=== PATIENT | female | born 1935 | race African-American/Black ===

== ENCOUNTER 2017-04-28 15:46 | Inpatient (IN) | payer OTHER ==
[2017-04-28] MEDS ORDERED: morphine CARPU-JECT 2 MG/1 ML DISP.SYRIN IVPUSH ONE (16:04)
--- NOTE | 2017-04-28 16:48 | PDOC ---
History of Present Illness - General Chief Complaint: Injury Stated Complaint: FALL Time Seen by Provider: 04/28/17 15:55 History Source: Patient - History of Present Illness Initial Comments: 04/28/17 18:32 82F with pmh of anemia, HTN, DM2 uncompliant on meds([facility]), major depression schizophrenia, sent from long-term for AMS and 2 unwitnessed falls on walker and general lethargy for the past 2 days. Left leg seemed shorter than the right to EMS. Patient is unable to communicate. 04/28/17 18:47 04/28/17 18:52 04/28/17 19:42 Past History - Past Medical History Allergies/Adverse Reactions: Allergies Allergy/AdvReac Type Severity Reaction Status Date / Time No Known Allergies Allergy Verified 05/02/14 22:50 Home Medications: Ambulatory Orders Acetaminophen [Acetaminophen 8 Hour] 650 mg PO Q6H PRN 04/28/17 Ammonium Lactate Lotion [Lac-Hydrin 12% Lotion -] 1 applic TP ASDIR 04/28/17 Insulin Glargine,Hum.rec.anlog [Lantus Solostar PEN (NF)] 25 units SQ DAILY Insulin Regular [NOVOLIN R VIAL *IVPUSH / ER / ICU Only*] 0 unit SQ BID Losartan Potassium 100 mg PO DAILY 04/28/17 Olanzapine 15 mg PO DAILY 04/28/17 Ranitidine [Zantac -] 150 mg PO DAILY 04/28/17 Timolol 0.5% [Timoptic 0.5%] 1 drop OD BID 04/28/17 Anemia: Yes Cancer: Yes (colon) Dementia: Yes Diabetes: Yes HTN: Yes Hypercholesterolemia: Yes - Surgical History Cholecystectomy: Yes - Immunization History Td Vaccination: Yes Immunization Up to Date: Yes - Psycho/Social/Smoking Cessation Hx Anxiety: No Suicidal Ideation: No Smoking Status: No Smoking History: Unknown if ever smoked Years of Tobacco Use: 0 Have you smoked in the past 12 months: No Number of Cigarettes Smoked Daily: 0 Cigars Per Day: 0 Information on smoking cessation initiated: No Hx Alcohol Use: No Drug/Substance Use Hx: No Substance Use Type: None Hx Substance Use Treatment: No Review of Systems - Review of Systems Able to Perform ROS?: No (AMS) *Physical Exam - Vital Signs Last Vital Signs Temp Pulse Resp BP Pulse Ox 98.3 F 96 H 20 148/89 100 04/28/17 16:22 04/28/17 16:22 04/28/17 16:22 04/28/17 16:22 04/28/17 16:22 - Physical Exam General Appearance: Yes: Nourished, Disheveled Respiratory/Chest: positive: Lungs Clear, Normal Breath Sounds. negative: Chest Tender, Respiratory Distress Cardiovascular: positive: Regular Rhythm, Regular Rate, S1, S2 Vascular Pulses: Dorsalis-Pedis (R): 1+, Doralis-Pedis (L): 1+ Gastrointestinal/Abdominal: positive: Normal Bowel Sounds, Soft, Protuberent. negative: Tenderness Musculoskeletal: positive: Other (patient tender upon any pelvic movement) Integumentary: negative: Cyanotic, Pale, Cold, Diaphoresis Neurologic: positive: Respond to painful stimul, Confused, Disoriented. negative: Fully Oriented, Alert, Normal Mood/Affect ED Treatment Course - LABORATORY CBC & Chemistry Diagram: 04/28/17 16:02 04/28/17 16:02 - RADIOLOGY Radiology Studies Ordered: Category Date Time Status CHEST X-RAY PORTABLE* [RAD] Stat Radiology 04/28/17 16:08 Ordered Medical Decision Making - Medical Decision Making 04/28/17 18:52 82F with pmh of anemia, HTN, DM2 uncompliant on meds(fs 374), major depression schizophrenia, sent from long-term for AMS and 2 unwitnessed falls on walker. Patient is unable to communicate. tachy at 96 cxr: neg xray Left pelvis/hip/knee: negative for fractures. labs: 320 glucose, urine + for UTI. PAtient to be admitted to med/surg for UTI by dr. Cortez. 04/28/17 19:35 04/28/17 19:45
[2017-04-28] MEDS ORDERED: morphine CARPU-JECT 4 MG/1 ML DISP.SYRIN ONE (17:03)
--- NOTE | 2017-04-28 17:25 | PDOC ---
Attending Attestation - HPI HPI: The patient is an 82 yo F with a PMHx of schizophrenia, major depression, dementia, IDDM, HLD, HTN, anemia who presents s/p fall unwitnessed fall at [facility] with AMS. As per senior care records, patient has been sleeping all day and has bilateral LE edema. Patient is a poor historian secondary to clinical condition. Patient is Full Code. Allergies: NKDA - Physicial Exam PE: GENERAL: Well developed, well nourished. Awake and alert. No acute distress. HEENT: Normocephalic, atraumatic. PERRLA, EOMI. No conjunctival pallor. Sclera are non- icteric. Dry mucous membranes. Oropharynx is clear. NECK: Supple. Full ROM. No JVD. Carotid pulses 2+ and symmetric, without bruits. No thyromegaly. No lymphadenopathy. CARDIOVASCULAR: Tachycardic. Regular rhythm. Systolic murmur, rubs, or gallops. Distal pulses are 2+ and symmetric. PULMONARY: No evidence of respiratory distress. Lungs clear to auscultation bilaterally. No wheezing, rales or rhonchi. ABDOMINAL: Soft. Non-tender. Non-distended. No rebound or guarding. No organomegaly. Normoactive bowel sounds. MUSCULOSKELETAL Normal range of motion at all joints. No bony deformities or tenderness. No CVA tenderness. EXTREMITIES: No cyanosis. No clubbing. Trace pitting edema in bilateral LE. No calf tenderness. SKIN: Warm and dry. Normal capillary refill. No rashes. No jaundice. No decubitus ulcers. NEUROLOGICAL: No gross focal neurological deficits. PSYCHIATRIC: Cooperative. Good eye contact. Appropriate mood and affect. - Medical Decision Making Paged Dr. Cortez @ 19:15. Awaiting call back. Documentation prepared by Tarsha Sherman, acting as medical device sales consultant for Viviane Boogie MD/DO. <Tarsha Sherman - Last Filed: 04/28/17 19:14> - Resident Resident Name: Pranav Nuñez - HPI HPI: 04/28/17 19:54 82 yo from senior care after report of a fall -pmh diabetes,dementia,schizophrenia <Viviane Boogie - Last Filed: 04/28/17 19:55>
[2017-04-28 17:29] LABS: MCH 29.5 pg (25.7-33.7); MCHC 33.8 g/dl (32.0-36.0); MEAN CELL VOLUME 87.3 fl (80-96); MEAN PLT VOLUME 8.8 fl (7.5-11.1); PLATELET COUNT 361 K/MM3 (134-434); RDW 15.1 % (11.6-15.6); WHITE BLOOD COUNT 8.6 K/mm3 (4.0-10.0)
[2017-04-28 17:32] LABS: URINE APPEARANCE TURBID; URINE BILIRUBIN NEGATIVE (NEGATIVE); URINE BLOOD 2+ (NEGATIVE); URINE COLOR YELLOW; URINE GLUCOSE (UA) 3+ (NEGATIVE); URINE KETONE NEGATIVE (NEGATIVE); URINE NITRITE NEGATIVE (NEGATIVE); URINE UROBILINOGEN NEGATIVE mg/dL (0.2-1.0)
[2017-04-28 17:35] LABS: URINE LEUK ESTERASE 2+ (NEGATIVE); URINE PROTEIN 2+ (NEGATIVE)
[2017-04-28 17:41] LABS: URINE BACTERIA MANY /hpf (NONE SEEN); URINE HYALINE CAST 197 /lpf; URINE MUCUS MANY; URINE RBC 94 /hpf (0-3); URINE WBC 1695 /hpf (3-5); YEAST MANY
[2017-04-28 17:57] LABS: ALBUMIN 3.1 g/dl (3.4-5.0); ANION GAP 10 (8-16); BILIRUBIN,TOTAL 0.4 mg/dL (0.2-1.0); CALCIUM 9.3 mg/dL (8.5-10.1); CO2 24 mmol/L (21-32); CREATININE 2.4 mg/dL (0.55-1.02); SGOT/AST 28 U/L (15-37); SGPT/ALT 22 U/L (12-78)
[2017-04-28 18:05] LABS: ALK PHOS 135 U/L (45-117); THYROID STIMULATING HORMONE 0.83 uIU/ml (0.358-3.74)
[2017-04-28 18:08] LABS: GLUCOSE,RANDOM 320 mg/dL (74-106)
[2017-04-28 18:47] LABS: PLATELET ESTIMATE ADEQUATE (NORMAL)
[2017-04-28] MEDS ORDERED: LEVOFLOXACIN 500 MG IVPB 100 ML IVPB ONE ×2 (19:12→20:48)
--- NOTE | 2017-04-28 19:47 | PDOC ---
*Physical Exam - Vital Signs Last Vital Signs Temp Pulse Resp BP Pulse Ox 98.3 F 96 H 20 148/89 100 04/28/17 16:22 04/28/17 16:22 04/28/17 16:22 04/28/17 16:22 04/28/17 16:22 <Zeinab Hawk - Last Filed: 04/28/17 19:43> - Vital Signs Last Vital Signs Temp Pulse Resp BP Pulse Ox 98.3 F 96 H 20 148/89 100 04/28/17 16:22 04/28/17 16:22 04/28/17 16:22 04/28/17 16:22 04/28/17 16:22 <KeaganViviane Katie - Last Filed: 04/28/17 19:57> ED Treatment Course - LABORATORY CBC & Chemistry Diagram: 04/28/17 16:02 04/28/17 16:02 - ADDITIONAL ORDERS Additional order review: Laboratory Results 04/28/17 04/28/17 04/28/17 17:47 16:02 16:02 Sodium 136 Potassium 4.5 Chloride 102 Carbon Dioxide 24 Anion Gap 10 BUN 59 H D Creatinine 2.4 H D Creat Clearance w eGFR 19.23 Random Glucose 320 H* D Calcium 9.3 Total Bilirubin 0.4 AST 28 D ALT 22 D Alkaline Phosphatase 135 H Total Protein 7.0 Albumin 3.1 L TSH 0.83 Urine Color Yellow Urine Appearance Turbid Urine pH 5.0 Urine Protein 2+ H Urine Glucose (UA) 3+ H Urine Ketones Negative Urine Blood 2+ H Urine Nitrite Negative Urine Bilirubin Negative Urine Urobilinogen Negative Ur Leukocyte Esterase 2+ H Urine RBC 94 Urine WBC 1695 Urine Bacteria Many Hyaline Casts 197 Urine Mucus Many Urine Yeast Many Acetone, Qual Positive, trace 04/28/17 16:02 RBC 3.43 L MCV 87.3 MCHC 33.8 RDW 15.1 D MPV 8.8 D Neutrophils % 78.0 Lymphocytes % 11.0 D Monocytes % 9.0 Eosinophils % 1.0 - Medications Given in the ED: ED Medications Discontinued Medications Generic Name Dose Route Start Last Admin Trade Name Freq PRN Reason Stop Dose Admin Morphine Sulfate 2 mg 04/28/17 16:04 04/28/17 17:16 Morphine Injection - IVPUSH 04/28/17 16:05 2 mg ONCE ONE Administration <Zeinab Hawk - Last Filed: 04/28/17 19:43> - LABORATORY CBC & Chemistry Diagram: 04/28/17 16:02 04/28/17 16:02 - ADDITIONAL ORDERS Additional order review: Laboratory Results 04/28/17 04/28/17 04/28/17 17:47 16:02 16:02 Sodium 136 Potassium 4.5 Chloride 102 Carbon Dioxide 24 Anion Gap 10 BUN 59 H D Creatinine 2.4 H D Creat Clearance w eGFR 19.23 Random Glucose 320 H* D Calcium 9.3 Total Bilirubin 0.4 AST 28 D ALT 22 D Alkaline Phosphatase 135 H Total Protein 7.0 Albumin 3.1 L TSH 0.83 Urine Color Yellow Urine Appearance Turbid Urine pH 5.0 Urine Protein 2+ H Urine Glucose (UA) 3+ H Urine Ketones Negative Urine Blood 2+ H Urine Nitrite Negative Urine Bilirubin Negative Urine Urobilinogen Negative Ur Leukocyte Esterase 2+ H Urine RBC 94 Urine WBC 1695 Urine Bacteria Many Hyaline Casts 197 Urine Mucus Many Urine Yeast Many Acetone, Qual Positive, trace 04/28/17 16:02 RBC 3.43 L MCV 87.3 MCHC 33.8 RDW 15.1 D MPV 8.8 D Neutrophils % 78.0 Lymphocytes % 11.0 D Monocytes % 9.0 Eosinophils % 1.0 - RADIOLOGY Radiology Studies Ordered: Category Date Time Status KNEE 2 POS-LEFT [RAD] Stat Radiology 04/28/17 17:43 Completed - Medications Given in the ED: ED Medications Discontinued Medications Generic Name Dose Route Start Last Admin Trade Name Brentonq PRN Reason Stop Dose Admin Morphine Sulfate 2 mg 04/28/17 16:04 04/28/17 17:16 Morphine Injection - IVPUSH 04/28/17 16:05 2 mg ONCE ONE Administration <Viviane Boogie - Last Filed: 04/28/17 19:57> Medical Decision Making - Medical Decision Making 04/28/17 19:43 Took signout from excellent Dr. Pranav Nuñez. 82 yo female with h/o DM, HTN, anemia, schizophrenia, depression, and non-adherence to medication regimen ( refuses them at her SNF) who presented s/p unwitnessed falls x2 at her care facility, [facility] as well. Pt herself is non-communicative here in the ED. Possibly shortened and rotated lower extremity prompted LE/pelvis x-rays which were negative. Head CT without acute changes. Dr. Cortez graciously admits to Med/Surg. <Zeinab Hawk - Last Filed: 04/28/17 19:43> *DC/Admit/Observation/Transfer <Zeinab Hawk - Last Filed: 04/28/17 19:43> - Discharge Dispostion Admit: Yes <Viviane Boogie - Last Filed: 04/28/17 19:57> Diagnosis at time of Disposition: Poorly controlled diabetes mellitus Urinary tract infection Qualifiers: Urinary tract infection type: site unspecified Hematuria presence: without hematuria Qualified Code(s): N39.0 - Urinary tract infection, site not specified Acute renal failure Qualifiers: Acute renal failure type: unspecified Qualified Code(s): N17.9 - Acute kidney failure, unspecified Dementia Qualifiers: Dementia type: unspecified type Dementia behavioral disturbance: with behavioral disturbance Qualified Code(s): F03.91 - Unspecified dementia with behavioral disturbance Schizophrenia Qualifiers: Schizophrenia type: unspecified Qualified Code(s): F20.9 - Schizophrenia, unspecified
[2017-04-28] MEDS ORDERED: INSULIN (NOVOLOG) ASPART 100 UNITS/ML 10ML VIAL SQ STA (19:52)
[2017-04-28] MEDS ORDERED: SODIUM CHLORIDE 250 ML IV STA (19:54)
[2017-04-28] MEDS ORDERED: INSULIN (NOVOLOG) ASPART 100 UNITS/ML 10ML VIAL ONE (20:50)
[2017-04-29] MEDS: INSULIN SLIDING SCALE (NOVOLOG) 1 VIAL SQ SCH ×4 (06:33→22:35)
[2017-04-29 07:34] LABS: MCH 29.9 pg (25.7-33.7); MCHC 34.3 g/dl (32.0-36.0); MEAN PLT VOLUME 8.5 fl (7.5-11.1); PLATELET COUNT 338 K/MM3 (134-434); RDW 15.1 % (11.6-15.6); WHITE BLOOD COUNT 8.3 K/mm3 (4.0-10.0)
[2017-04-29 08:16] LABS: ALBUMIN 2.8 g/dl (3.4-5.0); ANION GAP 12 (8-16); CALCIUM 9.1 mg/dL (8.5-10.1); CO2 23 mmol/L (21-32); GLUCOSE,RANDOM 186 mg/dL (74-106)
[2017-04-29 08:21] LABS: ALK PHOS 122 U/L (45-117); BILIRUBIN,TOTAL 0.5 mg/dL (0.2-1.0); CREATININE 2.1 mg/dL (0.55-1.02); SGOT/AST 26 U/L (15-37); SGPT/ALT 21 U/L (12-78); TOT PROT 6.5 g/dl (6.4-8.2)
[2017-04-29] MEDS ORDERED: ACETAMINOPHEN 650 MG PO PRN (08:34)
--- NOTE | 2017-04-29 08:43 | HP ---
Admitting History and Physical - Admission History of Present Illness: 82 yo female with h/o DM, HTN, anemia, schizophrenia, depression, and non- adherence to medication regimen (refuses them at her SNF) who presented s/p unwitnessed falls x2 at her care facility, [facility] as well. Pt herself is non- communicative here in the ED. Possibly shortened and rotated lower extremity prompted LE/pelvis x-rays which were negative. Head CT without acute changes. 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: Dementia (very slight, had preop psych consult and deemed competant.) Cardiovascular: Yes: HTN, Hyperlipdemia Pulmonary: Yes: Other (preop left effusion on cxr) Gastrointestinal: Yes: Cancer, Other (liver lesion on preop ct) Hepatobiliary: Yes: Other (liver lesion on preop ct and h.o elevated LFT 2010) Renal/: Yes: UTI (last urine cs sterile), Other (failed post op trial of void) Heme/Onc: Yes: Anemia (repleted 3 uprbc) Musculoskeletal: Yes: Osteoarthritis (on ct and shonda fusion L5S1) Endocrine: Yes: Diabetes Mellitus - Past Surgical History Past Surgical History: Yes: Cholecystectomy - Smoking History Smoking history: Unknown if ever smoked Have you smoked in the past 12 months: No Aproximately how many cigarettes per day: 0 - Alcohol/Substance Use Hx Alcohol Use: No History of Substance Use: reports: None - Social History ADL: Independent History of Recent Travel: No Home Medications - Allergies Allergies/Adverse Reactions: Allergies Allergy/AdvReac Type Severity Reaction Status Date / Time No Known Allergies Allergy Verified 05/02/14 22:50 - Home Medications Home Medications: Ambulatory Orders Acetaminophen [Acetaminophen 8 Hour] 650 mg PO Q6H PRN 04/28/17 Ammonium Lactate Lotion [Lac-Hydrin 12% Lotion -] 1 applic TP ASDIR 04/28/17 Insulin Glargine,Hum.rec.anlog [Lantus Solostar PEN (NF)] 25 units SQ DAILY Insulin Regular [NOVOLIN R VIAL *IVPUSH / ER / ICU Only*] 0 unit SQ BID Losartan Potassium 100 mg PO DAILY 04/28/17 Olanzapine 15 mg PO DAILY 04/28/17 Ranitidine [Zantac -] 150 mg PO DAILY 07/24/17 Timolol 0.5% [Timoptic 0.5%] 1 drop OD BID 04/28/17 Family Disease History - Family Disease History Family Disease History: Other: Father (longevity ) Physical Examination Vital Signs: Vital Signs Temperature 99.4 F 04/29/17 06:41 Pulse Rate 97 H 04/29/17 06:41 Respiratory Rate 18 04/29/17 06:41 Blood Pressure 109/67 04/29/17 06:41 O2 Sat by Pulse Oximetry (%) 98 04/28/17 23:05 Cardiovascular: Yes: S1, S2 Respiratory: Yes: Regular, CTA Bilaterally Gastrointestinal: Yes: Normal Bowel Sounds, Soft. No: Tenderness Edema: No Neurological: Yes: Alert, Other (uncooperative--agitation) Labs: CBC, BMP 04/29/17 05:35 04/29/17 05:35 Problem List - Problems (1) UTI (urinary tract infection) Assessment/Plan: iv abx cultures id consult Code(s): N39.0 - URINARY TRACT INFECTION, SITE NOT SPECIFIED Qualifiers: Urinary tract infection type: site unspecified Hematuria presence: without hematuria Qualified Code(s): N39.0 - Urinary tract infection, site not specified (2) Acute renal failure (ARF) Assessment/Plan: ivf monitor Code(s): N17.9 - ACUTE KIDNEY FAILURE, UNSPECIFIED Qualifiers: Acute renal failure type: unspecified Qualified Code(s): N17.9 - Acute kidney failure, unspecified (3) Dementia Code(s): F03.90 - UNSPECIFIED DEMENTIA WITHOUT BEHAVIORAL DISTURBANCE Qualifiers: Dementia type: unspecified type Dementia behavioral disturbance: with behavioral disturbance Qualified Code(s): F03.91 - Unspecified dementia with behavioral disturbance; F10.97 - Alcohol use, unspecified with alcohol- induced persisting dementia (4) Poorly controlled diabetes mellitus Assessment/Plan: insulin bgm endo Code(s): E11.65 - TYPE 2 DIABETES MELLITUS WITH HYPERGLYCEMIA (5) Schizophrenia Assessment/Plan: zyprexa psych Code(s): F20.9 - SCHIZOPHRENIA, UNSPECIFIED Qualifiers: Schizophrenia type: unspecified Qualified Code(s): F20.9 - Schizophrenia, unspecified
[2017-04-29] MEDS ORDERED: PATIENT'S OWN MEDICATION (NON-FORMULARY) (Insulin Glargine,Hum.Rec.Anlog 25 UNITS) SQ SCH (10:00)
[2017-04-29] MEDS ORDERED: PATIENT'S OWN MEDICATION (NON-FORMULARY) (Olanzapine [Olanzapine] 15 MG) PO SCH (10:00)
--- NOTE | 2017-04-29 10:23 | CONSULT ---
Admitting History and Physical - Primary Care Physician PCP: Lorraine Cortez - Admission History of Present Illness: HPI: Per EMR: "The patient is an 82 yo F with a PMHx of schizophrenia, major depression, dementia, IDDM, HLD, HTN, anemia who presents s/p fall unwitnessed fall at the [facility] with AMS. As per snf records, patient has been sleeping all day and has bilateral LE edema. Patient is a poor historian secondary to clinical condition. 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: Dementia (very slight, had preop psych consult and deemed competant.) Cardiovascular: Yes: HTN, Hyperlipdemia Pulmonary: Yes: Other (preop left effusion on cxr) Gastrointestinal: Yes: Cancer, Other (liver lesion on preop ct) Hepatobiliary: Yes: Other (liver lesion on preop ct and h.o elevated LFT 2010) Renal/: Yes: UTI (last urine cs sterile), Other (failed post op trial of void) Heme/Onc: Yes: Anemia (repleted 3 uprbc) Musculoskeletal: Yes: Osteoarthritis (on ct and shonda fusion L5S1) Endocrine: Yes: Diabetes Mellitus - Past Surgical History Past Surgical History: Yes: Cholecystectomy - Smoking History Smoking history: Unknown if ever smoked Have you smoked in the past 12 months: No Aproximately how many cigarettes per day: 0 - Alcohol/Substance Use Hx Alcohol Use: No History of Substance Use: reports: None - Social History ADL: Independent History of Recent Travel: No History - Admission Reason For Visit: FALL - Diagnostics X-ray: Report Reviewed - General Mental Status: Awake and Alert, Flat Affect Attention: Distractible Head/Neck Control: Good - Hearing Hearing: Functional Speech Evaluation - Communication Primary Language: GRENADIAN Communication: Yes: Simple Responses (Mostly "I dont know', "Tiffany","Leave me alone" but no other verbal responses to questions. Impaired speech iniyiation. Screams at times with frustration. Y/N headshake mostly. Impaired orientation, insight.) - Speech Production Intelligibility: Yes: WNL (Speech precise) - Speech Characteristics Voice Loudness: Normal Voice Pitch: Yes: Normal Voice Phonatory-based Quality: Yes: Normal Speech Clarity: < 100% Nasal Resonance: Normal Articulation: Yes: Precise - Language/Auditory Comprehension Follows: Yes: 1 Stage Simple Commands Observation: Able to respond to yes/no queries: Yes (seems fairly accurate), Comprehends Conversational Speech: Yes (simple), Benefits from Slow Speech: Yes , Benefits from Repetiton: Yes - Swallow Evaluation/Bedside Assessment Current Nutritional Intake: Regular, Thin Liquids Oral Secretions: Yes: WFL Dentition: Yes: Missing Teeth Facial Symmetry at Rest: Symmetrical Facial Symmetry on Retraction: Symmetrical Facial Movement: Controlled Jaw Position: Open at Rest Lingual Movement: Symmetric Lingual Speed of Movement: Normal Velopharyngeal Movement: Normal Laryngeal Movement: Able to Palpate Rate of Intake: Impulsive (self feeding impulsive, loads mouth. Improved clearance with cues to swallow first,before taking more.) Labial Seal: WFL Chewing: Impaired (fairly good. Missing dentition. Impulsive) Oral Prep Time: Increased A-P Transit: WFL Pocketing: Present Bilaterally Timing of Swallow: Delayed Coughing/Throat Clear: No Change in Voice: No Recommendations - Speech Evaluation, Impression/Plan Impression: Impaired speech initiation with limited verbalizations.Y/N headshake. No dysarthria.self feeding impulsive, loads mouth. Improved clearance with cues to swallow first,before taking more.No overt signs of aspiration on thin liquid. - Dysphagia Impressions/Plan Dysphagia Impressions: Mild Impairment *Silent aspiration: cannot be R/O at bedside Dysphagia Treatment Plan: Small Bites, Chin Tuck/Down, Clear Pocket Food, Safe Rate, 1/2 tsp. at a time, Elevate HOB during feed, Other (supervision with meals to reduce impulsive intake which can lead to choking event.) - Recommendations Diet Consistency: Dysphagia Whole (soft, easy to chew.) Medication Administration: Whole with water Liquids: Thin Liquids
--- NOTE | 2017-04-29 10:37 | PN ---
Progress Note (short form) - Note Progress Note: ID Consult dictated UTI/ Possible sepsis secondary to UTI Toxic-metabolic encephalopathy Uncontrolled diabetes mellitus Azotemia Pending sepsis work up, empiric ceftriaxone
[2017-04-29] MEDS: RANITIDINE HCL 150 MG TABLET (FP) PO SCH (10:45)
[2017-04-29] MEDS: LOSARTAN POTASSIUM 50 MG TABLET (FP) PO SCH (10:45)
[2017-04-29] MEDS: cefTRIAXone 1 GM/50 ML BAG (PRE-DOCKED) IVPB SCH (10:46)
[2017-04-29] MEDS: AMMONIUM LACTATE 12% LOTION 225 GM BOTTLE TP SCH (10:52)
[2017-04-29] MEDS: INSULIN DETEMIR 100 UNITS/ML MDV SQ SCH ×2 (10:52→17:13)
[2017-04-29] MEDS: TIMOLOL 0.5% OPHTHALMIC SOL 5 ML BOTTLE OD SCH ×2 (10:53→22:34)
[2017-04-29] MEDS: ACETAMINOPHEN 325 MG TABLET (FP) PO PRN (11:59)
--- NOTE | 2017-04-29 12:25 | EKG ---
Test Reason : Blood Pressure : / mmHG Vent. Rate : 089 BPM Atrial Rate : 089 BPM P-R Int : 198 ms QRS Dur : 092 ms QT Int : 364 ms P-R-T Axes : 043 003 010 degrees QTc Int : 442 ms SINUS RHYTHM, IACD MODERATE VOLTAGE CRITERIA FOR LVH, MAY BE NORMAL VARIANT PEAKED T WAVES IN THE RIGHT PRECORDIAL LEADS WHEN COMPARED WITH ECG OF 28-APR-2017 16:40, NO SIGNIFICANT CHANGE WAS FOUND Confirmed by SHANTELL IZAGUIRRE MD ([id number]) on 04/29/2017 12:25:33 PM Referred By: BOB ACEVEDO Confirmed By:SHANTELL IZAGUIRRE MD
[2017-04-29] MEDS: oxyCODONE HCL 5 MG TABLET PO PRN (13:30)
[2017-04-29] MEDS: POTASSIUM CHLORIDE 10 MEQ in SODIUM CHLORIDE 0.45% 1,000 ML IVPB SCH ×2 (13:48→22:34)
--- NOTE | 2017-04-29 15:34 | CONS ---
DATE OF CONSULTATION: HISTORY: The patient is an 82-year-old female who was evaluated for urinary tract infection/sepsis. The patient is unable to give a reliable history. She is a retirement resident. She was admitted to the hospital on April 28, 2017 after altered mental status and falls. She had apparently had increasing lethargy for the past 2 days and has had 2 falls at the retirement. She was evaluated in the emergency room where she was noted to be hyperglycemic. In addition, urinalysis showed many white cells. She was empirically treated with ceftriaxone. X-rays of the right hip were negative for acute fracture. She is awake. She is confused. She offers no focal complaint. No reports of high-grade fever, shaking chills, labored breathing, cough, sputum production, vomiting, diarrhea, or infected decubitus ulcers. PAST MEDICAL HISTORY: Positive for hypertension, diabetes, chronic anemia, schizophrenia, depression. ALLERGIES: No known allergies. MEDICATIONS: Lantus, losartan, Zantac. PAST SURGICAL HISTORY: Status post right hemicolectomy for colon cancer. SOCIAL HISTORY: care home resident. Suffers from dementia. Dependent in activities of daily living. No active tobacco or alcohol use. SYSTEMS REVIEW: Neurologic: As per HPI. Cardiac: Negative chest pain or palpitations. Respiratory: Negative cough or sputum production. Gastrointestinal: Negative vomiting or diarrhea. Genitourinary: As per HPI. LABORATORY DATA: White count 8.3, hematocrit 28.7, platelet count 338, BUN 57, creatinine 2.1, glucose 320. Urinalysis: 1695 white cells. Blood and urine cultures pending. Chest x-ray negative for acute infiltrate. PHYSICAL EXAMINATION: General: She is awake but confused. Vital Signs: Temperature 99.4, blood pressure 109/67, pulse 97 and regular, respirations 18 per minute. HEENT: Sclerae anicteric. Dry mucous membranes. Heart: Sounds S1, S2. A 2/6 pansystolic murmur. Lungs: Clear. Abdomen: Obese, soft, nontender. Extremities: Positive for edema. IMPRESSION: 1. Urinary tract infection/possible sepsis secondary to urinary tract infection. 2. Toxic metabolic encephalopathy. 3. Uncontrolled diabetes mellitus. 4. Azotemia. Pending sepsis workup, continue empiric coverage for urinary tract pathogens with ceftriaxone 1 g IV piggyback every 24 hours. Further recommendations pending cultures. We will follow. Thank you for the kind referral. KENDRA DURAN M.D. [id number]
--- NOTE | 2017-04-29 20:45 | EKG ---
Test Reason : Blood Pressure : / mmHG Vent. Rate : 099 BPM Atrial Rate : 099 BPM P-R Int : 182 ms QRS Dur : 074 ms QT Int : 344 ms P-R-T Axes : 000 014 -02 degrees QTc Int : 441 ms POOR DATA QUALITY, INTERPRETATION MAY BE ADVERSELY AFFECTED NORMAL SINUS RHYTHM MINIMAL VOLTAGE CRITERIA FOR LVH, MAY BE NORMAL VARIANT BORDERLINE ECG WHEN COMPARED WITH ECG OF 03-MAY-2014 01:11, NO MAJOR CHANGES SEEN REPEAT EKG IF CLINICALLY INDICATED Confirmed by SHANTELL IZAGUIRRE MD ([id number]) on 04/29/2017 8:45:00 PM Referred By: Confirmed By:SHANTELL IZAGUIRRE MD
[2017-04-29] MEDS ORDERED: PT OWN MED DRAWER 7, Y5N ONE (21:46)
[2017-04-29] MEDS ORDERED: OLANZapine 7.5 MG TABLET PO SCH (22:00)
[2017-04-29] MEDS: OLANZapine 5 MG TABLET PO SCH (22:34)
[2017-04-30] MEDS ORDERED: PT OWN MED DRAWER 7, Y5N ONE ×8 (06:38→23:00)
[2017-04-30] MEDS: INSULIN SLIDING SCALE (NOVOLOG) 1 VIAL SQ SCH ×4 (07:42→22:48)
[2017-04-30] MEDS: INSULIN DETEMIR 100 UNITS/ML MDV SQ SCH ×2 (07:42→18:05)
[2017-04-30 08:12] LABS: BASOPHIL 1.2 % (0-2.0); EOSINOPHIL 3.3 % (0-4.5); MCH 29.6 pg (25.7-33.7); MCHC 33.5 g/dl (32.0-36.0); MEAN CELL VOLUME 88.5 fl (80-96); MEAN PLT VOLUME 8.2 fl (7.5-11.1); NEUTROPHILS 59.4 % (42.8-82.8); PLATELET COUNT 340 K/MM3 (134-434); WHITE BLOOD COUNT 7.8 K/mm3 (4.0-10.0)
--- NOTE | 2017-04-30 08:26 | PN ---
Progress Note, Physician History of Present Illness: AGITATION - Current Medication List Current Medications: Active Medications Acetaminophen (Tylenol -) 650 mg PO Q6H PRN PRN Reason: FEVER OR PAIN Last Admin: 04/29/17 11:59 Dose: 650 mg Ceftriaxone Sodium (Rocephin 1gm Ivpb (Pre-Docked)) 1 gm IVPB DAILY [facility] PRN Reason: Protocol Last Admin: 04/29/17 10:46 Dose: 1 gm Potassium Chloride 10 meq/ (Sodium Chloride) 1,005 mls @ 83.75 mls/hr IVPB Q12H [facility] Last Admin: 04/29/17 22:34 Dose: 83.75 mls/hr Insulin Aspart (Novolog Vial Sliding Scale -) 1 vial SQ ACHS [facility] PRN Reason: Protocol Last Admin: 04/30/17 07:42 Dose: Not Given Insulin Detemir (Levemir Vial) 15 units SQ BIDAC [facility] Last Admin: 04/30/17 07:42 Dose: Not Given Lactic Acid (Lac-Hydrin 12) 1 applic TP ASDIR [facility] Last Admin: 04/29/17 10:52 Dose: 1 applic Losartan Potassium (Cozaar -) 100 mg PO DAILY [facility] Last Admin: 04/29/17 10:45 Dose: 100 mg Olanzapine (Zyprexa -) 15 mg PO HS [facility] Last Admin: 04/29/17 22:34 Dose: 15 mg Oxycodone HCl (Roxicodone -) 5 mg PO Q8H PRN PRN Reason: PAIN Last Admin: 04/29/17 13:30 Dose: 5 mg Ranitidine HCl (Zantac -) 150 mg PO DAILY [facility] Last Admin: 04/29/17 10:45 Dose: 150 mg Timolol Maleate (Timoptic 0.5%) 1 drop OD BID [facility] Last Admin: 04/29/17 22:34 Dose: 1 drop - Objective Vital Signs: Vital Signs Temperature 99 F 04/29/17 21:00 Pulse Rate 86 04/29/17 21:00 Respiratory Rate 18 04/29/17 21:00 Blood Pressure 119/59 04/29/17 21:00 O2 Sat by Pulse Oximetry (%) 100 04/29/17 21:00 Cardiovascular: Yes: S1, S2 Respiratory: Yes: Regular, CTA Bilaterally Gastrointestinal: Yes: Normal Bowel Sounds, Soft Edema: No Neurological: Yes: Alert, Confusion Labs: CBC, BMP 04/30/17 06:40 Problem List - Problems (1) UTI (urinary tract infection) Assessment/Plan: iv abx cultures id consult Code(s): N39.0 - URINARY TRACT INFECTION, SITE NOT SPECIFIED Qualifiers: Urinary tract infection type: site unspecified Hematuria presence: without hematuria Qualified Code(s): N39.0 - Urinary tract infection, site not specified (2) Acute renal failure (ARF) Assessment/Plan: ivf monitor Code(s): N17.9 - ACUTE KIDNEY FAILURE, UNSPECIFIED Qualifiers: Acute renal failure type: unspecified Qualified Code(s): N17.9 - Acute kidney failure, unspecified (3) Dementia Assessment/Plan: WITH AGITATION NEURO CT OF HEAD Code(s): F03.90 - UNSPECIFIED DEMENTIA WITHOUT BEHAVIORAL DISTURBANCE Qualifiers: Dementia type: unspecified type Dementia behavioral disturbance: with behavioral disturbance Qualified Code(s): F03.91 - Unspecified dementia with behavioral disturbance; F10.97 - Alcohol use, unspecified with alcohol- induced persisting dementia (4) Poorly controlled diabetes mellitus Assessment/Plan: insulin bgm endo Code(s): E11.65 - TYPE 2 DIABETES MELLITUS WITH HYPERGLYCEMIA (5) Schizophrenia Assessment/Plan: zyprexa psych Code(s): F20.9 - SCHIZOPHRENIA, UNSPECIFIED Qualifiers: Schizophrenia type: unspecified Qualified Code(s): F20.9 - Schizophrenia, unspecified
[2017-04-30 09:13] LABS: ALBUMIN 2.7 g/dl (3.4-5.0); CALCIUM 9.5 mg/dL (8.5-10.1); CO2 27 mmol/L (21-32); GLUCOSE,RANDOM 77 mg/dL (74-106)
[2017-04-30] MEDS: ACETAMINOPHEN 325 MG TABLET (FP) PO PRN (09:27)
[2017-04-30] MEDS: cefTRIAXone 1 GM/50 ML BAG (PRE-DOCKED) IVPB SCH (09:27)
[2017-04-30] MEDS: LOSARTAN POTASSIUM 50 MG TABLET (FP) PO SCH (09:27)
[2017-04-30] MEDS: RANITIDINE HCL 150 MG TABLET (FP) PO SCH (09:27)
[2017-04-30] MEDS: oxyCODONE HCL 5 MG TABLET PO PRN ×2 (09:28→22:52)
[2017-04-30] MEDS: TIMOLOL 0.5% OPHTHALMIC SOL 5 ML BOTTLE OD SCH ×2 (09:37→22:49)
[2017-04-30] MEDS: POTASSIUM CHLORIDE 10 MEQ in SODIUM CHLORIDE 0.45% 1,000 ML IVPB SCH ×3 (09:38→22:49)
[2017-04-30] MEDS: AMMONIUM LACTATE 12% LOTION 225 GM BOTTLE TP SCH (09:39)
[2017-04-30 09:47] LABS: ANION GAP 9 (8-16)
[2017-04-30 09:48] LABS: CREATININE 1.9 mg/dL (0.55-1.02)
[2017-04-30 09:49] LABS: BILIRUBIN,TOTAL 0.2 mg/dL (0.2-1.0); TOT PROT 6.3 g/dl (6.4-8.2)
[2017-04-30 09:50] LABS: ALK PHOS 121 U/L (45-117); SGOT/AST 21 U/L (15-37); SGPT/ALT 19 U/L (12-78)
--- NOTE | 2017-04-30 10:27 | PN ---
Progress Note, [employer] - Note Progress Note: Selected Entries 04/29/17 04/29/17 04/29/17 06:41 14:45 18:00 Breakfast 25% Lunch 25% Supper 50% Temperature 99.4 F 99.0 F 04/29/17 04/30/17 04/30/17 21:00 09:20 09:44 Breakfast 25% Lunch Supper Temperature 99 F 99.4 F Laboratory Tests 04/29/17 04/30/17 05:35 06:40 WBC 8.3 7.8 Pt reported to be combative, up all night. Now lethargic but briefly arousable. Speech unchanged when elicited.Reg diet ordered. Pt reported to be spitting out solids. REC: pureed diet/thin liquid/glucerna. Will reassess for dys whole again, once pt becomes more alert and cooperative.
--- NOTE | 2017-04-30 10:49 | PN ---
Progress Note, Physician History of Present Illness: Awake, confused No acute distress Resists exam. Cries out when LE manipulated Afebrile WBC WNL - Current Medication List Current Medications: Active Medications Acetaminophen (Tylenol -) 650 mg PO Q6H PRN PRN Reason: FEVER OR PAIN Last Admin: 04/30/17 09:27 Dose: 650 mg Ceftriaxone Sodium (Rocephin 1gm Ivpb (Pre-Docked)) 1 gm IVPB DAILY [facility] PRN Reason: Protocol Last Admin: 04/30/17 09:27 Dose: 1 gm Potassium Chloride 10 meq/ (Sodium Chloride) 1,005 mls @ 83.75 mls/hr IVPB Q12H [facility] Last Admin: 04/30/17 09:38 Dose: Not Given Insulin Aspart (Novolog Vial Sliding Scale -) 1 vial SQ ACHS [facility] PRN Reason: Protocol Last Admin: 04/30/17 07:42 Dose: Not Given Insulin Detemir (Levemir Vial) 15 units SQ BIDAC [facility] Last Admin: 04/30/17 07:42 Dose: Not Given Lactic Acid (Lac-Hydrin 12) 1 applic TP ASDIR [facility] Last Admin: 04/30/17 09:39 Dose: 1 applic Losartan Potassium (Cozaar -) 100 mg PO DAILY [facility] Last Admin: 04/30/17 09:27 Dose: 100 mg Olanzapine (Zyprexa -) 15 mg PO HS [facility] Last Admin: 04/29/17 22:34 Dose: 15 mg Oxycodone HCl (Roxicodone -) 5 mg PO Q8H PRN PRN Reason: PAIN Last Admin: 04/30/17 09:28 Dose: 5 mg Ranitidine HCl (Zantac -) 150 mg PO DAILY [facility] Last Admin: 04/30/17 09:27 Dose: 150 mg Timolol Maleate (Timoptic 0.5%) 1 drop OD BID [facility] Last Admin: 04/30/17 09:37 Dose: 1 drop - Objective Vital Signs: Vital Signs Temperature 99.4 F 04/30/17 09:20 Pulse Rate 85 04/30/17 09:20 Respiratory Rate 20 04/30/17 09:20 Blood Pressure 125/46 04/30/17 09:20 O2 Sat by Pulse Oximetry (%) 100 04/29/17 21:00 Constitutional: Yes: No Distress, Obese Eyes: Yes: Conjunctiva Clear Cardiovascular: Yes: Regular Rate and Rhythm, S1, S2 Respiratory: Yes: Diminished Gastrointestinal: Yes: Normal Bowel Sounds, Soft, Abdomen, Obese. No: Tenderness Edema: Yes Labs: CBC, BMP 04/30/17 06:40 04/30/17 06:40 Assessment/Plan UTI/ Sepsis secondary to UTI Toxic-metabolic encephalopathy/ OBS Azotemia- improved Diabetes mellitus Await c/s Continue ceftriaxone
--- NOTE | 2017-04-30 11:57 | PN ---
Progress Note (short form) - Note Progress Note: Pt seen and examined yesterday. I did type a consult however I don't see it saved in the computer. In summary the pt is an 82 year old female who c/o pain in the left knee, and less so in the left hip area. She has dementia, and is wheelchair dependent, not necessarily wheelchair bound. She cannot give me a history. PE Pt with dementia, not following commands. Left knee and Left hip no signs of acute trauma, no bruising Mild swelling left knee + tender to palpation over the L knee No instability L knee Decent ROM L knee and L hip, L hip seems pain free, + pain L knee with forced motion Xrays Show severe Grade IV OA of the left knee, and mild OA of the left hip, no acute pathology. Imp 82 yo F with dementia and limited ambulatory requirements, with severe Grade IV OA of the left knee, and mild OA of the Left Hip. Rec Not a surgical candidate for a TKR I rec P.T. but the pt may not participate very much. WBAT with assistance She could receive a cortisone injection into the left knee, but I don't think it will give her much relief, and she may not ambulate anyway.
--- NOTE | 2017-04-30 15:01 | CON.PSY ---
Psychiatry Consult Chief Complaint: agitation and cmbative behaviour Symptoms: reports: Memory Impairment, Inability to Control Temper - Previous Psychiatric Treatment Outpatient: None Inpatient: None - Previous Substance Abuse Treatment Outpatient: None Inpatient: None - Current Medications Current Medications: Active Medications Acetaminophen (Tylenol -) 650 mg PO Q6H PRN PRN Reason: FEVER OR PAIN Last Admin: 04/30/17 09:27 Dose: 650 mg Ceftriaxone Sodium (Rocephin 1gm Ivpb (Pre-Docked)) 1 gm IVPB DAILY [facility] PRN Reason: Protocol Last Admin: 04/30/17 09:27 Dose: 1 gm Divalproex Sodium (Depakote Sprinkle Caps -) 125 mg PO BID [facility] Potassium Chloride 10 meq/ (Sodium Chloride) 1,005 mls @ 83.75 mls/hr IVPB Q12H [facility] Last Admin: 04/30/17 09:38 Dose: Not Given Insulin Aspart (Novolog Vial Sliding Scale -) 1 vial SQ ACHS [facility] PRN Reason: Protocol Last Admin: 04/30/17 12:11 Dose: Not Given Insulin Detemir (Levemir Vial) 15 units SQ BIDAC [facility] Last Admin: 04/30/17 07:42 Dose: Not Given Lactic Acid (Lac-Hydrin 12) 1 applic TP ASDIR [facility] Last Admin: 04/30/17 09:39 Dose: 1 applic Losartan Potassium (Cozaar -) 100 mg PO DAILY [facility] Last Admin: 04/30/17 09:27 Dose: 100 mg Olanzapine (Zyprexa -) 15 mg PO HS [facility] Last Admin: 04/29/17 22:34 Dose: 15 mg Oxycodone HCl (Roxicodone -) 5 mg PO Q8H PRN PRN Reason: PAIN Last Admin: 04/30/17 09:28 Dose: 5 mg Ranitidine HCl (Zantac -) 150 mg PO DAILY [facility] Last Admin: 04/30/17 09:27 Dose: 150 mg Timolol Maleate (Timoptic 0.5%) 1 drop OD BID [facility] Last Admin: 04/30/17 09:37 Dose: 1 drop - Allergies Allergies: Allergies Allergy/AdvReac Type Severity Reaction Status Date / Time No Known Allergies Allergy Verified 05/02/14 22:50 - Current Living Status Usual Living Arrangement: Halfway - Current Mental Status Evaluation Appearance: Disheveled Attitude: Belligerent - Affect Affect: Constrictive Appropriateness: Not Appropriate - Mood Mood: Angry - Speech/Language Expressive: Delayed - Psychomotor Activity Psychomotor Activity: Agitated - Thought Process Thought Process: Circumstantial - Thought Content Hallucinations: Absent Delusions: Absent - Self Perception Self Perception: Depersonalization - Cognition Attention: Diminished Memory, Short Term: 1/3 Memory, Remote with Promptin/3 - Concentration Serial Sevens Intact: No Simple Calculations Intact: No - Abstraction Proverb Interpretation: Impaired Judgement: Moderately Impaired - Insight Insight: Impaired - Impulse Control Impulse Control: Severly Impaired - Suicidal Ideation Suicidal Ideation: No - Homicidal Ideation Homicidal Ideation: No Assessment/Plan 1) add Depakote 2125mg po BID and Ativan PRN>
--- NOTE | 2017-04-30 16:34 | CONSULT ---
Consultation: REQUESTING PROVIDER: Dr. Erazo CONSULT REQUEST: We have been asked to medically evaluate this patient for agitation. HISTORY OF PRESENT ILLNESS: 82 year old female from [place], with a past medical history of uncontrolled diabetes mellitus, hypertension, anemia, schizophrenia, depression, dementia, presented to the hospital s/p fall, upon presentation she had a blood glucose > 300. As per chart she is a poor historian and non compliant with medications. Unable to obtain history from patient due to confusion and cognitive impairment. ROS unattainable ; PHYSICAL EXAMINATION Vital Signs - 24 hr 04/29/17 04/29/17 04/30/17 18:00 21:00 09:20 Temperature 99.0 F 99 F 99.4 F Pulse Rate 85 86 85 Respiratory 18 18 20 Rate Blood Pressure 115/57 119/59 125/46 O2 Sat by Pulse 100 Oximetry (%) GENERAL: awake; oriented only to name;very confused; agitated, poor dentition LUNGS: Breath sounds equal, clear to auscultation bilaterally. No wheezes, and no crackles. No accessory muscle use. HEART: Regular rate and rhythm, normal S1 and S2 without murmur, rub or gallop. NEUROLOGICAL: patient not cooperative; agitated; aphasic . gait not observed, patient in restraints CBC, BMP 04/30/17 06:40 04/30/17 06:40 Active Medications Generic Name Dose Route Start Last Admin Trade Name Freq PRN Reason Stop Dose Admin Acetaminophen 650 mg 04/29/17 00:03 04/30/17 09:27 Tylenol - PO 650 mg Q6H PRN Administration FEVER OR PAIN Ceftriaxone Sodium 1 gm 04/29/17 10:00 04/30/17 09:27 Rocephin 1gm Ivpb (Pre-Docked) IVPB 1 gm DAILY [facility] Administration Protocol Divalproex Sodium 125 mg 04/30/17 22:00 Depakote Sprinkle Caps - PO BID [facility] Potassium Chloride 10 meq/ 1,005 mls @ 83.75 mls/hr 04/29/17 10:00 04/30/17 09: 38 Sodium Chloride IVPB Not Given Q12H [facility] Insulin Aspart 1 vial 04/29/17 07:00 04/30/17 12:11 Novolog Vial Sliding Scale - SQ Not Given ACHS [facility] Protocol Insulin Detemir 15 units 04/29/17 10:00 04/30/17 07:42 Levemir Vial SQ Not Given BIDAC [facility] Lactic Acid 1 applic 04/29/17 09:00 04/30/17 09:39 Lac-Hydrin 12 TP 1 applic ASDIR [facility] Administration Lorazepam 1 mg 04/30/17 14:57 Ativan Injection - IM Q12H PRN ANXIETY Losartan Potassium 100 mg 04/29/17 10:00 04/30/17 09:27 Cozaar - PO 100 mg DAILY [facility] Administration Olanzapine 15 mg 04/29/17 22:00 04/29/17 22:34 Zyprexa - PO 15 mg HS [facility] Administration Oxycodone HCl 5 mg 04/29/17 12:32 04/30/17 09:28 Roxicodone - PO 5 mg Q8H PRN Administration PAIN Ranitidine HCl 150 mg 04/29/17 10:00 04/30/17 09:27 Zantac - PO 150 mg DAILY [facility] Administration Timolol Maleate 1 drop 04/29/17 10:00 04/30/17 09:37 Timoptic 0.5% OD 1 drop BID [facility] Administration ASSESSMENT/PLAN: UTI/ Sepsis secondary to UTI Toxic-metabolic encephalopathy/ OBS Azotemia Diabetes mellitus Hx dementia Hx schizophrenia Impression: Confusion/agitation with multiple eitologies as listed above all contributing to certain degree. Re evaluate after resolution of UTI/azotemia, control of DM. Check B12, TSH, RPR Continue antibiotics, hydration, control of hyperglycemia. D/C hydrocodone and lorazepam Agitation should continue to improve with resolution of Toxic-metabolic factors. Try rivastigmine (Exelon) 1.5 mg PO with breakfast and dinner for 1 week then 3 mg PO BID with meals. Dispo: We will continue to follow the patient. Thank you for this consultative opportunity. Visit type - Emergency Visit Emergency Visit: No - New Patient This patient is new to me today: Yes Date on this admission: 05/01/17 - Critical Care Critical Care patient: No
[2017-04-30] MEDS ORDERED: INSULIN (NOVOLOG) ASPART 100 UNITS/ML 10ML VIAL ONE ×2 (19:44→22:36)
--- NOTE | 2017-04-30 19:59 | CONSULT ---
Consult - text type - Consultation Consultation Note: NEUROLOGY CONSULTATION is greatly appeciated: Chart reviewed, Pt. examined. Appreciate summary by Dr. Erwin, rotating through neurology. I agree with her findings. Please review her note at this time. This 82 yo RH woman with h/o HTN, DM, schizophrenia and dementia is maintained on Losartan, insulins, olanzapine (15 mg QHS) and depakote (125 mg q12). Admitted with increased confusion, agitation with hyperglycemia and UTI. Now of ceftriaxone. CT of head (reviewed): Moderately severe, diffuse atrophy, ex vacuo ventricular enlargement and scattered cortical and subcortical infarcts. ELEANOR: No bruits. No head trauma. NEURO: Awake, alert, cooperative, requesting release from wrist restraints. Confused. Ox Y, no month, no year, no president. Recall 10/08 @ 3. + Glabella, snout, grasps (symmetrical). Full mckeon and EOM's. No facial, Gag OK Intermittent tremor on Left. Min cogwheeling. Normal strength. Absent AJ's. Downgoing toes. Decreased vib in feet. IMP: Moderate, B/L cerebral dysfunction (OMS, Chronic) Mild extrapyramidal features. Agitation and increased confusion due to Toxic-metabolic encephalopathy. SUGGEST: Check B12, TSH, RPR Continue antibiotics, hydration, control of hyperglycemia. D/C hydrocodone and lorazepam Agitation should continue to improve with resolution of Toxic- metabolic factors. Try rivastigmine (Exelon) 1.5 mg PO with breakfast and dinner for 1 week then 3 mg PO BID with meals. Mobilize OOB to chair. [place] with TV/radio. Thank you very much, Per Minaya MD
[2017-04-30] MEDS: OLANZapine 5 MG TABLET PO SCH (22:49)
[2017-04-30] MEDS: DIVALPROEX SODIUM 125 MG SPRINKLE CAPS (FP) PO SCH (22:49)
--- NOTE | 2017-05-01 00:55 | CONSULT ---
Consult Consult Specialty:: endocrine Referred by:: dr.annabi rolon Reason for Consultation:: diabetes mellitus - History of Present Illness Chief Complaint: weak lethargic History of Present Illness: 82 yo female with h/o DM, HTN, anemia, schizophrenia, depression, and non- adherence to medication regimen (refuses them at her SNF) who presented s/p unwitnessed falls x2 at her care facility, [id number] .patient poor historian, uncooperative with questioning - Past Medical History SWAMPER: Yes: Dementia (very slight, had preop psych consult and deemed competant.) Cardio/Vascular: Yes: HTN, Hyperlipdemia Pulmonary: Yes: Other (preop left effusion on cxr) Gastrointestinal: Yes: Cancer, Other (liver lesion on preop ct) Hepatobiliary: Yes: Other (liver lesion on preop ct and h.o elevated LFT 2010) Renal/: Yes: UTI (last urine cs sterile), Other (failed post op trial of void) Musculoskeletal: Yes: Osteoarthritis (on ct and shonda fusion L5S1) Endocrine: Yes: Diabetes Mellitus - Past Surgical History Past Surgical History: Yes: Cholecystectomy - Alcohol/Substance Use Hx Alcohol Use: No History of Substance Use: reports: None - Smoking History Smoking history: Unknown if ever smoked Have you smoked in the past 12 months: No Aproximately how many cigarettes per day: 0 - Social History Usual Living Arrangement: Detention ADL: Independent History of Recent Travel: No Home Medications - Allergies Allergies/Adverse Reactions: Allergies Allergy/AdvReac Type Severity Reaction Status Date / Time No Known Allergies Allergy Verified 05/02/14 22:50 - Home Medications Home Medications: Ambulatory Orders Acetaminophen [Acetaminophen 8 Hour] 650 mg PO Q6H PRN 04/28/17 Ammonium Lactate Lotion [Lac-Hydrin 12% Lotion -] 1 applic TP ASDIR 04/28/17 Insulin Glargine,Hum.rec.anlog [Lantus Solostar PEN (NF)] 25 units SQ DAILY Insulin Regular [NOVOLIN R VIAL *IVPUSH / ER / ICU Only*] 0 unit SQ BID Losartan Potassium 100 mg PO DAILY 04/28/17 Olanzapine 15 mg PO DAILY 04/28/17 Ranitidine [Zantac -] 150 mg PO DAILY 04/28/17 Timolol 0.5% [Timoptic 0.5%] 1 drop OD BID 04/28/17 Family Disease History - Family Disease History Family Disease History: Other: Father (longevity ) Review of Systems Unable to obtain ROS, reason: poor historian Physical Exam Vital Signs: Vital Signs Temperature 98.7 F 04/30/17 18:38 Pulse Rate 82 04/30/17 18:38 Respiratory Rate 20 04/30/17 18:38 Blood Pressure 135/52 04/30/17 18:38 O2 Sat by Pulse Oximetry (%) 98 04/30/17 09:20 Constitutional: Yes: Anxious Eyes: Yes: EOM Intact HENT: Yes: Normocephalic Neck: Yes: Trachea Midline Cardiovascular: Yes: Regular Rate and Rhythm Respiratory: Yes: CTA Bilaterally Gastrointestinal: Yes: Normal Bowel Sounds ...Rectal Exam: Yes: Deferred Renal/: Yes: WNL Musculoskeletal: Yes: Muscle Pain, Muscle Weakness Extremities: Yes: WNL Edema: Yes Edema: LLE: Trace, RLE: Trace Neurological: Yes: Alert, Dysarthria Psychiatric: Yes: Alert Labs: CBC, BMP 04/30/17 06:40 04/30/17 06:40 Problem List - Problems (1) Poorly controlled diabetes mellitus Code(s): E11.65 - TYPE 2 DIABETES MELLITUS WITH HYPERGLYCEMIA (2) UTI (urinary tract infection) Code(s): N39.0 - URINARY TRACT INFECTION, SITE NOT SPECIFIED Qualifiers: Urinary tract infection type: site unspecified Hematuria presence: without hematuria Qualified Code(s): N39.0 - Urinary tract infection, site not specified (3) Abdominal pain Code(s): R10.9 - UNSPECIFIED ABDOMINAL PAIN (4) Psychiatric disturbance Code(s): F99 - MENTAL DISORDER, NOT OTHERWISE SPECIFIED Assessment/Plan Current Active Problems Acute renal failure (ARF) (Acute) Dementia (Acute) Poorly controlled diabetes mellitus (Acute) Schizophrenia (Acute) UTI (urinary tract infection) (Acute) diabetes mellitus uncontrolled hyperglycemia Abnormal Lab Results 04/30/17 04/30/17 06:40 06:40 RBC 3.35 L Hgb 9.9 L Hct 29.6 L Monocytes % 13.3 H Chloride 108 H BUN 48 H Creatinine 1.9 H Alkaline Phosphatase 121 H Total Protein 6.3 L Albumin 2.7 L Laboratory Results - last 24 hr 04/30/17 04/30/17 04/30/17 06:40 06:40 07:22 WBC 7.8 RBC 3.35 L Hgb 9.9 L Hct 29.6 L MCV 88.5 MCH 29.6 MCHC 33.5 RDW 15.0 Plt Count 340 MPV 8.2 Neutrophils % 59.4 D Lymphocytes % 22.8 D Monocytes % 13.3 H Eosinophils % 3.3 D Basophils % 1.2 Sodium 144 Potassium 4.5 Chloride 108 H Carbon Dioxide 27 Anion Gap 9 BUN 48 H Creatinine 1.9 H Creat Clearance w eGFR 25.18 POC Glucometer 97 Random Glucose 77 D Calcium 9.5 Total Bilirubin 0.2 D AST 21 ALT 19 Alkaline Phosphatase 121 H Total Protein 6.3 L Albumin 2.7 L 04/30/17 04/30/17 04/30/17 12:09 18:00 22:47 WBC RBC Hgb Hct MCV MCH MCHC RDW Plt Count MPV Neutrophils % Lymphocytes % Monocytes % Eosinophils % Basophils % Sodium Potassium Chloride Carbon Dioxide Anion Gap BUN Creatinine Creat Clearance w eGFR POC Glucometer 116 91 169 Random Glucose Calcium Total Bilirubin AST ALT Alkaline Phosphatase Total Protein Albumin Laboratory Tests 04/29/17 04/29/17 04/29/17 05:59 11:16 16:49 POC Glucometer 185 218 148 04/29/17 04/30/17 04/30/17 21:39 07:22 12:09 POC Glucometer 211 97 116 04/30/17 04/30/17 18:00 22:47 POC Glucometer 91 169 plan: bgm qid novolog insulin dose Current Medications Generic Name Dose Route Start Last Admin Trade Name Cinda PRN Reason Stop Dose Admin Acetaminophen 650 mg 04/29/17 00:03 04/30/17 09:27 Tylenol - PO 650 mg Q6H PRN Administration FEVER OR PAIN Ceftriaxone Sodium 1 gm 04/29/17 10:00 04/30/17 09:27 Rocephin 1gm Ivpb (Pre-Docked) IVPB 1 gm DAILY [facility] Administration Protocol Divalproex Sodium 125 mg 04/30/17 22:00 04/30/17 22:49 Depakote Sprinkle Caps - PO 125 mg BID [facility] Administration Potassium Chloride 10 meq/ 1,005 mls @ 83.75 mls/hr 04/29/17 10:00 04/30/17 22: 49 Sodium Chloride IVPB Not Given Q12H [facility] Insulin Aspart 1 vial 04/29/17 07:00 04/30/17 22:48 Novolog Vial Sliding Scale - SQ 2 units ACHS [facility] Administration Protocol Insulin Detemir 15 units 04/29/17 10:00 04/30/17 18:05 Levemir Vial SQ 15 units BIDAC [facility] Administration Lactic Acid 1 applic 04/29/17 09:00 04/30/17 09:39 Lac-Hydrin 12 TP 1 applic ASDIR [facility] Administration Lorazepam 1 mg 04/30/17 14:57 Ativan Injection - IM Q12H PRN ANXIETY Losartan Potassium 100 mg 04/29/17 10:00 04/30/17 09:27 Cozaar - PO 100 mg DAILY [facility] Administration Olanzapine 15 mg 04/29/17 22:00 04/30/17 22:49 Zyprexa - PO 15 mg HS [facility] Administration Oxycodone HCl 5 mg 04/29/17 12:32 04/30/17 22:52 Roxicodone - PO 5 mg Q8H PRN Administration PAIN Ranitidine HCl 150 mg 04/29/17 10:00 04/30/17 09:27 Zantac - PO 150 mg DAILY [facility] Administration Timolol Maleate 1 drop 04/29/17 10:00 04/30/17 22:49 Timoptic 0.5% OD 1 drop BID [facility] Administration
[2017-05-01] MEDS ORDERED: PT OWN MED DRAWER 7, Y5N ONE ×3 (06:12→21:02)
[2017-05-01] MEDS: INSULIN SLIDING SCALE (NOVOLOG) 1 VIAL SQ SCH ×4 (06:36→21:31)
[2017-05-01] MEDS: INSULIN DETEMIR 100 UNITS/ML MDV SQ SCH ×2 (06:36→17:07)
[2017-05-01] MEDS ORDERED: DEXTROSE 5%-WATER - 250 ML IVPB ONE (08:00)
--- NOTE | 2017-05-01 08:37 | PN ---
Progress Note, Physician History of Present Illness: AGITATION - Current Medication List Current Medications: Active Medications Acetaminophen (Tylenol -) 650 mg PO Q6H PRN PRN Reason: FEVER OR PAIN Last Admin: 04/30/17 09:27 Dose: 650 mg Ceftriaxone Sodium (Rocephin 1gm Ivpb (Pre-Docked)) 1 gm IVPB DAILY [facility] PRN Reason: Protocol Last Admin: 04/30/17 09:27 Dose: 1 gm Divalproex Sodium (Depakote Sprinkle Caps -) 125 mg PO BID [facility] Last Admin: 04/30/17 22:49 Dose: 125 mg Potassium Chloride 10 meq/ (Sodium Chloride) 1,005 mls @ 83.75 mls/hr IVPB Q12H [facility] Last Admin: 04/30/17 22:49 Dose: Not Given Insulin Aspart (Novolog Vial Sliding Scale -) 1 vial SQ ACHS [facility] PRN Reason: Protocol Last Admin: 05/01/17 06:36 Dose: Not Given Insulin Detemir (Levemir Vial) 15 units SQ BIDAC [facility] Last Admin: 05/01/17 06:36 Dose: Not Given Lactic Acid (Lac-Hydrin 12) 1 applic TP ASDIR [facility] Last Admin: 04/30/17 09:39 Dose: 1 applic Lorazepam (Ativan Injection -) 1 mg IM Q12H PRN PRN Reason: ANXIETY Losartan Potassium (Cozaar -) 100 mg PO DAILY [facility] Last Admin: 04/30/17 09:27 Dose: 100 mg Olanzapine (Zyprexa -) 15 mg PO HS [facility] Last Admin: 04/30/17 22:49 Dose: 15 mg Oxycodone HCl (Roxicodone -) 5 mg PO Q8H PRN PRN Reason: PAIN Last Admin: 04/30/17 22:52 Dose: 5 mg Ranitidine HCl (Zantac -) 150 mg PO DAILY [facility] Last Admin: 04/30/17 09:27 Dose: 150 mg Timolol Maleate (Timoptic 0.5%) 1 drop OD BID [facility] Last Admin: 04/30/17 22:49 Dose: 1 drop - Objective Vital Signs: Vital Signs Temperature 97.9 F 05/01/17 06:00 Pulse Rate 89 05/01/17 06:00 Respiratory Rate 20 05/01/17 06:00 Blood Pressure 146/52 05/01/17 06:00 O2 Sat by Pulse Oximetry (%) 99 04/30/17 22:00 Cardiovascular: Yes: Regular Rate and Rhythm Respiratory: Yes: Regular, CTA Bilaterally Gastrointestinal: Yes: Normal Bowel Sounds, Soft Neurological: Yes: Confusion Labs: CBC, BMP 04/30/17 06:40 04/30/17 06:40 Problem List - Problems (1) UTI (urinary tract infection) Assessment/Plan: iv abx per id cultures id consult Code(s): N39.0 - URINARY TRACT INFECTION, SITE NOT SPECIFIED Qualifiers: Urinary tract infection type: site unspecified Hematuria presence: without hematuria Qualified Code(s): N39.0 - Urinary tract infection, site not specified (2) Acute renal failure (ARF) Assessment/Plan: ivf monitor Code(s): N17.9 - ACUTE KIDNEY FAILURE, UNSPECIFIED Qualifiers: Acute renal failure type: unspecified Qualified Code(s): N17.9 - Acute kidney failure, unspecified (3) Dementia Assessment/Plan: WITH AGITATION NEURO NOTED PSYCH NOTED CT OF HEAD Code(s): F03.90 - UNSPECIFIED DEMENTIA WITHOUT BEHAVIORAL DISTURBANCE Qualifiers: Dementia type: unspecified type Dementia behavioral disturbance: with behavioral disturbance Qualified Code(s): F03.91 - Unspecified dementia with behavioral disturbance; F10.97 - Alcohol use, unspecified with alcohol- induced persisting dementia (4) Poorly controlled diabetes mellitus Assessment/Plan: insulin bgm endo Code(s): E11.65 - TYPE 2 DIABETES MELLITUS WITH HYPERGLYCEMIA (5) Schizophrenia Assessment/Plan: zyprexa psych noted Code(s): F20.9 - SCHIZOPHRENIA, UNSPECIFIED Qualifiers: Schizophrenia type: unspecified Qualified Code(s): F20.9 - Schizophrenia, unspecified
[2017-05-01] MEDS: TIMOLOL 0.5% OPHTHALMIC SOL 5 ML BOTTLE OD SCH ×2 (09:29→21:32)
[2017-05-01] MEDS: DIVALPROEX SODIUM 125 MG SPRINKLE CAPS (FP) PO SCH ×2 (09:29→22:07)
[2017-05-01] MEDS: RANITIDINE HCL 150 MG TABLET (FP) PO SCH (09:29)
[2017-05-01] MEDS: LOSARTAN POTASSIUM 50 MG TABLET (FP) PO SCH (09:29)
[2017-05-01] MEDS: cefTRIAXone 1 GM/50 ML BAG (PRE-DOCKED) IVPB SCH (09:29)
[2017-05-01] MEDS: POTASSIUM CHLORIDE 10 MEQ in SODIUM CHLORIDE 0.45% 1,000 ML IVPB SCH ×2 (09:29→21:10)
[2017-05-01] MEDS: AMMONIUM LACTATE 12% LOTION 225 GM BOTTLE TP SCH (09:30)
--- NOTE | 2017-05-01 10:01 | PN ---
Progress Note (short form) - Note Progress Note: Pt seen, no c/o pain, appears comfortable, not answering questions. No orthopedic recommendations except P.T. if tolerated
--- NOTE | 2017-05-01 10:43 | PN ---
Progress Note, Physician History of Present Illness: Confused Cries out and resists exam Afebrile WBN WNL BC (-) Urine c/s YLO - Current Medication List Current Medications: Active Medications Acetaminophen (Tylenol -) 650 mg PO Q6H PRN PRN Reason: FEVER OR PAIN Last Admin: 04/30/17 09:27 Dose: 650 mg Ceftriaxone Sodium (Rocephin 1gm Ivpb (Pre-Docked)) 1 gm IVPB DAILY [facility] PRN Reason: Protocol Last Admin: 05/01/17 09:29 Dose: 1 gm Divalproex Sodium (Depakote Sprinkle Caps -) 125 mg PO BID REPLACED BY [facility] Last Admin: 05/01/17 09:29 Dose: 125 mg Potassium Chloride 10 meq/ (Sodium Chloride) 1,005 mls @ 83.75 mls/hr IVPB Q12H REPLACED BY [facility] Last Admin: 05/01/17 09:29 Dose: 83.75 mls/hr Insulin Aspart (Novolog Vial Sliding Scale -) 1 vial SQ ACHS [facility]PLAC[facility] BY [facility] PRN Reason: Protocol Last Admin: 05/01/17 06:36 Dose: Not Given Insulin Detemir (Levemir Vial) 15 units SQ BIDAC REPLACED BY [facility] Last Admin: 05/01/17 06:36 Dose: Not Given Lactic Acid (Lac-Hydrin 12) 1 applic TP ASDIR REPLACED BY [facility] Last Admin: 05/01/17 09:30 Dose: 1 applic Lorazepam (Ativan Injection -) 1 mg IM Q12H PRN PRN Reason: ANXIETY Losartan Potassium (Cozaar -) 100 mg PO DAILY REPLACED BY [facility] Last Admin: 05/01/17 09:29 Dose: 100 mg Olanzapine (Zyprexa -) 15 mg PO HS REPLACED BY [facility] Last Admin: 04/30/17 22:49 Dose: 15 mg Oxycodone HCl (Roxicodone -) 5 mg PO Q8H PRN PRN Reason: PAIN Last Admin: 04/30/17 22:52 Dose: 5 mg Ranitidine HCl (Zantac -) 150 mg PO DAILY REPLACED BY [facility] Last Admin: 05/01/17 09:29 Dose: 150 mg Timolol Maleate (Timoptic 0.5%) 1 drop OD BID REPLACED BY [facility] Last Admin: 05/01/17 09:29 Dose: 1 drop - Objective Vital Signs: Vital Signs Temperature 97.9 F 05/01/17 06:00 Pulse Rate 89 05/01/17 06:00 Respiratory Rate 20 05/01/17 06:00 Blood Pressure 146/52 05/01/17 06:00 O2 Sat by Pulse Oximetry (%) 99 04/30/17 22:00 Constitutional: Yes: No Distress, Obese Cardiovascular: Yes: Regular Rate and Rhythm, S1, S2 Respiratory: Yes: CTA Bilaterally Gastrointestinal: Yes: Normal Bowel Sounds, Soft. No: Tenderness Edema: Yes Labs: CBC, BMP 04/30/17 06:40 04/30/17 06:40 Assessment/Plan UTI/ Sepsis secondary to UTI Toxic-metabolic encephalopathy/ OBS Azotemia- improved Diabetes mellitus Yeast in urine c/s = contaminant Substitute po ceftin 250mg bid x 3d
--- NOTE | 2017-05-01 11:57 | PN ---
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 Suggest downgrading diet to puree and thin liquid/ glucerna for now.
[2017-05-01] MEDS ORDERED: INSULIN (NOVOLOG) ASPART 100 UNITS/ML 10ML VIAL ONE (16:53)
[2017-05-01] MEDS: oxyCODONE HCL 5 MG TABLET PO PRN (21:07)
[2017-05-01] MEDS: OLANZapine 5 MG TABLET PO SCH (21:07)
[2017-05-01] MEDS: CEFUROXIME AXETIL 250 MG TABLET PO SCH (21:07)
[2017-05-01] MEDS: ACETAMINOPHEN 325 MG TABLET (FP) PO PRN (21:08)
[2017-05-02] MEDS: INSULIN DETEMIR 100 UNITS/ML MDV SQ SCH (06:57)
[2017-05-02] MEDS: INSULIN SLIDING SCALE (NOVOLOG) 1 VIAL SQ SCH (06:57)
[2017-05-02] MEDS ORDERED: INSULIN (NOVOLOG) ASPART 100 UNITS/ML 10ML VIAL ONE (06:59)
[2017-05-02] MEDS ORDERED: INSULIN DETEMIR 100 UNITS/ML MDV SQ ONE (07:00)
[2017-05-02 07:06] LABS: BASOPHIL 1.2 % (0-2.0); EOSINOPHIL 2.2 % (0-4.5); MCH 29.2 pg (25.7-33.7); MCHC 33.1 g/dl (32.0-36.0); MEAN CELL VOLUME 88.3 fl (80-96); MEAN PLT VOLUME 7.6 fl (7.5-11.1); NEUTROPHILS 70.8 % (42.8-82.8); PLATELET COUNT 317 K/MM3 (134-434); RDW 14.9 % (11.6-15.6); WHITE BLOOD COUNT 7.6 K/mm3 (4.0-10.0)
[2017-05-02 08:10] LABS: ALBUMIN 2.6 g/dl (3.4-5.0); ANION GAP 9 (8-16); BILIRUBIN,TOTAL 0.3 mg/dL (0.2-1.0); CALCIUM 8.5 mg/dL (8.5-10.1); CO2 26 mmol/L (21-32); CREATININE 1.4 mg/dL (0.55-1.02); GLUCOSE,RANDOM 234 mg/dL (74-106); SGOT/AST 23 U/L (15-37); SGPT/ALT 18 U/L (12-78)
[2017-05-02 08:11] LABS: ALK PHOS 126 U/L (45-117); TOT PROT 6.2 g/dl (6.4-8.2)
--- NOTE | 2017-05-02 08:27 | DS ---
Physical Examination Vital Signs: Vital Signs Temperature 97.4 F L 05/02/17 07:02 Pulse Rate 101 H 05/02/17 07:02 Respiratory Rate 20 05/02/17 07:02 Blood Pressure 148/64 05/02/17 07:02 O2 Sat by Pulse Oximetry (%) 99 05/01/17 21:36 Labs: CBC, BMP 05/02/17 06:00 Discharge Summary Reason For Visit: FALL Current Active Problems Acute renal failure (ARF) (Acute) Dementia (Acute) Poorly controlled diabetes mellitus (Acute) Schizophrenia (Acute) UTI (urinary tract infection) (Acute) Condition: Improved - Instructions Disposition: HOME - Home Medications Comprehensive Discharge Medication List: Ambulatory Orders Acetaminophen [Acetaminophen 8 Hour] 650 mg PO Q6H PRN 04/28/17 Ammonium Lactate Lotion [Lac-Hydrin 12] 1 applic TP ASDIR 04/28/17 Insulin Glargine,Hum.rec.anlog [Lantus Solostar PEN -] 25 units SQ DAILY Insulin Regular [Novolin R Vial -] 0 unit SQ BID 04/28/17 Losartan Potassium 100 mg PO DAILY 04/28/17 Olanzapine 15 mg PO DAILY 04/28/17 Ranitidine [Zantac -] 150 mg PO DAILY 04/28/17 Timolol 0.5% [Timoptic 0.5%] 1 drop OD BID 04/28/17 Acetaminophen [Tylenol .Regular Strength -] 650 mg PO Q6H PRN #0 tablet Cefuroxime Axetil [Ceftin -] 250 mg PO BID tablet 05/02/17 Divalproex Sprinkle [Depakote Sprinkle -] 125 mg PO BID cap.sprink 05/02/17 Insulin Sliding Scale [Novolog Vial Sliding Scale -] 1 vial SQ ACHS units 05/02
[2017-05-02] MEDS ORDERED: PT OWN MED DRAWER 7, Y5N ONE (09:00)
[2017-05-02] MEDS: DIVALPROEX SODIUM 125 MG SPRINKLE CAPS (FP) PO SCH (09:09)
[2017-05-02] MEDS: LOSARTAN POTASSIUM 50 MG TABLET (FP) PO SCH (09:10)
[2017-05-02] MEDS: RANITIDINE HCL 150 MG TABLET (FP) PO SCH (09:10)
[2017-05-02] MEDS: CEFUROXIME AXETIL 250 MG TABLET PO SCH (09:10)
[2017-05-02] MEDS: AMMONIUM LACTATE 12% LOTION 225 GM BOTTLE TP SCH (09:10)
[2017-05-02] MEDS: POTASSIUM CHLORIDE 10 MEQ in SODIUM CHLORIDE 0.45% 1,000 ML IVPB SCH (09:10)
[2017-05-02] MEDS: TIMOLOL 0.5% OPHTHALMIC SOL 5 ML BOTTLE OD SCH (09:10)
[2017-05-02 10:53] VITALS: BP 144/78; PULSE 98; TEMP 97.8
== END 2017-05-02 11:31 | DRG 682 ==
LOC: JER 15:46 → JERBED 20:16 → J4S 23:26
PROVIDERS: ADMIT Family Medicine; ATTEND Family Medicine
DX: N17.9 Acute kidney failure, unspecified (principal); G92 Toxic encephalopathy; N39.0 Urinary tract infection, site not specified; F03.90 Unspecified dementia, unspecified severity, without behavioral disturbance, psychotic disturbance, mood disturbance, and anxiety; F09 Unspecified mental disorder due to known physiological condition; E11.65 Type 2 diabetes mellitus with hyperglycemia; F20.9 Schizophrenia, unspecified; I10 Essential (primary) hypertension
CPT/HCPCS: 36415; 70450-TC; 71010-TC; 73523-TC; 73560-TC-LT; 80053; 81003; 81015; 82009; 83036; 84443; 85025; 85027; 87040; 87077; 87086; 93005; 93010; 93970-TC; 97161-GP; 99285-25

== ENCOUNTER 2017-05-23 02:26 | Inpatient (IN) | payer OTHER ==
[2017-05-23 03:25] LABS: WHITE BLOOD COUNT 7.4 K/mm3 (4.0-10.0)
[2017-05-23 03:28] LABS: MCH 29.2 pg (25.7-33.7); MCHC 32.9 g/dl (32.0-36.0); MEAN CELL VOLUME 88.7 fl (80-96); PLATELET COUNT 351 K/MM3 (134-434); RDW 16.1 % (11.6-15.6)
[2017-05-23 03:51] LABS: ANION GAP 9 (8-16); BILIRUBIN,TOTAL 0.3 mg/dL (0.2-1.0); CALCIUM 8.6 mg/dL (8.5-10.1); CO2 28 mmol/L (21-32); CREATININE 1.8 mg/dL (0.55-1.02); GLUCOSE,RANDOM 245 mg/dL (74-106); SGOT/AST 17 U/L (15-37); SGPT/ALT 16 U/L (12-78)
[2017-05-23 03:54] LABS: ALK PHOS 116 U/L (45-117); CPK 65 IU/L (26-192); TROPONIN I 0.29 ng/ml (0.00-0.05)
--- NOTE | 2017-05-23 04:41 | PDOC ---
Attending Attestation - Resident Resident Name: Eusebio Babcock - ED Attending Attestation I have performed the following: I have examined & evaluated the patient, The case was reviewed & discussed with the resident, I agree w/resident's findings & plan, Exceptions are as noted - HPI HPI: 05/26/17 19:49 Pt s/p fall from the NH. unknown LOC - Physicial Exam PE: 05/26/17 19:48 Physical Exam General Appearance: Yes: Appropriately Dressed. No: Apparent Distress, Intoxicated HEENT: positive: EOMI, JM, +hematoma to left frontal region. Normal Voice, TMs Normal, Pharynx Normal. negative: Pale Conjunctivae, Photophobia, Scleral Icterus (R), Scleral Icterus (L) Neck: positive: Trachea midline, Normal Thyroid, Supple. negative: Tender, Rigid, Carotid bruit, Stridor, Lymphadenopathy (R), Lymphadenopathy (L), Thyromegaly Respiratory/Chest: positive: Lungs Clear, Normal Breath Sounds. negative: Chest Tender, Respiratory Distress, Accessory Muscle Use, Labored Respiration, RES, Crackles, Rales, Rhonchi, Stridor, Wheezing, Dullness Cardiovascular: positive: Regular Rhythm, Regular Rate, S1, S2. negative: Edema , JVD, Murmur, Bradycardia, Tachycardia Vascular Pulses: Dorsalis-Pedis (R): 2+, Doralis-Pedis (L): 2+ Gastrointestinal/Abdominal: positive: Normal Bowel Sounds, Flat, Soft. negative : Tender, Organomegaly, Pulsatile Mass, Increased Bowel Sounds, Decreased BS, Distended, Guarding, Rebound, Hernia, Hepatomegaly, Spleenomegaly Lymphatic: negative: Adenopathy, Tenderness Musculoskeletal: positive: Normal Inspection. negative: CVA Tenderness, Decreased Range of Motion Extremity: positive: Normal Capillary Refill, Normal Inspection, Normal Range of Motion, Pelvis Stable. negative: Tender, Pedal Edema, Swelling, Erythema Integumentary: positive: Normal Color, Dry, Warm. negative: Cyanotic, Erythema , Jaundice, Rash Neurologic: positive: specification manager II-XII NML intact, Fully Oriented, Alert, Normal Mood/ Affect, Motor Strength 5/5. negative: EOM Palsy, Facial Droop, Sensory Deficit - Medical Decision Making 05/26/17 19:50 Pt admitted for elevated troponin. Pt denied any chest pain at the time.
--- NOTE | 2017-05-23 04:43 | PDOC ---
History of Present Illness - General Chief Complaint: Injury Stated Complaint: FALL Time Seen by Provider: 05/23/17 02:43 History Source: Patient, EMS Exam Limitations: Dementia - History of Present Illness Initial Comments: 05/23/17 04:38 The patient is an 82F with a hx of HTN, anemia, depression who presents to the ED from her alf via EMS. History could not be provided by the patient. EMS states that the patient had an unwitnessed fall on the floor and found approximately at 1:30am. Her vitals on their arrival were 149/50, P80, R18 with a L hematoma over her L eye. All: none Past History - Past Medical History Allergies/Adverse Reactions: Allergies Allergy/AdvReac Type Severity Reaction Status Date / Time No Known Allergies Allergy Verified 05/23/17 03:28 Home Medications: Ambulatory Orders Acetaminophen [Acetaminophen 8 Hour] 650 mg PO Q6H PRN 04/28/17 Ammonium Lactate Lotion [Lac-Hydrin 12] 1 applic TP ASDIR 04/28/17 Insulin Glargine,Hum.rec.anlog [Lantus Solostar PEN -] 25 units SQ DAILY Losartan Potassium 100 mg PO DAILY 04/28/17 Olanzapine 15 mg PO DAILY 04/28/17 Ranitidine [Zantac -] 150 mg PO DAILY 04/28/17 Timolol 0.5% [Timoptic 0.5%] 1 drop OD BID 04/28/17 Divalproex Sprinkle [Depakote Sprinkle -] 125 mg PO BID cap.sprink 05/02/17 Insulin Sliding Scale [Novolog Vial Sliding Scale -] 1 vial SQ ACHS units 05/02 Apixaban [Eliquis -] 5 mg PO BID 05/23/17 Divalproex Sodium [Depakote ER] 500 mg PO HS 05/23/17 Anemia: Yes Cancer: Yes (colon) DVT: Yes Dementia: Yes Diabetes: Yes HTN: Yes Hypercholesterolemia: Yes Psychiatric Problems: Yes (major depression, bipolar) - Surgical History Cholecystectomy: Yes - Immunization History Td Vaccination: Yes Immunization Up to Date: Yes - Psycho/Social/Smoking Cessation Hx Anxiety: No Suicidal Ideation: No Smoking Status: No Smoking History: Unknown if ever smoked Years of Tobacco Use: 0 Have you smoked in the past 12 months: No Number of Cigarettes Smoked Daily: 0 Cigars Per Day: 0 Information on smoking cessation initiated: No Hx Alcohol Use: No Drug/Substance Use Hx: No Substance Use Type: None Hx Substance Use Treatment: No Review of Systems - Review of Systems Able to Perform ROS?: No *Physical Exam - Vital Signs Last Vital Signs Temp Pulse Resp BP Pulse Ox 97.9 F 81 18 129/99 100 05/23/17 03:05 05/23/17 03:05 05/23/17 03:05 05/23/17 03:05 05/23/17 03:05 - Physical Exam General Appearance: Yes: Nourished, Appropriately Dressed HEENT: positive: Normal Voice, Hearing Grossly Normal Respiratory/Chest: positive: Lungs Clear, Normal Breath Sounds. negative: Chest Tender, Respiratory Distress, Accessory Muscle Use Cardiovascular: positive: Regular Rhythm, Regular Rate, S1, S2, Systolic Murmur Gastrointestinal/Abdominal: positive: Flat, Soft. negative: Tender, Protuberent , Distended, Guarding, Rebound, Tenderness Musculoskeletal: negative: CVA Tenderness (R), CVA Tenderness (L) Integumentary: positive: Dry, Warm. negative: Cold, Clammy, Swelling ED Treatment Course - LABORATORY CBC & Chemistry Diagram: 05/23/17 03:15 05/23/17 03:15 - ADDITIONAL ORDERS Additional order review: Laboratory Results 05/23/17 03:15 Sodium 142 Potassium 4.9 Chloride 105 Carbon Dioxide 28 Anion Gap 9 BUN 30 H Creatinine 1.8 H D Creat Clearance w eGFR 26.81 Random Glucose 245 H Calcium 8.6 Total Bilirubin 0.3 AST 17 D ALT 16 Alkaline Phosphatase 116 Creatine Kinase 65 Troponin I 0.29 H Total Protein 7.0 Albumin 3.0 L 05/23/17 03:15 RBC 3.37 L MCV 88.7 MCHC 32.9 RDW 16.1 H MPV 8.0 Neutrophils % Y Lymphocytes % Y - RADIOLOGY Radiology Studies Ordered: Category Date Time Status CERVICAL SPINE CT W/O CONTR [CT] Stat CT Scan 05/23/17 03:[address] W/O CONTRAST [CT] Stat CT Scan 05/23/17 03:[address] WITHOUT CONTRAST [CT] Stat CT Scan 05/23/17 02:48 Taken CHEST X-RAY PORTABLE* [RAD] Stat Radiology 05/23/17 02:44 Ordered KNEE 3 POS-LEFT [RAD] Stat Radiology 05/23/17 02:48 Ordered Medical Decision Making - Medical Decision Making 05/23/17 04:42 The patient is an 82F with a PMH of HTN, anemia, and depression who presents to the ED via EMS after sustaining a fall. Imaging is negative for an acute process. Trop 0.29. Will discuss results with Dr. Erazo. 05/23/17 06:48 I have spoken with Dr. Erazo and he accepts admission to [facility] with consult for Dr. Bower for cardiology. Orders have been placed. *DC/Admit/Observation/Transfer Diagnosis at time of Disposition: NSTEMI (non-ST elevated myocardial infarction) - Discharge Dispostion Condition at time of disposition: Stable Admit: Yes
[2017-05-23] MEDS ORDERED: ACETAMINOPHEN 325 MG TABLET (FP) PO PRN (08:52)
[2017-05-23] MEDS ORDERED: DIVALPROEX SODIUM 125 MG SPRINKLE CAPS (FP) PO SCH (10:00)
[2017-05-23] MEDS ORDERED: APIXABAN 5 MG TABLET PO SCH (10:00)
[2017-05-23] MEDS ORDERED: ASPIRIN COATED 81 MG TABLET.EC PO SCH (10:00)
[2017-05-23 10:12] LABS: MCH 28.8 pg (25.7-33.7); MCHC 32.3 g/dl (32.0-36.0); MEAN PLT VOLUME 8.2 fl (7.5-11.1); PLATELET COUNT 371 K/MM3 (134-434)
--- NOTE | 2017-05-23 10:19 | EKG ---
Test Reason : Blood Pressure : / mmHG Vent. Rate : 086 BPM Atrial Rate : 086 BPM P-R Int : 186 ms QRS Dur : 088 ms QT Int : 380 ms P-R-T Axes : 063 007 016 degrees QTc Int : 454 ms NORMAL SINUS RHYTHM POSSIBLE LEFT ATRIAL ENLARGEMENT LEFT VENTRICULAR HYPERTROPHY ABNORMAL ECG WHEN COMPARED WITH ECG OF 29-APR-2017 11:05, NO SIGNIFICANT CHANGE WAS FOUND Confirmed by KENDRA RIOS MD ([id number]) on 05/23/2017 10:19:17 AM Referred By: Confirmed By:KENDRA RIOS MD
[2017-05-23 10:43] LABS: TROPONIN I 0.25 ng/ml (0.00-0.05)
--- NOTE | 2017-05-23 10:49 | HP ---
Admitting History and Physical - Primary Care Physician PCP: Ponce Erazo - Admission Chief Complaint: s/p fall with left eye hematoma History of Present Illness: The patient is an 82F with a hx of HTN, anemia, depression old CVA who presents to the ED from her custodial via EMS. History could not be provided by the patient. EMS states that the patient had an unwitnessed fall on the floor and found approximately at 1:30am. Her vitals on their arrival were 149/50, P80, R18 with a L hematoma over her L eye. 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: Dementia (very slight, had preop psych consult and deemed competant.) Cardiovascular: Yes: HTN, Hyperlipdemia Pulmonary: Yes: Other (preop left effusion on cxr) Gastrointestinal: Yes: Cancer, Other (liver lesion on preop ct) Hepatobiliary: Yes: Other (liver lesion on preop ct and h.o elevated LFT 2010) Renal/: Yes: UTI (last urine cs sterile), Other (failed post op trial of void) Heme/Onc: Yes: Anemia (repleted 3 uprbc) Musculoskeletal: Yes: Osteoarthritis (on ct and shonda fusion L5S1) Endocrine: Yes: Diabetes Mellitus - Past Surgical History Past Surgical History: Yes: Cholecystectomy - Smoking History Smoking history: Unknown if ever smoked Have you smoked in the past 12 months: No Aproximately how many cigarettes per day: 0 - Alcohol/Substance Use Hx Alcohol Use: No History of Substance Use: reports: None - Social History ADL: Independent History of Recent Travel: No Home Medications - Allergies Allergies/Adverse Reactions: Allergies Allergy/AdvReac Type Severity Reaction Status Date / Time No Known Allergies Allergy Verified 05/23/17 03:28 - Home Medications Home Medications: Ambulatory Orders Acetaminophen [Acetaminophen 8 Hour] 650 mg PO Q6H PRN 04/28/17 Ammonium Lactate Lotion [Lac-Hydrin 12] 1 applic TP ASDIR 04/28/17 Insulin Glargine,Hum.rec.anlog [Lantus Solostar PEN -] 25 units SQ DAILY Losartan Potassium 100 mg PO DAILY 04/28/17 Olanzapine 15 mg PO DAILY 04/28/17 Ranitidine [Zantac -] 150 mg PO DAILY 04/28/17 Timolol 0.5% [Timoptic 0.5%] 1 drop OD BID 04/28/17 Divalproex Sprinkle [Depakote Sprinkle -] 125 mg PO BID cap.sprink 05/02/17 Insulin Sliding Scale [Novolog Vial Sliding Scale -] 1 vial SQ ACHS units 05/02 Apixaban [Eliquis -] 5 mg PO BID 05/23/17 Divalproex Sodium [Depakote ER] 500 mg PO HS 05/23/17 Family Disease History - Family Disease History Family Disease History: Other: Father (longevity ) Review of Systems - Review of Systems Constitutional: reports: Other (wants to eat) Eyes: reports: Other (left eye hematoma) Physical Examination Vital Signs: Vital Signs Temperature 97.9 F 05/23/17 03:05 Pulse Rate 81 05/23/17 03:05 Respiratory Rate 18 05/23/17 03:05 Blood Pressure 129/99 05/23/17 03:05 O2 Sat by Pulse Oximetry (%) 100 05/23/17 03:05 Constitutional: Yes: Calm Eyes: Yes: Other (left eye hematoma) Cardiovascular: Yes: Regular Rate and Rhythm, Murmur, S1, S2 Respiratory: Yes: CTA Bilaterally Gastrointestinal: Yes: Normal Bowel Sounds, Soft Edema: Yes (left leg) Neurological: Yes: Alert, Oriented Labs: CBC, BMP 05/23/17 09:49 Imaging - Results Cat Scan: Report Reviewed Problem List - Problems (1) Hematoma of eye associated with non-ophthalmic procedure Assessment/Plan: monitor for change in size optho evaluation repeat venous doppler of leg to see extent of dvt hold AC for now Code(s): [id number] - Qualifiers: Laterality: left (2) NSTEMI (non-ST elevated myocardial infarction) Assessment/Plan: noted to have postive troponins trend CE EKG tele echo cardio consult on aspirin and BB given lipid profile will start statin Code(s): I21.4 - NON-ST ELEVATION (NSTEMI) MYOCARDIAL INFARCTION (3) Poorly controlled diabetes mellitus Assessment/Plan: bgm sliding scale levemir check hga1c Code(s): E11.65 - TYPE 2 DIABETES MELLITUS WITH HYPERGLYCEMIA (4) Schizophrenia Assessment/Plan: olanzpine in the morning VPA 500mg at nite Code(s): F20.9 - SCHIZOPHRENIA, UNSPECIFIED (5) DVT (deep venous thrombosis) Assessment/Plan: will repeat venous doppler of the leg to see extent of dvt to assess the need ot AC given fall history given hematoma and s/p fall will hold eliquis CT head negative for ICH Code(s): I82.409 - ACUTE EMBOLISM AND THOMBOS UNSP DEEP VN UNSP LOWER EXTREMITY Qualifiers: Laterality: left (6) Glaucoma Assessment/Plan: eye drops Code(s): H40.9 - UNSPECIFIED GLAUCOMA
[2017-05-23] MEDS: LOSARTAN POTASSIUM 50 MG TABLET (FP) PO SCH (10:55)
[2017-05-23] MEDS: ASPIRIN COATED 81 MG TABLET.EC PO SCH (10:55)
[2017-05-23] MEDS: INSULIN DETEMIR 100 UNITS/ML MDV SQ SCH (10:55)
[2017-05-23] MEDS: METOPROLOL TARTRATE 25 MG TABLET (FP) PO SCH (10:56)
[2017-05-23] MEDS: OLANZapine 5 MG TABLET PO SCH (10:56)
[2017-05-23] MEDS: RANITIDINE HCL 150 MG TABLET (FP) PO SCH (10:56)
[2017-05-23] MEDS ORDERED: INSULIN (NOVOLOG) ASPART 100 UNITS/ML 10ML VIAL SQ SCH (11:00)
[2017-05-23] MEDS ORDERED: SODIUM CHLORIDE 1,000 ML IV SCH (11:15)
[2017-05-23 11:49] LABS: URINE APPEARANCE TURBID; URINE BILIRUBIN NEGATIVE (NEGATIVE); URINE BLOOD 1+ (NEGATIVE); URINE COLOR YELLOW; URINE GLUCOSE (UA) NEGATIVE (NEGATIVE); URINE KETONE NEGATIVE (NEGATIVE); URINE NITRITE POSITIVE (NEGATIVE); URINE UROBILINOGEN NEGATIVE mg/dL (0.2-1.0)
[2017-05-23] MEDS: INSULIN SLIDING SCALE (NOVOLOG) 1 VIAL SQ SCH ×3 (12:00→21:50)
[2017-05-23 12:05] LABS: URINE LEUK ESTERASE 2+ (NEGATIVE); URINE PROTEIN 2+ (NEGATIVE)
[2017-05-23 12:08] LABS: URINE BACTERIA MANY /hpf (NONE SEEN); URINE HYALINE CAST 19 /lpf; URINE RBC 46 /hpf (0-3); URINE WBC 2268 /hpf (3-5)
[2017-05-23 13:32] LABS: BASOPHIL (MANUAL) 1 % (0-2.0); PLATELET ESTIMATE ADEQUATE
--- NOTE | 2017-05-23 15:12 | CON.CARD ---
Consult Consult Specialty:: Cardiology Referred by:: Kacey Reason for Consultation:: +troponin. aortic stenosis - History of Present Illness Chief Complaint: Fall/syncope History of Present Illness: The patient is an 82F with a hx of HTN, anemia, depression old CVA who presents to the ED from her custodial via EMS. As per the chart, patient had an unwitnessed fall in the custodial and was found on the floor. L hematoma on her left eye. Patient cannot recall event or give details in regards to event. To note, patient was being treated for LE DVT with apixaban. Patient currently with no complaints of chest pain, dyspnea, or palpitations. 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: Yes: Dementia (very slight, had preop psych consult and deemed competant.) Cardio/Vascular: Yes: HTN, Hyperlipdemia Pulmonary: Yes: Other (preop left effusion on cxr) Gastrointestinal: Yes: Cancer, Other (liver lesion on preop ct) Hepatobiliary: Yes: Other (liver lesion on preop ct and h.o elevated LFT 2010) Renal/: Yes: UTI (last urine cs sterile), Other (failed post op trial of void) Musculoskeletal: Yes: Osteoarthritis (on ct and shonda fusion L5S1) Endocrine: Yes: Diabetes Mellitus - Past Surgical History Past Surgical History: Yes: Cholecystectomy - Alcohol/Substance Use Hx Alcohol Use: No History of Substance Use: reports: None - Smoking History Smoking history: Unknown if ever smoked Have you smoked in the past 12 months: No Aproximately how many cigarettes per day: 0 - Social History Usual Living Arrangement: [facility] ADL: Independent History of Recent Travel: No Home Medications - Allergies Allergies/Adverse Reactions: Allergies Allergy/AdvReac Type Severity Reaction Status Date / Time No Known Allergies Allergy Verified 05/23/17 03:28 - Home Medications Home Medications: Ambulatory Orders Acetaminophen [Acetaminophen 8 Hour] 650 mg PO Q6H PRN 04/28/17 Ammonium Lactate Lotion [Lac-Hydrin 12] 1 applic TP ASDIR 04/28/17 Insulin Glargine,Hum.rec.anlog [Lantus Solostar PEN -] 25 units SQ DAILY Losartan Potassium 100 mg PO DAILY 04/28/17 Olanzapine 15 mg PO DAILY 04/28/17 Ranitidine [Zantac -] 150 mg PO DAILY 04/28/17 Timolol 0.5% [Timoptic 0.5%] 1 drop OD BID 04/28/17 Divalproex Sprinkle [Depakote Sprinkle -] 125 mg PO BID cap.sprink 05/02/17 Insulin Sliding Scale [Novolog Vial Sliding Scale -] 1 vial SQ ACHS units 05/02 Apixaban [Eliquis -] 5 mg PO BID 05/23/17 Divalproex Sodium [Depakote ER] 500 mg PO HS 05/23/17 Family Disease History - Family Disease History Family Disease History: Other: Father (longevity ) Vital Signs: Vital Signs Temperature 98.2 F 05/23/17 11:27 Pulse Rate 88 05/23/17 11:27 Respiratory Rate 16 05/23/17 11:27 Blood Pressure 148/72 05/23/17 11:27 O2 Sat by Pulse Oximetry (%) 98 05/23/17 11:27 Constitutional: Yes: No Distress Respiratory: Yes: CTA Bilaterally Gastrointestinal: Yes: Soft Cardiovascular: Yes: Regular Rate and Rhythm Heart Sounds: Yes: S1, S2 Murmur: Yes: Systolic Murmur (4/6 RUSB) Edema: No - Other Data Labs, Other Data: CBC, BMP 05/23/17 09:49 Troponin, BNP 05/23/17 09:49 Troponin I 0.25 H Troponin, BNP 05/23/17 09:49 Troponin I 0.25 H Imaging - Results Chest X-ray: Report Reviewed EKG: Image Reviewed Assessment/Plan The patient is an 82F with a hx of HTN, anemia, depression old CVA who presents to the ED from her custodial via EMS. As per the chart, patient had an unwitnessed fall in the custodial and was found on the floor. L hematoma on her left eye. Patient cannot recall event or give details in regards to event. To note, patient was being treated for LE DVT with apixaban. Patient currently with no complaints of chest pain, dyspnea, or palpitations. 1) +troponins -Patient found to have mild elevation in troponins of 0.29 with normal CK x2. No chest pain or dyspnea. EKG: sinus rhythm at 86bpm, nl axis, lvh, poor r wave progression, no acute st changes Troponin is a nonischemic pattern and unlikely to be due to any acute [place] May be due to HOWIE as mild bump in Cr to 1.8 Could also be related to her severe aortic stenosis. Would hydrate Aspirin/statin if no contraindication 2) Aortic stenosis Found to have severe aortic stenosis on echocardiogram with normal LVEF. SOHAN .68 with peak AV grad 64 Unclear if her fall/possible syncope was due to HOWIE/mechanical or related to her given patients current status Would monitor on tele. Avoid dehydration in patient with severe aortic stenosis BP control with losartan
[2017-05-23] MEDS: AMMONIUM LACTATE 12% LOTION 225 GM BOTTLE TP SCH (16:20)
[2017-05-23] MEDS: TIMOLOL 0.5% OPHTHALMIC SOL 5 ML BOTTLE OD SCH ×2 (16:20→22:15)
[2017-05-23 20:17] VITALS: BMI 31.8
[2017-05-23] MEDS: DIVALPROEX SODIUM 125 MG SPRINKLE CAPS (FP) PO SCH (21:50)
[2017-05-23] MEDS: ROSUVASTATIN CA 10 MG TABLET (FP) PO SCH (21:50)
[2017-05-23] MEDS ORDERED: DIVALPROEX NA *ER* EXTEND REL 500 MG TABLET.SA (FP) PO SCH (22:00)
[2017-05-24] MEDS: INSULIN DETEMIR 100 UNITS/ML MDV SQ SCH (06:44)
[2017-05-24] MEDS: INSULIN SLIDING SCALE (NOVOLOG) 1 VIAL SQ SCH ×4 (06:44→21:31)
[2017-05-24 06:47] LABS: BASOPHIL 0.4 % (0-2.0); EOSINOPHIL 3.1 % (0-4.5); MCH 29.5 pg (25.7-33.7); MCHC 33.3 g/dl (32.0-36.0); MEAN CELL VOLUME 88.7 fl (80-96); MEAN PLT VOLUME 8.1 fl (7.5-11.1); NEUTROPHILS 54.3 % (42.8-82.8); PLATELET COUNT 356 K/MM3 (134-434); RDW 15.6 % (11.6-15.6); WHITE BLOOD COUNT 5.7 K/mm3 (4.0-10.0)
[2017-05-24 07:14] LABS: ALBUMIN 2.7 g/dl (3.4-5.0); ANION GAP 8 (8-16); CALCIUM 8.8 mg/dL (8.5-10.1); CO2 30 mmol/L (21-32); GLUCOSE,RANDOM 67 mg/dL (74-106)
[2017-05-24 07:21] LABS: ALK PHOS 113 U/L (45-117); BILIRUBIN,TOTAL 0.3 mg/dL (0.2-1.0); CPK 102 IU/L (26-192); CREATININE 1.4 mg/dL (0.55-1.02); SGOT/AST 18 U/L (15-37); SGPT/ALT 14 U/L (12-78); TOT PROT 6.2 g/dl (6.4-8.2); TROPONIN I 0.38 ng/ml (0.00-0.05)
[2017-05-24] MEDS ORDERED: PT OWN MED DRAWER 7, Y5N ONE ×2 (10:30→21:05)
[2017-05-24] MEDS: METOPROLOL TARTRATE 25 MG TABLET (FP) PO SCH (10:35)
[2017-05-24] MEDS: ASPIRIN COATED 81 MG TABLET.EC PO SCH (10:35)
[2017-05-24] MEDS: LOSARTAN POTASSIUM 50 MG TABLET (FP) PO SCH (10:35)
[2017-05-24] MEDS: OLANZapine 5 MG TABLET PO SCH (10:35)
[2017-05-24] MEDS: RANITIDINE HCL 150 MG TABLET (FP) PO SCH (10:35)
[2017-05-24] MEDS: DIVALPROEX SODIUM 125 MG SPRINKLE CAPS (FP) PO SCH ×2 (10:36→21:31)
[2017-05-24] MEDS: TIMOLOL 0.5% OPHTHALMIC SOL 5 ML BOTTLE OD SCH ×2 (10:36→21:32)
[2017-05-24] MEDS: AMMONIUM LACTATE 12% LOTION 225 GM BOTTLE TP SCH (13:46)
--- NOTE | 2017-05-24 13:56 | PN ---
Progress Note, Physician Chief Complaint: Patient sitting in chair without acute distress. She is confused and agitated. Tele shows sinus rhythm with occasional mild sinus tachycardia. History of Present Illness: 82 year-old woman with a PMHx of HTN, anemia, depression, old CVA and severe aortic stenosis who was admitted 05/23/2017 an unwitnessed fall in the half-way and was found on the floor. Hematoma on her left eye was noted. Patient cannot recall event or give details in regards to event. To note, patient was being treated for LE DVT with apixaban. Mildly elevated troponin noted. Patient has no acute distress, currently with no complaints of chest pain, dyspnea, or palpitations. Echocardiogram 05/23/2017 showed moderate concentric LVH with normal wall motion and systolic function. LVEF = 70%. Severe aortic stenosis with calculated SOHAN = 0.6 cm2. Peak gradient and mean gradient were 64 and 39 mmHg, respectively. - Current Medication List Current Medications: Active Medications Acetaminophen (Tylenol -) 650 mg PO Q6H PRN PRN Reason: PAIN Aspirin (Ecotrin -) 81 mg PO DAILY [facility] Last Admin: 05/24/17 10:35 Dose: 81 mg Divalproex Sodium (Depakote Sprinkle Caps -) 125 mg PO BID [facility] Last Admin: 05/24/17 10:36 Dose: 125 mg Insulin Aspart (Novolog Vial Sliding Scale -) 1 vial SQ ACHS [facility] PRN Reason: Protocol Last Admin: 05/24/17 12:40 Dose: Not Given Insulin Detemir (Levemir Vial) 25 units SQ DAILY@0700 [facility] Last Admin: 05/24/17 06:44 Dose: 25 units Lactic Acid (Lac-Hydrin 12) 1 applic TP ASDIR [facility] Last Admin: 05/24/17 13:46 Dose: 1 applic Losartan Potassium (Cozaar -) 100 mg PO DAILY [facility] Last Admin: 05/24/17 10:35 Dose: 100 mg Metoprolol Tartrate (Lopressor -) 25 mg PO DAILY [facility] Last Admin: 05/24/17 10:35 Dose: 25 mg Olanzapine (Zyprexa -) 15 mg PO DAILY [facility] Last Admin: 05/24/17 10:35 Dose: 15 mg Ranitidine HCl (Zantac -) 150 mg PO DAILY [facility] Last Admin: 05/24/17 10:35 Dose: 150 mg Rosuvastatin Calcium (Crestor -) 10 mg PO HS [facility] Last Admin: 05/23/17 21:50 Dose: Not Given Timolol Maleate (Timoptic 0.5%) 1 drop OD BID [facility] Last Admin: 05/24/17 10:36 Dose: 1 drop - Objective Vital Signs: Vital Signs Temperature 98.3 F 05/24/17 10:00 Pulse Rate 75 05/24/17 13:48 Respiratory Rate 16 05/24/17 13:48 Blood Pressure 131/61 05/24/17 13:48 O2 Sat by Pulse Oximetry (%) 95 05/23/17 19:49 Labs: CBC, BMP 05/24/17 05:15 05/24/17 05:15 Assessment/Plan 82 year-old woman with a PMHx of HTN, anemia, depression, old CVA and severe admitted 05/23/2017 with an unwitnessed fall in the half-way and was found on the floor. Hematoma on her left eye. Patient cannot recall event or give details in regards to event. To note, patient was being treated for LE DVT with apixaban. Patient currently with no complaints of chest pain, dyspnea, or palpitations. Echocardiogram 05/23/2017 showed moderate concentric LVH with normal wall motion and systolic function. LVEF = 70%. Severe aortic stenosis with calculated SOHAN = 0.6 cm2. Peak gradient and mean gradient were 64 and 39 mmHg, respectively. 1) Mildly elevated troponin: -Patient found to have mild elevation in troponins of 0.29->0.25->0.38 with normal CK. No chest pain or dyspnea. EKG: sinus rhythm at 86bpm, nl axis, lvh, poor r wave progression, no acute st changes. Echocardiogram 05/23/2017 showed moderate concentric LVH with normal wall motion and systolic function. LVEF = 70 %. Severe aortic stenosis with calculated SOHAN = 0.6 cm2. Peak gradient and mean gradient were 64 and 39 mmHg, respectively. Troponin is a nonischemic pattern and unlikely to be due to acute coronary syndrome. May be due to HOWIE as mild bump in Cr to 1.8 and severe aortic stenosis. Conservative cardiac care. May increase Metoprolol tartrate to 25 mg BID. Oral hydration. Continue Aspirin 81 mg daily and Crestor 10 mg daily. 2) Aortic stenosis. Found to have severe aortic stenosis on echocardiogram with moderate CLVH and normal LVEF. Unclear if her fall/possible syncope was due to HOWIE/mechanical or related to her given patients current status. She is not a candidate for further invasive aortic valve intervention, TAVR given her poor mental status at this time. Conservative cardiac care. Avoid dehydration in patient with severe aortic stenosis
[2017-05-24] MEDS ORDERED: LORazepam 2 MG/ML SDV VIAL ONE (17:22)
[2017-05-24] MEDS ORDERED: LORazepam 2 MG/ML SDV VIAL IM ONE (17:45)
--- NOTE | 2017-05-24 18:36 | EKG ---
Test Reason : Blood Pressure : / mmHG Vent. Rate : 082 BPM Atrial Rate : 082 BPM P-R Int : 188 ms QRS Dur : 092 ms QT Int : 378 ms P-R-T Axes : 062 005 046 degrees QTc Int : 441 ms NORMAL SINUS RHYTHM NORMAL ECG WHEN COMPARED WITH ECG OF 23-MAY-2017 11:44, T WAVE INVERSION NO LONGER EVIDENT IN INFERIOR LEADS Confirmed by KENDRA RIOS MD ([id number]) on 05/24/2017 6:36:35 PM Referred By: JOSE RAFAEL REYES Confirmed By:KENDRA RIOS MD
--- NOTE | 2017-05-24 18:41 | EKG ---
Test Reason : Blood Pressure : / mmHG Vent. Rate : 082 BPM Atrial Rate : 082 BPM P-R Int : 184 ms QRS Dur : 088 ms QT Int : 378 ms P-R-T Axes : 055 006 -11 degrees QTc Int : 441 ms NORMAL SINUS RHYTHM MINIMAL VOLTAGE CRITERIA FOR LVH, MAY BE NORMAL VARIANT T WAVE ABNORMALITY, CONSIDER INFERIOR ISCHEMIA ABNORMAL ECG WHEN COMPARED WITH ECG OF 23-MAY-2017 03:23, NO SIGNIFICANT CHANGE WAS FOUND Confirmed by KENDRA RIOS MD ([id number]) on 05/24/2017 6:41:40 PM Referred By: BOB ACEVEDO Confirmed By:KENDRA RIOS MD
--- NOTE | 2017-05-24 19:38 | PN ---
Progress Note, Physician Chief Complaint: S/P fall form the NH, had left eye hematoma History of Present Illness: The patient is an 82F with a hx of HTN, anemia, depression old CVA who presents to the ED from her residential via EMS. History could not be provided by the patient. EMS states that the patient had an unwitnessed fall on the floor and found approximately at 1:30am. Her vitals on their arrival were 149/50, P80, R18 with a L hematoma over her L eye. Patient recently noted about one week ago to have leg swellings and dvt in left leg and started on eliquis Patient lying comfortably in bed, noted to be sleepy, denies pain, NAD - Current Medication List Current Medications: Active Medications Acetaminophen (Tylenol -) 650 mg PO Q6H PRN PRN Reason: PAIN Aspirin (Ecotrin -) 81 mg PO DAILY [facility] Last Admin: 05/24/17 10:35 Dose: 81 mg Divalproex Sodium (Depakote Sprinkle Caps -) 125 mg PO BID [facility] Last Admin: 05/24/17 10:36 Dose: 125 mg Insulin Aspart (Novolog Vial Sliding Scale -) 1 vial SQ ACHS [facility] PRN Reason: Protocol Last Admin: 05/24/17 16:53 Dose: Not Given Insulin Detemir (Levemir Vial) 25 units SQ DAILY@0700 [facility] Last Admin: 05/24/17 06:44 Dose: 25 units Lactic Acid (Lac-Hydrin 12) 1 applic TP ASDIR [facility] Last Admin: 05/24/17 13:46 Dose: 1 applic Losartan Potassium (Cozaar -) 100 mg PO DAILY [facility] Last Admin: 05/24/17 10:35 Dose: 100 mg Metoprolol Tartrate (Lopressor -) 25 mg PO DAILY [facility] Last Admin: 05/24/17 10:35 Dose: 25 mg Olanzapine (Zyprexa -) 15 mg PO DAILY [facility] Last Admin: 05/24/17 10:35 Dose: 15 mg Ranitidine HCl (Zantac -) 150 mg PO DAILY [facility] Last Admin: 05/24/17 10:35 Dose: 150 mg Rosuvastatin Calcium (Crestor -) 10 mg PO HS [facility] Last Admin: 05/23/17 21:50 Dose: Not Given Timolol Maleate (Timoptic 0.5%) 1 drop OD BID [facility] Last Admin: 05/24/17 10:36 Dose: 1 drop - Objective Vital Signs: Vital Signs Temperature 98.0 F 05/24/17 18:00 Pulse Rate 70 05/24/17 18:00 Respiratory Rate 16 05/24/17 18:00 Blood Pressure 127/54 05/24/17 18:00 O2 Sat by Pulse Oximetry (%) 100 05/24/17 15:08 Constitutional: Yes: No Distress Eyes: Yes: Conjunctiva Clear HENT: Yes: Normocephalic Neck: Yes: Supple Cardiovascular: Yes: Regular Rate and Rhythm Respiratory: Yes: Regular, CTA Bilaterally, Diminished Gastrointestinal: Yes: Normal Bowel Sounds, Soft Edema: LLE: 1+, RLE: 1+ Labs: CBC, BMP 05/24/17 05:15 05/24/17 05:15 Assessment/Plan (1) Hematoma of eye associated with non-ophthalmic procedure Assessment/Plan: -monitor for change in size -ophthalmology eval Code(s): TAT8724 - Qualifiers: Laterality: left (2) NSTEMI (non-ST elevated myocardial infarction) Assessment/Plan: -noted to have postive troponins -trend CE -on aspirin, BB, and statin -encouraged fluid hydration Code(s): I21.4 - NON-ST ELEVATION (NSTEMI) MYOCARDIAL INFARCTION (3) Poorly controlled diabetes mellitus Assessment/Plan: -bgm -sliding scale -levemir Code(s): E11.65 - TYPE 2 DIABETES MELLITUS WITH HYPERGLYCEMIA (4) Schizophrenia Assessment/Plan: -olanzpine in the morning -VPA 500mg at nite Code(s): F20.9 - SCHIZOPHRENIA, UNSPECIFIED (5) DVT (deep venous thrombosis) Assessment/Plan: -repeat venous doppler of the leg 05/23 --> negative for DVT -CT head negative for ICH -will re-start Eliquis 5mg BID Code(s): I82.409 - ACUTE EMBOLISM AND THOMBOS UNSP DEEP VN UNSP LOWER EXTREMITY Qualifiers: Laterality: left (6) Hypertension Assessment/Plan: -continue losartan -continue metoprolol -monitor BP Monitor labs in AM Case discussed with Dr. Erazo
[2017-05-24] MEDS: APIXABAN 5 MG TABLET PO SCH (21:31)
[2017-05-24] MEDS: ROSUVASTATIN CA 10 MG TABLET (FP) PO SCH (21:31)
[2017-05-25 06:36] LABS: SERUM IRON 43 ug/dL (27-139); TOTAL IRON BINDING CAPACITY 219 ug/dL (250-450); UIBC 176 ug/dL (118-369)
[2017-05-25] MEDS: INSULIN SLIDING SCALE (NOVOLOG) 1 VIAL SQ SCH ×4 (06:46→22:28)
[2017-05-25] MEDS: INSULIN DETEMIR 100 UNITS/ML MDV SQ SCH (06:46)
[2017-05-25 10:24] LABS: ALBUMIN 2.6 g/dl (3.4-5.0); ALK PHOS 110 U/L (45-117); ANION GAP 8 (8-16); BILIRUBIN,TOTAL 0.3 mg/dL (0.2-1.0); CALCIUM 8.6 mg/dL (8.5-10.1); CO2 26 mmol/L (21-32); CREATININE 1.7 mg/dL (0.55-1.02); GLUCOSE,RANDOM 85 mg/dL (74-106); SGOT/AST 22 U/L (15-37); SGPT/ALT 15 U/L (12-78); TOT PROT 6.1 g/dl (6.4-8.2)
--- NOTE | 2017-05-25 10:38 | PN ---
Progress Note, Physician Chief Complaint: Patient appears comfortable without acute distress. She is still confused. Tele shows sinus rhythm without arrhythmia. History of Present Illness: 82 year-old woman with a PMHx of HTN, anemia, depression, old CVA and severe aortic stenosis who was admitted 05/23/2017 an unwitnessed fall in the shelter and was found on the floor. Hematoma on her left eye was noted. Patient cannot recall event or give details in regards to event. To note, patient was being treated for LE DVT with apixaban. Mildly elevated troponin noted. Patient has no acute distress, currently with no complaints of chest pain, dyspnea, or palpitations. Echocardiogram 05/23/2017 showed moderate concentric LVH with normal wall motion and systolic function. LVEF = 70%. Severe aortic stenosis with calculated SOHAN = 0.6 cm2. Peak gradient and mean gradient were 64 and 39 mmHg, respectively. - Current Medication List Current Medications: Active Medications Acetaminophen (Tylenol -) 650 mg PO Q6H PRN PRN Reason: PAIN Apixaban (Eliquis -) 5 mg PO BID [facility] Last Admin: 05/24/17 21:31 Dose: Not Given Aspirin (Ecotrin -) 81 mg PO DAILY [facility] Last Admin: 05/24/17 10:35 Dose: 81 mg Divalproex Sodium (Depakote Sprinkle Caps -) 125 mg PO BID [facility] Last Admin: 05/24/17 21:31 Dose: Not Given Insulin Aspart (Novolog Vial Sliding Scale -) 1 vial SQ ACHS [facility] PRN Reason: Protocol Last Admin: 05/25/17 06:46 Dose: Not Given Insulin Detemir (Levemir Vial) 25 units SQ DAILY@0700 [facility] Last Admin: 05/25/17 06:46 Dose: Not Given Lactic Acid (Lac-Hydrin 12) 1 applic TP ASDIR [facility] Last Admin: 05/24/17 13:46 Dose: 1 applic Losartan Potassium (Cozaar -) 100 mg PO DAILY [facility] Last Admin: 05/24/17 10:35 Dose: 100 mg Metoprolol Tartrate (Lopressor -) 25 mg PO DAILY [facility] Last Admin: 05/24/17 10:35 Dose: 25 mg Olanzapine (Zyprexa -) 15 mg PO DAILY [facility] Last Admin: 05/24/17 10:35 Dose: 15 mg Ranitidine HCl (Zantac -) 150 mg PO DAILY [facility] Last Admin: 05/24/17 10:35 Dose: 150 mg Rosuvastatin Calcium (Crestor -) 10 mg PO HS [facility] Last Admin: 05/24/17 21:31 Dose: Not Given Timolol Maleate (Timoptic 0.5%) 1 drop OD BID [facility] Last Admin: 05/24/17 21:32 Dose: 1 drop - Objective Vital Signs: Vital Signs Temperature 97.5 F L 05/25/17 02:00 Pulse Rate 75 05/25/17 06:00 Respiratory Rate 18 05/25/17 06:00 Blood Pressure 145/57 05/25/17 06:00 O2 Sat by Pulse Oximetry (%) 100 05/25/17 08:34 Constitutional: Yes: Well Nourished, No Distress, Other (Confused) Eyes: Yes: Conjunctiva Clear HENT: Yes: Other Neck: Yes: Supple, Trachea Midline Cardiovascular: Yes: Regular Rate and Rhythm, Murmur (III/ LUCILA 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 A2 deminished. Carotid upstroke delayed.) Respiratory: Yes: Regular, CTA Bilaterally Gastrointestinal: Yes: Normal Bowel Sounds, Soft ...Rectal Exam: Yes: Deferred Edema: No Peripheral Pulses WNL: Yes Labs: CBC, BMP 05/24/17 05:15 05/25/17 06:00 Assessment/Plan 82 year-old woman with a PMHx of HTN, anemia, depression, old CVA and severe admitted 05/23/2017 with an unwitnessed fall in the shelter and was found on the floor. Hematoma on her left eye. Patient cannot recall event or give details in regards to event. To note, patient was being treated for LE DVT with apixaban. Patient currently with no complaints of chest pain, dyspnea, or palpitations. Echocardiogram 05/23/2017 showed moderate concentric LVH with normal wall motion and systolic function. LVEF = 70%. Severe aortic stenosis with calculated SOHAN = 0.6 cm2. Peak gradient and mean gradient were 64 and 39 mmHg, respectively. 1) Mildly elevated troponin: -Patient found to have mild elevation in troponins of 0.29->0.25->0.38->0.17 with normal CK. No chest pain or dyspnea. EKG: sinus rhythm at 86bpm, nl axis, lvh, poor r wave progression, no acute st changes. Echocardiogram 05/23/2017 showed moderate concentric LVH with normal wall motion and systolic function. LVEF = 70%. Severe aortic stenosis with calculated SOHAN = 0.6 cm2. Peak gradient and mean gradient were 64 and 39 mmHg, respectively. Troponin elevated is a nonischemic pattern and unlikely to be due to acute coronary syndrome. May be due to HOWIE as mild bump in Cr to 1.8 and severe aortic stenosis. Conservative cardiac care. May increase Metoprolol tartrate to 25 mg BID. Oral hydration. Continue Aspirin 81 mg daily and Crestor 10 mg daily. 2) Aortic stenosis. Found to have severe aortic stenosis on echocardiogram with moderate CLVH and normal LVEF. Unclear if her fall/possible syncope was due to HOWIE/mechanical or related to her given patients current status. She is not a candidate for further invasive aortic valve intervention: TAVR, given her poor mental status at this time. Conservative cardiac care. Avoid dehydration in patient with severe aortic stenosis
[2017-05-25] MEDS ORDERED: PT OWN MED DRAWER 7, Y5N ONE ×3 (11:10→22:12)
[2017-05-25] MEDS: AMMONIUM LACTATE 12% LOTION 225 GM BOTTLE TP SCH (12:17)
[2017-05-25] MEDS: DIVALPROEX SODIUM 125 MG SPRINKLE CAPS (FP) PO SCH ×2 (12:18→22:18)
[2017-05-25] MEDS: APIXABAN 5 MG TABLET PO SCH ×2 (12:18→22:18)
[2017-05-25] MEDS: LOSARTAN POTASSIUM 50 MG TABLET (FP) PO SCH (12:18)
[2017-05-25] MEDS: ASPIRIN COATED 81 MG TABLET.EC PO SCH (12:18)
[2017-05-25] MEDS: OLANZapine 5 MG TABLET PO SCH (12:19)
[2017-05-25] MEDS: METOPROLOL TARTRATE 25 MG TABLET (FP) PO SCH (12:19)
[2017-05-25] MEDS: RANITIDINE HCL 150 MG TABLET (FP) PO SCH (12:19)
[2017-05-25] MEDS: TIMOLOL 0.5% OPHTHALMIC SOL 5 ML BOTTLE OD SCH ×2 (12:23→22:28)
--- NOTE | 2017-05-25 13:55 | PN ---
Progress Note, Physician Chief Complaint: S/P fall form the NH, had left eye hematoma History of Present Illness: The patient is an 82F with a hx of HTN, anemia, depression old CVA who presents to the ED from her [facility] via EMS. History could not be provided by the patient. EMS states that the patient had an unwitnessed fall on the floor and found approximately at 1:30am. Her vitals on their arrival were 149/50, P80, R18 with a L hematoma over her L eye. Patient recently noted about one week ago to have leg swellings and dvt in left leg and started on eliquis Patient lying comfortably in bed, mildly agitated, NAD. Patient refusing medication as per RN. - Current Medication List Current Medications: Active Medications Acetaminophen (Tylenol -) 650 mg PO Q6H PRN PRN Reason: PAIN Apixaban (Eliquis -) 5 mg PO BID [facility] Last Admin: 05/25/17 12:18 Dose: 5 mg Aspirin (Ecotrin -) 81 mg PO DAILY [facility] Last Admin: 05/25/17 12:18 Dose: 81 mg Divalproex Sodium (Depakote Sprinkle Caps -) 125 mg PO BID [facility] Last Admin: 05/25/17 12:18 Dose: 125 mg Insulin Aspart (Novolog Vial Sliding Scale -) 1 vial SQ ACHS [facility] PRN Reason: Protocol Last Admin: 05/25/17 12:36 Dose: Not Given Insulin Detemir (Levemir Vial) 25 units SQ DAILY@0700 [facility] Last Admin: 05/25/17 06:46 Dose: Not Given Lactic Acid (Lac-Hydrin 12) 1 applic TP ASDIR [facility] Last Admin: 05/25/17 12:17 Dose: 1 applic Losartan Potassium (Cozaar -) 100 mg PO DAILY [facility] Last Admin: 05/25/17 12:18 Dose: 100 mg Metoprolol Tartrate (Lopressor -) 25 mg PO DAILY [facility] Last Admin: 05/25/17 12:19 Dose: 25 mg Olanzapine (Zyprexa -) 15 mg PO DAILY [facility] Last Admin: 05/25/17 12:19 Dose: 15 mg Ranitidine HCl (Zantac -) 150 mg PO DAILY [facility] Last Admin: 05/25/17 12:19 Dose: 150 mg Rosuvastatin Calcium (Crestor -) 10 mg PO HS [facility] Last Admin: 05/24/17 21:31 Dose: Not Given Timolol Maleate (Timoptic 0.5%) 1 drop OD BID [facility] Last Admin: 05/25/17 12:23 Dose: 1 drop - Objective Vital Signs: Vital Signs Temperature 98.0 F 05/25/17 12:00 Pulse Rate 79 05/25/17 12:00 Respiratory Rate 18 05/25/17 12:00 Blood Pressure 155/69 05/25/17 12:00 O2 Sat by Pulse Oximetry (%) 100 05/25/17 08:34 Constitutional: Yes: No Distress, Other (mildly agitated) HENT: Yes: Atraumatic Neck: Yes: Supple Cardiovascular: Yes: Regular Rate and Rhythm Respiratory: Yes: Regular, CTA Bilaterally, Diminished Gastrointestinal: Yes: Normal Bowel Sounds, Soft Edema: No Peripheral Pulses WNL: Yes Labs: CBC, BMP 05/24/17 05:15 05/25/17 06:00 Assessment/Plan (1) Hematoma of eye associated with non-ophthalmic procedure Assessment/Plan: -monitor for change in size -ophthalmology eval Code(s): [id number] - Qualifiers: Laterality: left (2) NSTEMI (non-ST elevated myocardial infarction) Assessment/Plan: -noted to have postive troponins -> non-ischemic pattern (as per cardio) -cardiology on board -on aspirin, BB, and statin -encouraged fluid hydration Code(s): I21.4 - NON-ST ELEVATION (NSTEMI) MYOCARDIAL INFARCTION (3) Poorly controlled diabetes mellitus Assessment/Plan: -bgm -sliding scale -levemir Code(s): E11.65 - TYPE 2 DIABETES MELLITUS WITH HYPERGLYCEMIA (4) Schizophrenia Assessment/Plan: -olanzpine in the morning -VPA 500mg at nite Code(s): F20.9 - SCHIZOPHRENIA, UNSPECIFIED (5) DVT (deep venous thrombosis) Assessment/Plan: -repeat venous doppler of the leg 05/23 --> negative for DVT -CT head negative for ICH -will re-start Eliquis 5mg BID Code(s): I82.409 - ACUTE EMBOLISM AND THOMBOS UNSP DEEP VN UNSP LOWER EXTREMITY Qualifiers: Laterality: left (6) Hypertension Assessment/Plan: -continue losartan -continue metoprolol -monitor BP -Monitor labs in AM -ID consult, UC (+) E. coli
[2017-05-25] MEDS ORDERED: LORazepam 2 MG/ML SDV VIAL ONE (15:40)
[2017-05-25] MEDS ORDERED: LORazepam 2 MG/ML SDV VIAL IM ONE (16:00)
[2017-05-25] MEDS: ROSUVASTATIN CA 10 MG TABLET (FP) PO SCH (22:18)
[2017-05-26] MEDS: INSULIN SLIDING SCALE (NOVOLOG) 1 VIAL SQ SCH (06:03)
[2017-05-26] MEDS: INSULIN DETEMIR 100 UNITS/ML MDV SQ SCH (06:50)
--- NOTE | 2017-05-26 08:16 | DS ---
Physical Examination Vital Signs: Vital Signs Temperature 97.3 F L 05/26/17 05:20 Pulse Rate 78 05/26/17 05:20 Respiratory Rate 16 05/26/17 05:20 Blood Pressure 161/63 05/26/17 05:20 O2 Sat by Pulse Oximetry (%) 96 05/25/17 21:00 Labs: CBC, BMP 05/24/17 05:15 05/25/17 06:00 <Ponce Erazo - Last Filed: 05/26/17 08:16> Vital Signs: Vital Signs Temperature 97.1 F L 05/26/17 09:56 Pulse Rate 74 05/26/17 09:56 Respiratory Rate 18 05/26/17 09:56 Blood Pressure 141/77 05/26/17 09:56 O2 Sat by Pulse Oximetry (%) 98 05/26/17 09:56 Constitutional: Yes: Well Nourished, No Distress, Calm Cardiovascular: Yes: Pulse Irregular Respiratory: Yes: Regular Labs: CBC, BMP 05/26/17 08:40 05/26/17 08:40 <Petar Flores - Last Filed: 05/26/17 11:19> Discharge Summary Reason For Visit: NSTEMI Current Active Problems DVT (deep venous thrombosis) (Acute) Glaucoma (Acute) Hematoma of eye associated with non-ophthalmic procedure (Acute) NSTEMI (non-ST elevated myocardial infarction) (Acute) - Home Medications Comprehensive Discharge Medication List: Ambulatory Orders Acetaminophen [Acetaminophen 8 Hour] 650 mg PO Q6H PRN 04/28/17 Ammonium Lactate Lotion [Lac-Hydrin 12] 1 applic TP ASDIR 04/28/17 Insulin Glargine,Hum.rec.anlog [Lantus Solostar PEN -] 25 units SQ DAILY Losartan Potassium 100 mg PO DAILY 04/28/17 Olanzapine 15 mg PO DAILY 04/28/17 Ranitidine [Zantac -] 150 mg PO DAILY 04/28/17 Timolol 0.5% [Timoptic 0.5%] 1 drop OD BID 04/28/17 Divalproex Sprinkle [Depakote Sprinkle -] 125 mg PO BID cap.sprink 05/02/17 Insulin Sliding Scale [Novolog Vial Sliding Scale -] 1 vial SQ ACHS units 05/02 Apixaban [Eliquis -] 5 mg PO BID 05/23/17 Divalproex Sodium [Depakote ER] 500 mg PO HS 05/23/17 Amox-Tr/K Cl [Augmentin 500-125mg Tablet -] 1 tab PO BID@0800,1730 tablet 05/26 Aspirin Coated [Ecotrin -] 81 mg PO DAILY tab 05/26/17 Metoprolol Tartrate [Lopressor -] 25 mg PO BID tablet 05/26/17 Rosuvastatin [Crestor -] 10 mg PO HS tablet 05/26/17 <Ponce Erazo - Last Filed: 05/26/17 08:16> Current Active Problems DVT (deep venous thrombosis) (Acute) Glaucoma (Acute) Hematoma of eye associated with non-ophthalmic procedure (Acute) NSTEMI (non-ST elevated myocardial infarction) (Acute) Hospital Course: Ms. Ham, an 82 year old female, resident of [facility], came in to [facility] ER s/p unwitnessed fall and left eye hematoma. Patient has history of CVA, htn, anemia, depression, recurrent UTI's, urinary retention, Schizophrenia, uncontrolled diabetes mellitus type 2, renal insufficiency, open angle glaucoma and osteoarthritis. During her stay, she was evaluated by Cardiology for elevated troponins which was likely secondary to HOWIE. Her EKG showed NSR, her echocardiogram showed severe Aortic stenosis with EF of 70.2%. Her urine culture was positive for UTI with Ecoli. - Home Medications Comprehensive Discharge Medication List: Ambulatory Orders Acetaminophen [Acetaminophen 8 Hour] 650 mg PO Q6H PRN 04/28/17 Ammonium Lactate Lotion [Lac-Hydrin 12] 1 applic TP ASDIR 04/28/17 Insulin Glargine,Hum.rec.anlog [Lantus Solostar PEN -] 25 units SQ DAILY Losartan Potassium 100 mg PO DAILY 04/28/17 Olanzapine 15 mg PO DAILY 04/28/17 Ranitidine [Zantac -] 150 mg PO DAILY 04/28/17 Timolol 0.5% [Timoptic 0.5%] 1 drop OD BID 04/28/17 Divalproex Sprinkle [Depakote Sprinkle -] 125 mg PO BID cap.sprink 05/02/17 Insulin Sliding Scale [Novolog Vial Sliding Scale -] 1 vial SQ ACHS units 05/02 Apixaban [Eliquis -] 5 mg PO BID 05/23/17 Divalproex Sodium [Depakote ER] 500 mg PO HS 05/23/17 Amox-Tr/K Cl [Augmentin 500-125mg Tablet -] 1 tab PO BID@0800,1730 #14 tablet Aspirin Coated [Ecotrin -] 81 mg PO DAILY tab 05/26/17 Metoprolol Tartrate [Lopressor -] 25 mg PO BID tablet 05/26/17 Rosuvastatin [Crestor -] 10 mg PO HS tablet 05/26/17 <Petar Flores - Last Filed: 05/26/17 11:19> Condition: Stable - Instructions Diet, Activity, Other Instructions: -Diabetic Diet -Follow up labs with CBC/CMET/Iron profile in 1 week -Encourage oral hydration -Augmentin 500/125 mg po BID x 7 days -Avoid dehydration due to severe Aortic stenosis Disposition: [facility] F[facility]
[2017-05-26] MEDS ORDERED: PT OWN MED DRAWER 7, Y5N ONE ×3 (08:53→09:01)
[2017-05-26 08:54] LABS: BASOPHIL 1.3 % (0-2.0); EOSINOPHIL 2.5 % (0-4.5); MCH 29.4 pg (25.7-33.7); MCHC 33.6 g/dl (32.0-36.0); MEAN CELL VOLUME 87.3 fl (80-96); NEUTROPHILS 64.5 % (42.8-82.8); PLATELET COUNT 328 K/MM3 (134-434); RDW 15.9 % (11.6-15.6); WHITE BLOOD COUNT 7.1 K/mm3 (4.0-10.0)
[2017-05-26] MEDS ORDERED: METOPROLOL TARTRATE 25 MG TABLET (FP) ONE (08:58)
[2017-05-26] MEDS ORDERED: AMOX TR/POT CLAV 500MG/125MG TABLETS (FP) PO SCH (09:00)
[2017-05-26] MEDS: RANITIDINE HCL 150 MG TABLET (FP) PO SCH (09:12)
[2017-05-26] MEDS: LOSARTAN POTASSIUM 50 MG TABLET (FP) PO SCH (09:12)
[2017-05-26] MEDS: OLANZapine 5 MG TABLET PO SCH (09:12)
[2017-05-26] MEDS: TIMOLOL 0.5% OPHTHALMIC SOL 5 ML BOTTLE OD SCH (09:13)
[2017-05-26] MEDS: APIXABAN 5 MG TABLET PO SCH (09:13)
[2017-05-26] MEDS: DIVALPROEX SODIUM 125 MG SPRINKLE CAPS (FP) PO SCH (09:13)
[2017-05-26] MEDS: ASPIRIN COATED 81 MG TABLET.EC PO SCH (09:13)
[2017-05-26 09:24] LABS: ALBUMIN 2.5 g/dl (3.4-5.0); ANION GAP 7 (8-16); BILIRUBIN,TOTAL 0.3 mg/dL (0.2-1.0); CALCIUM 8.6 mg/dL (8.5-10.1); CO2 28 mmol/L (21-32); CREATININE 1.6 mg/dL (0.55-1.02); GLUCOSE,RANDOM 160 mg/dL (74-106); SGOT/AST 20 U/L (15-37); SGPT/ALT 15 U/L (12-78); TOT PROT 6.1 g/dl (6.4-8.2)
[2017-05-26 09:25] LABS: ALK PHOS 113 U/L (45-117)
[2017-05-26 10:00] VITALS: BP 141/77; PULSE 74; TEMP 97.1
[2017-05-26] MEDS ORDERED: METOPROLOL TARTRATE 25 MG TABLET (FP) PO SCH (10:00)
[2017-05-26 10:33] LABS: CPK 134 IU/L (26-192)
[2017-05-26] MEDS: AMMONIUM LACTATE 12% LOTION 225 GM BOTTLE TP SCH (11:52)
== END 2017-05-26 13:14 | DRG 281 ==
LOC: JER 02:26 → JERBED 06:43 → J2W 18:30
PROVIDERS: ADMIT Family Medicine; ATTEND Family Medicine
DX: I21.4 Non-ST elevation (NSTEMI) myocardial infarction (principal); N39.0 Urinary tract infection, site not specified; N17.9 Acute kidney failure, unspecified; F31.89 Other bipolar disorder; D64.9 Anemia, unspecified; H40.9 Unspecified glaucoma; B96.29 Other Escherichia coli [E. coli] as the cause of diseases classified elsewhere; I10 Essential (primary) hypertension; I35.0 Nonrheumatic aortic (valve) stenosis; S05.12XA Contusion of eyeball and orbital tissues, left eye, initial encounter; W18.39XA Other fall on same level, initial encounter; Y93.89 Activity, other specified; Y92.098 Other place in other non-institutional residence as the place of occurrence of the external cause; M19.90 Unspecified osteoarthritis, unspecified site; R33.8 Other retention of urine; F20.9 Schizophrenia, unspecified; E11.65 Type 2 diabetes mellitus with hyperglycemia; E78.00 Pure hypercholesterolemia, unspecified; F03.90 Unspecified dementia, unspecified severity, without behavioral disturbance, psychotic disturbance, mood disturbance, and anxiety; Z86.718 Personal history of other venous thrombosis and embolism; Z86.73 Personal history of transient ischemic attack (TIA), and cerebral infarction without residual deficits; Z85.038 Personal history of other malignant neoplasm of large intestine
CPT/HCPCS: 36415; 70450-TC; 70486-TC; 71010-TC; 72125-TC; 73562-TC-LT; 76775-TC; 76856-TC; 80053; 80061; 81003; 81015; 82728; 83036; 83540; 83550; 83721; 84484; 85025; 85027; 87086; 87186; 93005; 93010; 93306-TC; 93970-TC; 99285-25

== ENCOUNTER 2017-08-20 15:43 | Emergency (ER) | payer OTHER ==
[2017-08-20 16:48] VITALS: TEMP 97.6
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
[2017-08-20 20:48] VITALS: BP 138/86; PULSE 82
== END 2017-08-20 20:48 ==
LOC: JER 15:43
DX: F03.90 Unspecified dementia, unspecified severity, without behavioral disturbance, psychotic disturbance, mood disturbance, and anxiety (principal); F31.9 Bipolar disorder, unspecified; D64.9 Anemia, unspecified; F20.9 Schizophrenia, unspecified; E11.9 Type 2 diabetes mellitus without complications; I10 Essential (primary) hypertension; Z79.4 Long term (current) use of insulin
CPT/HCPCS: 36415; 80164; 99282-25

== ENCOUNTER 2017-11-16 15:58 | Inpatient (IN) | payer OTHER ==
[2017-11-16 16:28] VITALS: BMI 27.1
--- NOTE | 2017-11-16 16:35 | PDOC ---
History of Present Illness - General History Source: Patient Exam Limitations: No Limitations - History of Present Illness Initial Comments: 11/16/17 17:44 The patient is a 82-year-old female BIBA from [facility] with a significant past medical history of dementia, DM, HTN, HLD, and bipolar disorder , who was sent to the emergency department for malaise, abnormal labs, and AMS for approximately 1 week. Upon speaking to [facility], the patient was sent over for weakness and pocketing of food and medications. As per [facility], the patient is verbal and ambulatory at baseline. Upon interview, patient is mostly unresponsive and unable to answer questions. PCP: Dr. Erazo <Keturah Casey - Last Filed: 11/16/17 17:44> <Shellie Laguna - Last Filed: 11/16/17 19:22> - General Chief Complaint: Weakness Stated Complaint: LETHARGY Time Seen by Provider: 11/16/17 16:35 Past History <Keturah Casey - Last Filed: 11/16/17 17:44> - Past Medical History Anemia: Yes Asthma: No Cancer: Yes (colon, liver) Cardiac Disorders: No CVA: No COPD: Yes CHF: No DVT: Yes Dementia: Yes Diabetes: Yes GI Disorders: Yes (GERD.) Disorders: Yes (uti) HTN: Yes Hypercholesterolemia: Yes Liver Disease: Yes Psychiatric Problems: Yes (BIPOLAR. MAJOR DEPRESSIVE DISORDER. SCHIZOPHRENIA.) Seizures: No Thyroid Disease: No - Surgical History Abdominal Surgery: Yes Appendectomy: No Cardiac Surgery: No Cholecystectomy: Yes Lung Surgery: No Neurologic Surgery: No Orthopedic Surgery: No - Immunization History Td Vaccination: Yes Immunization Up to Date: Yes - Suicide/Smoking/Psychosocial Hx Smoking Status: No Smoking History: Unknown if ever smoked Years of Tobacco Use: 0 Have you smoked in the past 12 months: No Number of Cigarettes Smoked Daily: 0 Cigars Per Day: 0 Hx Alcohol Use: No Drug/Substance Use Hx: No Substance Use Type: None Hx Substance Use Treatment: No <Shellie Laguna - Last Filed: 11/16/17 19:22> - Past Medical History Allergies/Adverse Reactions: Allergies Allergy/AdvReac Type Severity Reaction Status Date / Time No Known Allergies Allergy Verified 11/16/17 16:17 Home Medications: Ambulatory Orders Acetaminophen 650 mg PO Q6H PRN 11/16/17 Ammonium Lactate Lotion [Lac-Hydrin 12% Lotion -] 1 applic TP BID 11/16/17 Apixaban [Eliquis] 5 mg PO BID 11/16/17 Aspirin 81 mg PO DAILY 11/16/17 Bacitracin - [Bacitracin Topical Ointment -] 1 applic TP DAILY 11/16/17 Divalproex *ER* [Depakote *ER* -] 500 mg PO HS 11/16/17 Haloperidol [Haldol -] 1 mg PO HS 11/16/17 Insulin Lispro [Humalog] 100 unit SQ BID 11/16/17 Metoprolol Tartrate 25 mg PO BID 11/16/17 Olanzapine [Olanzapine Odt] 15 mg PO HS 11/16/17 Ranitidine HCl [Zantac] 150 mg PO HS 11/16/17 Rosuvastatin Calcium [Crestor] 10 mg PO HS 11/16/17 Timolol 0.5% [Timoptic 0.5%] 1 drop OD DAILY 11/16/17 Review of Systems - Review of Systems Able to Perform ROS?: No (unresponsive) <Keturah Casey - Last Filed: 11/16/17 17:44> *Physical Exam - Vital Signs Last Vital Signs Temp Pulse Resp BP Pulse Ox 101.4 F H 93 H 18 129/58 98 11/16/17 16:45 11/16/17 16:16 11/16/17 16:16 11/16/17 16:16 11/16/17 16:45 - Physical Exam Comments: 11/16/17 17:45 GENERAL: Awake, alert, and fully oriented, in no acute distress. (+) Lethargic, withdrawals to sternal rub. HEAD: No signs of trauma EYES: PERRLA, sclera anicteric, conjunctiva clear ENT: Auricles normal inspection, hearing grossly normal, nares patent, oropharynx clear without exudates. Moist mucosa LUNGS: Breath sounds equal, clear to auscultation bilaterally. No wheezes, and no crackles HEART: Regular rate and rhythm, (+) 3/6 holosystolic murmur loudest over the aortic valves. No rubs or gallops ABDOMEN: Soft, nontender, non-distended, normoactive bowel sounds. No guarding , no rebound. No masses EXTREMITIES: No edema. No clubbing or cyanosis. No cords, erythema, or tenderness. (+) Right hip is flexed and internally rotated, (+) Patient resists hip extension. No deformities or ecchymosis. NEUROLOGICAL: (+) Lethargic, minimally responsive to sternal rub. (+) Withdrawals to pain. SKIN: Warm, Dry, normal turgor, no rashes or lesions noted. <Ritu Caseynda - Last Filed: 11/16/17 17:44> - Vital Signs Last Vital Signs Temp Pulse Resp BP Pulse Ox 99.5 F 93 H 18 129/58 100 11/16/17 16:16 11/16/17 16:16 11/16/17 16:16 11/16/17 16:16 11/16/17 16:16 <Shellie Laguna - Last Filed: 11/16/17 19:22> ED Treatment Course - LABORATORY CBC & Chemistry Diagram: 11/16/17 17:00 11/16/17 17:00 - ADDITIONAL ORDERS Additional order review: Laboratory Results 11/16/17 11/16/17 11/16/17 17:00 17:00 17:00 VBG pH 7.42 POC VBG pCO2 40.3 POC VBG pO2 44.7 Mixed VBG HCO3 26.2 H Urine Color Brown Urine Appearance Turbid Urine pH >= 9.0 H D Ur Specific [place] 1.010 Urine Protein 3+ H Urine Glucose (UA) Negative Urine Ketones 1+ H Urine Blood 3+ H Urine Nitrite Positive Urine Bilirubin 1+ H Urine Urobilinogen 1.0 Ur Leukocyte Esterase 3+ H Anti-A Titer Cancelled Blood Type Cancelled Antibody Screen Cancelled 11/16/17 17:00 RBC 3.50 L MCV 91.9 MCHC 31.9 L RDW 17.8 H D MPV 8.9 Neutrophils % 68.4 D Lymphocytes % 17.8 D Monocytes % 12.8 H Eosinophils % 0.1 D Basophils % 0.9 - Medications Given in the ED: ED Medications Discontinued Medications Generic Name Dose Route Start Last Admin Trade Name Freq PRN Reason Stop Dose Admin Acetaminophen 1,000 mg 11/16/17 17:16 11/16/17 17:32 Ofirmev Injection - IVPB 11/16/17 17:17 1,000 mg ONCE ONE Administration Sodium Chloride 2,286 ml 11/16/17 16:44 11/16/17 17:20 Normal Saline - 30 ml/kg (2286 ml) 11/16/17 16:45 2,286 ml IV Administration ONCE STA <Keturah Casey - Last Filed: 11/16/17 17:44> - LABORATORY CBC & Chemistry Diagram: 11/16/17 17:00 11/16/17 17:00 <Shellie Laguna - Last Filed: 11/16/17 19:22> Medical Decision Making - Medical Decision Making 11/16/17 18:22 Pt presents to the ED after sent in from assisted for a one week history of decreased responsiveness. As per assisted, her baseline is to be demented but verbal and ambulatory. Patient has been increasingly lethargic and today would not eat at all, so the patient was transferred to the ED. Patient is responsive to painful stimuli in the ED. Differential included sepsis, metabolic derrangement, intracranial bleed or infection. Patient is febrile to 101 rectally--broad spectrum antibioitics started. UA shows evidence of infection. Will admit to medicine for management of her sepsis. <Shellie Laguna - Last Filed: 11/16/17 19:22> *DC/Admit/Observation/Transfer - Attestations Scribe Attestion: 11/16/17 17:46 Documentation prepared by Keturah Casey, acting as certified ophthalmic medical technician for Shellie Laguna MD, /DO. <Keturah Casey - Last Filed: 11/16/17 17:44> - Discharge Dispostion Admit: Yes <Shellie Laguna - Last Filed: 11/16/17 19:22> Diagnosis at time of Disposition: Sepsis Qualifiers: Sepsis type: sepsis due to unspecified organism Qualified Code(s): A41.9 - Sepsis, unspecified organism - Discharge Dispostion Condition at time of disposition: Fair - Referrals Referrals: Ponce Erazo MD [Primary Care Provider] - - Patient Instructions - Post Discharge Activity
[2017-11-16] MEDS ORDERED: SODIUM CHLORIDE 0.9% 1000 ML INFUS.BAG IV STA (16:44)
[2017-11-16] MEDS ORDERED: ACETAMINOPHEN 1000 MG/100 ML VIAL (NON FORMULARY) IVPB ONE (17:16)
[2017-11-16] MEDS ORDERED: ACETAMINOPHEN INJECTION 100 ML IVPB ONE (17:24)
[2017-11-16 17:29] LABS: BASO % 0.9 % (0-2.0); EOS % 0.1 % (0-4.5); HEMATOCRIT 32.2 % (32.4-45.2); HEMOGLOBIN 10.3 GM/dL (10.7-15.3); LYMPH % 17.8 % (8-40); MCH 29.4 pg (25.7-33.7); MCHC 31.9 g/dl (32.0-36.0); MEAN CELL VOLUME 91.9 fl (80-96); MEAN PLT VOLUME 8.9 fl (7.5-11.1); MONO % 12.8 % (3.8-10.2); NEUT % 68.4 % (42.8-82.8); PLATELET COUNT 340 K/MM3 (134-434); RDW 17.8 % (11.6-15.6); WHITE BLOOD COUNT 10.4 K/mm3 (4.0-10.0)
[2017-11-16 17:36] LABS: VENOUS PC02 40.3 mmHg (38-52); VENOUS PH 7.42 (7.32-7.42); VENOUS PO2 44.7 mmHg (28-48)
[2017-11-16 17:39] LABS: PH,URINE >= 9.0 (5.0-8.0); URINE BILIRUBIN 1+ (NEGATIVE); URINE BLOOD 3+ (NEGATIVE); URINE GLUCOSE (UA) NEGATIVE (NEGATIVE); URINE KETONE 1+ (NEGATIVE)
[2017-11-16 17:40] LABS: URINE APPEARANCE TURBID; URINE COLOR BROWN; URINE LEUK ESTERASE 3+ (NEGATIVE); URINE NITRITE POSITIVE (NEGATIVE); URINE PROTEIN 3+ (NEGATIVE)
[2017-11-16 17:42] LABS: INR 1.48 (0.82-1.09); PROTHROMBIN TIME (PATIENT) 16.7 SEC (9.98-11.88)
[2017-11-16 17:44] LABS: ACTIVATED PTT 30.3 SECONDS (26.9-34.4); URINE BACTERIA MANY /hpf (NONE SEEN)
[2017-11-16 17:56] LABS: ALBUMIN 2.4 g/dl (3.4-5.0); ANION GAP 8 (8-16); BILIRUBIN,TOTAL 0.3 mg/dL (0.2-1.0); BLOOD UREA NITROGEN 67 mg/dL (7-18); CALCIUM 8.6 mg/dL (8.5-10.1); CHLORIDE 120 mmol/L (98-107); CO2 27 mmol/L (21-32); CREATININE 2.3 mg/dL (0.55-1.02); GLUCOSE,RANDOM 182 mg/dL (74-106); POTASSIUM 4.9 mmol/L (3.5-5.1); SGOT/AST 19 U/L (15-37); SGPT/ALT 12 U/L (12-78); SODIUM 155 mmol/L (136-145); TOT PROT 6.8 g/dl (6.4-8.2)
[2017-11-16] MEDS ORDERED: PIPERACILLIN/TAZOB 3.375 GM 3.375 GM/50 ML BAG IVPB ONE (17:57)
[2017-11-16] MEDS ORDERED: VANCOMYCIN 1 GRAM (PRE-DOCKED) 1,000 MG/250 ML BAG IVPB ONE ×2 (17:57→23:30)
[2017-11-16 17:58] LABS: ALK PHOS 107 U/L (45-117)
[2017-11-16] MEDS: PIPERACILLIN/TAZOB 3.375 GM 3.375 GM in DEXTROSE 5%-WATER - 50 ML IVPB ONE ×2 (18:00→22:24)
[2017-11-16] MEDS: VANCOMYCIN 1,000 MG in DEXTROSE 5%-WATER - 250 ML IVPB ONE ×2 (18:41→23:19)
--- NOTE | 2017-11-16 19:23 | PN ---
Teaching Attending Note Name of Resident: Augusta Zarate ATTENDING PHYSICIAN STATEMENT I saw and evaluated the patient. I reviewed the resident's note and discussed the case with the resident. I agree with the resident's findings and plan as documented. SUBJECTIVE: 82 F with pmhx. of dementia, Dm, HTN, CVA, DVT. Dementia, Depression bipolar do who presents from [facility] with AMS and Lethargy. Pt. Non-verbal at bedside. Awake and making eye contact, but moaning. OBJECTIVE: Physical: VS: Vital Signs Period Temp Pulse Resp BP Sys/Rudd Pulse Ox Last 24 Hr 99.5 F-101.4 F 93-101 18-20 126-129/58-78 98-100 GEN: NAD, Resting in bed, AAOX0 HEENT: NCAT, R. eye reactive, refusing to open L. eye, Mouth appears dry with dry mucosa, throat withour erythema or exudate CARD: RRR S1, S2 RESP: CTAB ABD: BSx4, NTD to palpation EXT: R. leg - C/C/E. L Leg contracted, No Edema CBCD WBC 10.4 K/mm3 (4.0-10.0) H D 11/16/17 17:00 RBC 3.50 M/mm3 (3.60-5.2) L 11/16/17 17:00 Hgb 10.3 GM/dL (10.7-15.3) L 11/16/17 17:00 Hct 32.2 % (32.4-45.2) L 11/16/17 17:00 MCV 91.9 fl (80-96) 11/16/17 17:00 MCHC 31.9 g/dl (32.0-36.0) L 11/16/17 17:00 RDW 17.8 % (11.6-15.6) H D 11/16/17 17:00 Plt Count 340 K/MM3 (134-434) D 11/16/17 17:00 MPV 8.9 fl (7.5-11.1) 11/16/17 17:00 CMP Sodium 155 mmol/L (136-145) H 11/16/17 17:00 Potassium 4.9 mmol/L (3.5-5.1) 11/16/17 17:00 Chloride 120 mmol/L (98-107) H 11/16/17 17:00 Carbon Dioxide 27 mmol/L (21-32) 11/16/17 17:00 Anion Gap 8 (8-16) 11/16/17 17:00 BUN 67 mg/dL (7-18) H 11/16/17 17:00 Creatinine 2.3 mg/dL (0.55-1.02) H 11/16/17 17:00 Creat Clearance w eGFR 20.20 (>60) 11/16/17 17:00 Random Glucose 182 mg/dL (74-106) H 11/16/17 17:00 Calcium 8.6 mg/dL (8.5-10.1) 11/16/17 17:00 Total Bilirubin 0.3 mg/dL (0.2-1.0) D 11/16/17 17:00 AST 19 U/L (15-37) 11/16/17 17:00 ALT 12 U/L (12-78) 11/16/17 17:00 Alkaline Phosphatase 107 U/L (45-117) 11/16/17 17:00 Total Protein 6.8 g/dl (6.4-8.2) 11/16/17 17:00 Albumin 2.4 g/dl (3.4-5.0) L 11/16/17 17:00 CARDIAC ENZYMES Creatine Kinase 247 IU/L (26-192) H 11/16/17 17:00 Troponin I 0.09 ng/ml (0.00-0.05) H 11/16/17 17:00 CT HEAD- PENDING Hip/Pelvis Xray- Negative Ambulatory Orders Acetaminophen 650 mg PO Q6H PRN 11/16/17 Ammonium Lactate Lotion [Lac-Hydrin 12% Lotion -] 1 applic TP BID 11/16/17 Apixaban [Eliquis] 5 mg PO BID 11/16/17 Aspirin 81 mg PO DAILY 11/16/17 Bacitracin - [Bacitracin Topical Ointment -] 1 applic TP DAILY 11/16/17 Divalproex *ER* [Depakote *ER* -] 500 mg PO HS 11/16/17 Haloperidol [Haldol -] 1 mg PO HS 11/16/17 Insulin Lispro [Humalog] 100 unit SQ BID 11/16/17 Metoprolol Tartrate 25 mg PO BID 11/16/17 Olanzapine [Olanzapine Odt] 15 mg PO HS 11/16/17 Ranitidine HCl [Zantac] 150 mg PO HS 11/16/17 Rosuvastatin Calcium [Crestor] 10 mg PO HS 11/16/17 Timolol 0.5% [Timoptic 0.5%] 1 drop OD DAILY 11/16/17 CT HEAD- PENDING READ PER CT SCAN was Sent to [facility] shampoo assistant, awaiting report ASSESSMENT AND PLAN: 82 F with pmhx. of dementia, Dm, HTN, bipolar do. DVT who presents from [facility] with AMS and Lethargy, being admitted for Sepsis and Hypernatremia 1.) Sepsis - Most likely from UTI - Patel cx - IVF Gentle - S/P Vanco/Zosyn in ED - Switch to Ceftriaxone tomorrow - Repeat LA 2.) Hypernatremia - Free Water Defecit 3.4 L - D5W at 50/hr increase gently - Monitor NA- Do not decrease 0.5 MeQ/hr 3.) DM - FS - RAISS - NPO due to AMS 4.) HTN - Hold Po Meds 5.)ARF - Most likely poor Po intake - IVF - U lytes - Avoid Nephrotoxins 6.) Troponin Elevation - Most likley due to deman - Trend Trop/EKG 7.) L. Hip Contracted - Fu Xray 8.) Severe - Monitor - As per last Cardio consult, not a candidate for TAVR 9.) DVT Hx - On Eliquis Place in Med- Sx
--- NOTE | 2017-11-16 19:27 | HP ---
CHIEF COMPLAINT: FTT x 1 wk PCP: Dr. Erazo HISTORY OF PRESENT ILLNESS: 82 y/o F with PMH dementia, IDDM, HTN, HLD, schizophrenia, bipolar, GERD, who presents to the ED from [facility] with AMS over the past week. As per [facility], over the past week, pt had decreased PO intake and stopped ambulating. At baseline, pt ambulates with a rolling walker. Further, today, pt refused her medications and became increasingly combatative. During this time, pt has also had urinary and fecal incontinence, as well as drastic increase in BUN/Cr and unspecified changes in her CBC. AR denies pt had MCCAULEY, fever, chills, chest pain, or any other physical complaints. ER course was notable for: (1) Vanc 1g IVPB, Zosyn 3.375x1 (2) NS bolus (3) Febrile 101.4F, tachy 101HR Recent Travel: none PAST MEDICAL HISTORY: dementia, IDDM, HTN, HLD, schizophrenia, bipolar, GERD PAST SURGICAL HISTORY: unable to obtain d/t pt's dementia Social History: Smoking: unobtainable Alcohol: unobtainable Drugs: unobtainable Family History: unobtainable Allergies No Known Allergies Allergy (Verified 11/16/17 16:17) HOME MEDICATIONS: Home Medications Medication Instructions Recorded Acetaminophen 650 mg PO Q6H PRN 11/16/17 Ammonium Lactate Lotion 1 applic TP BID 11/16/17 [Lac-Hydrin 12% Lotion -] Apixaban [Eliquis] 5 mg PO BID 11/16/17 Aspirin 81 mg PO DAILY 11/16/17 Bacitracin - [Bacitracin Topical 1 applic TP DAILY 11/16/17 Ointment -] Divalproex *ER* [Depakote *ER* -] 500 mg PO HS 11/16/17 Haloperidol [Haldol -] 1 mg PO HS 11/16/17 Insulin Lispro [Humalog] 100 unit SQ BID 11/16/17 Metoprolol Tartrate 25 mg PO BID 11/16/17 Olanzapine [Olanzapine Odt] 15 mg PO HS 11/16/17 Ranitidine HCl [Zantac] 150 mg PO HS 11/16/17 Rosuvastatin Calcium [Crestor] 10 mg PO HS 11/16/17 Timolol 0.5% [Timoptic 0.5%] 1 drop OD DAILY 11/16/17 REVIEW OF SYSTEMS CONSTITUTIONAL: +fever Absent: chills, diaphoresis, generalized weakness, malaise, loss of appetite, weight change HEENT: Absent: rhinorrhea, nasal congestion, throat pain, throat swelling, difficulty swallowing, mouth swelling, ear pain, eye pain, visual changes CARDIOVASCULAR: Absent: chest pain, syncope, palpitations, irregular heart rate, lightheadedness , peripheral edema RESPIRATORY: Absent: cough, shortness of breath, dyspnea with exertion, orthopnea, wheezing, stridor, hemoptysis GASTROINTESTINAL: Absent: abdominal pain, abdominal distension, nausea, vomiting, diarrhea, constipation, melena, hematochezia GENITOURINARY: +urinary incontinence Absent: dysuria, frequency, urgency, hesitancy, hematuria, flank pain, genital pain MUSCULOSKELETAL: Absent: myalgia, arthralgia, joint swelling, back pain, neck pain SKIN: Absent: rash, itching, pallor HEMATOLOGIC/IMMUNOLOGIC: Absent: easy bleeding, easy bruising, lymphadenopathy, frequent infections ENDOCRINE: Absent: unexplained weight gain, unexplained weight loss, heat intolerance, cold intolerance NEUROLOGIC: Absent: headache, focal weakness or paresthesias, dizziness, unsteady gait, seizure, mental status changes, bladder or bowel incontinence PSYCHIATRIC: Absent: anxiety, depression, suicidal or homicidal ideation, hallucinations. PHYSICAL EXAMINATION Vital Signs 11/16/17 11/16/17 11/16/17 16:16 16:45 18:49 Temperature 99.5 F 101.4 F H Pulse Rate 93 H Pulse Rate [ 101 H Apical] Respiratory 18 20 Rate Blood Pressure 129/58 Blood Pressure 126/78 [Right Arm] O2 Sat by Pulse 100 98 98 Oximetry (%) GENERAL: Contracted female. Pleasantly AAOx0, in no acute distress. Incoherent sounds to verbal stimuli HEAD: Normal with no signs of trauma. EYES: L eyelid - yellow discharge, pupils equal, round and reactive to light, extraocular movements intact, sclera anicteric, conjunctiva clear. EARS, NOSE, THROAT: Ears normal, nares patent, oropharynx clear without exudates. Poor dentition. Dry mucous membranes. NECK: Normal range of motion, supple LUNGS: Breath sounds equal, clear to auscultation bilaterally. No wheezes, and no crackles. No accessory muscle use. HEART: Tachycardic rate and rhythm, normal S1 and S2. Systolic murmur appreciated R 2nd IS, without rub or gallop. ABDOMEN: Soft, nontender, not distended, normoactive bowel sounds, no guarding, no rebound, no masses. MUSCULOSKELETAL: Normal range of motion at all joints. No bony deformities or tenderness. No CVA tenderness. LOWER EXTREMITIES: 2+ posterior tibial pulses, warm, well-perfused. No calf tenderness. No peripheral edema. NEUROLOGICAL: Cranial nerves II-XII appear to be grossly intact. Incoherent sounds to verbal stimuli. Laboratory Results 11/16/17 11/16/17 11/16/17 17:00 17:00 17:00 WBC 10.4 H D Hgb 10.3 L Hct 32.2 L Plt Count 340 D Monocytes % 12.8 H INR 1.48 H D VBG pH Urine Color Brown Urine Appearance Turbid Urine pH >= 9.0 H D Ur Specific [place] 1.010 Urine Protein 3+ H Urine Ketones 1+ H Urine Blood 3+ H Urine Nitrite Positive Urine Bilirubin 1+ H Urine Urobilinogen 1.0 Ur Leukocyte Esterase 3+ H Urine WBC (Auto) >100 11/16/17 11/16/17 11/16/17 17:00 17:00 17:00 INR VBG pH 7.42 POC VBG pCO2 40.3 POC VBG pO2 44.7 Mixed VBG HCO3 26.2 H Sodium 155 H Potassium 4.9 Chloride 120 H Carbon Dioxide 27 BUN 67 H Creatinine 2.3 H Lactic Acid 1.9 Alkaline Phosphatase 107 Creatine Kinase 247 H Troponin I 0.09 H Urine Color Ur Leukocyte Esterase Microbiology -Blood cx: pending -Urine cx: pending Radiology -CXR: cardiomegaly, without infiltrates. Official report pending -Head CT non-con: official report pending -Hip/pelvis XR: no fx evident, however official report pending ASSESSMENT/PLAN: 82 y/o F with PMH dementia, IDDM, HTN, HLD, schizophrenia, bipolar, GERD, who presents to the ED from [facility] with AMS over the past week. Pt admitted to med- surg for sepsis possibly 2/2 UTI. #Sepsis possibly 2/2 UTI -Febrile 101.4F, tachy 101 HR, UA: dark urine, 9+pH, 3+ protein, 3+blood, 3+ leuk esterase, WBC>100 -hx recent urinary incontinence -Received vanc 1g IVPB, zosyn 3.375 x 1 in ED -Continue with rocephin 1g IVPB starting tomorrow, qd -F/u urine cx, blood cx -F/u lactic acid tomorrow. Currently WNL -IVF #Hypernatremia most likely 2/2 decreased PO intake -Current Na 155 -Free water deficit 3.7 L -Correct with D5w - gentle hydration 50 mls/hr, titrate up as needed -F/u daily BMP #HOWIE superimposed on ?CKD 2/2 decreased PO intake -Currently 67/2.3 -gentle hydration -Continue to follow BMP -F/u urine electrolytes #Elevated troponins most likely 2/2 demand ischemia -F/u troponins -Continue to monitor #IDDM -BGM -ISS ACHS -holding home humalog #HTN- currently controlled -Hold home meds metoprolol tartate 25mg PO qd #HLD -Continue crestor 10mg PO qHS, when pt able to tolerate PO #Hx DVT -Continue eliquis 5mg PO BID #Hx schizophrenia, bipolar disorder -Continue olanzapine 15mg PO qd, divalproex ER 500mg qd, haloperidol 1mg qd when tolerate PO #GERD -Continue zantac 150mg PO qd #Glaucoma -Continue timolol 0.5% eye drops #PPX DVT: on eliquis #F/E/N D5w 50 cc/hr Monitor electrolytes, especially Na NPO, as aspiration risk #Dispo continued monitoring on med-surg Visit type - Emergency Visit Emergency Visit: Yes ED Registration Date: 11/16/17 Care time: The patient presented to the Emergency Department on the above date and was hospitalized for further evaluation of their emergent condition. - New Patient This patient is new to me today: Yes Date on this admission: 11/17/17 - Critical Care Critical Care patient: No
[2017-11-16] MEDS ORDERED: ACETAMINOPHEN 325 MG TABLET (FP) PO PRN (20:22)
[2017-11-16] MEDS ORDERED: DEXTROSE 5%-WATER - 1,000 ML IV SCH (20:30)
[2017-11-16] MEDS ORDERED: PIPERACIL/TAZOB 3.375 GM 3.375 GM/50 ML PREMIX IVPB SCH (22:00)
[2017-11-16] MEDS ORDERED: VANCOMYCIN 1,000 MG in DEXTROSE 5%-WATER - 250 ML IVPB SCH (22:00)
[2017-11-16] MEDS: ROSUVASTATIN CA 10 MG TABLET (FP) PO SCH (22:19)
[2017-11-16] MEDS: ASPIRIN 81 MG CHEWABLE TABLETS PO SCH (22:20)
[2017-11-16] MEDS: DIVALPROEX NA *ER* EXTEND REL 500 MG TABLET.SA (FP) PO SCH (22:22)
[2017-11-16] MEDS: HALOPERIDOL 1 MG TABLET (FP) PO SCH (22:22)
[2017-11-16] MEDS: APIXABAN 5 MG TABLET PO SCH (22:22)
[2017-11-16] MEDS: RANITIDINE HCL 150 MG TABLET (FP) PO SCH (22:23)
[2017-11-16] MEDS: OLANZapine 5 MG TABLET PO SCH (22:24)
[2017-11-16] MEDS: BACITRACIN 15 GM TUBE TOPICAL OINTMENT TP SCH (23:12)
[2017-11-16] MEDS: TIMOLOL 0.5% OPHTHALMIC SOL 5 ML BOTTLE OD SCH (23:13)
[2017-11-16] MEDS: AMMONIUM LACTATE 12% LOTION 225 GM BOTTLE TP SCH (23:29)
[2017-11-17] MEDS: INSULIN SLIDING SCALE (NOVOLOG) 1 VIAL SQ SCH ×5 (00:09→22:05)
[2017-11-17] MEDS ORDERED: INSULIN (NOVOLOG) ASPART 100 UNITS/ML 10ML VIAL ONE ×2 (00:56→17:08)
[2017-11-17 07:19] LABS: BASO % 1.1 % (0-2.0); EOS % 0.4 % (0-4.5); HEMATOCRIT 30.4 % (32.4-45.2); HEMOGLOBIN 9.7 GM/dL (10.7-15.3); LYMPH % 13.9 % (8-40); MCH 29.6 pg (25.7-33.7); MCHC 31.9 g/dl (32.0-36.0); MEAN CELL VOLUME 92.9 fl (80-96); MEAN PLT VOLUME 8.6 fl (7.5-11.1); NEUT % 69.6 % (42.8-82.8); PLATELET COUNT 327 K/MM3 (134-434); RBC 3.27 M/mm3 (3.60-5.2); RDW 18.2 % (11.6-15.6); WHITE BLOOD COUNT 10.9 K/mm3 (4.0-10.0)
[2017-11-17 07:37] LABS: ANION GAP 10 (8-16); BLOOD UREA NITROGEN 71 mg/dL (7-18); CALCIUM 8.5 mg/dL (8.5-10.1); CHLORIDE 120 mmol/L (98-107); CO2 24 mmol/L (21-32); GLUCOSE,RANDOM 146 mg/dL (74-106); POTASSIUM 4.4 mmol/L (3.5-5.1); SODIUM 154 mmol/L (136-145)
[2017-11-17 07:38] LABS: CREATININE 2.4 mg/dL (0.55-1.02)
[2017-11-17] MEDS ORDERED: SODIUM CHLORIDE 1,000 ML IV ONE (09:00)
[2017-11-17] MEDS ORDERED: cefTRIAXone 1 GM/50 ML BAG (PRE-DOCKED) IVPB SCH (10:00)
[2017-11-17] MEDS: BACITRACIN 15 GM TUBE TOPICAL OINTMENT TP SCH (10:41)
[2017-11-17] MEDS: ASPIRIN 81 MG CHEWABLE TABLETS PO SCH (10:41)
[2017-11-17] MEDS ORDERED: CEFTRIAXONE 1 GM/50 ML BAG ONE (10:44)
[2017-11-17] MEDS ORDERED: DEXTROSE 50%-WATER - 25 GM/50 ML VIAL IVPUSH ONE (10:56)
[2017-11-17] MEDS ORDERED: D5-NS + 20 MEQ KCL - 20 MEQ/1,000 ML INFUS.BAG IV SCH (11:00)
[2017-11-17] MEDS ORDERED: D5-1/2NS+20 MEQ KCL - 20 MEQ/1,000 ML INFUS.BAG IV SCH (11:00)
[2017-11-17] MEDS: CEFTRIAXONE 1 G/50 ML PREMIX 50 ML IVPB SCH (11:11)
--- NOTE | 2017-11-17 12:35 | PN ---
Progress Note, Physician Chief Complaint: patient came in for altered mental status and fever found to have temp and positive blood culture elevated bun /cr at SD ivf was unsucessful and patient not able to take oral intake bc of mental status change - Current Medication List Current Medications: Active Medications Acetaminophen (Tylenol -) 650 mg PO Q6H PRN PRN Reason: PAIN LEVEL 1 - 3 Apixaban (Eliquis -) 5 mg PO BID [facility] Last Admin: 11/16/17 22:22 Dose: 5 mg Aspirin (Asa -) 81 mg PO DAILY [facility] Last Admin: 11/17/17 10:41 Dose: Not Given Bacitracin (Bacitracin -) 1 applic TP DAILY [facility] Last Admin: 11/17/17 10:41 Dose: 1 applic Divalproex Sodium (Depakote *Er* -) 500 mg PO HS [facility] Last Admin: 11/16/17 22:22 Dose: 500 mg Haloperidol (Haldol -) 1 mg PO HS [facility] Last Admin: 11/16/17 22:22 Dose: 1 mg Vancomycin HCl 1,000 mg/ (Dextrose) 250 mls @ 250 mls/hr IVPB BID LONNIE PRN Reason: Protocol Dextrose (D5w -) 1,000 mls @ 50 mls/hr IV ASDIR [facility] Last Admin: 11/16/17 23:15 Dose: 50 mls/hr CEFTRIAXONE 1 G/50 ML PREMIX (Ceftriaxone 1 Gm-D5w Bag) 50 mls @ 100 mls/hr IVPB DAILY [facility] Last Admin: 11/17/17 11:11 Dose: 100 mls/hr Sodium Chloride (Normal Saline -) 1,000 mls @ 100 mls/hr IV ASDIR ONE Stop: 11/17/17 18:59 Last Admin: 11/17/17 09:01 Dose: 100 mls/hr Potassium Chloride/Dextrose/Sod Cl (D5-1/2ns+20 Meq Kcl -) 20 meq in 1,000 mls @ 100 mls/hr IV ASDIR [facility] Last Admin: 11/17/17 11:11 Dose: 100 mls/hr Insulin Aspart (Novolog Vial Sliding Scale -) 1 vial SQ ACHS LONNIE PRN Reason: Protocol Last Admin: 11/17/17 11:03 Dose: Not Given Lactic Acid (Lac-Hydrin 12) 1 applic TP BID [facility] Last Admin: 11/16/17 23:29 Dose: Not Given Olanzapine (Zyprexa -) 15 mg PO [facility] Last Admin: 11/16/17 22:24 Dose: 15 mg Piperacillin/Tazobactam/Dextrose (Zosyn 3.375gm Ivpb (Premix)) 3.375 gm IVPB BID [facility] Ranitidine HCl (Zantac -) 150 mg PO [facility] Last Admin: 11/16/17 22:23 Dose: 150 mg Rosuvastatin Calcium (Crestor -) 10 mg PO [facility] Last Admin: 11/16/17 22:19 Dose: 10 mg Timolol Maleate (Timoptic 0.5%) 1 drop OD DAILY [facility] Last Admin: 11/16/17 23:13 Dose: 1 drop - Objective Vital Signs: Vital Signs Temperature 98.5 F 11/16/17 20:06 Pulse Rate 96 H 11/17/17 09:19 Respiratory Rate 15 11/17/17 09:19 Blood Pressure 112/67 11/17/17 09:19 O2 Sat by Pulse Oximetry (%) 93 L 11/17/17 09:19 Constitutional: Yes: Other (does not allow to examine her) Cardiovascular: Yes: Murmur, S1, S2 Respiratory: Yes: CTA Bilaterally, Diminished (at bases) Gastrointestinal: Yes: Normal Bowel Sounds, Soft Edema: No Neurological: Yes: Other (combative) Labs: CBC, BMP 11/17/17 06:40 11/17/17 06:40 INR, PTT INR 1.48 (0.82-1.09) H D 11/16/17 17:00 Problem List - Problems (1) Sepsis Assessment/Plan: ID eval awaiting final culture got rocephin and zosyn in ER Microbiology 11/16/17 17:00 Blood - Peripheral Venous Blood Culture - Preliminary Pending Organism Code(s): A41.9 - SEPSIS, UNSPECIFIED ORGANISM Qualifiers: Sepsis type: sepsis due to unspecified organism Qualified Code(s): A41.9 - Sepsis, unspecified organism (2) Acute renal failure (ARF) Assessment/Plan: ivf- secondary to decrease oral intake renal sono renal consult Code(s): N17.9 - ACUTE KIDNEY FAILURE, UNSPECIFIED (3) DVT (deep venous thrombosis) Assessment/Plan: NPO cannot take eliquis has been on eliquis for > 6 months will change to heparin subq for dvt ppx Code(s): I82.409 - ACUTE EMBOLISM AND THOMBOS UNSP DEEP VN UNSP LOWER EXTREMITY Qualifiers: Laterality: left (4) Psychiatric disturbance Assessment/Plan: olazapine, psych eval Code(s): F99 - MENTAL DISORDER, NOT OTHERWISE SPECIFIED
[2017-11-17] MEDS: TIMOLOL 0.5% OPHTHALMIC SOL 5 ML BOTTLE OD SCH (14:32)
[2017-11-17] MEDS: AMMONIUM LACTATE 12% LOTION 225 GM BOTTLE TP SCH ×2 (14:32→23:02)
--- NOTE | 2017-11-17 14:53 | CONSULT ---
Consult Consult Specialty:: Nephrology Reason for Consultation:: HOWIE and hypernatremia - History of Present Illness Chief Complaint: sent in for abnormal labs History of Present Illness: Pt is an 82 year old female with pmhx of CKD, DM, HTN, chol and bipolar who was sent in from the [place] for abnormal labs. She was found to be in acute renal failure and I was called to evaluate her. She does have ckd based on older lab values. She has not been eating for drinking for about a week. She has been pocketing her food and meds and is not swallowing. She is normally verbal and ambulatory based as per the chart. Pt is unable to give history. 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, had preop psych consult and deemed competant.) Cardio/Vascular: Yes: HTN, Hyperlipdemia Pulmonary: Yes: Other (preop left effusion on cxr) Gastrointestinal: Yes: Cancer, Other (liver lesion on preop ct) Hepatobiliary: Yes: Other (liver lesion on preop ct and h.o elevated LFT 2010) Renal/: Yes: UTI (last urine cs sterile), Other Musculoskeletal: Yes: Osteoarthritis (on ct and shonda fusion L5S1) Endocrine: Yes: Diabetes Mellitus - Past Surgical History Past Surgical History: Yes: Cholecystectomy - Alcohol/Substance Use Hx Alcohol Use: No History of Substance Use: reports: None - Smoking History Smoking history: Unknown if ever smoked Have you smoked in the past 12 months: No Aproximately how many cigarettes per day: 0 - Social History Usual Living Arrangement: Custodial ADL: Independent History of Recent Travel: No Home Medications - Allergies Allergies/Adverse Reactions: Allergies Allergy/AdvReac Type Severity Reaction Status Date / Time No Known Allergies Allergy Verified 11/16/17 16:17 - Home Medications Home Medications: Ambulatory Orders Acetaminophen 650 mg PO Q6H PRN 11/16/17 Ammonium Lactate Lotion [Lac-Hydrin 12% Lotion -] 1 applic TP BID 11/16/17 Apixaban [Eliquis] 5 mg PO BID 11/16/17 Aspirin 81 mg PO DAILY 11/16/17 Bacitracin - [Bacitracin Topical Ointment -] 1 applic TP DAILY 11/16/17 Divalproex *ER* [Depakote *ER* -] 500 mg PO HS 11/16/17 Haloperidol [Haldol -] 1 mg PO HS 11/16/17 Insulin Lispro [Humalog] 100 unit SQ BID 11/16/17 Metoprolol Tartrate 25 mg PO BID 11/16/17 Olanzapine [Olanzapine Odt] 15 mg PO HS 11/16/17 Ranitidine HCl [Zantac] 150 mg PO HS 11/16/17 Rosuvastatin Calcium [Crestor] 10 mg PO HS 11/16/17 Timolol 0.5% [Timoptic 0.5%] 1 drop OD BID 11/16/17 Review of Systems Unable to obtain ROS, reason: pt is not responsive Physical Exam Vital Signs: Vital Signs Temperature 98.5 F 11/16/17 20:06 Pulse Rate 96 H 11/17/17 09:19 Respiratory Rate 15 11/17/17 09:19 Blood Pressure 112/67 11/17/17 09:19 O2 Sat by Pulse Oximetry (%) 93 L 11/17/17 09:19 Constitutional: Yes: Calm, Mild Distress Eyes: Yes: Conjunctiva Clear Neck: Yes: Supple Cardiovascular: Yes: S1, S2 Respiratory: Yes: On Venti-Mask Gastrointestinal: Yes: Soft Renal/: Yes: Incontinence Musculoskeletal: Yes: Muscle Weakness Edema: No Neurological: Yes: Lethargy Labs: CBC, BMP 11/17/17 06:40 11/17/17 06:40 Laboratory Tests 05/02/17 05/24/17 09/04/17 06:00 05:15 07:57 ABG pCO2 at Pt Temp ABG HCO3 ABG O2 Content Sodium Potassium Chloride Carbon Dioxide Anion Gap BUN Creatinine 1.4 H D 1.4 H D 1.6 H Random Glucose Lactic Acid Urine Protein Urine Blood Ur Leukocyte Esterase 09/06/17 09/09/17 11/16/17 06:00 09:15 17:00 ABG pCO2 at Pt Temp ABG HCO3 ABG O2 Content Sodium Potassium Chloride Carbon Dioxide Anion Gap BUN Creatinine 1.9 H 1.7 H Random Glucose Lactic Acid Urine Protein 3+ H Urine Blood 3+ H Ur Leukocyte Esterase 3+ H 11/16/17 11/17/17 11/17/17 17:00 06:40 06:40 ABG pCO2 at Pt Temp ABG HCO3 ABG O2 Content Sodium 155 H 154 H Potassium 4.9 4.4 Chloride 120 H Carbon Dioxide 24 Anion Gap 10 BUN 67 H 71 H Creatinine 2.3 H 2.4 H Random Glucose 146 H Lactic Acid 2.9 H* Urine Protein Urine Blood Ur Leukocyte Esterase 11/17/17 15:35 ABG pCO2 at Pt Temp 68.6 H* ABG HCO3 36.5 H ABG O2 Content 2.5 L* Sodium Potassium Chloride Carbon Dioxide Anion Gap BUN Creatinine Random Glucose Lactic Acid Urine Protein Urine Blood Ur Leukocyte Esterase Imaging - Results Chest X-ray: Report Reviewed Cat Scan: Report Reviewed Problem List - Problems (1) Hypernatremia Code(s): E87.0 - HYPEROSMOLALITY AND HYPERNATREMIA (2) Sepsis Code(s): A41.9 - SEPSIS, UNSPECIFIED ORGANISM Qualifiers: Sepsis type: sepsis due to unspecified organism Qualified Code(s): A41.9 - Sepsis, unspecified organism (3) Acute renal failure (ARF) Code(s): N17.9 - ACUTE KIDNEY FAILURE, UNSPECIFIED (4) Anemia Code(s): D64.9 - ANEMIA, UNSPECIFIED (5) Dementia Code(s): F03.90 - UNSPECIFIED DEMENTIA WITHOUT BEHAVIORAL DISTURBANCE Qualifiers: Dementia type: unspecified type Dementia behavioral disturbance: with behavioral disturbance Qualified Code(s): F03.91 - Unspecified dementia with behavioral disturbance (6) Schizophrenia Code(s): F20.9 - SCHIZOPHRENIA, UNSPECIFIED (7) UTI (urinary tract infection) Code(s): N39.0 - URINARY TRACT INFECTION, SITE NOT SPECIFIED Qualifiers: Urinary tract infection type: site unspecified Hematuria presence: without hematuria Qualified Code(s): N39.0 - Urinary tract infection, site not specified Assessment/Plan Current Medications Generic Name Dose Route Start Last Admin Trade Name Freq PRN Reason Stop Dose Admin Acetaminophen 650 mg 11/16/17 20:22 Tylenol - PO Q6H PRN PAIN LEVEL 1 - 3 Aspirin 81 mg 11/16/17 20:30 11/17/17 10:41 Asa - PO Not Given DAILY LONNIE Bacitracin 1 applic 11/16/17 20:30 11/17/17 10:41 Bacitracin - TP 1 applic DAILY LONNIE Administration Divalproex Sodium 500 mg 11/16/17 22:00 11/16/17 22:22 Depakote *Er* - PO 500 mg HS LONNIE Administration Haloperidol 1 mg 11/16/17 22:00 11/16/17 22:22 Haldol - PO 1 mg HS LONNIE Administration Heparin Sodium (Porcine) 5,000 unit 11/17/17 22:00 Heparin - SQ BID LONNIE Vancomycin HCl 1,000 mg/ 250 mls @ 250 mls/hr 11/16/17 22:00 Dextrose IVPB BID LONNIE Protocol Dextrose 1,000 mls @ 50 mls/hr 11/16/17 20:30 11/16/17 23:15 D5w - IV 50 mls/hr ASDIR LONNIE Administration CEFTRIAXONE 1 G/50 ML PREMIX 50 mls @ 100 mls/hr 11/17/17 10:00 11/17/17 11: 11 Ceftriaxone 1 Gm-D5w Bag IVPB 100 mls/hr DAILY LONNIE Administration Sodium Chloride 1,000 mls @ 100 mls/hr 11/17/17 09:00 11/17/17 09:01 Normal Saline - IV 11/17/17 18:59 100 mls/hr ASDIR ONE Administration Potassium Chloride/Dextrose/Sod Cl 20 meq in 1,000 mls @ 100 mls/hr 11/17/17 11:00 11/17/17 11:11 D5-1/2ns+20 Meq Kcl - IV 100 mls/hr ASDIR LONNIE Administration Insulin Aspart 1 vial 11/16/17 22:00 11/17/17 11:03 Novolog Vial Sliding Scale - SQ Not Given ACHS LONNIE Protocol Lactic Acid 1 applic 11/16/17 22:00 11/17/17 14:32 Lac-Hydrin 12 TP Not Given BID LONNIE Olanzapine 15 mg 11/16/17 22:00 11/16/17 22:24 Zyprexa - PO 15 mg HS LONNIE Administration Piperacillin/Tazobactam/Dextrose 3.375 gm 11/16/17 22:00 Zosyn 3.375gm Ivpb (Premix) IVPB BID LONNIE Ranitidine HCl 150 mg 11/16/17 22:00 11/16/17 22:23 Zantac - PO 150 mg HS LONNIE Administration Rosuvastatin Calcium 10 mg 11/16/17 22:00 11/16/17 22:19 Crestor - PO 10 mg HS LONNIE Administration Timolol Maleate 1 drop 11/16/17 20:30 02/12/18 14:32 Timoptic 0.5% OD Not Given DAILY LONNIE Impression 1. HOWIE 2. hx CKD 3. hypernatremia 4. anemia 5. bipolar 6. dementia 7. HTN 8. DM 9. sepsis 10. UTI Plan - stop current fluids and change to 1/2 ns - monitor serum sodium - cont abx - follow cultures - repeat labs in am - check urine biometrics experimentalist to calc fena - check renal ultrasound - will commend more on etiology of HOWIE after reviewing more data Dr Florentino
[2017-11-17] MEDS: APIXABAN 5 MG TABLET PO SCH (14:57)
[2017-11-17 15:49] LABS: ARTERIAL BLD GAS O2 SATURATION 14.8 % (90-98.9); ARTERIAL BLOOD GAS PCO2 68.6 mmHg (35-45); ARTERIAL BLOOD GAS PO2 15.1 mmHg (68-100); ARTERIAL BLOOD GAS pH 7.35 (7.35-7.45)
[2017-11-17 15:53] LABS: ALLENS TEST POSITIVE
[2017-11-17] MEDS ORDERED: SODIUM CHLORIDE 0.45% 1,000 ML IV SCH (17:15)
[2017-11-17] MEDS: DEXTROSE 5%-0.45% SALINE 1,000 ML IV SCH (18:26)
[2017-11-17] MEDS: DIVALPROEX NA *ER* EXTEND REL 500 MG TABLET.SA (FP) PO SCH (22:04)
[2017-11-17] MEDS: HALOPERIDOL 1 MG TABLET (FP) PO SCH (22:04)
[2017-11-17] MEDS: ROSUVASTATIN CA 10 MG TABLET (FP) PO SCH (22:04)
[2017-11-17] MEDS: HEPARIN NA (PORCINE) 5,000 UNITS/ML 1ML VIAL SQ SCH (22:10)
[2017-11-17] MEDS: RANITIDINE HCL 150 MG TABLET (FP) PO SCH (22:17)
[2017-11-17] MEDS: OLANZapine 5 MG TABLET PO SCH (22:17)
--- NOTE | 2017-11-17 23:26 | EKG ---
Test Reason : Blood Pressure : / mmHG Vent. Rate : 104 BPM Atrial Rate : 104 BPM P-R Int : 150 ms QRS Dur : 086 ms QT Int : 350 ms P-R-T Axes : 048 025 039 degrees QTc Int : 460 ms SINUS TACHYCARDIA MINIMAL VOLTAGE CRITERIA FOR LVH, MAY BE NORMAL VARIANT SEPTAL INFARCT , AGE UNDETERMINED NONSPECIFIC ST AND T WAVE ABNORMALITY ABNORMAL ECG WHEN COMPARED WITH ECG OF 04-SEP-2017 12:05, VENT. RATE HAS INCREASED BY 36 BPM Confirmed by GUCCI GOMEZ MD ([id number]) on 11/17/2017 11:25:54 PM Referred By: Confirmed By:GUCCI GOMEZ MD
[2017-11-18] MEDS: INSULIN SLIDING SCALE (NOVOLOG) 1 VIAL SQ SCH ×4 (06:31→21:53)
[2017-11-18] MEDS ORDERED: PT OWN MED DRAWER 7, Y5N ONE ×3 (06:44→21:28)
[2017-11-18 07:35] LABS: BASO % 0.5 % (0-2.0); EOS % 1.3 % (0-4.5); HEMATOCRIT 26.5 % (32.4-45.2); HEMOGLOBIN 8.7 GM/dL (10.7-15.3); LYMPH % 17.3 % (8-40); MCHC 32.7 g/dl (32.0-36.0); MEAN CELL VOLUME 91.5 fl (80-96); MEAN PLT VOLUME 8.1 fl (7.5-11.1); MONO % 10.6 % (3.8-10.2); NEUT % 70.3 % (42.8-82.8); PLATELET COUNT 296 K/MM3 (134-434); RDW 17.6 % (11.6-15.6); WHITE BLOOD COUNT 8.5 K/mm3 (4.0-10.0)
[2017-11-18 07:54] LABS: ALBUMIN 2.1 g/dl (3.4-5.0); ANION GAP 5 (8-16); BLOOD UREA NITROGEN 58 mg/dL (7-18); CALCIUM 8.5 mg/dL (8.5-10.1); CHLORIDE 123 mmol/L (98-107); CO2 26 mmol/L (21-32); GLUCOSE,RANDOM 207 mg/dL (74-106); SODIUM 154 mmol/L (136-145)
[2017-11-18 07:59] LABS: ALK PHOS 90 U/L (45-117); BILIRUBIN,TOTAL 0.8 mg/dL (0.2-1.0); CHOLESTEROL 146 mg/dL (50-200); CREATININE 2.1 mg/dL (0.55-1.02); HDL CHOLESTEROL 45 mg/dL (40-60); LDL CHOLESTEROL (ONLY SJRH) 88 mg/dL (5-100); SGOT/AST 22 U/L (15-37); SGPT/ALT 11 U/L (12-78); TRIGLYCERIDES 109 mg/dL (35-160)
--- NOTE | 2017-11-18 10:20 | CON.ID ---
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, had preop psych consult and deemed competant.) Cardio/Vascular: Yes: HTN, Hyperlipdemia Pulmonary: Yes: Other (preop left effusion on cxr) Gastrointestinal: Yes: Cancer, Other (liver lesion on preop ct) Hepatobiliary: Yes: Other (liver lesion on preop ct and h.o elevated LFT 2010) Renal/: Yes: UTI (last urine cs sterile), Other Heme/Onc: Yes: Anemia Musculoskeletal: Yes: Osteoarthritis (on ct and shonda fusion L5S1) Endocrine: Yes: Diabetes Mellitus - Past Surgical History Past Surgical History: Yes: Cholecystectomy - Alcohol/Substance Use Hx Alcohol Use: No History of Substance Use: reports: None - Smoking History Smoking history: Unknown if ever smoked Have you smoked in the past 12 months: No Aproximately how many cigarettes per day: 0 - Social History Usual Living Arrangement: Long Term ADL: Support Services History of Recent Travel: No Home Medications - Allergies Allergies/Adverse Reactions: Allergies Allergy/AdvReac Type Severity Reaction Status Date / Time No Known Allergies Allergy Verified 11/16/17 16:17 - Home Medications Home Medications: Ambulatory Orders Acetaminophen 650 mg PO Q6H PRN 11/16/17 Ammonium Lactate Lotion [Lac-Hydrin 12% Lotion -] 1 applic TP BID 11/16/17 Apixaban [Eliquis] 5 mg PO BID 11/16/17 Aspirin 81 mg PO DAILY 11/16/17 Bacitracin - [Bacitracin Topical Ointment -] 1 applic TP DAILY 11/16/17 Divalproex *ER* [Depakote *ER* -] 500 mg PO HS 11/16/17 Haloperidol [Haldol -] 1 mg PO HS 11/16/17 Insulin Lispro [Humalog] 100 unit SQ BID 11/16/17 Metoprolol Tartrate 25 mg PO BID 11/16/17 Olanzapine [Olanzapine Odt] 15 mg PO HS 11/16/17 Ranitidine HCl [Zantac] 150 mg PO HS 11/16/17 Rosuvastatin Calcium [Crestor] 10 mg PO HS 11/16/17 Timolol 0.5% [Timoptic 0.5%] 1 drop OD BID 11/16/17 Family Disease History - Family Disease History Family Disease History: Other: Father (longevity ) Review of Systems - Review of Systems Constitutional: reports: Fever, Lethargy Cardiovascular: denies: Chest Pain Respiratory: denies: Cough Gastrointestinal: denies: Abdominal Pain Physical Exam Vital Signs: Vital Signs Temperature 98.1 F 11/18/17 05:56 Pulse Rate 97 H 11/18/17 05:56 Respiratory Rate 20 11/18/17 05:56 Blood Pressure 127/55 11/18/17 05:56 O2 Sat by Pulse Oximetry (%) 98 11/17/17 21:00 Constitutional: Yes: No Distress, Calm Eyes: Yes: Conjunctiva Clear HENT: Yes: Atraumatic, Normocephalic Cardiovascular: Yes: Regular Rate and Rhythm, Murmur (harsh 3-4/6 mariola) Respiratory: Yes: Regular, CTA Bilaterally Gastrointestinal: Yes: Normal Bowel Sounds, Soft ...Rectal Exam: Yes: Deferred Extremities: Yes: WNL Edema: No Integumentary: Yes: Other (no slin breakdown) Neurological: Yes: Lethargy Labs: CBC, BMP 11/18/17 06:40 11/18/17 06:40 Microbiology 11/16/17 17:00 Blood - Peripheral Venous Blood Culture - Preliminary Staphylococcus Coagulase Neg 11/16/17 17:00 Blood - Peripheral Venous Blood Culture - Preliminary NO GROWTH OBTAINED AFTER 24 HOURS, INCUBATION TO CONTINUE FOR 4 DAYS. urine culture pending Imaging - Results Chest X-ray: Report Reviewed, Image Reviewed Cat Scan: Report Reviewed Problem List - Problems (1) Sepsis Code(s): A41.9 - SEPSIS, UNSPECIFIED ORGANISM Qualifiers: Sepsis type: sepsis due to unspecified organism Qualified Code(s): A41.9 - Sepsis, unspecified organism (2) UTI (urinary tract infection) Code(s): N39.0 - URINARY TRACT INFECTION, SITE NOT SPECIFIED Qualifiers: Urinary tract infection type: site unspecified Hematuria presence: without hematuria Qualified Code(s): N39.0 - Urinary tract infection, site not specified (3) Dehydration Code(s): E86.0 - DEHYDRATION (4) Dementia Code(s): F03.90 - UNSPECIFIED DEMENTIA WITHOUT BEHAVIORAL DISTURBANCE Qualifiers: Dementia type: unspecified type Dementia behavioral disturbance: with behavioral disturbance Qualified Code(s): F03.91 - Unspecified dementia with behavioral disturbance Assessment/Plan fevers resolved suspect UTI and dehydration continue ceftraixone and follow up blood cultures suspect blood culture isolate one bottle Coag neg staph of 4 is contaminant
[2017-11-18] MEDS: CEFTRIAXONE 1 G/50 ML PREMIX 50 ML IVPB SCH (10:56)
[2017-11-18] MEDS: HEPARIN NA (PORCINE) 5,000 UNITS/ML 1ML VIAL SQ SCH ×2 (10:56→21:35)
[2017-11-18] MEDS: BACITRACIN 15 GM TUBE TOPICAL OINTMENT TP SCH (10:56)
[2017-11-18] MEDS: ASPIRIN 81 MG CHEWABLE TABLETS PO SCH (10:56)
[2017-11-18] MEDS: AMMONIUM LACTATE 12% LOTION 225 GM BOTTLE TP SCH ×2 (10:56→22:38)
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
--- NOTE | 2017-11-18 11:47 | PN ---
Progress Note, Physician Chief Complaint: patient sleeping in bed no distress - Current Medication List Current Medications: Active Medications Acetaminophen (Tylenol -) 650 mg PO Q6H PRN PRN Reason: PAIN LEVEL 1 - 3 Aspirin (Asa -) 81 mg PO DAILY [facility] Last Admin: 11/18/17 10:56 Dose: 81 mg Bacitracin (Bacitracin -) 1 applic TP DAILY [facility] Last Admin: 11/18/17 10:56 Dose: 1 applic Divalproex Sodium (Depakote *Er* -) 500 mg PO HS [facility] Last Admin: 11/17/17 22:04 Dose: Not Given Haloperidol (Haldol -) 1 mg PO HS [facility] Last Admin: 11/17/17 22:04 Dose: Not Given Heparin Sodium (Porcine) (Heparin -) 5,000 unit SQ BID [facility] Last Admin: 11/18/17 10:56 Dose: 5,000 unit CEFTRIAXONE 1 G/50 ML PREMIX (Ceftriaxone 1 Gm-D5w Bag) 50 mls @ 100 mls/hr IVPB DAILY [facility] Last Admin: 11/18/17 10:56 Dose: 100 mls/hr Dextrose/Sodium Chloride (D5-1/2ns -) 1,000 mls @ 100 mls/hr IV ASDIR [facility] Last Admin: 11/17/17 18:26 Dose: 100 mls/hr Insulin Aspart (Novolog Vial Sliding Scale -) 1 vial SQ ACHS [facility] PRN Reason: Protocol Last Admin: 11/18/17 06:31 Dose: 4 units Lactic Acid (Lac-Hydrin 12) 1 applic TP BID [facility] Last Admin: 11/18/17 10:56 Dose: 1 applic Olanzapine (Zyprexa -) 15 mg PO HS [facility] Last Admin: 11/17/17 22:17 Dose: Not Given Ranitidine HCl (Zantac -) 150 mg PO HS [facility] Last Admin: 11/17/17 22:17 Dose: Not Given Rosuvastatin Calcium (Crestor -) 10 mg PO HS [facility] Last Admin: 11/17/17 22:04 Dose: Not Given Timolol Maleate (Timoptic 0.5%) 1 drop OD DAILY [facility] Last Admin: 11/17/17 14:32 Dose: Not Given - Objective Vital Signs: Vital Signs Temperature 98.1 F 11/18/17 05:56 Pulse Rate 97 H 11/18/17 05:56 Respiratory Rate 20 11/18/17 05:56 Blood Pressure 127/55 11/18/17 05:56 O2 Sat by Pulse Oximetry (%) 98 11/17/17 21:00 Constitutional: Yes: Calm Cardiovascular: Yes: Regular Rate and Rhythm, Murmur, S1, S2 Respiratory: Yes: CTA Bilaterally Gastrointestinal: Yes: Normal Bowel Sounds, Soft Edema: No Labs: CBC, BMP 11/18/17 06:40 11/18/17 06:40 INR, PTT INR 1.48 (0.82-1.09) H D 11/16/17 17:00 Problem List - Problems (1) Sepsis Assessment/Plan: leukocytosis and lactic acid now normal sepsis secondary to UTI ID on board awaiting final urine culture got rocephin and zosyn in ER- now on rocephin Microbiology 11/16/17 17:00 Blood - Peripheral Venous Blood Culture - Preliminary Pending Organism Code(s): A41.9 - SEPSIS, UNSPECIFIED ORGANISM Qualifiers: Sepsis type: sepsis due to unspecified organism Qualified Code(s): A41.9 - Sepsis, unspecified organism (2) Acute renal failure (ARF) Assessment/Plan: ivf- secondary to decrease oral intake renal sono noted renal on board bunc/cr now trending down Code(s): N17.9 - ACUTE KIDNEY FAILURE, UNSPECIFIED (3) DVT (deep venous thrombosis) Assessment/Plan: NPO cannot take eliquis has been on eliquis for > 6 months will change to heparin subq for dvt ppx Code(s): I82.409 - ACUTE EMBOLISM AND THOMBOS UNSP DEEP VN UNSP LOWER EXTREMITY Qualifiers: Laterality: left (4) Psychiatric disturbance Assessment/Plan: olazapine, psych eval noted Code(s): F99 - MENTAL DISORDER, NOT OTHERWISE SPECIFIED (5) Dehydration Assessment/Plan: ivf,- bun/cr trending down Code(s): E86.0 - DEHYDRATION (6) Hypernatremia Assessment/Plan: on D5%W renal on board trend sodium level Code(s): E87.0 - HYPEROSMOLALITY AND HYPERNATREMIA Assessment/Plan dietary and tsering deangelo to see patient
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
[2017-11-18] MEDS: TIMOLOL 0.5% OPHTHALMIC SOL 5 ML BOTTLE OD SCH (12:10)
[2017-11-18] MEDS: DEXTROSE 5%-0.45% SALINE 1,000 ML IV SCH (14:49)
--- NOTE | 2017-11-18 16:36 | PN ---
Progress Note, Physician History of Present Illness: Pt seen and examined at bedside. She is more awake than yesterday but still not speaking. - Current Medication List Current Medications: Active Medications Acetaminophen (Tylenol -) 650 mg PO Q6H PRN PRN Reason: PAIN LEVEL 1 - 3 Aspirin (Asa -) 81 mg PO DAILY [facility] Last Admin: 11/18/17 10:56 Dose: 81 mg Bacitracin (Bacitracin -) 1 applic TP DAILY [facility] Last Admin: 11/18/17 10:56 Dose: 1 applic Collagenase (Santyl -) 1 applic TP DAILY [facility] Divalproex Sodium (Depakote *Er* -) 500 mg PO HS [facility] Last Admin: 11/17/17 22:04 Dose: Not Given Haloperidol (Haldol -) 1 mg PO HS [facility] Last Admin: 11/17/17 22:04 Dose: Not Given Heparin Sodium (Porcine) (Heparin -) 5,000 unit SQ BID [facility] Last Admin: 11/18/17 10:56 Dose: 5,000 unit CEFTRIAXONE 1 G/50 ML PREMIX (Ceftriaxone 1 Gm-D5w Bag) 50 mls @ 100 mls/hr IVPB DAILY [facility] Last Admin: 11/18/17 10:56 Dose: 100 mls/hr Dextrose/Sodium Chloride (D5-1/2ns -) 1,000 mls @ 100 mls/hr IV ASDIR [facility] Last Admin: 11/18/17 14:49 Dose: 100 mls/hr Insulin Aspart (Novolog Vial Sliding Scale -) 1 vial SQ ACHS [facility] PRN Reason: Protocol Last Admin: 11/18/17 12:10 Dose: 6 units Lactic Acid (Lac-Hydrin 12) 1 applic TP BID [facility] Last Admin: 11/18/17 10:56 Dose: 1 applic Olanzapine (Zyprexa -) 15 mg PO HS [facility] Last Admin: 11/17/17 22:17 Dose: Not Given Ranitidine HCl (Zantac -) 150 mg PO HS [facility] Last Admin: 11/17/17 22:17 Dose: Not Given Rosuvastatin Calcium (Crestor -) 10 mg PO HS [facility] Last Admin: 11/17/17 22:04 Dose: Not Given Timolol Maleate (Timoptic 0.5%) 1 drop OD DAILY [facility] Last Admin: 11/18/17 12:10 Dose: 1 drop - Objective Vital Signs: Vital Signs Temperature 98.9 F 11/18/17 14:00 Pulse Rate 93 H 11/18/17 09:00 Respiratory Rate 20 11/18/17 09:00 Blood Pressure 110/50 11/18/17 09:00 O2 Sat by Pulse Oximetry (%) 100 11/18/17 09:00 Constitutional: Yes: Calm Eyes: Yes: Conjunctiva Clear HENT: Yes: Atraumatic Cardiovascular: Yes: S1, S2 Respiratory: Yes: On Venti-Mask Gastrointestinal: Yes: Soft Genitourinary: Yes: Incontinence Musculoskeletal: Yes: Muscle Weakness Edema: No Neurological: Yes: Confusion Labs: CBC, BMP 11/18/17 06:40 11/18/17 06:40 INR, PTT INR 1.48 (0.82-1.09) H D 11/16/17 17:00 - ....Imaging Ultrasound: Report Reviewed Problem List - Problems (1) Hypernatremia Code(s): E87.0 - HYPEROSMOLALITY AND HYPERNATREMIA (2) Sepsis Code(s): A41.9 - SEPSIS, UNSPECIFIED ORGANISM Qualifiers: Sepsis type: sepsis due to unspecified organism Qualified Code(s): A41.9 - Sepsis, unspecified organism (3) Acute renal failure (ARF) Code(s): N17.9 - ACUTE KIDNEY FAILURE, UNSPECIFIED (4) Anemia Code(s): D64.9 - ANEMIA, UNSPECIFIED (5) Dementia Code(s): F03.90 - UNSPECIFIED DEMENTIA WITHOUT BEHAVIORAL DISTURBANCE Qualifiers: Dementia type: unspecified type Dementia behavioral disturbance: with behavioral disturbance Qualified Code(s): F03.91 - Unspecified dementia with behavioral disturbance (6) Schizophrenia Code(s): F20.9 - SCHIZOPHRENIA, UNSPECIFIED (7) UTI (urinary tract infection) Code(s): N39.0 - URINARY TRACT INFECTION, SITE NOT SPECIFIED Qualifiers: Urinary tract infection type: site unspecified Hematuria presence: without hematuria Qualified Code(s): N39.0 - Urinary tract infection, site not specified Assessment/Plan Current Medications Generic Name Dose Route Start Last Admin Trade Name Freq PRN Reason Stop Dose Admin Acetaminophen 650 mg 11/16/17 20:22 Tylenol - PO Q6H PRN PAIN LEVEL 1 - 3 Aspirin 81 mg 11/16/17 20:30 11/18/17 10:56 Asa - PO 81 mg DAILY [facility] Administration Bacitracin 1 applic 11/16/17 20:30 11/18/17 10:56 Bacitracin - TP 1 applic DAILY [facility] Administration Collagenase 1 applic 11/19/17 10:00 Santyl - TP DAILY [facility] Divalproex Sodium 500 mg 11/16/17 22:00 11/17/17 22:04 Depakote *Er* - PO Not Given HS [facility] Haloperidol 1 mg 11/16/17 22:00 11/17/17 22:04 Haldol - PO Not Given HS [facility] Heparin Sodium (Porcine) 5,000 unit 11/17/17 22:00 11/18/17 10:56 Heparin - SQ 5,000 unit BID [facility] Administration CEFTRIAXONE 1 G/50 ML PREMIX 50 mls @ 100 mls/hr 11/17/17 10:00 11/18/17 10: 56 Ceftriaxone 1 Gm-D5w Bag IVPB 100 mls/hr DAILY [facility] Administration Dextrose/Sodium Chloride 1,000 mls @ 100 mls/hr 11/17/17 18:00 11/18/17 14:49 D5-1/2ns - IV 100 mls/hr ASDIR [facility] Administration Insulin Aspart 1 vial 11/16/17 22:00 11/18/17 12:10 Novolog Vial Sliding Scale - SQ 6 units ACHS [facility] Administration Protocol Lactic Acid 1 applic 11/16/17 22:00 11/18/17 10:56 Lac-Hydrin 12 TP 1 applic BID [facility] Administration Olanzapine 15 mg 11/16/17 22:00 11/17/17 22:17 Zyprexa - PO Not Given HS [facility] Ranitidine HCl 150 mg 11/16/17 22:00 11/17/17 22:17 Zantac - PO Not Given HS [facility] Rosuvastatin Calcium 10 mg 11/16/17 22:00 11/17/17 22:04 Crestor - PO Not Given HS [facility] Timolol Maleate 1 drop 11/16/17 20:30 11/18/17 12:10 Timoptic 0.5% OD 1 drop DAILY [facility] Administration Impression 1. HOWIE 2. hx CKD 3. hypernatremia 4. anemia 5. bipolar 6. dementia 7. HTN 8. DM 9. sepsis 10. UTI Plan - renal function is improving - cont hypotonic fluids, will change to 1/3rd saline - repeat labs in am - follow speech and swallow - renal ultrasound reviewed - follow urine gina Florentino
[2017-11-18] MEDS: DEXTROSE 5%-1/3 NS - 500 ML IV SCH (18:44)
[2017-11-18] MEDS: RANITIDINE HCL 150 MG TABLET (FP) PO SCH ×2 (21:35→22:20)
[2017-11-18] MEDS: HALOPERIDOL 1 MG TABLET (FP) PO SCH ×2 (21:35→22:20)
[2017-11-18] MEDS: DIVALPROEX NA *ER* EXTEND REL 500 MG TABLET.SA (FP) PO SCH ×2 (21:35→22:20)
[2017-11-18] MEDS: ROSUVASTATIN CA 10 MG TABLET (FP) PO SCH ×2 (21:36→22:20)
[2017-11-18] MEDS: OLANZapine 5 MG TABLET PO SCH ×2 (21:36→22:20)
[2017-11-19] MEDS: DEXTROSE 5%-1/3 NS - 500 ML IV SCH ×2 (01:48→09:04)
[2017-11-19] MEDS: INSULIN SLIDING SCALE (NOVOLOG) 1 VIAL SQ SCH ×4 (06:28→22:09)
[2017-11-19 08:51] LABS: ANION GAP 8 (8-16); BLOOD UREA NITROGEN 53 mg/dL (7-18); CALCIUM 8.4 mg/dL (8.5-10.1); CHLORIDE 123 mmol/L (98-107); CO2 26 mmol/L (21-32); GLUCOSE,RANDOM 259 mg/dL (74-106); POTASSIUM 4.3 mmol/L (3.5-5.1); SODIUM 157 mmol/L (136-145)
[2017-11-19] MEDS ORDERED: PT OWN MED DRAWER 7, Y5N ONE ×2 (11:24→12:28)
--- NOTE | 2017-11-19 11:27 | PN ---
Progress Note, Physician Chief Complaint: AMS, dehydration, UTI History of Present Illness: NAD in bed incontinent renal/bladder u/s noted unremarkable IVF IV abx seen by ID UC pending afebrile nephrology and speech eval appreciated NPO - Current Medication List Current Medications: Active Medications Acetaminophen (Tylenol -) 650 mg PO Q6H PRN PRN Reason: PAIN LEVEL 1 - 3 Aspirin (Asa -) 81 mg PO DAILY [facility] Last Admin: 11/18/17 10:56 Dose: 81 mg Bacitracin (Bacitracin -) 1 applic TP DAILY [facility] Last Admin: 11/18/17 10:56 Dose: 1 applic Collagenase (Santyl -) 1 applic TP DAILY [facility] Divalproex Sodium (Depakote *Er* -) 500 mg PO HS [facility] Last Admin: 11/18/17 22:20 Dose: Not Given Haloperidol (Haldol -) 1 mg PO HS [facility] Last Admin: 11/18/17 22:20 Dose: Not Given Heparin Sodium (Porcine) (Heparin -) 5,000 unit SQ BID [facility] Last Admin: 11/18/17 21:35 Dose: 5,000 unit CEFTRIAXONE 1 G/50 ML PREMIX (Ceftriaxone 1 Gm-D5w Bag) 50 mls @ 100 mls/hr IVPB DAILY [facility] Last Admin: 11/18/17 10:56 Dose: 100 mls/hr Dextrose/Sodium Chloride (D5-1/3ns -) 500 mls @ 100 mls/hr IV ASDIR [facility] Last Admin: 11/19/17 01:48 Dose: 100 mls/hr Insulin Aspart (Novolog Vial Sliding Scale -) 1 vial SQ ACHS [facility] PRN Reason: Protocol Last Admin: 11/19/17 06:28 Dose: Not Given Lactic Acid (Lac-Hydrin 12) 1 applic TP BID [facility] Last Admin: 11/18/17 22:38 Dose: 1 applic Olanzapine (Zyprexa -) 15 mg PO HS [facility] Last Admin: 11/18/17 22:20 Dose: Not Given Ranitidine HCl (Zantac -) 150 mg PO HS [facility] Last Admin: 11/18/17 22:20 Dose: Not Given Rosuvastatin Calcium (Crestor -) 10 mg PO HS [facility] Last Admin: 11/18/17 22:20 Dose: Not Given Timolol Maleate (Timoptic 0.5%) 1 drop OD DAILY [facility] Last Admin: 11/18/17 12:10 Dose: 1 drop - Objective Vital Signs: Vital Signs Temperature 99.2 F 11/19/17 09:41 Pulse Rate 93 H 11/19/17 09:41 Respiratory Rate 20 11/19/17 09:41 Blood Pressure 136/66 11/19/17 09:41 O2 Sat by Pulse Oximetry (%) 98 11/18/17 22:00 Constitutional: Yes: Well Nourished, No Distress, Calm Cardiovascular: Yes: Regular Rate and Rhythm Respiratory: Yes: Regular Gastrointestinal: Yes: Normal Bowel Sounds, Soft Musculoskeletal: Yes: WNL Extremities: Yes: WNL Edema: No Peripheral Pulses WNL: Yes Labs: CBC, BMP 11/18/17 06:40 11/19/17 06:40 INR, PTT INR 1.48 (0.82-1.09) H D 11/16/17 17:00 Problem List - Problems (1) Acute renal failure (ARF) Assessment/Plan: -IVF -Bladder/renal sono noted -Nephrology on board -bunc/cr now trending down -IVF Code(s): N17.9 - ACUTE KIDNEY FAILURE, UNSPECIFIED (2) Anemia Assessment/Plan: -dilutional? -Stool OB -Check Iron, TSH,FT4, B12, Folate -monitor trend Code(s): D64.9 - ANEMIA, UNSPECIFIED (3) UTI (urinary tract infection) Assessment/Plan: -seen by ID -IV abx -UC pending -renal/bladder U/S noted Code(s): N39.0 - URINARY TRACT INFECTION, SITE NOT SPECIFIED Qualifiers: Urinary tract infection type: site unspecified Hematuria presence: without hematuria Qualified Code(s): N39.0 - Urinary tract infection, site not specified (4) Dehydration Assessment/Plan: -IVF -BUN/Cr trending down -more responsive today Code(s): E86.0 - DEHYDRATION (5) Sepsis Assessment/Plan: -LA normal -afebrile -UC pending -BC contaminated -IV abx -ID on board -IVF Code(s): A41.9 - SEPSIS, UNSPECIFIED ORGANISM Qualifiers: Sepsis type: sepsis due to unspecified organism Qualified Code(s): A41.9 - Sepsis, unspecified organism (6) Altered mental status Assessment/Plan: -2/2 metabolic encephalopathy -more responsive today -frequently orient patient -although on Zyprexa and Haldol but NPO at this time. Would hold off until she is at her baseline mental state Code(s): R41.82 - ALTERED MENTAL STATUS, UNSPECIFIED Assessment/Plan see problem list
[2017-11-19] MEDS: CEFTRIAXONE 1 G/50 ML PREMIX 50 ML IVPB SCH (11:29)
[2017-11-19] MEDS: HEPARIN NA (PORCINE) 5,000 UNITS/ML 1ML VIAL SQ SCH ×2 (11:30→22:09)
[2017-11-19] MEDS: BACITRACIN 15 GM TUBE TOPICAL OINTMENT TP SCH (11:31)
[2017-11-19] MEDS: ASPIRIN 81 MG CHEWABLE TABLETS PO SCH ×2 (11:32→11:57)
[2017-11-19] MEDS: COLLAGENASE CLOSTRIDIUM HIST. 30 GRAMS TUBE TP SCH (11:32)
[2017-11-19] MEDS: AMMONIUM LACTATE 12% LOTION 225 GM BOTTLE TP SCH ×2 (11:32→22:10)
--- NOTE | 2017-11-19 12:11 | PN ---
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 Accepted one tsp of applesauce, however , continued to vocalize with open mouth posture. No posterior transit or swallow reflex triggered. Applesauce was removed from oral cavity to reduce risk of aspiration. Pt is a ful code. Continue NPO. Consider TF. What are pt's end of life wishes?
[2017-11-19] MEDS ORDERED: INSULIN (NOVOLOG) ASPART 100 UNITS/ML 10ML VIAL ONE (12:29)
[2017-11-19] MEDS ORDERED: KETOROLAC TROMETHAMINE 15 MG/ML VIAL IVPUSH PRN (12:34)
[2017-11-19] MEDS: TIMOLOL 0.5% OPHTHALMIC SOL 5 ML BOTTLE OD SCH (12:44)
--- NOTE | 2017-11-19 13:51 | PN ---
Progress Note, Physician History of Present Illness: Pt seen and examined at bedside. She is more awake but is not answering questions. - Current Medication List Current Medications: Active Medications Acetaminophen (Tylenol Suppository -) 650 mg [place] Q6H PRN PRN Reason: FEVER Aspirin (Asa -) 81 mg PO DAILY [facility] Last Admin: 11/19/17 11:57 Dose: Not Given Bacitracin (Bacitracin -) 1 applic TP DAILY [facility] Last Admin: 11/19/17 11:31 Dose: 1 applic Collagenase (Santyl -) 1 applic TP DAILY [facility] Last Admin: 11/19/17 11:32 Dose: 1 applic Divalproex Sodium (Depakote *Er* -) 500 mg PO HS [facility] Last Admin: 11/18/17 22:20 Dose: Not Given Haloperidol (Haldol -) 1 mg PO HS [facility] Last Admin: 11/18/17 22:20 Dose: Not Given Heparin Sodium (Porcine) (Heparin -) 5,000 unit SQ BID [facility] Last Admin: 11/19/17 11:30 Dose: 5,000 unit CEFTRIAXONE 1 G/50 ML PREMIX (Ceftriaxone 1 Gm-D5w Bag) 50 mls @ 100 mls/hr IVPB DAILY [facility] Last Admin: 11/19/17 11:29 Dose: 100 mls/hr Dextrose/Sodium Chloride (D5-1/3ns -) 500 mls @ 100 mls/hr IV ASDIR [facility] Last Admin: 11/19/17 09:04 Dose: 100 mls/hr Insulin Aspart (Novolog Vial Sliding Scale -) 1 vial SQ ACHS [facility] PRN Reason: Protocol Last Admin: 11/19/17 12:50 Dose: 8 units Ketorolac Tromethamine (Toradol Injection -) 15 mg IVPUSH Q6H PRN PRN Reason: PAIN LEVEL 6-10 Stop: 11/24/17 12:33 Last Admin: 11/19/17 12:59 Dose: 15 mg Lactic Acid (Lac-Hydrin 12) 1 applic TP BID [facility] Last Admin: 11/19/17 11:32 Dose: 1 applic Olanzapine (Zyprexa -) 15 mg PO HS [facility] Last Admin: 11/18/17 22:20 Dose: Not Given Ranitidine HCl (Zantac -) 150 mg PO HS [facility] Last Admin: 11/18/17 22:20 Dose: Not Given Rosuvastatin Calcium (Crestor -) 10 mg PO HS [facility] Last Admin: 11/18/17 22:20 Dose: Not Given Timolol Maleate (Timoptic 0.5%) 1 drop OD DAILY [facility] Last Admin: 11/19/17 12:44 Dose: Not Given - Objective Vital Signs: Vital Signs Temperature 99.2 F 11/19/17 09:41 Pulse Rate 93 H 11/19/17 09:41 Respiratory Rate 20 11/19/17 09:41 Blood Pressure 136/66 11/19/17 09:41 O2 Sat by Pulse Oximetry (%) 98 11/18/17 22:00 Constitutional: Yes: Mild Distress Eyes: Yes: Conjunctiva Clear Cardiovascular: Yes: S1, S2 Respiratory: Yes: CTA Bilaterally Gastrointestinal: Yes: Soft Genitourinary: Yes: Incontinence Musculoskeletal: Yes: Muscle Weakness Edema: No Neurological: Yes: Confusion Labs: CBC, BMP 11/18/17 06:40 11/19/17 06:40 INR, PTT INR 1.48 (0.82-1.09) H D 11/16/17 17:00 Problem List - Problems (1) Hypernatremia Code(s): E87.0 - HYPEROSMOLALITY AND HYPERNATREMIA (2) Sepsis Code(s): A41.9 - SEPSIS, UNSPECIFIED ORGANISM Qualifiers: Sepsis type: sepsis due to unspecified organism Qualified Code(s): A41.9 - Sepsis, unspecified organism (3) Acute renal failure (ARF) Code(s): N17.9 - ACUTE KIDNEY FAILURE, UNSPECIFIED (4) Anemia Code(s): D64.9 - ANEMIA, UNSPECIFIED (5) Dementia Code(s): F03.90 - UNSPECIFIED DEMENTIA WITHOUT BEHAVIORAL DISTURBANCE Qualifiers: Dementia type: unspecified type Dementia behavioral disturbance: with behavioral disturbance Qualified Code(s): F03.91 - Unspecified dementia with behavioral disturbance (6) Schizophrenia Code(s): F20.9 - SCHIZOPHRENIA, UNSPECIFIED (7) UTI (urinary tract infection) Code(s): N39.0 - URINARY TRACT INFECTION, SITE NOT SPECIFIED Qualifiers: Urinary tract infection type: site unspecified Hematuria presence: without hematuria Qualified Code(s): N39.0 - Urinary tract infection, site not specified Assessment/Plan Current Medications Generic Name Dose Route Start Last Admin Trade Name Freq PRN Reason Stop Dose Admin Acetaminophen 650 mg 11/19/17 12:33 Tylenol Suppository - [place] Q6H PRN FEVER Aspirin 81 mg 11/16/17 20:30 11/19/17 11:57 Asa - PO Not Given DAILY [facility] Bacitracin 1 applic 11/16/17 20:30 11/19/17 11:31 Bacitracin - TP 1 applic DAILY [facility] Administration Collagenase 1 applic 11/19/17 10:00 11/19/17 11:32 Santyl - TP 1 applic DAILY [facility] Administration Divalproex Sodium 500 mg 11/16/17 22:00 11/18/17 22:20 Depakote *Er* - PO Not Given HS [facility] Haloperidol 1 mg 11/16/17 22:00 11/18/17 22:20 Haldol - PO Not Given HS [facility] Heparin Sodium (Porcine) 5,000 unit 11/17/17 22:00 11/19/17 11:30 Heparin - SQ 5,000 unit BID [facility] Administration CEFTRIAXONE 1 G/50 ML PREMIX 50 mls @ 100 mls/hr 11/17/17 10:00 11/19/17 11: 29 Ceftriaxone 1 Gm-D5w Bag IVPB 100 mls/hr DAILY [facility] Administration Dextrose/Sodium Chloride 500 mls @ 100 mls/hr 11/18/17 16:45 11/19/17 09:04 D5-1/3ns - IV 100 mls/hr ASDIR [facility] Administration Insulin Aspart 1 vial 11/16/17 22:00 11/19/17 12:50 Novolog Vial Sliding Scale - SQ 8 units ACHS [facility] Administration Protocol Ketorolac Tromethamine 15 mg 11/19/17 12:34 11/19/17 12:59 Toradol Injection - IVPUSH 11/24/17 12:33 15 mg Q6H PRN Administration PAIN LEVEL 6-10 Lactic Acid 1 applic 11/16/17 22:00 11/19/17 11:32 Lac-Hydrin 12 TP 1 applic BID [facility] Administration Olanzapine 15 mg 11/16/17 22:00 11/18/17 22:20 Zyprexa - PO Not Given HS [facility] Ranitidine HCl 150 mg 11/16/17 22:00 11/18/17 22:20 Zantac - PO Not Given HS [facility] Rosuvastatin Calcium 10 mg 11/16/17 22:00 11/18/17 22:20 Crestor - PO Not Given HS [facility] Timolol Maleate 1 drop 11/16/17 20:30 11/19/17 12:44 Timoptic 0.5% OD Not Given DAILY [facility] Impression 1. HOWIE 2. hx CKD 3. hypernatremia 4. anemia 5. bipolar 6. dementia 7. HTN 8. DM 9. sepsis 10. UTI Plan - change fluids to d5w - repeat labs in am - sodium is worsening - renal function improving - follow speech and swallow - follow urine lytes Dr Florentino
[2017-11-19] MEDS ORDERED: DEXTROSE 5%-WATER - 1,000 ML IV SCH (14:00)
--- NOTE | 2017-11-19 15:16 | PN ---
Progress Note (short form) - Note Progress Note: still lethargic but says "stop that", "leave me alone" Vital Signs Period Temp Pulse Resp BP Sys/Rudd Pulse Ox Last 24 Hr 97.4 F-99.4 F 84-93 18-20 112-136/50-80 98 cor-rrr lungs clear abd soft,nt ext no edema CBC, BMP 11/18/17 06:40 11/19/17 06:40 Microbiology 11/16/17 17:00 Urine - Urine - Catheterized Urine Culture - Preliminary Streptococcus Species Pending Organism#2 11/17/17 17:50 Urine - Urine - Catheterized Urine Culture - Preliminary 11/16/17 17:00 Blood - Peripheral Venous Blood Culture - Preliminary NO GROWTH OBTAINED AFTER 48 HOURS, INCUBATION TO CONTINUE FOR 3 DAYS. 11/16/17 17:00 Blood - Peripheral Venous Blood Culture - Preliminary Staphylococcus Coagulase Neg a/p UTI dehydration lethargy appears to be to be slowly improving continue ceftriaxone Problem List - Problems (1) Sepsis Code(s): A41.9 - SEPSIS, UNSPECIFIED ORGANISM Qualifiers: Sepsis type: sepsis due to unspecified organism Qualified Code(s): A41.9 - Sepsis, unspecified organism (2) UTI (urinary tract infection) Code(s): N39.0 - URINARY TRACT INFECTION, SITE NOT SPECIFIED Qualifiers: Urinary tract infection type: site unspecified Hematuria presence: without hematuria Qualified Code(s): N39.0 - Urinary tract infection, site not specified (3) Dehydration Code(s): E86.0 - DEHYDRATION (4) Dementia Code(s): F03.90 - UNSPECIFIED DEMENTIA WITHOUT BEHAVIORAL DISTURBANCE Qualifiers: Dementia type: unspecified type Dementia behavioral disturbance: with behavioral disturbance Qualified Code(s): F03.91 - Unspecified dementia with behavioral disturbance
[2017-11-19] MEDS: DEXTROSE 5%-WATER - 1,000 ML IV SCH (15:27)
[2017-11-19] MEDS: ROSUVASTATIN CA 10 MG TABLET (FP) PO SCH (22:06)
[2017-11-19] MEDS: DIVALPROEX NA *ER* EXTEND REL 500 MG TABLET.SA (FP) PO SCH (22:06)
[2017-11-19] MEDS: HALOPERIDOL 1 MG TABLET (FP) PO SCH (22:07)
[2017-11-19] MEDS: RANITIDINE HCL 150 MG TABLET (FP) PO SCH (22:10)
[2017-11-19] MEDS: OLANZapine 5 MG TABLET PO SCH (22:10)
[2017-11-20] MEDS: DEXTROSE 5%-WATER - 1,000 ML IV SCH ×2 (00:47→12:14)
[2017-11-20 06:06] LABS: SERUM IRON SATURATION 12 % (15-55); TOTAL IRON BINDING CAPACITY 129 ug/dL (250-450); UIBC 114 ug/dL (118-369)
[2017-11-20] MEDS: INSULIN SLIDING SCALE (NOVOLOG) 1 VIAL SQ SCH ×4 (06:41→21:57)
[2017-11-20] MEDS: VANCOMYCIN 1,000 MG in DEXTROSE 5%-WATER - 250 ML IVPB SCH ×2 (07:25→07:26)
[2017-11-20 08:55] LABS: BASO % 1.1 % (0-2.0); EOS % 3.8 % (0-4.5); HEMATOCRIT 27.4 % (32.4-45.2); HEMOGLOBIN 8.7 GM/dL (10.7-15.3); LYMPH % 28.7 % (8-40); MCH 29.5 pg (25.7-33.7); MCHC 31.8 g/dl (32.0-36.0); MEAN CELL VOLUME 92.8 fl (80-96); MEAN PLT VOLUME 8.2 fl (7.5-11.1); MONO % 11.5 % (3.8-10.2); NEUT % 54.9 % (42.8-82.8); PLATELET COUNT 329 K/MM3 (134-434); RBC 2.96 M/mm3 (3.60-5.2); RDW 17.2 % (11.6-15.6); WHITE BLOOD COUNT 7.9 K/mm3 (4.0-10.0)
[2017-11-20 09:19] LABS: CHLORIDE 116 mmol/L (98-107); SODIUM 147 mmol/L (136-145)
[2017-11-20 09:28] LABS: ALBUMIN 2.1 g/dl (3.4-5.0); ALK PHOS 93 U/L (45-117); ANION GAP 6 (8-16); BILIRUBIN,TOTAL 0.6 mg/dL (0.2-1.0); BLOOD UREA NITROGEN 43 mg/dL (7-18); CALCIUM 8.5 mg/dL (8.5-10.1); CO2 25 mmol/L (21-32); CREATININE 1.6 mg/dL (0.55-1.02); GLUCOSE,RANDOM 185 mg/dL (74-106); SGPT/ALT 16 U/L (12-78); TOT PROT 6.1 g/dl (6.4-8.2)
[2017-11-20 09:29] LABS: POTASSIUM 4.8 mmol/L (3.5-5.1); SGOT/AST 59 U/L (15-37)
[2017-11-20] MEDS: ASPIRIN 81 MG CHEWABLE TABLETS PO SCH (10:04)
[2017-11-20] MEDS ORDERED: PT OWN MED DRAWER 7, Y5N ONE (10:16)
[2017-11-20] MEDS: CEFTRIAXONE 1 G/50 ML PREMIX 50 ML IVPB SCH (10:25)
[2017-11-20] MEDS: HEPARIN NA (PORCINE) 5,000 UNITS/ML 1ML VIAL SQ SCH ×2 (10:26→21:53)
[2017-11-20] MEDS: AMMONIUM LACTATE 12% LOTION 225 GM BOTTLE TP SCH ×2 (10:26→21:54)
[2017-11-20] MEDS: COLLAGENASE CLOSTRIDIUM HIST. 30 GRAMS TUBE TP SCH (10:27)
--- NOTE | 2017-11-20 11:48 | PN ---
Progress Note, Physician Chief Complaint: AMS, dehydration, UTI History of Present Illness: NAD in bed incontinent renal/bladder u/s noted unremarkable IVF IV abx seen by ID UC pending afebrile nephrology and speech eval appreciated NPO responds to touch, pulls away - Current Medication List Current Medications: Active Medications Acetaminophen (Tylenol Suppository -) 650 mg [place] Q6H PRN PRN Reason: FEVER Aspirin (Asa -) 81 mg PO DAILY [facility] Last Admin: 11/20/17 10:04 Dose: Not Given Bacitracin (Bacitracin -) 1 applic TP DAILY [facility] Last Admin: 11/19/17 11:31 Dose: 1 applic Collagenase (Santyl -) 1 applic TP DAILY [facility] [place] Last Admin: 11/20/17 10:27 Dose: Not Given Divalproex Sodium (Depakote *Er* -) 500 mg PO HS [facility] [place] Last Admin: 11/19/17 22:06 Dose: Not Given Haloperidol (Haldol -) 1 mg PO HS [facility] [place] Last Admin: 11/19/17 22:07 Dose: Not Given Heparin Sodium (Porcine) (Heparin -) 5,000 unit SQ BID [facility] [place] Last Admin: 11/20/17 10:26 Dose: 5,000 unit CEFTRIAXONE 1 G/50 ML PREMIX (Ceftriaxone 1 Gm-D5w Bag) 50 mls @ 100 mls/hr IVPB DAILY [facility] [place] Last Admin: 11/20/17 10:25 Dose: 100 mls/hr Dextrose (D5w -) 1,000 mls @ 70 mls/hr IV ASDIR [facility] Iron Sucrose 300 mg/ Sodium (Chloride) 250 mls @ 250 mls/hr IVPB ONCE ONE Stop: 11/20/17 12:44 Insulin Aspart (Novolog Vial Sliding Scale -) 1 vial SQ ACHS [facility] PRN Reason: Protocol Last Admin: 11/20/17 06:41 Dose: 2 units Lactic Acid (Lac-Hydrin 12) 1 applic TP BID [facility] [place] Last Admin: 11/20/17 10:26 Dose: 1 applic Olanzapine (Zyprexa -) 15 mg PO HS [facility] [place] Last Admin: 11/19/17 22:10 Dose: Not Given Ranitidine HCl (Zantac -) 150 mg PO HS [facility] [place] Last Admin: 11/19/17 22:10 Dose: Not Given Rosuvastatin Calcium (Crestor -) 10 mg PO HS [facility] [place] Last Admin: 11/19/17 22:06 Dose: Not Given Timolol Maleate (Timoptic 0.5%) 1 drop OD DAILY [facility] [place] Last Admin: 11/19/17 12:44 Dose: Not Given - Objective Vital Signs: Vital Signs Temperature 98.4 F 11/20/17 11:04 Pulse Rate 77 11/20/17 11:04 Respiratory Rate 19 11/20/17 11:04 Blood Pressure 122/77 11/20/17 11:04 O2 Sat by Pulse Oximetry (%) 94 L 11/20/17 09:00 Constitutional: Yes: Well Nourished, No Distress, Calm Neurological: Yes: Alert, Pre-Existing Deficit Psychiatric: Yes: Alert Labs: CBC, BMP 11/20/17 08:00 11/20/17 08:00 INR, PTT INR 1.48 (0.82-1.09) H D 11/16/17 17:00 Problem List - Problems (1) Acute renal failure (ARF) Assessment/Plan: -IVF -Bladder/renal sono noted -Nephrology on board -bunc/cr now trending down -IVF Code(s): N17.9 - ACUTE KIDNEY FAILURE, UNSPECIFIED (2) Anemia Assessment/Plan: -Stool OB -Check Iron, TSH,FT4, B12, Folate -monitor trend Code(s): D64.9 - ANEMIA, UNSPECIFIED (3) UTI (urinary tract infection) Assessment/Plan: -seen by ID -IV abx -UC pending -renal/bladder U/S noted Code(s): N39.0 - URINARY TRACT INFECTION, SITE NOT SPECIFIED Qualifiers: Urinary tract infection type: site unspecified Hematuria presence: without hematuria Qualified Code(s): N39.0 - Urinary tract infection, site not specified (4) Dehydration Assessment/Plan: -IVF -BUN/Cr trending down -more responsive today Code(s): E86.0 - DEHYDRATION (5) Sepsis Code(s): A41.9 - SEPSIS, UNSPECIFIED ORGANISM Qualifiers: Sepsis type: sepsis due to unspecified organism Qualified Code(s): A41.9 - Sepsis, unspecified organism (6) Altered mental status Assessment/Plan: -2/2 metabolic encephalopathy -more responsive today -frequently orient patient -although on Zyprexa and Haldol but NPO at this time. Would hold off until she is at her baseline mental state Code(s): R41.82 - ALTERED MENTAL STATUS, UNSPECIFIED Assessment/Plan see problem list PEG discussion with nephew, who is next of Kin. Her sister years ago.
[2017-11-20] MEDS ORDERED: INSULIN (NOVOLOG) ASPART 100 UNITS/ML 10ML VIAL ONE ×3 (12:05→21:55)
[2017-11-20] MEDS: TIMOLOL 0.5% OPHTHALMIC SOL 5 ML BOTTLE OD SCH (12:13)
[2017-11-20] MEDS: BACITRACIN 15 GM TUBE TOPICAL OINTMENT TP SCH (12:13)
[2017-11-20] MEDS ORDERED: IRON SUCROSE INJECTION 300 MG in SODIUM CHLORIDE 235 ML IVPB ONE (12:15)
--- NOTE | 2017-11-20 12:46 | PN ---
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 Open mouth posture, with poor oropharyngeal coordination. Trial of nectar thick liquid with likely spillage over base of tongue. Rare weak swallow reflex noted. High risk of aspiration, dehydaration, malnutrition. NPO x day 4 due to impaired swallowing function. What are pt's end of life wishes? Palliative care. Pt is a full code. Suggest NGT, with consideration for PEG insertion.
--- NOTE | 2017-11-20 16:39 | PN ---
Progress Note, Physician History of Present Illness: Pt seen and examined at bedside. She appears more comfortable than yesterday. - Current Medication List Current Medications: Active Medications Acetaminophen (Tylenol Suppository -) 650 mg [place] Q6H PRN PRN Reason: FEVER Aspirin (Asa -) 81 mg PO DAILY [facility] Last Admin: 11/20/17 10:04 Dose: Not Given Bacitracin (Bacitracin -) 1 applic TP DAILY [facility] Last Admin: 11/20/17 12:13 Dose: 1 applic Collagenase (Santyl -) 1 applic TP DAILY [facility] Last Admin: 11/20/17 10:27 Dose: Not Given Divalproex Sodium (Depakote *Er* -) 500 mg PO HS [facility] Last Admin: 11/19/17 22:06 Dose: Not Given Haloperidol (Haldol -) 1 mg PO HS [facility] Last Admin: 11/19/17 22:07 Dose: Not Given Heparin Sodium (Porcine) (Heparin -) 5,000 unit SQ BID [facility] Last Admin: 11/20/17 10:26 Dose: 5,000 unit CEFTRIAXONE 1 G/50 ML PREMIX (Ceftriaxone 1 Gm-D5w Bag) 50 mls @ 100 mls/hr IVPB DAILY [facility] Last Admin: 11/20/17 10:25 Dose: 100 mls/hr Dextrose (D5w -) 1,000 mls @ 70 mls/hr IV ASDIR [facility] Last Admin: 11/20/17 12:14 Dose: 70 mls/hr Insulin Aspart (Novolog Vial Sliding Scale -) 1 vial SQ ACHS [facility] PRN Reason: Protocol Last Admin: 11/20/17 12:35 Dose: 4 units Lactic Acid (Lac-Hydrin 12) 1 applic TP BID [facility] Last Admin: 11/20/17 10:26 Dose: 1 applic Olanzapine (Zyprexa -) 15 mg PO HS [facility] Last Admin: 11/19/17 22:10 Dose: Not Given Ranitidine HCl (Zantac -) 150 mg PO HS [facility] Last Admin: 11/19/17 22:10 Dose: Not Given Rosuvastatin Calcium (Crestor -) 10 mg PO HS [facility] Last Admin: 11/19/17 22:06 Dose: Not Given Timolol Maleate (Timoptic 0.5%) 1 drop OD DAILY [facility] Last Admin: 11/20/17 12:13 Dose: 1 drop - Objective Vital Signs: Vital Signs Temperature 98.3 F 11/20/17 16:10 Pulse Rate 69 11/20/17 16:10 Respiratory Rate 20 11/20/17 16:10 Blood Pressure 116/62 11/20/17 16:10 O2 Sat by Pulse Oximetry (%) 94 L 11/20/17 09:00 Constitutional: Yes: Calm Eyes: Yes: Conjunctiva Clear HENT: Yes: Atraumatic Cardiovascular: Yes: S1, S2 Respiratory: Yes: CTA Bilaterally Gastrointestinal: Yes: Soft Genitourinary: Yes: Incontinence Musculoskeletal: Yes: Muscle Weakness Edema: No Neurological: Yes: Lethargy Labs: CBC, BMP 11/20/17 08:00 11/20/17 08:00 INR, PTT INR 1.48 (0.82-1.09) H D 11/16/17 17:00 Problem List - Problems (1) Hypernatremia Code(s): E87.0 - HYPEROSMOLALITY AND HYPERNATREMIA (2) Sepsis Code(s): A41.9 - SEPSIS, UNSPECIFIED ORGANISM Qualifiers: Sepsis type: sepsis due to unspecified organism Qualified Code(s): A41.9 - Sepsis, unspecified organism (3) Acute renal failure (ARF) Code(s): N17.9 - ACUTE KIDNEY FAILURE, UNSPECIFIED (4) Anemia Code(s): D64.9 - ANEMIA, UNSPECIFIED (5) Dementia Code(s): F03.90 - UNSPECIFIED DEMENTIA WITHOUT BEHAVIORAL DISTURBANCE Qualifiers: Dementia type: unspecified type Dementia behavioral disturbance: with behavioral disturbance Qualified Code(s): F03.91 - Unspecified dementia with behavioral disturbance (6) Schizophrenia Code(s): F20.9 - SCHIZOPHRENIA, UNSPECIFIED (7) UTI (urinary tract infection) Code(s): N39.0 - URINARY TRACT INFECTION, SITE NOT SPECIFIED Qualifiers: Urinary tract infection type: site unspecified Hematuria presence: without hematuria Qualified Code(s): N39.0 - Urinary tract infection, site not specified Assessment/Plan Current Medications Generic Name Dose Route Start Last Admin Trade Name Freq PRN Reason Stop Dose Admin Acetaminophen 650 mg 11/19/17 12:33 Tylenol Suppository - [place] Q6H PRN FEVER Aspirin 81 mg 11/16/17 20:30 11/20/17 10:04 Asa - PO Not Given DAILY [facility] Bacitracin 1 applic 11/16/17 20:30 11/20/17 12:13 Bacitracin - TP 1 applic DAILY [facility] Administration Collagenase 1 applic 11/19/17 10:00 11/20/17 10:27 Santyl - TP Not Given DAILY [facility] Divalproex Sodium 500 mg 11/16/17 22:00 11/19/17 22:06 Depakote *Er* - PO Not Given HS [facility] Haloperidol 1 mg 11/16/17 22:00 11/19/17 22:07 Haldol - PO Not Given HS [facility] Heparin Sodium (Porcine) 5,000 unit 11/17/17 22:00 11/20/17 10:26 Heparin - SQ 5,000 unit BID [facility] Administration CEFTRIAXONE 1 G/50 ML PREMIX 50 mls @ 100 mls/hr 11/17/17 10:00 11/20/17 10: 25 Ceftriaxone 1 Gm-D5w Bag IVPB 100 mls/hr DAILY [facility] Administration Dextrose 1,000 mls @ 70 mls/hr 11/20/17 11:31 11/20/17 12:14 D5w - IV 70 mls/hr ASDIR [facility] Administration Insulin Aspart 1 vial 11/16/17 22:00 11/20/17 12:35 Novolog Vial Sliding Scale - SQ 4 units ACHS [facility] Administration Protocol Lactic Acid 1 applic 11/16/17 22:00 11/20/17 10:26 Lac-Hydrin 12 TP 1 applic BID [facility] Administration Olanzapine 15 mg 11/16/17 22:00 11/19/17 22:10 Zyprexa - PO Not Given HS [facility] Ranitidine HCl 150 mg 11/16/17 22:00 11/19/17 22:10 Zantac - PO Not Given HS [facility] Rosuvastatin Calcium 10 mg 11/16/17 22:00 11/19/17 22:06 Crestor - PO Not Given HS [facility] Timolol Maleate 1 drop 11/16/17 20:30 11/20/17 12:13 Timoptic 0.5% OD 1 drop DAILY [facility] Administration Impression 1. HOWIE 2. hx CKD 3. hypernatremia 4. anemia 5. bipolar 6. dementia 7. HTN 8. DM 9. sepsis 10. UTI Plan - decreased rate of fluids earlier today - repeat labs in am - renal function is improving - sodium is improving - follow speech and swallow Dr Florentino
[2017-11-20] MEDS: DIVALPROEX NA *ER* EXTEND REL 500 MG TABLET.SA (FP) PO SCH (21:54)
[2017-11-20] MEDS: ROSUVASTATIN CA 10 MG TABLET (FP) PO SCH (21:54)
[2017-11-20] MEDS: OLANZapine 5 MG TABLET PO SCH (21:55)
[2017-11-20] MEDS: HALOPERIDOL 1 MG TABLET (FP) PO SCH (21:55)
[2017-11-20] MEDS: RANITIDINE HCL 150 MG TABLET (FP) PO SCH (21:55)
[2017-11-21] MEDS: DEXTROSE 5%-WATER - 1,000 ML IV SCH ×2 (02:20→18:08)
[2017-11-21] MEDS: INSULIN SLIDING SCALE (NOVOLOG) 1 VIAL SQ SCH ×4 (06:40→21:49)
[2017-11-21 07:47] LABS: BASO % 0.9 % (0-2.0); HEMATOCRIT 27.7 % (32.4-45.2); HEMOGLOBIN 8.7 GM/dL (10.7-15.3); LYMPH % 20.2 % (8-40); MCH 28.9 pg (25.7-33.7); MCHC 31.5 g/dl (32.0-36.0); MEAN CELL VOLUME 91.8 fl (80-96); MEAN PLT VOLUME 8.3 fl (7.5-11.1); MONO % 9.4 % (3.8-10.2); NEUT % 68.5 % (42.8-82.8); PLATELET COUNT 358 K/MM3 (134-434); RBC 3.02 M/mm3 (3.60-5.2); RDW 16.8 % (11.6-15.6); WHITE BLOOD COUNT 9.4 K/mm3 (4.0-10.0)
[2017-11-21 07:55] LABS: CHLORIDE 111 mmol/L (98-107); POTASSIUM 4.3 mmol/L (3.5-5.1); SODIUM 146 mmol/L (136-145)
[2017-11-21 08:04] LABS: ALBUMIN 2.1 g/dl (3.4-5.0); ALK PHOS 101 U/L (45-117); ANION GAP 11 (8-16); BILIRUBIN,TOTAL 0.4 mg/dL (0.2-1.0); BLOOD UREA NITROGEN 36 mg/dL (7-18); CO2 24 mmol/L (21-32); CREATININE 1.5 mg/dL (0.55-1.02); GLUCOSE,RANDOM 210 mg/dL (74-106); SGOT/AST 36 U/L (15-37); SGPT/ALT 13 U/L (12-78)
[2017-11-21] MEDS: ASPIRIN 81 MG CHEWABLE TABLETS PO SCH (10:03)
[2017-11-21] MEDS: TIMOLOL 0.5% OPHTHALMIC SOL 5 ML BOTTLE OD SCH (10:08)
[2017-11-21] MEDS: HEPARIN NA (PORCINE) 5,000 UNITS/ML 1ML VIAL SQ SCH ×2 (10:08→21:07)
[2017-11-21] MEDS: BACITRACIN 15 GM TUBE TOPICAL OINTMENT TP SCH (10:08)
[2017-11-21] MEDS: CEFTRIAXONE 1 G/50 ML PREMIX 50 ML IVPB SCH (10:08)
[2017-11-21] MEDS: COLLAGENASE CLOSTRIDIUM HIST. 30 GRAMS TUBE TP SCH (10:09)
[2017-11-21] MEDS: AMMONIUM LACTATE 12% LOTION 225 GM BOTTLE TP SCH ×2 (10:09→21:08)
--- NOTE | 2017-11-21 10:55 | PN ---
Progress Note, Physician Chief Complaint: AMS, dehydration, UTI History of Present Illness: NAD in bed incontinent renal/bladder u/s noted unremarkable IVF IV abx seen by ID UC pending afebrile nephrology and speech eval appreciated NPO - Current Medication List Current Medications: Active Medications Acetaminophen (Tylenol Suppository -) 650 mg NM Q6H PRN PRN Reason: FEVER Aspirin (Asa -) 81 mg PO DAILY LONNIE Last Admin: 11/21/17 10:03 Dose: Not Given Bacitracin (Bacitracin -) 1 applic TP DAILY LONNIE Last Admin: 11/21/17 10:08 Dose: 1 applic Collagenase (Santyl -) 1 applic TP DAILY LONNIE Last Admin: 11/21/17 10:09 Dose: Not Given Divalproex Sodium (Depakote *Er* -) 500 mg PO HS LONNIE Last Admin: 11/20/17 21:54 Dose: Not Given Haloperidol (Haldol -) 1 mg PO HS LONNIE Last Admin: 11/20/17 21:55 Dose: Not Given Heparin Sodium (Porcine) (Heparin -) 5,000 unit SQ BID LONNIE Last Admin: 11/21/17 10:08 Dose: 5,000 unit CEFTRIAXONE 1 G/50 ML PREMIX (Ceftriaxone 1 Gm-D5w Bag) 50 mls @ 100 mls/hr IVPB DAILY [facility] Last Admin: 11/21/17 10:08 Dose: 100 mls/hr Dextrose (D5w -) 1,000 mls @ 70 mls/hr IV ASDIR LONNIE Last Admin: 11/21/17 02:20 Dose: 70 mls/hr Insulin Aspart (Novolog Vial Sliding Scale -) 1 vial SQ ACHS LONNIE PRN Reason: Protocol Last Admin: 11/21/17 06:40 Dose: 4 units Lactic Acid (Lac-Hydrin 12) 1 applic TP BID LONNIE Last Admin: 11/21/17 10:09 Dose: 1 applic Olanzapine (Zyprexa -) 15 mg PO HS LONNIE Last Admin: 11/20/17 21:55 Dose: Not Given Ranitidine HCl (Zantac -) 150 mg PO HS LONNIE Last Admin: 11/20/17 21:55 Dose: Not Given Rosuvastatin Calcium (Crestor -) 10 mg PO HS [facility] Last Admin: 11/20/17 21:54 Dose: Not Given Timolol Maleate (Timoptic 0.5%) 1 drop OD DAILY LONNIE Last Admin: 11/21/17 10:08 Dose: 1 drop - Objective Vital Signs: Vital Signs Temperature 99.1 F 11/21/17 05:30 Pulse Rate 100 H 11/21/17 05:30 Respiratory Rate 20 11/21/17 05:30 Blood Pressure 123/59 11/21/17 05:30 O2 Sat by Pulse Oximetry (%) 95 11/20/17 22:00 Constitutional: Yes: Well Nourished, No Distress, Calm Neurological: Yes: Alert, Pre-Existing Deficit Psychiatric: Yes: Alert Labs: CBC, BMP 11/21/17 06:30 11/21/17 06:30 INR, PTT INR 1.48 (0.82-1.09) H D 11/16/17 17:00 Problem List - Problems (1) Acute renal failure (ARF) Assessment/Plan: -IVF -Bladder/renal sono noted -Nephrology on board -bunc/cr now trending down -IVF Code(s): N17.9 - ACUTE KIDNEY FAILURE, UNSPECIFIED (2) Anemia Assessment/Plan: -Stool OB pending -Iron sat low, TSH,FT4, B12, Folate normal -monitor trend Code(s): D64.9 - ANEMIA, UNSPECIFIED (3) UTI (urinary tract infection) Assessment/Plan: -seen by DARLING -ALEXUS russell -UC: Microbiology 11/16/17 17:00 Blood - Peripheral Venous Blood Culture - Final NO GROWTH AFTER 5 DAYS INCUBATION 11/17/17 17:50 Urine - Urine - Catheterized Urine Culture - Final Streptococcus Viridans Streptococcus Viridans#2 11/16/17 17:00 Urine - Urine - Catheterized Urine Culture - Final Gemella Morbillorum Streptococcus Viridans 11/16/17 17:00 Blood - Peripheral Venous Blood Culture - Final Staphylococcus Haemolyticus -renal/bladder U/S noted Code(s): N39.0 - URINARY TRACT INFECTION, SITE NOT SPECIFIED Qualifiers: Urinary tract infection type: site unspecified Hematuria presence: without hematuria Qualified Code(s): N39.0 - Urinary tract infection, site not specified (4) Dehydration Assessment/Plan: -IVF -BUN/Cr trending down Code(s): E86.0 - DEHYDRATION (5) Sepsis Assessment/Plan: -LA normal -afebrile -UC : Microbiology 11/16/17 17:00 Blood - Peripheral Venous Blood Culture - Final NO GROWTH AFTER 5 DAYS INCUBATION 11/17/17 17:50 Urine - Urine - Catheterized Urine Culture - Final Streptococcus Viridans Streptococcus Viridans#2 11/16/17 17:00 Urine - Urine - Catheterized Urine Culture - Final Gemella Morbillorum Streptococcus Viridans 11/16/17 17:00 Blood - Peripheral Venous Blood Culture - Final Staphylococcus Haemolyticus -BC contaminated -IV abx -ID on board -IVF Code(s): A41.9 - SEPSIS, UNSPECIFIED ORGANISM Qualifiers: Sepsis type: sepsis due to unspecified organism Qualified Code(s): A41.9 - Sepsis, unspecified organism (6) Altered mental status Assessment/Plan: -2/2 metabolic encephalopathy -frequently orient patient -although on Zyprexa and Haldol but NPO at this time. Would hold off until she is at her baseline mental state Code(s): R41.82 - ALTERED MENTAL STATUS, UNSPECIFIED Assessment/Plan see problem list PEG discussion with nephew, who is next of Kin. Her sister years ago. He agrees to proceed GI consult
[2017-11-21] MEDS ORDERED: INSULIN (NOVOLOG) ASPART 100 UNITS/ML 10ML VIAL ONE ×3 (12:13→21:12)
--- NOTE | 2017-11-21 12:25 | PN ---
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 Rare weak swallow reflex noted. High risk of aspiration, dehydaration, malnutrition. . Selected Entries 11/20/17 11/20/17 11/20/17 05:30 11:04 16:10 Temperature 98.2 F 98.4 F 98.3 F 11/20/17 11/20/17 11/21/17 18:00 22:00 03:00 Temperature 98.3 F 98.0 F 98.1 F 11/21/17 05:30 Temperature 99.1 F Laboratory Tests 11/21/17 06:30 WBC 9.4 What are pt's end of life wishes? Palliative care. Pt is a full code. Pending GI consult for consideration for PEG insertion.
--- NOTE | 2017-11-21 16:46 | CON.GI ---
Consult Consult Specialty:: Gastroenterology Referred by:: Petar Flores NP Reason for Consultation:: Failure to eat - History of Present Illness Chief Complaint: Patient offers no complaints History of Present Illness: 82F admitted for failure to thrive. Evaluated by Renetta Dey. Not compliant with MBS but deemed an aspiration risk and not capable of ingesting adequately enough calories to sustain herself. 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 She underwent a laparoscopic hand assisted right hemicolectomy with Dr Gill revealing high grade dysplasia but no overt malignant invasion. 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: Dementia (very slight, had preop psych consult and deemed competant.) Cardio/Vascular: Yes: HTN, Hyperlipdemia Pulmonary: Yes: Other (preop left effusion on cxr) Gastrointestinal: Yes: Diverticulosis, Gastritis, Other (liver lesion on preop ct, cecal tubular adenoma with high grade dysplasia resected 11/19 ) Hepatobiliary: Yes: Other (liver lesion on preop ct and h.o elevated LFT 2010) Renal/: Yes: UTI (last urine cs sterile), Other Musculoskeletal: Yes: Osteoarthritis (on ct and shonda fusion L5S1) Endocrine: Yes: Diabetes Mellitus - Past Surgical History Past Surgical History: Yes: Cholecystectomy Additional Surgical History: Right hemicolectomy for cecal adenoma with high grade dysplasia 11/19 - Alcohol/Substance Use Hx Alcohol Use: No History of Substance Use: reports: None - Smoking History Smoking history: Unknown if ever smoked Have you smoked in the past 12 months: No Aproximately how many cigarettes per day: 0 - Social History Usual Living Arrangement: [facility] (never , no children) ADL: Support Services Place of : [facility] History of Recent Travel: No Home Medications - Allergies Allergies/Adverse Reactions: Allergies Allergy/AdvReac Type Severity Reaction Status Date / Time No Known Allergies Allergy Verified 11/16/17 16:17 - Home Medications Home Medications: Ambulatory Orders Acetaminophen 650 mg PO Q6H PRN 11/16/17 Ammonium Lactate Lotion [Lac-Hydrin 12% Lotion -] 1 applic TP BID 11/16/17 Apixaban [Eliquis] 5 mg PO BID 11/16/17 Aspirin 81 mg PO DAILY 11/16/17 Bacitracin - [Bacitracin Topical Ointment -] 1 applic TP DAILY 11/16/17 Divalproex *ER* [Depakote *ER* -] 500 mg PO HS 11/16/17 Haloperidol [Haldol -] 1 mg PO HS 11/16/17 Insulin Lispro [Humalog] 100 unit SQ BID 11/16/17 Metoprolol Tartrate 25 mg PO BID 11/16/17 Olanzapine [Olanzapine Odt] 15 mg PO HS 11/16/17 Ranitidine HCl [Zantac] 150 mg PO HS 11/16/17 Rosuvastatin Calcium [Crestor] 10 mg PO HS 11/16/17 Timolol 0.5% [Timoptic 0.5%] 1 drop OD BID 11/16/17 Family Disease History - Family Disease History Family History: Unable to Obtain Family Disease History: Heart Disease: Mother ( 59 ? [place]), Other: Father ( lived to 90 ) Review of Systems Unable to obtain ROS, reason: unable all day Physical Exam-GI Vital Signs: Vital Signs Temperature 99.5 F 11/21/17 14:00 Pulse Rate 90 11/21/17 14:00 Respiratory Rate 18 11/21/17 14:00 Blood Pressure 135/66 11/21/17 14:00 O2 Sat by Pulse Oximetry (%) 94 L 11/21/17 09:00 CBC,CMP WBC 9.4 K/mm3 (4.0-10.0) 11/21/17 06:30 RBC 3.02 M/mm3 (3.60-5.2) L 11/21/17 06:30 Hgb 8.7 GM/dL (10.7-15.3) L 11/21/17 06:30 Hct 27.7 % (32.4-45.2) L 11/21/17 06:30 MCV 91.8 fl (80-96) 11/21/17 06:30 MCH 28.9 pg (25.7-33.7) 11/21/17 06:30 MCHC 31.5 g/dl (32.0-36.0) L 11/21/17 06:30 RDW 16.8 % (11.6-15.6) H 11/21/17 06:30 Plt Count 358 K/MM3 (134-434) 11/21/17 06:30 MPV 8.3 fl (7.5-11.1) 11/21/17 06:30 Neutrophils % 68.5 % (42.8-82.8) D 11/21/17 06:30 Lymphocytes % 20.2 % (8-40) D 11/21/17 06:30 Monocytes % 9.4 % (3.8-10.2) 11/21/17 06:30 Eosinophils % 1.0 % (0-4.5) 11/21/17 06:30 Basophils % 0.9 % (0-2.0) 11/21/17 06:30 Sodium 146 mmol/L (136-145) H 11/21/17 06:30 Potassium 4.3 mmol/L (3.5-5.1) 11/21/17 06:30 Chloride 111 mmol/L (98-107) H 11/21/17 06:30 Carbon Dioxide 24 mmol/L (21-32) 11/21/17 06:30 Anion Gap 11 (8-16) 11/21/17 06:30 BUN 36 mg/dL (7-18) H 11/21/17 06:30 Creatinine 1.5 mg/dL (0.55-1.02) H 11/21/17 06:30 Creat Clearance w eGFR 33.08 (>60) 11/21/17 06:30 POC Glucometer 224 UNITS (80-120) 11/21/17 12:11 Random Glucose 210 mg/dL (74-106) H 11/21/17 06:30 Hemoglobin A1c % 7.5 % (4.8-6.0) H 11/19/17 11:00 Lactic Acid 1.6 mmol/L (0.0-2.0) 11/18/17 06:40 Calcium 8.0 mg/dL (8.5-10.1) L 11/21/17 06:30 Iron 15 ug/dL (27-139) L 11/19/17 11:20 TIBC 129 ug/dL (250-450) L 11/19/17 11:20 Iron Saturation 12 % (15-55) L 11/19/17 11:20 Ferritin 408.059 ng/ml (6.9-282.5) H 11/19/17 11:20 Total Bilirubin 0.4 mg/dL (0.2-1.0) D 11/21/17 06:30 AST 36 U/L (15-37) 11/21/17 06:30 ALT 13 U/L (12-78) 11/21/17 06:30 Alkaline Phosphatase 101 U/L (45-117) 11/21/17 06:30 Creatine Kinase 246 IU/L (26-192) H 11/17/17 06:40 Creatine Kinase Index 0.9 % (0.0-5.0) 11/17/17 06:40 CK-MB (CK-2) 2.397 ng/mL (0.5-3.6) 11/17/17 06:40 Troponin I 0.06 ng/ml (0.00-0.05) H 11/17/17 10:20 Total Protein 6.0 g/dl (6.4-8.2) L 11/21/17 06:30 Albumin 2.1 g/dl (3.4-5.0) L 11/21/17 06:30 Triglycerides 109 mg/dL (35-160) 11/18/17 06:40 Cholesterol 146 mg/dL (50-200) 11/18/17 06:40 Total LDL Cholesterol 88 mg/dL (5-100) 11/18/17 06:40 HDL Cholesterol 45 mg/dL (40-60) 11/18/17 06:40 Vitamin B12 1164 pg/ml (180-914) H 11/19/17 11:20 Serum Folate 6 ng/ml (3.1-17.5) 11/19/17 11:20 TSH 1.41 uIU/ml (0.358-3.74) 11/19/17 11:20 Free T4 1.14 ng/dl (0.76-1.46) 11/19/17 11:20 Current Medications Generic Name Dose Route Start Last Admin Trade Name Freq PRN Reason Stop Dose Admin Acetaminophen 650 mg 11/19/17 12:33 Tylenol Suppository - [place] Q6H PRN FEVER Aspirin 81 mg 11/16/17 20:30 11/21/17 10:03 Asa - PO Not Given DAILY LONNIE Bacitracin 1 applic 11/16/17 20:30 11/21/17 10:08 Bacitracin - TP 1 applic DAILY LONNIE Administration Collagenase 1 applic 11/19/17 10:00 11/21/17 10:09 Santyl - TP Not Given DAILY LONNIE Divalproex Sodium 500 mg 11/16/17 22:00 11/20/17 21:54 Depakote *Er* - PO Not Given HS LONNIE Haloperidol 1 mg 11/16/17 22:00 11/20/17 21:55 Haldol - PO Not Given HS LONNIE Heparin Sodium (Porcine) 5,000 unit 11/17/17 22:00 11/21/17 10:08 Heparin - SQ 5,000 unit BID LONNIE Administration CEFTRIAXONE 1 G/50 ML PREMIX 50 mls @ 100 mls/hr 11/17/17 10:00 11/21/17 10: 08 Ceftriaxone 1 Gm-D5w Bag IVPB 100 mls/hr DAILY LONNIE Administration Dextrose 1,000 mls @ 70 mls/hr 11/20/17 11:31 11/21/17 02:20 D5w - IV 70 mls/hr ASDIR LONNIE Administration Insulin Aspart 1 vial 11/16/17 22:00 11/21/17 12:14 Novolog Vial Sliding Scale - SQ 4 units ACHS LONNIE Administration Protocol Lactic Acid 1 applic 11/16/17 22:00 11/21/17 10:09 Lac-Hydrin 12 TP 1 applic BID LONNIE Administration Olanzapine 15 mg 11/16/17 22:00 11/20/17 21:55 Zyprexa - PO Not Given HS LONNIE Ranitidine HCl 150 mg 11/16/17 22:00 11/20/17 21:55 Zantac - PO Not Given HS LONNIE Rosuvastatin Calcium 10 mg 11/16/17 22:00 11/20/17 21:54 Crestor - PO Not Given HS LONNIE Timolol Maleate 1 drop 11/16/17 20:30 11/21/17 10:08 Timoptic 0.5% OD 1 drop DAILY LONNIE Administration Constitutional: Yes: Other (not communicative) Eyes: Yes: Conjunctiva Clear HENT: Yes: Normocephalic Neck: Yes: Supple Cardiovascular: Yes: Regular Rate and Rhythm, Murmur (3/6 holosystolic murmur) Respiratory: Yes: CTA Bilaterally Gastrointestinal Inspection: Yes: Scars (healed laparoscopic with small incision ) ...Auscultate: Yes: Hypoactive Bowel Sounds ...Palpate: Yes: Soft, Other (nontender) ...Rectal Exam: Yes: Guaiac Negative (fecally impacted, partially disempacted and then 2 mineral oil enemas administered) Labs: CBC, BMP 11/21/17 06:30 11/21/17 06:30 INR, PTT INR 1.48 (0.82-1.09) H D 11/16/17 17:00 Problem List - Problems (1) Dementia Assessment/Plan: Inadequate caloric intake due to advanced dementia with aspiration risk fills criteria to merit PEG insertion. Will try to find family for consent. Code(s): F03.90 - UNSPECIFIED DEMENTIA WITHOUT BEHAVIORAL DISTURBANCE Qualifiers: Dementia type: unspecified type Dementia behavioral disturbance: with behavioral disturbance Qualified Code(s): F03.91 - Unspecified dementia with behavioral disturbance (2) High grade dysplasia in colonic adenoma Assessment/Plan: Not a candidate for surveillance given her advanced dementia Code(s): D12.6 - BENIGN NEOPLASM OF COLON, UNSPECIFIED (3) Fecal impaction in rectum Assessment/Plan: Partial manual disempaction performed and mineral oil enemas given. Will need Miralax when G tube is inserted. Code(s): K56.41 - FECAL IMPACTION
[2017-11-21] MEDS ORDERED: MINERAL OIL ENEMA 133 ML ENEMA PR ONE (17:00)
--- NOTE | 2017-11-21 17:41 | PN ---
Progress Note, Physician History of Present Illness: Pt seen and examined at bedside. She appears more comfortable. She is tolerating fluids. - Current Medication List Current Medications: Active Medications Acetaminophen (Tylenol Suppository -) 650 mg MD Q6H PRN PRN Reason: FEVER Aspirin (Asa -) 81 mg PO DAILY LONNIE Last Admin: 11/21/17 10:03 Dose: Not Given Bacitracin (Bacitracin -) 1 applic TP DAILY LONNIE Last Admin: 11/21/17 10:08 Dose: 1 applic Collagenase (Santyl -) 1 applic TP DAILY LONNIE Last Admin: 11/21/17 10:09 Dose: Not Given Divalproex Sodium (Depakote *Er* -) 500 mg PO HS LONNIE Last Admin: 11/20/17 21:54 Dose: Not Given Haloperidol (Haldol -) 1 mg PO HS LONNIE Last Admin: 11/20/17 21:55 Dose: Not Given Heparin Sodium (Porcine) (Heparin -) 5,000 unit SQ BID LONNIE Last Admin: 11/21/17 10:08 Dose: 5,000 unit CEFTRIAXONE 1 G/50 ML PREMIX (Ceftriaxone 1 Gm-D5w Bag) 50 mls @ 100 mls/hr IVPB DAILY LONNIE Last Admin: 11/21/17 10:08 Dose: 100 mls/hr Dextrose (D5w -) 1,000 mls @ 70 mls/hr IV ASDIR LONNIE Last Admin: 11/21/17 02:20 Dose: 70 mls/hr Insulin Aspart (Novolog Vial Sliding Scale -) 1 vial SQ ACHS LONNIE PRN Reason: Protocol Last Admin: 11/21/17 12:14 Dose: 4 units Lactic Acid (Lac-Hydrin 12) 1 applic TP BID LONNIE Last Admin: 11/21/17 10:09 Dose: 1 applic Olanzapine (Zyprexa -) 15 mg PO HS LONNIE Last Admin: 11/20/17 21:55 Dose: Not Given Ranitidine HCl (Zantac -) 150 mg PO HS LONNIE Last Admin: 11/20/17 21:55 Dose: Not Given Rosuvastatin Calcium (Crestor -) 10 mg PO HS LONNIE Last Admin: 11/20/17 21:54 Dose: Not Given Timolol Maleate (Timoptic 0.5%) 1 drop OD DAILY LONNIE Last Admin: 11/21/17 10:08 Dose: 1 drop - Objective Vital Signs: Vital Signs Temperature 99.5 F 11/21/17 14:00 Pulse Rate 90 11/21/17 14:00 Respiratory Rate 18 11/21/17 14:00 Blood Pressure 135/66 11/21/17 14:00 O2 Sat by Pulse Oximetry (%) 94 L 11/21/17 09:00 Constitutional: Yes: Calm Eyes: Yes: Conjunctiva Clear HENT: Yes: Atraumatic Neck: Yes: Supple Cardiovascular: Yes: S1, S2 Respiratory: Yes: On Nasal O2 Gastrointestinal: Yes: Soft Genitourinary: Yes: Incontinence Musculoskeletal: Yes: Muscle Weakness Edema: No Neurological: Yes: Confusion Labs: CBC, BMP 11/21/17 06:30 11/21/17 06:30 INR, PTT INR 1.48 (0.82-1.09) H D 11/16/17 17:00 Problem List - Problems (1) Hypernatremia Code(s): E87.0 - HYPEROSMOLALITY AND HYPERNATREMIA (2) Sepsis Code(s): A41.9 - SEPSIS, UNSPECIFIED ORGANISM Qualifiers: Sepsis type: sepsis due to unspecified organism Qualified Code(s): A41.9 - Sepsis, unspecified organism (3) Acute renal failure (ARF) Code(s): N17.9 - ACUTE KIDNEY FAILURE, UNSPECIFIED (4) Anemia Code(s): D64.9 - ANEMIA, UNSPECIFIED (5) Dementia Code(s): F03.90 - UNSPECIFIED DEMENTIA WITHOUT BEHAVIORAL DISTURBANCE Qualifiers: Dementia type: unspecified type Dementia behavioral disturbance: with behavioral disturbance Qualified Code(s): F03.91 - Unspecified dementia with behavioral disturbance (6) Schizophrenia Code(s): F20.9 - SCHIZOPHRENIA, UNSPECIFIED (7) UTI (urinary tract infection) Code(s): N39.0 - URINARY TRACT INFECTION, SITE NOT SPECIFIED Qualifiers: Urinary tract infection type: site unspecified Hematuria presence: without hematuria Qualified Code(s): N39.0 - Urinary tract infection, site not specified Assessment/Plan Current Medications Generic Name Dose Route Start Last Admin Trade Name Freq PRN Reason Stop Dose Admin Acetaminophen 650 mg 11/19/17 12:33 Tylenol Suppository - MD Q6H PRN FEVER Aspirin 81 mg 11/16/17 20:30 11/21/17 10:03 Asa - PO Not Given DAILY LONNIE Bacitracin 1 applic 11/16/17 20:30 11/21/17 10:08 Bacitracin - TP 1 applic DAILY LONNIE Administration Collagenase 1 applic 11/19/17 10:00 11/21/17 10:09 Santyl - TP Not Given DAILY LONNIE Divalproex Sodium 500 mg 11/16/17 22:00 11/20/17 21:54 Depakote *Er* - PO Not Given HS LONNIE Haloperidol 1 mg 11/16/17 22:00 11/20/17 21:55 Haldol - PO Not Given HS LONNIE Heparin Sodium (Porcine) 5,000 unit 11/17/17 22:00 11/21/17 10:08 Heparin - SQ 5,000 unit BID LONNIE Administration CEFTRIAXONE 1 G/50 ML PREMIX 50 mls @ 100 mls/hr 11/17/17 10:00 11/21/17 10: 08 Ceftriaxone 1 Gm-D5w Bag IVPB 100 mls/hr DAILY LONNIE Administration Dextrose 1,000 mls @ 70 mls/hr 11/20/17 11:31 11/21/17 02:20 D5w - IV 70 mls/hr ASDIR LONNIE Administration Insulin Aspart 1 vial 11/16/17 22:00 11/21/17 12:14 Novolog Vial Sliding Scale - SQ 4 units ACHS LONNIE Administration Protocol Lactic Acid 1 applic 11/16/17 22:00 11/21/17 10:09 Lac-Hydrin 12 TP 1 applic BID LONNIE Administration Olanzapine 15 mg 11/16/17 22:00 11/20/17 21:55 Zyprexa - PO Not Given HS LONNIE Ranitidine HCl 150 mg 11/16/17 22:00 11/20/17 21:55 Zantac - PO Not Given HS LONNIE Rosuvastatin Calcium 10 mg 11/16/17 22:00 11/20/17 21:54 Crestor - PO Not Given HS LONNIE Timolol Maleate 1 drop 11/16/17 20:30 11/21/17 10:08 Timoptic 0.5% OD 1 drop DAILY LONNIE Administration Impression 1. HOWIE 2. hx CKD 3. hypernatremia 4. anemia 5. bipolar 6. dementia 7. HTN 8. DM 9. sepsis 10. UTI Plan - cont fluids - repeat labs in am - sodium improving - GI input appreciated - follow speech and swallow Dr Florentino
[2017-11-21] MEDS ORDERED: PT OWN MED DRAWER 7, Y5N ONE (20:55)
[2017-11-21] MEDS: DIVALPROEX NA *ER* EXTEND REL 500 MG TABLET.SA (FP) PO SCH (21:05)
[2017-11-21] MEDS: ROSUVASTATIN CA 10 MG TABLET (FP) PO SCH (21:05)
[2017-11-21] MEDS: RANITIDINE HCL 150 MG TABLET (FP) PO SCH (21:06)
[2017-11-21] MEDS: OLANZapine 5 MG TABLET PO SCH (21:06)
[2017-11-21] MEDS: HALOPERIDOL 1 MG TABLET (FP) PO SCH (21:06)
[2017-11-22] MEDS: DEXTROSE 5%-WATER - 1,000 ML IV SCH ×2 (06:25→20:40)
[2017-11-22] MEDS: INSULIN SLIDING SCALE (NOVOLOG) 1 VIAL SQ SCH ×4 (06:26→21:52)
[2017-11-22 08:30] LABS: BASO % 0.7 % (0-2.0); EOS % 0.3 % (0-4.5); HEMATOCRIT 25.2 % (32.4-45.2); HEMOGLOBIN 8.3 GM/dL (10.7-15.3); LYMPH % 11.7 % (8-40); MCH 29.8 pg (25.7-33.7); MCHC 32.8 g/dl (32.0-36.0); MEAN CELL VOLUME 90.8 fl (80-96); MEAN PLT VOLUME 8.3 fl (7.5-11.1); MONO % 9.6 % (3.8-10.2); NEUT % 77.7 % (42.8-82.8); PLATELET COUNT 329 K/MM3 (134-434); RBC 2.78 M/mm3 (3.60-5.2); RDW 16.5 % (11.6-15.6); WHITE BLOOD COUNT 7.8 K/mm3 (4.0-10.0)
[2017-11-22 09:31] LABS: ALBUMIN 1.8 g/dl (3.4-5.0); ANION GAP 9 (8-16); BILIRUBIN,TOTAL 0.3 mg/dL (0.2-1.0); BLOOD UREA NITROGEN 26 mg/dL (7-18); CALCIUM 7.9 mg/dL (8.5-10.1); CHLORIDE 109 mmol/L (98-107); CO2 24 mmol/L (21-32); CREATININE 1.4 mg/dL (0.55-1.02); GLUCOSE,RANDOM 203 mg/dL (74-106); SGOT/AST 28 U/L (15-37); SGPT/ALT 10 U/L (12-78); SODIUM 142 mmol/L (136-145); TOT PROT 5.4 g/dl (6.4-8.2)
[2017-11-22 09:32] LABS: ALK PHOS 100 U/L (45-117)
[2017-11-22] MEDS: TIMOLOL 0.5% OPHTHALMIC SOL 5 ML BOTTLE OD SCH (10:38)
[2017-11-22] MEDS: CEFTRIAXONE 1 G/50 ML PREMIX 50 ML IVPB SCH (10:38)
[2017-11-22] MEDS: HEPARIN NA (PORCINE) 5,000 UNITS/ML 1ML VIAL SQ SCH ×2 (10:39→21:46)
[2017-11-22] MEDS: ASPIRIN 81 MG CHEWABLE TABLETS PO SCH (11:08)
[2017-11-22] MEDS: COLLAGENASE CLOSTRIDIUM HIST. 30 GRAMS TUBE TP SCH (11:09)
[2017-11-22] MEDS: AMMONIUM LACTATE 12% LOTION 225 GM BOTTLE TP SCH ×2 (11:14→21:47)
[2017-11-22] MEDS: BACITRACIN 15 GM TUBE TOPICAL OINTMENT TP SCH (11:14)
--- NOTE | 2017-11-22 12:01 | PN ---
Progress Note, Physician - Current Medication List Current Medications: Active Medications Acetaminophen (Tylenol Suppository -) 650 mg [place] Q6H PRN PRN Reason: FEVER Aspirin (Asa -) 81 mg PO DAILY [facility] Last Admin: 11/22/17 11:08 Dose: Not Given Bacitracin (Bacitracin -) 1 applic TP DAILY LONNIE Last Admin: 11/22/17 11:14 Dose: 1 applic Collagenase (Santyl -) 1 applic TP DAILY LONNIE Last Admin: 11/22/17 11:09 Dose: Not Given Divalproex Sodium (Depakote *Er* -) 500 mg PO HS LONNIE Last Admin: 11/21/17 21:05 Dose: Not Given Haloperidol (Haldol -) 1 mg PO HS LONNIE Last Admin: 11/21/17 21:06 Dose: Not Given Heparin Sodium (Porcine) (Heparin -) 5,000 unit SQ BID LONNIE Last Admin: 11/22/17 10:39 Dose: 5,000 unit CEFTRIAXONE 1 G/50 ML PREMIX (Ceftriaxone 1 Gm-D5w Bag) 50 mls @ 100 mls/hr IVPB DAILY [facility] Last Admin: 11/22/17 10:38 Dose: 100 mls/hr Dextrose (D5w -) 1,000 mls @ 70 mls/hr IV ASDIR [facility] Last Admin: 11/22/17 06:25 Dose: 70 mls/hr Insulin Aspart (Novolog Vial Sliding Scale -) 1 vial SQ ACHS LONNIE PRN Reason: Protocol Last Admin: 11/22/17 06:26 Dose: 4 units Lactic Acid (Lac-Hydrin 12) 1 applic TP BID [facility] Last Admin: 11/22/17 11:14 Dose: 1 applic Olanzapine (Zyprexa -) 15 mg PO HS LONNIE Last Admin: 11/21/17 21:06 Dose: Not Given Ranitidine HCl (Zantac -) 150 mg PO HS LONNIE Last Admin: 11/21/17 21:06 Dose: Not Given Rosuvastatin Calcium (Crestor -) 10 mg PO HS [facility] Last Admin: 11/21/17 21:05 Dose: Not Given Timolol Maleate (Timoptic 0.5%) 1 drop OD DAILY [facility] Last Admin: 11/22/17 10:38 Dose: 1 drop - Objective Vital Signs: Vital Signs Temperature 98.6 F 11/22/17 08:50 Pulse Rate 86 11/22/17 08:50 Respiratory Rate 26 H 11/22/17 08:50 Blood Pressure 122/62 11/22/17 08:50 O2 Sat by Pulse Oximetry (%) 95 11/21/17 20:44 Labs: CBC, BMP 11/22/17 07:00 11/22/17 07:00 INR, PTT INR 1.48 (0.82-1.09) H D 11/16/17 17:00 Assessment/Plan - Problems (1) Acute renal failure (ARF) Assessment/Plan: -IVF -Bladder/renal sono noted -Nephrology on board -bunc/cr now trending down -IVF Code(s): N17.9 - ACUTE KIDNEY FAILURE, UNSPECIFIED (2) Anemia Assessment/Plan: -dilutional? -Stool OB -Check Iron, TSH,FT4, B12, Folate -monitor trend Code(s): D64.9 - ANEMIA, UNSPECIFIED (3) UTI (urinary tract infection) Assessment/Plan: -seen by ID -IV abx -UC pending -renal/bladder U/S noted Code(s): N39.0 - URINARY TRACT INFECTION, SITE NOT SPECIFIED Qualifiers: Urinary tract infection type: site unspecified Hematuria presence: without hematuria Qualified Code(s): N39.0 - Urinary tract infection, site not specified (4) Dehydration Assessment/Plan: -IVF -BUN/Cr trending down -more responsive today --peg once concent obtained Code(s): E86.0 - DEHYDRATION (5) Sepsis Assessment/Plan: -LA normal -afebrile Microbiology 11/16/17 17:00 Blood Culture - Final Blood - Peripheral Venous NO GROWTH AFTER 5 DAYS INCUBATION 11/17/17 17:50 Urine Culture - Final Urine - Urine - Catheterized Streptococcus Viridans Streptococcus Viridans#2 -IV abx -ID on board -IVF Code(s): A41.9 - SEPSIS, UNSPECIFIED ORGANISM Qualifiers: Sepsis type: sepsis due to unspecified organism Qualified Code(s): A41.9 - Sepsis, unspecified organism (6) Altered mental status Assessment/Plan: -2/2 metabolic encephalopathy -although on Zyprexa and Haldol but NPO at this time. Would hold off until she is at her baseline mental state Code(s): R41.82 - ALTERED MENTAL STATUS, UNSPECIFIED
--- NOTE | 2017-11-22 16:51 | PN ---
Progress Note, Physician History of Present Illness: Pt seen and examined at bedside. She is tolerating fluids. She remains lethargic. - Current Medication List Current Medications: Active Medications Acetaminophen (Tylenol Suppository -) 650 mg [place] Q6H PRN PRN Reason: FEVER Aspirin (Asa -) 81 mg PO DAILY LONNIE Last Admin: 11/22/17 11:08 Dose: Not Given Bacitracin (Bacitracin -) 1 applic TP DAILY LONNIE Last Admin: 11/22/17 11:14 Dose: 1 applic Collagenase (Santyl -) 1 applic TP DAILY LONNIE Last Admin: 11/22/17 11:09 Dose: Not Given Divalproex Sodium (Depakote *Er* -) 500 mg PO HS LONNIE Last Admin: 11/21/17 21:05 Dose: Not Given Haloperidol (Haldol -) 1 mg PO HS LONNIE Last Admin: 11/21/17 21:06 Dose: Not Given Heparin Sodium (Porcine) (Heparin -) 5,000 unit SQ BID LONNIE Last Admin: 11/22/17 10:39 Dose: 5,000 unit CEFTRIAXONE 1 G/50 ML PREMIX (Ceftriaxone 1 Gm-D5w Bag) 50 mls @ 100 mls/hr IVPB DAILY LONNIE Last Admin: 11/22/17 10:38 Dose: 100 mls/hr Dextrose (D5w -) 1,000 mls @ 70 mls/hr IV ASDIR LONNIE Last Admin: 11/22/17 06:25 Dose: 70 mls/hr Insulin Aspart (Novolog Vial Sliding Scale -) 1 vial SQ ACHS LONNIE PRN Reason: Protocol Last Admin: 11/22/17 12:14 Dose: 4 units Lactic Acid (Lac-Hydrin 12) 1 applic TP BID LONNIE Last Admin: 11/22/17 11:14 Dose: 1 applic Olanzapine (Zyprexa -) 15 mg PO HS LONNIE Last Admin: 11/21/17 21:06 Dose: Not Given Ranitidine HCl (Zantac -) 150 mg PO HS LONNIE Last Admin: 11/21/17 21:06 Dose: Not Given Rosuvastatin Calcium (Crestor -) 10 mg PO HS LONNIE Last Admin: 11/21/17 21:05 Dose: Not Given Timolol Maleate (Timoptic 0.5%) 1 drop OD DAILY LONNIE Last Admin: 11/22/17 10:38 Dose: 1 drop - Objective Vital Signs: Vital Signs Temperature 101.4 F H 11/22/17 14:57 Pulse Rate 93 H 11/22/17 14:57 Respiratory Rate 20 11/22/17 14:57 Blood Pressure 128/54 11/22/17 14:57 O2 Sat by Pulse Oximetry (%) 95 11/22/17 09:00 Constitutional: Yes: Calm Eyes: Yes: Conjunctiva Clear HENT: Yes: Atraumatic Cardiovascular: Yes: S1, S2 Respiratory: Yes: CTA Bilaterally Gastrointestinal: Yes: Soft Genitourinary: Yes: Incontinence Musculoskeletal: Yes: Muscle Weakness Edema: No Neurological: Yes: Lethargy Labs: CBC, BMP 11/22/17 07:00 11/22/17 07:00 INR, PTT INR 1.48 (0.82-1.09) H D 11/16/17 17:00 Problem List - Problems (1) Hypernatremia Code(s): E87.0 - HYPEROSMOLALITY AND HYPERNATREMIA (2) Sepsis Code(s): A41.9 - SEPSIS, UNSPECIFIED ORGANISM Qualifiers: Sepsis type: sepsis due to unspecified organism Qualified Code(s): A41.9 - Sepsis, unspecified organism (3) Acute renal failure (ARF) Code(s): N17.9 - ACUTE KIDNEY FAILURE, UNSPECIFIED (4) Anemia Code(s): D64.9 - ANEMIA, UNSPECIFIED (5) Dementia Code(s): F03.90 - UNSPECIFIED DEMENTIA WITHOUT BEHAVIORAL DISTURBANCE Qualifiers: Dementia type: unspecified type Dementia behavioral disturbance: with behavioral disturbance Qualified Code(s): F03.91 - Unspecified dementia with behavioral disturbance (6) Schizophrenia Code(s): F20.9 - SCHIZOPHRENIA, UNSPECIFIED (7) UTI (urinary tract infection) Code(s): N39.0 - URINARY TRACT INFECTION, SITE NOT SPECIFIED Qualifiers: Urinary tract infection type: site unspecified Hematuria presence: without hematuria Qualified Code(s): N39.0 - Urinary tract infection, site not specified Assessment/Plan Current Medications Generic Name Dose Route Start Last Admin Trade Name Freq PRN Reason Stop Dose Admin Acetaminophen 650 mg 11/19/17 12:33 Tylenol Suppository - AK Q6H PRN FEVER Aspirin 81 mg 11/16/17 20:30 11/22/17 11:08 Asa - PO Not Given DAILY LONNIE Bacitracin 1 applic 11/16/17 20:30 11/22/17 11:14 Bacitracin - TP 1 applic DAILY LONNIE Administration Collagenase 1 applic 11/19/17 10:00 11/22/17 11:09 Santyl - TP Not Given DAILY LONNIE Divalproex Sodium 500 mg 11/16/17 22:00 11/21/17 21:05 Depakote *Er* - PO Not Given HS LONNIE Haloperidol 1 mg 11/16/17 22:00 11/21/17 21:06 Haldol - PO Not Given HS LONNIE Heparin Sodium (Porcine) 5,000 unit 11/17/17 22:00 11/22/17 10:39 Heparin - SQ 5,000 unit BID LONNIE Administration CEFTRIAXONE 1 G/50 ML PREMIX 50 mls @ 100 mls/hr 11/17/17 10:00 11/22/17 10: 38 Ceftriaxone 1 Gm-D5w Bag IVPB 100 mls/hr DAILY LONNIE Administration Dextrose 1,000 mls @ 70 mls/hr 11/20/17 11:31 11/22/17 06:25 D5w - IV 70 mls/hr ASDIR LONNIE Administration Insulin Aspart 1 vial 11/16/17 22:00 11/22/17 12:14 Novolog Vial Sliding Scale - SQ 4 units ACHS LONNIE Administration Protocol Lactic Acid 1 applic 11/16/17 22:00 11/22/17 11:14 Lac-Hydrin 12 TP 1 applic BID LONNIE Administration Olanzapine 15 mg 11/16/17 22:00 11/21/17 21:06 Zyprexa - PO Not Given HS LONNIE Ranitidine HCl 150 mg 11/16/17 22:00 11/21/17 21:06 Zantac - PO Not Given HS LONNIE Rosuvastatin Calcium 10 mg 11/16/17 22:00 11/21/17 21:05 Crestor - PO Not Given HS LONNIE Timolol Maleate 1 drop 11/16/17 20:30 11/22/17 10:38 Timoptic 0.5% OD 1 drop DAILY LONNIE Administration Impression 1. HOWIE 2. hx CKD 3. hypernatremia 4. anemia 5. bipolar 6. dementia 7. HTN 8. DM 9. sepsis 10. UTI Plan - renal function is improving - sodium is improving - will keep on fluids - follow speech and swallow - avoid sedatives - will follow Dr Florentino
[2017-11-22] MEDS ORDERED: INSULIN (NOVOLOG) ASPART 100 UNITS/ML 10ML VIAL ONE ×2 (18:16→21:50)
[2017-11-22] MEDS: HALOPERIDOL 1 MG TABLET (FP) PO SCH (21:45)
[2017-11-22] MEDS: OLANZapine 5 MG TABLET PO SCH (21:45)
[2017-11-22] MEDS: RANITIDINE HCL 150 MG TABLET (FP) PO SCH (21:45)
[2017-11-22] MEDS: DIVALPROEX NA *ER* EXTEND REL 500 MG TABLET.SA (FP) PO SCH (21:45)
[2017-11-22] MEDS: ROSUVASTATIN CA 10 MG TABLET (FP) PO SCH (21:45)
[2017-11-22] MEDS: ACETAMINOPHEN 650 MG SUPP.RECT PR PRN (22:35)
[2017-11-23] MEDS: INSULIN SLIDING SCALE (NOVOLOG) 1 VIAL SQ SCH ×4 (07:45→22:29)
[2017-11-23 08:37] LABS: ANION GAP 8 (8-16); BLOOD UREA NITROGEN 21 mg/dL (7-18); CHLORIDE 106 mmol/L (98-107); CO2 27 mmol/L (21-32); CREATININE 1.2 mg/dL (0.55-1.02); GLUCOSE,RANDOM 112 mg/dL (74-106); POTASSIUM 3.7 mmol/L (3.5-5.1); SODIUM 141 mmol/L (136-145)
[2017-11-23 11:01] LABS: BASO % 0.9 % (0-2.0); EOS % 1.9 % (0-4.5); HEMATOCRIT 23.8 % (32.4-45.2); HEMOGLOBIN 7.8 GM/dL (10.7-15.3); LYMPH % 24.6 % (8-40); MCH 29.5 pg (25.7-33.7); MCHC 32.9 g/dl (32.0-36.0); MEAN CELL VOLUME 89.7 fl (80-96); MEAN PLT VOLUME 7.8 fl (7.5-11.1); MONO % 14.6 % (3.8-10.2); PLATELET COUNT 324 K/MM3 (134-434); RBC 2.65 M/mm3 (3.60-5.2); RDW 16.6 % (11.6-15.6); WHITE BLOOD COUNT 8.2 K/mm3 (4.0-10.0)
[2017-11-23] MEDS: ASPIRIN 81 MG CHEWABLE TABLETS PO SCH (11:50)
[2017-11-23] MEDS: CEFTRIAXONE 1 G/50 ML PREMIX 50 ML IVPB SCH (11:59)
[2017-11-23] MEDS: BACITRACIN 15 GM TUBE TOPICAL OINTMENT TP SCH (12:01)
[2017-11-23] MEDS: AMMONIUM LACTATE 12% LOTION 225 GM BOTTLE TP SCH ×2 (12:01→21:05)
[2017-11-23] MEDS: HEPARIN NA (PORCINE) 5,000 UNITS/ML 1ML VIAL SQ SCH ×2 (12:02→21:00)
[2017-11-23] MEDS: TIMOLOL 0.5% OPHTHALMIC SOL 5 ML BOTTLE OD SCH (12:02)
[2017-11-23] MEDS: COLLAGENASE CLOSTRIDIUM HIST. 30 GRAMS TUBE TP SCH (12:02)
[2017-11-23] MEDS: DEXTROSE 5%-WATER - 1,000 ML IV SCH (12:03)
[2017-11-23] MEDS ORDERED: FUROSEMIDE 40 MG/4 ML INJECTABLE VIAL IVPUSH SCH (13:49)
--- NOTE | 2017-11-23 13:51 | PN ---
Progress Note, Physician - Current Medication List Current Medications: Active Medications Acetaminophen (Tylenol Suppository -) 650 mg [place] Q6H PRN PRN Reason: FEVER Last Admin: 11/22/17 22:35 Dose: 650 mg Aspirin (Asa -) 81 mg PO DAILY [facility] Last Admin: 11/23/17 11:50 Dose: Not Given Bacitracin (Bacitracin -) 1 applic TP DAILY LONNIE Last Admin: 11/23/17 12:01 Dose: 1 applic Collagenase (Santyl -) 1 applic TP DAILY [facility] Last Admin: 11/23/17 12:02 Dose: Not Given Divalproex Sodium (Depakote *Er* -) 500 mg PO HS LONNIE Last Admin: 11/22/17 21:45 Dose: Not Given Haloperidol (Haldol -) 1 mg PO HS LONNIE Last Admin: 11/22/17 21:45 Dose: Not Given Heparin Sodium (Porcine) (Heparin -) 5,000 unit SQ BID [facility] Last Admin: 11/23/17 12:02 Dose: 5,000 unit CEFTRIAXONE 1 G/50 ML PREMIX (Ceftriaxone 1 Gm-D5w Bag) 50 mls @ 100 mls/hr IVPB DAILY [facility] Last Admin: 11/23/17 11:59 Dose: 100 mls/hr Dextrose (D5w -) 1,000 mls @ 70 mls/hr IV ASDIR [facility] Last Admin: 11/23/17 12:03 Dose: 70 mls/hr Insulin Aspart (Novolog Vial Sliding Scale -) 1 vial SQ ACHS LONNIE PRN Reason: Protocol Last Admin: 11/23/17 12:47 Dose: 2 units Lactic Acid (Lac-Hydrin 12) 1 applic TP BID [facility] Last Admin: 11/23/17 12:01 Dose: 1 applic Olanzapine (Zyprexa -) 15 mg PO HS LONNIE Last Admin: 11/22/17 21:45 Dose: Not Given Ranitidine HCl (Zantac -) 150 mg PO HS LONNIE Last Admin: 11/22/17 21:45 Dose: Not Given Rosuvastatin Calcium (Crestor -) 10 mg PO HS LONNIE Last Admin: 11/22/17 21:45 Dose: Not Given Timolol Maleate (Timoptic 0.5%) 1 drop OD DAILY [facility] Last Admin: 11/23/17 12:02 Dose: 1 drop - Objective Vital Signs: Vital Signs Temperature 99.3 F 11/23/17 09:31 Pulse Rate 78 11/23/17 09:31 Respiratory Rate 20 11/23/17 09:31 Blood Pressure 136/67 11/23/17 09:31 O2 Sat by Pulse Oximetry (%) 96 11/22/17 20:11 Cardiovascular: Yes: S1, S2 Respiratory: Yes: Rhonchi Gastrointestinal: Yes: Normal Bowel Sounds, Soft Labs: CBC, BMP 11/23/17 10:41 11/23/17 07:30 INR, PTT INR 1.48 (0.82-1.09) H D 11/16/17 17:00 Assessment/Plan - Problems (1) Acute renal failure (ARF) Assessment/Plan: - IVF -Bladder/renal sono noted -Nephrology on board -bunc/cr now trending down Code(s): N17.9 - ACUTE KIDNEY FAILURE, UNSPECIFIED (2) Anemia Assessment/Plan: -prbc today -Stool OB -Iron, TSH,FT4, B12, Folate -monitor trend Code(s): D64.9 - ANEMIA, UNSPECIFIED (3) UTI (urinary tract infection) Assessment/Plan: -seen by ID -IV abx -[facility] Microbiology 11/21/17 01:50 Rectal Swab VRE Culture - Final 11/16/17 17:00 Blood - Peripheral Venous Blood Culture - Final NO GROWTH AFTER 5 DAYS INCUBATION 11/17/17 17:50 Urine - Urine - Catheterized Urine Culture - Final Streptococcus Viridans Streptococcus Viridans#2 11/16/17 17:00 Urine - Urine - Catheterized Urine Culture - Final Gemella Morbillorum Streptococcus Viridans 11/16/17 17:00 Blood - Peripheral Venous Blood Culture - Final Staphylococcus Haemolyticus -renal/bladder U/S noted Code(s): N39.0 - URINARY TRACT INFECTION, SITE NOT SPECIFIED Qualifiers: Urinary tract infection type: site unspecified Hematuria presence: without hematuria Qualified Code(s): N39.0 - Urinary tract infection, site not specified (4) Dehydration Assessment/Plan: -IVF -BUN/Cr trending down -more responsive today --peg once concent obtained Code(s): E86.0 - DEHYDRATION (5) Sepsis Assessment/Plan: -LA normal -afebrile Microbiology 11/16/17 17:00 Blood Culture - Final Blood - Peripheral Venous NO GROWTH AFTER 5 DAYS INCUBATION 11/17/17 17:50 Urine Culture - Final Urine - Urine - Catheterized Streptococcus Viridans Streptococcus Viridans#2 -IV abx -ID on board -IVF Code(s): A41.9 - SEPSIS, UNSPECIFIED ORGANISM Qualifiers: Sepsis type: sepsis due to unspecified organism Qualified Code(s): A41.9 - Sepsis, unspecified organism (6) Altered mental status Assessment/Plan: -2/2 metabolic encephalopathy -although on Zyprexa and Haldol but NPO at this time. Would hold off until she is at her baseline mental state Code(s): R41.82 - ALTERED MENTAL STATUS, UNSPECIFIED
--- NOTE | 2017-11-23 19:37 | PN ---
Progress Note, Physician History of Present Illness: Pt seen and examined at bedside. She remains lethargic. - Current Medication List Current Medications: Active Medications Acetaminophen (Tylenol Suppository -) 650 mg [place] Q6H PRN PRN Reason: FEVER Last Admin: 11/22/17 22:35 Dose: 650 mg Aspirin (Asa -) 81 mg PO DAILY LONNIE Last Admin: 11/23/17 11:50 Dose: Not Given Bacitracin (Bacitracin -) 1 applic TP DAILY LONNIE Last Admin: 11/23/17 12:01 Dose: 1 applic Collagenase (Santyl -) 1 applic TP DAILY LONNIE Last Admin: 11/23/17 12:02 Dose: Not Given Divalproex Sodium (Depakote *Er* -) 500 mg PO HS LONNIE Last Admin: 11/22/17 21:45 Dose: Not Given Haloperidol (Haldol -) 1 mg PO HS LONNIE Last Admin: 11/22/17 21:45 Dose: Not Given Heparin Sodium (Porcine) (Heparin -) 5,000 unit SQ BID LONNIE Last Admin: 11/23/17 12:02 Dose: 5,000 unit CEFTRIAXONE 1 G/50 ML PREMIX (Ceftriaxone 1 Gm-D5w Bag) 50 mls @ 100 mls/hr IVPB DAILY [facility] Last Admin: 11/23/17 11:59 Dose: 100 mls/hr Dextrose (D5w -) 1,000 mls @ 70 mls/hr IV ASDIR LONNIE Last Admin: 11/23/17 12:03 Dose: 70 mls/hr Insulin Aspart (Novolog Vial Sliding Scale -) 1 vial SQ ACHS LONNIE PRN Reason: Protocol Last Admin: 11/23/17 17:38 Dose: Not Given Lactic Acid (Lac-Hydrin 12) 1 applic TP BID [facility] Last Admin: 11/23/17 12:01 Dose: 1 applic Olanzapine (Zyprexa -) 15 mg PO HS LONNIE Last Admin: 11/22/17 21:45 Dose: Not Given Ranitidine HCl (Zantac -) 150 mg PO HS LONNIE Last Admin: 11/22/17 21:45 Dose: Not Given Rosuvastatin Calcium (Crestor -) 10 mg PO HS LONNIE Last Admin: 11/22/17 21:45 Dose: Not Given Timolol Maleate (Timoptic 0.5%) 1 drop OD DAILY [facility] Last Admin: 11/23/17 12:02 Dose: 1 drop - Objective Vital Signs: Vital Signs Temperature 98.9 F 11/23/17 18:00 Pulse Rate 73 11/23/17 18:00 Respiratory Rate 20 11/23/17 18:00 Blood Pressure 125/57 11/23/17 18:00 O2 Sat by Pulse Oximetry (%) 96 11/23/17 09:00 Constitutional: Yes: Calm Eyes: Yes: Conjunctiva Clear Cardiovascular: Yes: S1, S2 Respiratory: Yes: CTA Bilaterally Gastrointestinal: Yes: Soft Genitourinary: Yes: Incontinence Musculoskeletal: Yes: Muscle Weakness Edema: No Neurological: Yes: Lethargy Labs: CBC, BMP 11/23/17 10:41 11/23/17 07:30 INR, PTT INR 1.48 (0.82-1.09) H D 11/16/17 17:00 Problem List - Problems (1) Hypernatremia Code(s): E87.0 - HYPEROSMOLALITY AND HYPERNATREMIA (2) Sepsis Code(s): A41.9 - SEPSIS, UNSPECIFIED ORGANISM Qualifiers: Sepsis type: sepsis due to unspecified organism Qualified Code(s): A41.9 - Sepsis, unspecified organism (3) Acute renal failure (ARF) Code(s): N17.9 - ACUTE KIDNEY FAILURE, UNSPECIFIED (4) Anemia Code(s): D64.9 - ANEMIA, UNSPECIFIED (5) Dementia Code(s): F03.90 - UNSPECIFIED DEMENTIA WITHOUT BEHAVIORAL DISTURBANCE Qualifiers: Dementia type: unspecified type Dementia behavioral disturbance: with behavioral disturbance Qualified Code(s): F03.91 - Unspecified dementia with behavioral disturbance (6) Schizophrenia Code(s): F20.9 - SCHIZOPHRENIA, UNSPECIFIED (7) UTI (urinary tract infection) Code(s): N39.0 - URINARY TRACT INFECTION, SITE NOT SPECIFIED Qualifiers: Urinary tract infection type: site unspecified Hematuria presence: without hematuria Qualified Code(s): N39.0 - Urinary tract infection, site not specified Assessment/Plan Current Medications Generic Name Dose Route Start Last Admin Trade Name Freq PRN Reason Stop Dose Admin Acetaminophen 650 mg 11/19/17 12:33 11/22/17 22:35 Tylenol Suppository - WI 650 mg Q6H PRN Administration FEVER Aspirin 81 mg 11/16/17 20:30 11/23/17 11:50 Asa - PO Not Given DAILY LONNIE Bacitracin 1 applic 11/16/17 20:30 11/23/17 12:01 Bacitracin - TP 1 applic DAILY OLNNIE Administration Collagenase 1 applic 11/19/17 10:00 11/23/17 12:02 Santyl - TP Not Given DAILY LONNIE Divalproex Sodium 500 mg 11/16/17 22:00 11/22/17 21:45 Depakote *Er* - PO Not Given HS LONNIE Haloperidol 1 mg 11/16/17 22:00 11/22/17 21:45 Haldol - PO Not Given HS LONNIE Heparin Sodium (Porcine) 5,000 unit 11/17/17 22:00 11/23/17 12:02 Heparin - SQ 5,000 unit BID LONNIE Administration CEFTRIAXONE 1 G/50 ML PREMIX 50 mls @ 100 mls/hr 11/17/17 10:00 11/23/17 11: 59 Ceftriaxone 1 Gm-D5w Bag IVPB 100 mls/hr DAILY LONNIE Administration Dextrose 1,000 mls @ 70 mls/hr 11/20/17 11:31 11/23/17 12:03 D5w - IV 70 mls/hr ASDIR LONNIE Administration Insulin Aspart 1 vial 11/16/17 22:00 11/23/17 17:38 Novolog Vial Sliding Scale - SQ Not Given ACHS LONNIE Protocol Lactic Acid 1 applic 11/16/17 22:00 11/23/17 12:01 Lac-Hydrin 12 TP 1 applic BID LONNIE Administration Olanzapine 15 mg 11/16/17 22:00 11/22/17 21:45 Zyprexa - PO Not Given HS LONNIE Ranitidine HCl 150 mg 11/16/17 22:00 11/22/17 21:45 Zantac - PO Not Given HS LONNIE Rosuvastatin Calcium 10 mg 11/16/17 22:00 11/22/17 21:45 Crestor - PO Not Given HS LONNIE Timolol Maleate 1 drop 11/16/17 20:30 11/23/17 12:02 Timoptic 0.5% OD 1 drop DAILY LONNIE Administration Impression 1. HOWIE 2. hx CKD 3. hypernatremia 4. anemia 5. bipolar 6. dementia 7. HTN 8. DM 9. sepsis 10. UTI Plan - will switch fluids to clinimix - repeat labs in am - follow speech and swallow - monitor hg - will follow Dr Florentino
[2017-11-23] MEDS ORDERED: FUROSEMIDE 40 MG/4 ML INJECTABLE VIAL IVPUSH ONE (21:00)
[2017-11-23] MEDS: FUROSEMIDE 40 MG/4 ML INJECTABLE VIAL IVPUSH SCH (21:01)
[2017-11-23] MEDS: ROSUVASTATIN CA 10 MG TABLET (FP) PO SCH (21:06)
[2017-11-23] MEDS: HALOPERIDOL 1 MG TABLET (FP) PO SCH (21:06)
[2017-11-23] MEDS: DIVALPROEX NA *ER* EXTEND REL 500 MG TABLET.SA (FP) PO SCH (21:06)
[2017-11-23] MEDS: RANITIDINE HCL 150 MG TABLET (FP) PO SCH (21:06)
[2017-11-23] MEDS: OLANZapine 5 MG TABLET PO SCH (21:06)
[2017-11-23] MEDS ORDERED: DEXTROSE 5%-WATER - 1,000 ML IV SCH (22:00)
[2017-11-23] MEDS: AMINO ACIDS 4.25%/D5W 1,000 ML IV SCH (22:38)
[2017-11-24] MEDS: INSULIN SLIDING SCALE (NOVOLOG) 1 VIAL SQ SCH ×4 (06:34→22:00)
[2017-11-24] MEDS ORDERED: INSULIN (NOVOLOG) ASPART 100 UNITS/ML 10ML VIAL ONE ×2 (07:05→21:58)
[2017-11-24 08:29] LABS: BASO % 0.9 % (0-2.0); EOS % 2.1 % (0-4.5); HEMATOCRIT 30.9 % (32.4-45.2); HEMOGLOBIN 10.3 GM/dL (10.7-15.3); LYMPH % 16.3 % (8-40); MCH 29.6 pg (25.7-33.7); MCHC 33.4 g/dl (32.0-36.0); MEAN CELL VOLUME 88.7 fl (80-96); MEAN PLT VOLUME 8.5 fl (7.5-11.1); MONO % 10.7 % (3.8-10.2); PLATELET COUNT 350 K/MM3 (134-434); RBC 3.49 M/mm3 (3.60-5.2); RDW 16.9 % (11.6-15.6); WHITE BLOOD COUNT 7.9 K/mm3 (4.0-10.0)
[2017-11-24 08:55] LABS: CHLORIDE 101 mmol/L (98-107); SODIUM 136 mmol/L (136-145)
[2017-11-24 09:02] LABS: ALBUMIN 1.9 g/dl (3.4-5.0); ALK PHOS 107 U/L (45-117); ANION GAP 7 (8-16); BILIRUBIN,TOTAL 0.4 mg/dL (0.2-1.0); BLOOD UREA NITROGEN 22 mg/dL (7-18); CALCIUM 8.2 mg/dL (8.5-10.1); CO2 28 mmol/L (21-32); CREATININE 1.2 mg/dL (0.55-1.02); GLUCOSE,RANDOM 207 mg/dL (74-106); SGOT/AST 24 U/L (15-37); SGPT/ALT 10 U/L (12-78); TOT PROT 5.8 g/dl (6.4-8.2)
[2017-11-24] MEDS: ASPIRIN 81 MG CHEWABLE TABLETS PO SCH (09:31)
[2017-11-24] MEDS: TIMOLOL 0.5% OPHTHALMIC SOL 5 ML BOTTLE OD SCH (09:43)
[2017-11-24] MEDS: BACITRACIN 15 GM TUBE TOPICAL OINTMENT TP SCH (09:44)
[2017-11-24] MEDS: HEPARIN NA (PORCINE) 5,000 UNITS/ML 1ML VIAL SQ SCH ×2 (09:44→22:00)
[2017-11-24] MEDS: AMMONIUM LACTATE 12% LOTION 225 GM BOTTLE TP SCH ×2 (09:45→22:00)
[2017-11-24] MEDS: COLLAGENASE CLOSTRIDIUM HIST. 30 GRAMS TUBE TP SCH (09:46)
[2017-11-24] MEDS: AMINO ACIDS 4.25%/D5W 1,000 ML IV SCH (11:04)
--- NOTE | 2017-11-24 11:53 | PN ---
Progress Note, Physician Chief Complaint: AMS, dehydration, UTI History of Present Illness: NAD in bed incontinent renal/bladder u/s noted unremarkable IVF IV abx seen by ID UC pending afebrile nephrology and speech rafalal appreciated NPO on clinimix PEG to be done by GI or IR - Current Medication List Current Medications: Active Medications Acetaminophen (Tylenol Suppository -) 650 mg [place] Q6H PRN PRN Reason: FEVER Last Admin: 11/22/17 22:35 Dose: 650 mg Aspirin (Asa -) 81 mg PO DAILY [facility] Last Admin: 11/24/17 09:31 Dose: Not Given Bacitracin (Bacitracin -) 1 applic TP DAILY LONNIE Last Admin: 11/24/17 09:44 Dose: 1 applic Collagenase (Santyl -) 1 applic TP DAILY [facility] Last Admin: 11/24/17 09:46 Dose: Not Given Divalproex Sodium (Depakote *Er* -) 500 mg PO HS [facility] Last Admin: 11/23/17 21:06 Dose: Not Given Furosemide (Lasix Injection -) 40 mg [employer] [facility] Last Admin: 11/23/17 21:01 Dose: 40 mg Haloperidol (Haldol -) 1 mg PO HS LONNIE Last Admin: 11/23/17 21:06 Dose: Not Given Heparin Sodium (Porcine) (Heparin -) 5,000 unit SQ BID LONNIE Last Admin: 11/24/17 09:44 Dose: 5,000 unit Amino Acids (Clinimix -) 1,000 mls @ 75 mls/hr IV Q12H [facility] Last Admin: 11/24/17 11:04 Dose: 75 mls/hr Insulin Aspart (Novolog Vial Sliding Scale -) 1 vial SQ ACHS LONNIE PRN Reason: Protocol Last Admin: 11/24/17 11:17 Dose: 4 units Lactic Acid (Lac-Hydrin 12) 1 applic TP BID LONNIE Last Admin: 11/24/17 09:45 Dose: 1 applic Olanzapine (Zyprexa -) 15 mg PO HS LONNIE Last Admin: 11/23/17 21:06 Dose: Not Given Ranitidine HCl (Zantac -) 150 mg PO HS LONNIE Last Admin: 11/23/17 21:06 Dose: Not Given Rosuvastatin Calcium (Crestor -) 10 mg PO HS LONNIE Last Admin: 11/23/17 21:06 Dose: Not Given Timolol Maleate (Timoptic 0.5%) 1 drop OD DAILY LONNIE Last Admin: 11/24/17 09:43 Dose: 1 drop - Objective Vital Signs: Vital Signs Temperature 98.9 F 11/24/17 09:35 Pulse Rate 77 11/24/17 09:35 Respiratory Rate 20 11/24/17 09:35 Blood Pressure 145/70 11/24/17 09:35 O2 Sat by Pulse Oximetry (%) 97 11/23/17 22:00 Constitutional: Yes: Well Nourished, No Distress, Calm Cardiovascular: Yes: Regular Rate and Rhythm Respiratory: Yes: Regular Gastrointestinal: Yes: Normal Bowel Sounds, Soft Musculoskeletal: Yes: WNL Extremities: Yes: WNL Edema: No Peripheral Pulses WNL: Yes Neurological: Yes: Alert, Pre-Existing Deficit Labs: CBC, BMP 11/24/17 08:10 11/24/17 08:10 INR, PTT INR 1.48 (0.82-1.09) H D 11/16/17 17:00 Problem List - Problems (1) Acute renal failure (ARF) Assessment/Plan: -IVF -Bladder/renal sono noted -Nephrology on board -bunc/cr now trending down -IVF Code(s): N17.9 - ACUTE KIDNEY FAILURE, UNSPECIFIED (2) Anemia Assessment/Plan: -Stool OB pending -Iron sat low, TSH,FT4, B12, Folate normal -monitor trend Code(s): D64.9 - ANEMIA, UNSPECIFIED (3) UTI (urinary tract infection) Assessment/Plan: -seen by ID -finished IV abx -UC: Microbiology 11/16/17 17:00 Blood - Peripheral Venous Blood Culture - Final NO GROWTH AFTER 5 DAYS INCUBATION 11/17/17 17:50 Urine - Urine - Catheterized Urine Culture - Final Streptococcus Viridans Streptococcus Viridans#2 11/16/17 17:00 Urine - Urine - Catheterized Urine Culture - Final Gemella Morbillorum Streptococcus Viridans 11/16/17 17:00 Blood - Peripheral Venous Blood Culture - Final Staphylococcus Haemolyticus -renal/bladder U/S noted Code(s): N39.0 - URINARY TRACT INFECTION, SITE NOT SPECIFIED Qualifiers: Urinary tract infection type: site unspecified Hematuria presence: without hematuria Qualified Code(s): N39.0 - Urinary tract infection, site not specified (4) Dehydration Assessment/Plan: -IVF -BUN/Cr trending down Code(s): E86.0 - DEHYDRATION (5) Sepsis Assessment/Plan: -LA normal -afebrile -UC : Microbiology 11/16/17 17:00 Blood - Peripheral Venous Blood Culture - Final NO GROWTH AFTER 5 DAYS INCUBATION 11/17/17 17:50 Urine - Urine - Catheterized Urine Culture - Final Streptococcus Viridans Streptococcus Viridans#2 11/16/17 17:00 Urine - Urine - Catheterized Urine Culture - Final Gemella Morbillorum Streptococcus Viridans 11/16/17 17:00 Blood - Peripheral Venous Blood Culture - Final Staphylococcus Haemolyticus -BC contaminated -IV abx finished -ID on board -IVF Code(s): A41.9 - SEPSIS, UNSPECIFIED ORGANISM Qualifiers: Sepsis type: sepsis due to unspecified organism Qualified Code(s): A41.9 - Sepsis, unspecified organism (6) Altered mental status Assessment/Plan: -2/2 metabolic encephalopathy -frequently orient patient -although on Zyprexa and Haldol but NPO at this time. Would hold off until she is at her baseline mental state Code(s): R41.82 - ALTERED MENTAL STATUS, UNSPECIFIED (7) Failure to thrive Assessment/Plan: -on clinimix -GI consult for PEG Code(s): [id number] - Assessment/Plan see problem list
[2017-11-24] MEDS: ACETAMINOPHEN 650 MG SUPP.RECT PR PRN (17:45)
--- NOTE | 2017-11-24 17:49 | PN ---
GI Progress Note Subjective: GI NOte: Recent events noted. NO overt bleeding. Had BM today. I discussed the PEG procedure in detail with Tiffany's next of kin, Farooq Prather @ . I informed him of the potential for such complications as cardiopulmonary arrest, aspiration pneumonia, hemorrhage, infection, misplacement of tube into the colon and of avulsion of the PEG which could lead to peritonitis and mandate surgery. After I answered his questions he gave verbal consent for PEG under MAC anesthesia. He wants full resuscitative measures undertaken if cardiopulmanry arrest occur during the procedure. - Objective Vital Signs: Vital Signs Temperature 100.0 F H 11/24/17 15:08 Pulse Rate 83 11/24/17 15:08 Respiratory Rate 20 11/24/17 15:08 Blood Pressure 155/65 11/24/17 15:08 O2 Sat by Pulse Oximetry (%) 97 11/24/17 09:00 Laboratory Tests 11/16/17 11/20/17 11/23/17 17:00 08:00 10:41 Hgb 8.7 L 7.8 L Plt Count PT with INR 16.70 H INR 1.48 H D Potassium BUN Creatinine Albumin 11/24/17 11/24/17 08:10 08:10 Hgb 10.3 L D Plt Count 350 PT with INR INR Potassium 4.0 BUN 22 H Creatinine 1.2 H Albumin 1.9 L Constitutional: Other (not communicative) ...Auscultate: Yes: Normoactive Bowel Sounds ...Palpate: Yes: Soft, Other (nontender) Labs: CBC, BMP 11/24/17 08:10 11/24/17 08:10 INR, PTT INR 1.48 (0.82-1.09) H D 11/16/17 17:00 Problem List - Problems (1) Dementia Assessment/Plan: Inadequate caloric intake due to advanced dementia with aspiration risk fills criteria to merit PEG insertion. I have scheduled it for 11/26. Will correct coagulation abnormalities. 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
[2017-11-24] MEDS: PHYTONADIONE 10 MG/1 ML AMP IM SCH (18:31)
--- NOTE | 2017-11-24 19:26 | PN ---
Progress Note, Physician History of Present Illness: Pt seen and examined at bedside. No acute events. - Current Medication List Current Medications: Active Medications Acetaminophen (Tylenol Suppository -) 650 mg NV Q6H PRN PRN Reason: FEVER Last Admin: 11/24/17 17:45 Dose: 650 mg Bacitracin (Bacitracin -) 1 applic TP DAILY LONNIE Last Admin: 11/24/17 09:44 Dose: 1 applic Collagenase (Santyl -) 1 applic TP DAILY LONNIE Last Admin: 11/24/17 09:46 Dose: Not Given Divalproex Sodium (Depakote *Er* -) 500 mg PO HS LONNIE Last Admin: 11/23/17 21:06 Dose: Not Given Furosemide (Lasix Injection -) 40 mg IVPUSH [employer]PRESENT[employer]IVE [facility] Last Admin: 11/23/17 21:01 Dose: 40 mg Haloperidol (Haldol -) 1 mg PO HS LONNIE Last Admin: 11/23/17 21:06 Dose: Not Given Heparin Sodium (Porcine) (Heparin -) 5,000 unit SQ BID [facility] Stop: 11/25/17 15:00 Last Admin: 11/24/17 09:44 Dose: 5,000 unit Amino Acids (Clinimix -) 1,000 mls @ 75 mls/hr IV Q12H [facility] Last Admin: 11/24/17 11:04 Dose: 75 mls/hr Insulin Aspart (Novolog Vial Sliding Scale -) 1 vial SQ ACHS LONNIE PRN Reason: Protocol Last Admin: 11/24/17 17:11 Dose: 6 units Lactic Acid (Lac-Hydrin 12) 1 applic TP BID [facility] Last Admin: 11/24/17 09:45 Dose: 1 applic Olanzapine (Zyprexa -) 15 mg PO HS [facility] Last Admin: 11/23/17 21:06 Dose: Not Given Phytonadione (Aqua Mephyton Injection -) 10 mg IM DAILY LONNIE Stop: 11/26/17 10:01 Last Admin: 11/24/17 18:31 Dose: 10 mg Ranitidine HCl (Zantac -) 150 mg PO HS [facility] Last Admin: 11/23/17 21:06 Dose: Not Given Rosuvastatin Calcium (Crestor -) 10 mg PO HS [facility] Last Admin: 11/23/17 21:06 Dose: Not Given Timolol Maleate (Timoptic 0.5%) 1 drop OD DAILY [facility] Last Admin: 11/24/17 09:43 Dose: 1 drop - Objective Vital Signs: Vital Signs Temperature 100.0 F H 11/24/17 15:08 Pulse Rate 83 11/24/17 15:08 Respiratory Rate 20 11/24/17 15:08 Blood Pressure 155/65 11/24/17 15:08 O2 Sat by Pulse Oximetry (%) 97 11/24/17 09:00 Constitutional: Yes: Calm Eyes: Yes: Conjunctiva Clear HENT: Yes: Atraumatic Cardiovascular: Yes: S1, S2 Respiratory: Yes: CTA Bilaterally Gastrointestinal: Yes: Soft Genitourinary: Yes: Incontinence Musculoskeletal: Yes: Muscle Weakness Edema: No Neurological: Yes: Lethargy Psychiatric: Yes: Oriented Labs: CBC, BMP 11/24/17 08:10 11/24/17 08:10 INR, PTT INR 1.48 (0.82-1.09) H D 11/16/17 17:00 Problem List - Problems (1) Hypernatremia Code(s): E87.0 - HYPEROSMOLALITY AND HYPERNATREMIA (2) Sepsis Code(s): A41.9 - SEPSIS, UNSPECIFIED ORGANISM Qualifiers: Sepsis type: sepsis due to unspecified organism Qualified Code(s): A41.9 - Sepsis, unspecified organism (3) Acute renal failure (ARF) Code(s): N17.9 - ACUTE KIDNEY FAILURE, UNSPECIFIED (4) Anemia Code(s): D64.9 - ANEMIA, UNSPECIFIED (5) Dementia Code(s): F03.90 - UNSPECIFIED DEMENTIA WITHOUT BEHAVIORAL DISTURBANCE Qualifiers: Dementia type: unspecified type Dementia behavioral disturbance: with behavioral disturbance Qualified Code(s): F03.91 - Unspecified dementia with behavioral disturbance (6) Schizophrenia Code(s): F20.9 - SCHIZOPHRENIA, UNSPECIFIED (7) UTI (urinary tract infection) Code(s): N39.0 - URINARY TRACT INFECTION, SITE NOT SPECIFIED Qualifiers: Urinary tract infection type: site unspecified Hematuria presence: without hematuria Qualified Code(s): N39.0 - Urinary tract infection, site not specified Assessment/Plan Current Medications Generic Name Dose Route Start Last Admin Trade Name Freq PRN Reason Stop Dose Admin Acetaminophen 650 mg 11/19/17 12:33 11/24/17 17:45 Tylenol Suppository - NV 650 mg Q6H PRN Administration FEVER Bacitracin 1 applic 11/16/17 20:30 11/24/17 09:44 Bacitracin - TP 1 applic DAILY LONNIE Administration Collagenase 1 applic 11/19/17 10:00 11/24/17 09:46 Santyl - TP Not Given DAILY LONNIE Divalproex Sodium 500 mg 11/16/17 22:00 11/23/17 21:06 Depakote *Er* - PO Not Given HS LONNIE Furosemide 40 mg 11/23/17 21:00 11/23/17 21:01 Lasix Injection - IVPUSH 40 mg [employer]PRES[employer]IVE LONNIE Administration Haloperidol 1 mg 11/16/17 22:00 11/23/17 21:06 Haldol - PO Not Given HS LONNIE Heparin Sodium (Porcine) 5,000 unit 11/17/17 22:00 11/24/17 09:44 Heparin - SQ 11/25/17 15:00 5,000 unit BID LONNIE Administration Amino Acids 1,000 mls @ 75 mls/hr 11/23/17 22:15 11/24/17 11:04 Clinimix - IV 75 mls/hr Q12H LONNIE Administration Insulin Aspart 1 vial 11/16/17 22:00 11/24/17 17:11 Novolog Vial Sliding Scale - SQ 6 units ACHS LONNIE Administration Protocol Lactic Acid 1 applic 11/16/17 22:00 11/24/17 09:45 Lac-Hydrin 12 TP 1 applic BID LONNIE Administration Olanzapine 15 mg 11/16/17 22:00 11/23/17 21:06 Zyprexa - PO Not Given HS LONNIE Phytonadione 10 mg 11/24/17 18:00 11/24/17 18:31 Aqua Mephyton Injection - IM 11/26/17 10:01 10 mg DAILY LONNIE Administration Ranitidine HCl 150 mg 11/16/17 22:00 11/23/17 21:06 Zantac - PO Not Given HS LONNIE Rosuvastatin Calcium 10 mg 11/16/17 22:00 11/23/17 21:06 Crestor - PO Not Given HS LONNIE Timolol Maleate 1 drop 11/16/17 20:30 11/24/17 09:43 Timoptic 0.5% OD 1 drop DAILY LONNIE Administration Impression 1. HOWIE 2. hx CKD 3. hypernatremia 4. anemia 5. bipolar 6. dementia 7. HTN 8. DM 9. sepsis 10. UTI Plan - pt tolerating clinimix, started today - d5w stopped - pt for peg tube - stop clinimix once tube feeds start - will follow Dr Florentino
[2017-11-24 21:09] LABS: INR 1.36 (0.82-1.09); PROTHROMBIN TIME (PATIENT) 15.4 SEC (9.98-11.88)
[2017-11-24] MEDS: OLANZapine 5 MG TABLET PO SCH (21:31)
[2017-11-24] MEDS: DIVALPROEX NA *ER* EXTEND REL 500 MG TABLET.SA (FP) PO SCH (21:31)
[2017-11-24] MEDS: RANITIDINE HCL 150 MG TABLET (FP) PO SCH (21:31)
[2017-11-24] MEDS: HALOPERIDOL 1 MG TABLET (FP) PO SCH (21:31)
[2017-11-24] MEDS: ROSUVASTATIN CA 10 MG TABLET (FP) PO SCH (21:31)
[2017-11-25] MEDS: AMINO ACIDS 4.25%/D5W 1,000 ML IV SCH ×3 (00:10→23:14)
[2017-11-25] MEDS: INSULIN SLIDING SCALE (NOVOLOG) 1 VIAL SQ SCH ×4 (06:08→22:41)
[2017-11-25] MEDS: FUROSEMIDE 40 MG/4 ML INJECTABLE VIAL IVPUSH SCH (07:24)
[2017-11-25 08:41] LABS: BASO % 0.6 % (0-2.0); HEMATOCRIT 29.2 % (32.4-45.2); HEMOGLOBIN 9.9 GM/dL (10.7-15.3); LYMPH % 18.3 % (8-40); MCH 29.7 pg (25.7-33.7); MCHC 33.9 g/dl (32.0-36.0); MEAN CELL VOLUME 87.6 fl (80-96); MEAN PLT VOLUME 9.1 fl (7.5-11.1); NEUT % 67.1 % (42.8-82.8); PLATELET COUNT 251 K/MM3 (134-434); RBC 3.33 M/mm3 (3.60-5.2); RDW 16.1 % (11.6-15.6); WHITE BLOOD COUNT 12.1 K/mm3 (4.0-10.0)
[2017-11-25 08:51] LABS: ALBUMIN 1.8 g/dl (3.4-5.0); BLOOD UREA NITROGEN 31 mg/dL (7-18); CHLORIDE 100 mmol/L (98-107); SODIUM 134 mmol/L (136-145)
[2017-11-25 08:56] LABS: ALK PHOS 109 U/L (45-117); ANION GAP 7 (8-16); BILIRUBIN,TOTAL 0.5 mg/dL (0.2-1.0); CALCIUM 8.2 mg/dL (8.5-10.1); CO2 27 mmol/L (21-32); CREATININE 1.1 mg/dL (0.55-1.02); GLUCOSE,RANDOM 166 mg/dL (74-106); SGPT/ALT 9 U/L (12-78); TOT PROT 5.8 g/dl (6.4-8.2)
[2017-11-25 09:00] LABS: POTASSIUM 4.2 mmol/L (3.5-5.1); SGOT/AST 27 U/L (15-37)
[2017-11-25] MEDS: COLLAGENASE CLOSTRIDIUM HIST. 30 GRAMS TUBE TP SCH (10:16)
[2017-11-25] MEDS: HEPARIN NA (PORCINE) 5,000 UNITS/ML 1ML VIAL SQ SCH (10:20)
[2017-11-25] MEDS: AMMONIUM LACTATE 12% LOTION 225 GM BOTTLE TP SCH ×2 (10:21→22:37)
[2017-11-25] MEDS: PHYTONADIONE 10 MG/1 ML AMP IM SCH (10:21)
[2017-11-25] MEDS: TIMOLOL 0.5% OPHTHALMIC SOL 5 ML BOTTLE OD SCH (10:21)
[2017-11-25] MEDS: BACITRACIN 15 GM TUBE TOPICAL OINTMENT TP SCH (10:22)
--- NOTE | 2017-11-25 12:44 | PN ---
Progress Note, Physician Chief Complaint: AMS, dehydration, UTI History of Present Illness: NAD in bed incontinent renal/bladder u/s noted unremarkable IVF IV abx seen by ID afebrile nephrology and speech eval appreciated NPO on clinimix PEG to be done by GI in AM Febrile last evening repeat CXR, BC, UC ID to evaluate pt again repeat labs in AM - Current Medication List Current Medications: Active Medications Acetaminophen (Tylenol Suppository -) 650 mg [place] Q6H PRN PRN Reason: FEVER Last Admin: 11/24/17 17:45 Dose: 650 mg Bacitracin (Bacitracin -) 1 applic TP DAILY LONNIE Last Admin: 11/25/17 10:22 Dose: 1 applic Collagenase (Santyl -) 1 applic TP DAILY LONNIE Last Admin: 11/25/17 10:16 Dose: Not Given Divalproex Sodium (Depakote *Er* -) 500 mg PO HS LONNIE Last Admin: 11/24/17 21:31 Dose: Not Given Haloperidol (Haldol -) 1 mg PO HS LONNIE Last Admin: 11/24/17 21:31 Dose: Not Given Heparin Sodium (Porcine) (Heparin -) 5,000 unit SQ BID LONNIE Stop: 11/25/17 15:00 Last Admin: 11/25/17 10:20 Dose: 5,000 unit Amino Acids (Clinimix -) 1,000 mls @ 75 mls/hr IV Q12H [facility] Last Admin: 11/25/17 00:10 Dose: Not Given Insulin Aspart (Novolog Vial Sliding Scale -) 1 vial SQ ACHS LONNIE PRN Reason: Protocol Last Admin: 11/25/17 06:08 Dose: Not Given Lactic Acid (Lac-Hydrin 12) 1 applic TP BID LONNIE Last Admin: 11/25/17 10:21 Dose: 1 applic Olanzapine (Zyprexa -) 15 mg PO HS LONNIE Last Admin: 11/24/17 21:31 Dose: Not Given Phytonadione (Aqua Mephyton Injection -) 10 mg IM DAILY LONNIE Stop: 11/26/17 10:01 Last Admin: 11/25/17 10:21 Dose: 10 mg Ranitidine HCl (Zantac -) 150 mg PO HS LONNIE Last Admin: 11/24/17 21:31 Dose: Not Given Rosuvastatin Calcium (Crestor -) 10 mg PO HS LONNIE Last Admin: 11/24/17 21:31 Dose: Not Given Timolol Maleate (Timoptic 0.5%) 1 drop OD DAILY LONNIE Last Admin: 11/25/17 10:21 Dose: 1 drop - Objective Vital Signs: Vital Signs Temperature 98.6 F 11/25/17 06:15 Pulse Rate 80 11/25/17 06:15 Respiratory Rate 20 11/25/17 06:15 Blood Pressure 130/61 11/25/17 06:15 O2 Sat by Pulse Oximetry (%) 97 11/24/17 22:00 Constitutional: Yes: Well Nourished, No Distress, Calm Cardiovascular: Yes: Regular Rate and Rhythm Respiratory: Yes: Regular Gastrointestinal: Yes: Soft, Hypoactive Bowel Sounds Neurological: Yes: Alert, Pre-Existing Deficit Labs: CBC, BMP 11/25/17 07:45 11/25/17 07:45 INR, PTT INR 1.36 (0.82-1.09) H 11/24/17 19:40 Problem List - Problems (1) Acute renal failure (ARF) Assessment/Plan: -IVF -Bladder/renal sono noted -Nephrology on board -bunc/cr now trending down -IVF Code(s): N17.9 - ACUTE KIDNEY FAILURE, UNSPECIFIED (2) Anemia Assessment/Plan: -Stool OB pending -Iron sat low, TSH,FT4, B12, Folate normal -monitor trend Code(s): D64.9 - ANEMIA, UNSPECIFIED (3) UTI (urinary tract infection) Assessment/Plan: -seen by ID -finished IV abx -renal/bladder U/S noted Code(s): N39.0 - URINARY TRACT INFECTION, SITE NOT SPECIFIED Qualifiers: Urinary tract infection type: site unspecified Hematuria presence: without hematuria Qualified Code(s): N39.0 - Urinary tract infection, site not specified (4) Dehydration Assessment/Plan: -IVF -BUN/Cr trending down Code(s): E86.0 - DEHYDRATION (5) Sepsis Assessment/Plan: -febrile last evening -repeat CXR, BC, UC -ID on board -IVF Code(s): A41.9 - SEPSIS, UNSPECIFIED ORGANISM Qualifiers: Sepsis type: sepsis due to unspecified organism Qualified Code(s): A41.9 - Sepsis, unspecified organism (6) Altered mental status Assessment/Plan: -2/2 metabolic encephalopathy -frequently orient patient -although on Zyprexa and Haldol but NPO at this time. Would hold off until she is at her baseline mental state Code(s): R41.82 - ALTERED MENTAL STATUS, UNSPECIFIED (7) Failure to thrive Assessment/Plan: -on clinimix - PEG in AM Code(s): [id number] - Assessment/Plan see problem list
--- NOTE | 2017-11-25 15:57 | PN ---
Progress Note, Physician History of Present Illness: Pt seen and examined at bedside. She remains lethargic. - Current Medication List Current Medications: Active Medications Acetaminophen (Tylenol Suppository -) 650 mg [place] Q6H PRN PRN Reason: FEVER Last Admin: 11/24/17 17:45 Dose: 650 mg Bacitracin (Bacitracin -) 1 applic TP DAILY LONNIE Last Admin: 11/25/17 10:22 Dose: 1 applic Collagenase (Santyl -) 1 applic TP DAILY LONNIE Last Admin: 11/25/17 10:16 Dose: Not Given Divalproex Sodium (Depakote *Er* -) 500 mg PO HS LONNIE Last Admin: 11/24/17 21:31 Dose: Not Given Haloperidol (Haldol -) 1 mg PO HS [facility] Last Admin: 11/24/17 21:31 Dose: Not Given Amino Acids (Clinimix -) 1,000 mls @ 75 mls/hr IV Q12H [facility] Last Admin: 11/25/17 14:46 Dose: Not Given Insulin Aspart (Novolog Vial Sliding Scale -) 1 vial SQ ACHS LONNIE PRN Reason: Protocol Last Admin: 11/25/17 13:13 Dose: Not Given Lactic Acid (Lac-Hydrin 12) 1 applic TP BID LONNIE Last Admin: 11/25/17 10:21 Dose: 1 applic Olanzapine (Zyprexa -) 15 mg PO HS [facility] Last Admin: 11/24/17 21:31 Dose: Not Given Phytonadione (Aqua Mephyton Injection -) 10 mg IM DAILY [facility] Stop: 11/26/17 10:01 Last Admin: 11/25/17 10:21 Dose: 10 mg Ranitidine HCl (Zantac -) 150 mg PO HS [facility] Last Admin: 11/24/17 21:31 Dose: Not Given Rosuvastatin Calcium (Crestor -) 10 mg PO HS [facility] Last Admin: 11/24/17 21:31 Dose: Not Given Timolol Maleate (Timoptic 0.5%) 1 drop OD DAILY LONNIE Last Admin: 11/25/17 10:21 Dose: 1 drop - Objective Vital Signs: Vital Signs Temperature 98.8 F 11/25/17 14:55 Pulse Rate 79 11/25/17 14:55 Respiratory Rate 20 11/25/17 09:00 Blood Pressure 140/65 11/25/17 14:55 O2 Sat by Pulse Oximetry (%) 97 11/25/17 09:00 Constitutional: Yes: Calm Eyes: Yes: Conjunctiva Clear HENT: Yes: Atraumatic Cardiovascular: Yes: S1, S2 Respiratory: Yes: CTA Bilaterally Gastrointestinal: Yes: Normal Bowel Sounds, Soft Genitourinary: Yes: Incontinence Musculoskeletal: Yes: Muscle Weakness Edema: No Neurological: Yes: Lethargy Labs: CBC, BMP 11/25/17 07:45 11/25/17 07:45 INR, PTT INR 1.36 (0.82-1.09) H 11/24/17 19:40 - ....Imaging Chest X-ray: Report Reviewed Problem List - Problems (1) Hypernatremia Code(s): E87.0 - HYPEROSMOLALITY AND HYPERNATREMIA (2) Sepsis Code(s): A41.9 - SEPSIS, UNSPECIFIED ORGANISM Qualifiers: Sepsis type: sepsis due to unspecified organism Qualified Code(s): A41.9 - Sepsis, unspecified organism (3) Acute renal failure (ARF) Code(s): N17.9 - ACUTE KIDNEY FAILURE, UNSPECIFIED (4) Anemia Code(s): D64.9 - ANEMIA, UNSPECIFIED (5) Dementia Code(s): F03.90 - UNSPECIFIED DEMENTIA WITHOUT BEHAVIORAL DISTURBANCE Qualifiers: Dementia type: unspecified type Dementia behavioral disturbance: with behavioral disturbance Qualified Code(s): F03.91 - Unspecified dementia with behavioral disturbance (6) Schizophrenia Code(s): F20.9 - SCHIZOPHRENIA, UNSPECIFIED (7) UTI (urinary tract infection) Code(s): N39.0 - URINARY TRACT INFECTION, SITE NOT SPECIFIED Qualifiers: Urinary tract infection type: site unspecified Hematuria presence: without hematuria Qualified Code(s): N39.0 - Urinary tract infection, site not specified Assessment/Plan Current Medications Generic Name Dose Route Start Last Admin Trade Name Freq PRN Reason Stop Dose Admin Acetaminophen 650 mg 11/19/17 12:33 11/24/17 17:45 Tylenol Suppository - CO 650 mg Q6H PRN Administration FEVER Bacitracin 1 applic 11/16/17 20:30 11/25/17 10:22 Bacitracin - TP 1 applic DAILY LONNIE Administration Collagenase 1 applic 11/19/17 10:00 11/25/17 10:16 Santyl - TP Not Given DAILY LONNIE Divalproex Sodium 500 mg 11/16/17 22:00 11/24/17 21:31 Depakote *Er* - PO Not Given HS LONNIE Haloperidol 1 mg 11/16/17 22:00 11/24/17 21:31 Haldol - PO Not Given HS LONNIE Amino Acids 1,000 mls @ 75 mls/hr 11/23/17 22:15 11/25/17 14:46 Clinimix - IV Not Given Q12H [facility] Insulin Aspart 1 vial 11/16/17 22:00 11/25/17 13:13 Novolog Vial Sliding Scale - SQ Not Given ACHS [facility] Protocol Lactic Acid 1 applic 11/16/17 22:00 11/25/17 10:21 Lac-Hydrin 12 TP 1 applic BID LONNIE Administration Olanzapine 15 mg 11/16/17 22:00 11/24/17 21:31 Zyprexa - PO Not Given HS LONNIE Phytonadione 10 mg 11/24/17 18:00 11/25/17 10:21 Aqua Mephyton Injection - IM 11/26/17 10:01 10 mg DAILY LONNIE Administration Ranitidine HCl 150 mg 11/16/17 22:00 11/24/17 21:31 Zantac - PO Not Given HS LONNIE Rosuvastatin Calcium 10 mg 11/16/17 22:00 11/24/17 21:31 Crestor - PO Not Given HS LONNIE Timolol Maleate 1 drop 11/16/17 20:30 11/25/17 10:21 Timoptic 0.5% OD 1 drop DAILY LONNIE Administration Impression 1. HOWIE 2. hx CKD 3. hypernatremia 4. anemia 5. bipolar 6. dementia 7. HTN 8. DM 9. sepsis 10. UTI Plan - cont clinimix, will adjust dose - pt for peg tube - stop clinimix once tube feeds start - labs reviewed - will follow Dr Florentino
--- NOTE | 2017-11-25 18:38 | PN ---
GI Progress Note Subjective: GI NOte: INR not adequately corrected so will order IVPB dosage. Hb adequate as is potassium. - Objective Vital Signs: Vital Signs Temperature 98.8 F 11/25/17 14:55 Pulse Rate 79 11/25/17 14:55 Respiratory Rate 20 11/25/17 09:00 Blood Pressure 140/65 11/25/17 14:55 O2 Sat by Pulse Oximetry (%) 97 11/25/17 09:00 Constitutional: No Distress ...Auscultate: Yes: Normoactive Bowel Sounds ...Palpate: Yes: Soft, Other Labs: CBC, BMP 11/25/17 07:45 11/25/17 07:45 INR, PTT INR 1.36 (0.82-1.09) H 11/24/17 19:40 Problem List - Problems (1) Hypoalbuminemia due to protein-calorie malnutrition Assessment/Plan: For PEG insertion tomorrow Code(s): E46 - UNSPECIFIED PROTEIN-CALORIE MALNUTRITION (2) Dementia Code(s): F03.90 - UNSPECIFIED DEMENTIA WITHOUT BEHAVIORAL DISTURBANCE Qualifiers: Dementia type: unspecified type Dementia behavioral disturbance: with behavioral disturbance Qualified Code(s): F03.91 - Unspecified dementia with behavioral disturbance (3) High grade dysplasia in colonic adenoma Code(s): D12.6 - BENIGN NEOPLASM OF COLON, UNSPECIFIED (4) Fecal impaction in rectum Code(s): K56.41 - FECAL IMPACTION
[2017-11-25] MEDS ORDERED: PHYTONADIONE 10 MG/1 ML AMP IVPB ONE (18:45)
[2017-11-25 20:35] LABS: INR 1.19 (0.82-1.09); PROTHROMBIN TIME (PATIENT) 13.5 SEC (9.98-11.88)
[2017-11-25] MEDS: ROSUVASTATIN CA 10 MG TABLET (FP) PO SCH (22:38)
[2017-11-25] MEDS: HALOPERIDOL 1 MG TABLET (FP) PO SCH (22:38)
[2017-11-25] MEDS: RANITIDINE HCL 150 MG TABLET (FP) PO SCH (22:38)
[2017-11-25] MEDS: OLANZapine 5 MG TABLET PO SCH (22:38)
[2017-11-25] MEDS: DIVALPROEX NA *ER* EXTEND REL 500 MG TABLET.SA (FP) PO SCH (22:38)
[2017-11-26] MEDS ORDERED: INSULIN (NOVOLOG) ASPART 100 UNITS/ML 10ML VIAL ONE ×2 (01:58→17:27)
[2017-11-26] MEDS: INSULIN SLIDING SCALE (NOVOLOG) 1 VIAL SQ SCH ×4 (06:49→22:40)
[2017-11-26] MEDS: AMINO ACIDS 4.25%/D5W 1,000 ML IV SCH ×2 (11:10→22:20)
[2017-11-26] MEDS: COLLAGENASE CLOSTRIDIUM HIST. 30 GRAMS TUBE TP SCH (11:10)
[2017-11-26] MEDS: BACITRACIN 15 GM TUBE TOPICAL OINTMENT TP SCH (11:11)
[2017-11-26] MEDS: TIMOLOL 0.5% OPHTHALMIC SOL 5 ML BOTTLE OD SCH (11:11)
[2017-11-26] MEDS: AMMONIUM LACTATE 12% LOTION 225 GM BOTTLE TP SCH ×2 (11:11→22:28)
--- NOTE | 2017-11-26 11:39 | PN ---
Progress Note, Physician Chief Complaint: AMS, dehydration, UTI History of Present Illness: NAD in bed more awake going for PEG now NPO on clinimix repeat CXR negative, BC, UC pending ID to evaluate pt again repeat labs in AM - Current Medication List Current Medications: Active Medications Acetaminophen (Tylenol Suppository -) 650 mg [place] Q6H PRN PRN Reason: FEVER Last Admin: 11/24/17 17:45 Dose: 650 mg Bacitracin (Bacitracin -) 1 applic TP DAILY LONNIE Last Admin: 11/26/17 11:11 Dose: 1 applic Collagenase (Santyl -) 1 applic TP DAILY LONNIE Last Admin: 11/26/17 11:10 Dose: Not Given Divalproex Sodium (Depakote *Er* -) 500 mg PO HS LONNIE Last Admin: 11/25/17 22:38 Dose: Not Given Haloperidol (Haldol -) 1 mg PO HS LONNIE Last Admin: 11/25/17 22:38 Dose: Not Given Amino Acids (Clinimix -) 1,000 mls @ 63 mls/hr IV Q12H LONNIE Last Admin: 11/26/17 11:10 Dose: Not Given Insulin Aspart (Novolog Vial Sliding Scale -) 1 vial SQ ACHS LONNIE PRN Reason: Protocol Last Admin: 11/26/17 11:10 Dose: Not Given Lactic Acid (Lac-Hydrin 12) 1 applic TP BID LONNIE Last Admin: 11/26/17 11:11 Dose: 1 applic Olanzapine (Zyprexa -) 15 mg PO HS LONNIE Last Admin: 11/25/17 22:38 Dose: Not Given Ranitidine HCl (Zantac -) 150 mg PO HS LONNIE Last Admin: 11/25/17 22:38 Dose: Not Given Rosuvastatin Calcium (Crestor -) 10 mg PO HS LONNIE Last Admin: 11/25/17 22:38 Dose: Not Given Timolol Maleate (Timoptic 0.5%) 1 drop OD DAILY LONNIE Last Admin: 11/26/17 11:11 Dose: 1 drop - Objective Vital Signs: Vital Signs Temperature 98.7 F 11/26/17 07:05 Pulse Rate 100 H 11/26/17 07:05 Respiratory Rate 19 11/26/17 07:05 Blood Pressure 126/60 11/26/17 07:05 O2 Sat by Pulse Oximetry (%) 97 11/25/17 21:00 Constitutional: Yes: Well Nourished, No Distress, Calm Labs: CBC, BMP 11/25/17 07:45 11/25/17 07:45 INR, PTT INR 1.19 (0.82-1.09) H 11/25/17 19:15 Problem List - Problems (1) Acute renal failure (ARF) Code(s): N17.9 - ACUTE KIDNEY FAILURE, UNSPECIFIED (2) Anemia Code(s): D64.9 - ANEMIA, UNSPECIFIED (3) UTI (urinary tract infection) Code(s): N39.0 - URINARY TRACT INFECTION, SITE NOT SPECIFIED Qualifiers: Urinary tract infection type: site unspecified Hematuria presence: without hematuria Qualified Code(s): N39.0 - Urinary tract infection, site not specified (4) Dehydration Code(s): E86.0 - DEHYDRATION (5) Sepsis Code(s): A41.9 - SEPSIS, UNSPECIFIED ORGANISM Qualifiers: Sepsis type: sepsis due to unspecified organism Qualified Code(s): A41.9 - Sepsis, unspecified organism (6) Altered mental status Code(s): R41.82 - ALTERED MENTAL STATUS, UNSPECIFIED (7) Failure to thrive Code(s): [id number] -
[2017-11-26] MEDS ORDERED: ceFAZolin SODIUM 1 GM VIAL ONE (12:00)
--- NOTE | 2017-11-26 12:31 | PN ---
Progress Note (short form) - Note Progress Note: GI Procedure NOte: Please see scanned PEG report. 20FR PEG inserted. Bulb duodenitis found. Problem List - Problems (1) Hypoalbuminemia due to protein-calorie malnutrition Code(s): E46 - UNSPECIFIED PROTEIN-CALORIE MALNUTRITION (2) Dementia Code(s): F03.90 - UNSPECIFIED DEMENTIA WITHOUT BEHAVIORAL DISTURBANCE Qualifiers: Dementia type: unspecified type Dementia behavioral disturbance: with behavioral disturbance Qualified Code(s): F03.91 - Unspecified dementia with behavioral disturbance (3) High grade dysplasia in colonic adenoma Code(s): D12.6 - BENIGN NEOPLASM OF COLON, UNSPECIFIED (4) Fecal impaction in rectum Code(s): K56.41 - FECAL IMPACTION
[2017-11-26 15:38] LABS: BASO % 0.8 % (0-2.0); EOS % 0.4 % (0-4.5); HEMATOCRIT 28.9 % (32.4-45.2); HEMOGLOBIN 9.7 GM/dL (10.7-15.3); LYMPH % 10.7 % (8-40); MCH 29.9 pg (25.7-33.7); MCHC 33.7 g/dl (32.0-36.0); MEAN CELL VOLUME 88.9 fl (80-96); MEAN PLT VOLUME 8.5 fl (7.5-11.1); MONO % 11.1 % (3.8-10.2); PLATELET COUNT 404 K/MM3 (134-434); RBC 3.25 M/mm3 (3.60-5.2); RDW 16.2 % (11.6-15.6); WHITE BLOOD COUNT 9.1 K/mm3 (4.0-10.0)
[2017-11-26 16:11] LABS: ALBUMIN 1.9 g/dl (3.4-5.0); ANION GAP 11 (8-16); BLOOD UREA NITROGEN 35 mg/dL (7-18); CALCIUM 8.5 mg/dL (8.5-10.1); CHLORIDE 99 mmol/L (98-107); CO2 24 mmol/L (21-32); CREATININE 1.3 mg/dL (0.55-1.02); GLUCOSE,RANDOM 225 mg/dL (74-106); SGOT/AST 23 U/L (15-37); SGPT/ALT 8 U/L (12-78); SODIUM 134 mmol/L (136-145)
[2017-11-26 16:13] LABS: ALK PHOS 111 U/L (45-117); BILIRUBIN,TOTAL 0.4 mg/dL (0.2-1.0); TOT PROT 5.7 g/dl (6.4-8.2)
[2017-11-26] MEDS ORDERED: CEFAZOLIN 1 GM/D5W 1 GM/50 ML BAG IVPB SCH (18:00)
[2017-11-26] MEDS: CEFAZOLIN 1 GM PUSH 1 GM/10 ML DISP.SYRIN IVPUSH SCH (18:33)
[2017-11-26 19:07] LABS: INR 1.09 (0.82-1.09); PROTHROMBIN TIME (PATIENT) 12.3 SEC (9.98-11.88)
[2017-11-26] MEDS: DIVALPROEX NA *ER* EXTEND REL 500 MG TABLET.SA (FP) PO SCH (22:26)
[2017-11-26] MEDS: RANITIDINE HCL 150 MG TABLET (FP) PO SCH (22:27)
[2017-11-26] MEDS: OLANZapine 5 MG TABLET PO SCH (22:27)
[2017-11-26] MEDS: HALOPERIDOL 1 MG TABLET (FP) PO SCH (22:28)
[2017-11-26] MEDS: ROSUVASTATIN CA 10 MG TABLET (FP) PO SCH (22:48)
[2017-11-27] MEDS: CEFAZOLIN 1 GM PUSH 1 GM/10 ML DISP.SYRIN IVPUSH SCH ×2 (02:24→10:56)
[2017-11-27] MEDS: INSULIN SLIDING SCALE (NOVOLOG) 1 VIAL SQ SCH (06:24)
[2017-11-27] MEDS ORDERED: INSULIN (NOVOLOG) ASPART 100 UNITS/ML 10ML VIAL ONE (06:48)
[2017-11-27] MEDS ORDERED: PT OWN MED DRAWER 7, Y5N ONE (10:50)
[2017-11-27] MEDS: AMINO ACIDS 4.25%/D5W 1,000 ML IV SCH (11:37)
--- NOTE | 2017-11-27 12:25 | PN ---
Progress Note (short form) - Note Progress Note: Abdomen: Sft, +BS, grimacing upon palpation at the peripeg site, otherwise no grimacing. Measured at 3cm edison at the abdominal wall. G-tube rotating freely. dressing removed from under external bolster. Patient tolerating tube feeds. Abdominal binder closed after evaluation
--- NOTE | 2017-11-27 12:46 | DS ---
Physical Examination Vital Signs: Vital Signs Temperature 98.4 F 11/27/17 06:03 Pulse Rate 100 H 11/27/17 06:03 Respiratory Rate 18 11/27/17 06:03 Blood Pressure 108/58 11/27/17 06:03 O2 Sat by Pulse Oximetry (%) 99 11/26/17 21:00 sleeping in bed abdominal binder in place tube feeds running Constitutional: Yes: Calm Cardiovascular: Yes: Murmur, S1, S2 Respiratory: Yes: CTA Bilaterally Gastrointestinal: Yes: Normal Bowel Sounds, Soft, Other (peg abdominal binder) Edema: No Labs: CBC, BMP 11/26/17 14:50 11/26/17 14:50 Discharge Summary Reason For Visit: SEPSIS Current Active Problems Altered mental status (Acute) Dehydration (Acute) Failure to thrive (Acute) Fecal impaction in rectum (Acute) High grade dysplasia in colonic adenoma (Acute) Hypernatremia (Acute) Hypoalbuminemia due to protein-calorie malnutrition (Acute) Sepsis (Acute) Hospital Course: 82 y/o F with PMH dementia, IDDM, HTN, HLD, schizophrenia, bipolar, GERD, who presents to the ED from [facility] with AMS over the past week. As per [facility], over the past week, pt had decreased PO intake and stopped ambulating. At baseline, pt ambulates with a rolling walker. Further, today, pt refused her medications and became increasingly combatative. During this time, pt has also had urinary and fecal incontinence, as well as drastic increase in BUN/Cr and unspecified changes in her CBC. AL denies pt had MCCAULEY, fever, chills, chest pain, or any other physical complaints. ER course was notable for: (1) Vanc 1g IVPB, Zosyn 3.375x1 (2) NS bolus (3) Febrile 101.4F, tachy 101HR in hospital: uti iv abx course done poor appetite, dehydration- swallow evaluation noted for high risk of aspiration - peg placed by GI bun /cr improved with hydration and now peg placement Condition: Fair - Instructions Diet, Activity, Other Instructions: nepro 40ml/ hr for 24 hrs and 20ml per hour water flushes Referrals: Ponce Erazo MD [Primary Care Provider] - Disposition: [facility] - Home Medications Comprehensive Discharge Medication List: Ambulatory Orders Acetaminophen 650 mg PO Q6H PRN 11/16/17 Ammonium Lactate Lotion [Lac-Hydrin 12% Lotion -] 1 applic TP BID 11/16/17 Apixaban [Eliquis] 5 mg PO BID 11/16/17 Aspirin 81 mg PO DAILY 11/16/17 Bacitracin - [Bacitracin Topical Ointment -] 1 applic TP DAILY 11/16/17 Divalproex *ER* [Depakote *ER* -] 500 mg PO HS 11/16/17 Haloperidol [Haldol -] 1 mg PO HS 11/16/17 Insulin Lispro [Humalog] 100 unit SQ BID 11/16/17 Metoprolol Tartrate 25 mg PO BID 11/16/17 Olanzapine [Olanzapine Odt] 15 mg PO HS 11/16/17 Ranitidine HCl [Zantac] 150 mg PO HS 11/16/17 Rosuvastatin Calcium [Crestor] 10 mg PO HS 11/16/17 Timolol 0.5% [Timoptic 0.5%] 1 drop OD BID 11/16/17
[2017-11-27 15:19] VITALS: BP 104/53; PULSE 95; TEMP 98.6
--- NOTE | 2017-11-27 19:38 | PN ---
Progress Note, Physician History of Present Illness: Pt seen and examined at bedside. She had the peg placed and is tolerating feeds. - Objective Vital Signs: Vital Signs Temperature 98.6 F 11/27/17 15:18 Pulse Rate 95 H 11/27/17 15:18 Respiratory Rate 20 11/27/17 10:00 Blood Pressure 104/53 11/27/17 15:18 O2 Sat by Pulse Oximetry (%) 99 11/27/17 09:00 Constitutional: Yes: Calm Eyes: Yes: Conjunctiva Clear HENT: Yes: Atraumatic Cardiovascular: Yes: S1, S2 Respiratory: Yes: CTA Bilaterally Gastrointestinal: Yes: Soft, Other (peg) Genitourinary: Yes: Incontinence Musculoskeletal: Yes: Muscle Weakness Edema: No Neurological: Yes: Confusion Labs: CBC, BMP 11/26/17 14:50 11/26/17 14:50 INR, PTT INR 1.09 (0.82-1.09) 11/26/17 18:00 Problem List - Problems (1) Hypernatremia Code(s): E87.0 - HYPEROSMOLALITY AND HYPERNATREMIA (2) Sepsis Code(s): A41.9 - SEPSIS, UNSPECIFIED ORGANISM Qualifiers: Sepsis type: sepsis due to unspecified organism Qualified Code(s): A41.9 - Sepsis, unspecified organism (3) Acute renal failure (ARF) Code(s): N17.9 - ACUTE KIDNEY FAILURE, UNSPECIFIED (4) Anemia Code(s): D64.9 - ANEMIA, UNSPECIFIED (5) Dementia Code(s): F03.90 - UNSPECIFIED DEMENTIA WITHOUT BEHAVIORAL DISTURBANCE Qualifiers: Dementia type: unspecified type Dementia behavioral disturbance: with behavioral disturbance Qualified Code(s): F03.91 - Unspecified dementia with behavioral disturbance (6) Schizophrenia Code(s): F20.9 - SCHIZOPHRENIA, UNSPECIFIED (7) UTI (urinary tract infection) Code(s): N39.0 - URINARY TRACT INFECTION, SITE NOT SPECIFIED Qualifiers: Urinary tract infection type: site unspecified Hematuria presence: without hematuria Qualified Code(s): N39.0 - Urinary tract infection, site not specified Assessment/Plan Impression 1. HOWIE 2. hx CKD 3. hypernatremia 4. anemia 5. bipolar 6. dementia 7. HTN 8. DM 9. sepsis 10. UTI Plan - pt tolerated feeds - stop clinimix - will need to monitor bmp in NH - dietary eval in NH - renal function has been improving - will follow Dr Florentino
== END 2017-11-27 18:10 | DRG 871 ==
LOC: JER 15:58 → JERBED 19:22 → J6S 11-17 20:25
PROVIDERS: ADMIT Internal Medicine; ATTEND Family Medicine
PROC: 0DH63UZ Insertion of Feeding Device into Stomach, Percutaneous Approach (ICD-10-PCS; principal; 2017-11-26 10:45)
PROC: 3E0G76Z Introduction of Nutritional Substance into Upper GI, Via Natural or Artificial Opening (ICD-10-PCS; 2017-11-27)
DX: A41.9 Sepsis, unspecified organism (principal); G93.41 Metabolic encephalopathy; F31.89 Other bipolar disorder; F20.89 Other schizophrenia; E87.0 Hyperosmolality and hypernatremia; N17.9 Acute kidney failure, unspecified; N39.0 Urinary tract infection, site not specified; E46 Unspecified protein-calorie malnutrition; E78.5 Hyperlipidemia, unspecified; F03.90 Unspecified dementia, unspecified severity, without behavioral disturbance, psychotic disturbance, mood disturbance, and anxiety; K21.9 Gastro-esophageal reflux disease without esophagitis; F32.9 Major depressive disorder, single episode, unspecified; I35.0 Nonrheumatic aortic (valve) stenosis; D64.9 Anemia, unspecified; K57.90 Diverticulosis of intestine, part unspecified, without perforation or abscess without bleeding; E86.0 Dehydration; F99 Mental disorder, not otherwise specified; K29.80 Duodenitis without bleeding; K56.41 Fecal impaction; R62.7 Adult failure to thrive; L89.152 Pressure ulcer of sacral region, stage 2; D12.6 Benign neoplasm of colon, unspecified; M19.90 Unspecified osteoarthritis, unspecified site; I12.9 Hypertensive chronic kidney disease with stage 1 through stage 4 chronic kidney disease, or unspecified chronic kidney disease; E11.22 Type 2 diabetes mellitus with diabetic chronic kidney disease; N18.9 Chronic kidney disease, unspecified; Z85.05 Personal history of malignant neoplasm of liver; Z85.038 Personal history of other malignant neoplasm of large intestine; Z86.73 Personal history of transient ischemic attack (TIA), and cerebral infarction without residual deficits; Z86.718 Personal history of other venous thrombosis and embolism
CPT/HCPCS: 36415; 36430; 36600; 70450-TC; 71045-TC-FY; 73523-TC-FY; 76775-TC; 76856-TC; 80048; 80053; 80061; 81003; 81015; 82436; 82550; 82553; 82570; 82607; 82728; 82746; 82803; 82962; 83036; 83540; 83550; 83605; 83721; 84133; 84300; 84439; 84443; 84484; 85025; 85610; 85730; 86850; 86900; 86901; 86922; 87040; 87077; 87081; 87086; 87186; 87804; 93005; 93010; 99285-25; J1644; J1756; P9038; P9058

== ENCOUNTER 2017-12-09 21:10 | Inpatient (IN) | payer OTHER ==
[2017-12-09] MEDS: DOPAMINE 400 MG/D5W - 400,000 MCG/250 ML INFUS.BAG IVPB SCH (21:13)
[2017-12-09] MEDS ORDERED: SODIUM CHLORIDE 1,000 ML IV STA ×2 (21:29)
--- NOTE | 2017-12-09 21:34 | PDOC ---
History of Present Illness - General Chief Complaint: Cardiac Arrest Stated Complaint: CARDIAC ARREST Time Seen by Provider: 12/09/17 21:27 - History of Present Illness Initial Comments: 12/09/17 21:35 Ms. Ham is an 82 yo female w/ pmh of IDDM, HTN, HLD, dementia, schizophrenia , bipolar disorder, GERD, recently admitted 11/16-11/27 for sepsis who presents after witnessed cardiac arrest at [facility] living. Per EMS she was being changed earlier today by [facility] staff when she "looked at aid funny" and became unresponsive. Upon EMS arrival they found she had gone into cardiac arrest and compressions with JENNIE device were begun. Patient was intubated and 1 each of epinephrine, calcium gluconate, and sodium bicarbonate was given through left tibial IO. ROSC was obtained with sinus tachycardia. Patient systolic BP was in 120's with ROSC but had decreased to 60's by the time they reached ER. Patient noted to be warm to touch. Upon arrival lines were placed in right AC as well as Right tibia (IO) and pressors were started. Intubation was confirmed in trachea with direct visualization. Sepsis workup begun and fluids were delivered using pressure bags through existing lines. Patient placed on ventilator and pressure noted to increase to 80's systolic. 12/09/17 21:41 Past History - Past Medical History Allergies/Adverse Reactions: Allergies Allergy/AdvReac Type Severity Reaction Status Date / Time No Known Allergies Allergy Verified 12/09/17 21:28 Home Medications: Ambulatory Orders Acetaminophen 650 mg PO Q6H PRN 11/16/17 Ammonium Lactate Lotion [Lac-Hydrin 12] 1 applic TP BID 11/16/17 Aspirin 81 mg PO DAILY 11/16/17 Bacitracin - [Bacitracin Topical Ointment -] 1 applic TP DAILY 11/16/17 Divalproex *ER* [Depakote *ER* -] 500 mg PO HS 11/16/17 Haloperidol [Haldol -] 1 mg PO HS 11/16/17 Olanzapine [Olanzapine Odt] 15 mg PO HS 11/16/17 Ranitidine HCl [Zantac] 150 mg PO HS 11/16/17 Rosuvastatin Calcium [Crestor] 10 mg PO HS 11/16/17 Timolol 0.5% [Timoptic 0.5%] 1 drop OD BID 11/16/17 Collagenase Clostridium Hist. [Santyl -] 1 applic TP DAILY tube 11/27/17 Anemia: Yes Asthma: No Cancer: Yes (colon, liver) Cardiac Disorders: No CVA: No COPD: Yes CHF: No DVT: Yes Dementia: Yes Diabetes: Yes GI Disorders: Yes (GERD.) Disorders: Yes (uti) HTN: Yes Hypercholesterolemia: Yes Liver Disease: Yes Psychiatric Problems: Yes (BIPOLAR. MAJOR DEPRESSIVE DISORDER. SCHIZOPHRENIA.) Seizures: No Thyroid Disease: No - Surgical History Abdominal Surgery: Yes Appendectomy: No Cardiac Surgery: No Cholecystectomy: Yes Lung Surgery: No Neurologic Surgery: No Orthopedic Surgery: No - Immunization History Td Vaccination: Yes Immunization Up to Date: Yes - Suicide/Smoking/Psychosocial Hx Smoking Status: No Smoking History: Unknown if ever smoked Years of Tobacco Use: 0 Have you smoked in the past 12 months: No Number of Cigarettes Smoked Daily: 0 Cigars Per Day: 0 Information on smoking cessation initiated: No Hx Alcohol Use: No Drug/Substance Use Hx: No Substance Use Type: None Hx Substance Use Treatment: No Review of Systems - Review of Systems Comments:: 12/09/17 21:40 Unable to obtain. *Physical Exam - Vital Signs Last Vital Signs Temp Pulse Resp BP Pulse Ox 84 14 53/40 100 12/09/17 21:28 12/09/17 21:28 12/09/17 21:28 12/09/17 21:28 - Physical Exam Comments: 12/09/17 21:41 GENERAL: +Patient unresponsive and intubated. HEAD: No signs of trauma, normocephalic, atraumatic EYES: PERRLA, EOMI, sclera anicteric, conjunctiva clear ENT: Auricles normal inspection, hearing grossly normal, nares patent, oropharynx clear without exudates. Moist mucosa NECK: Normal ROM, supple, no lymphadenopathy, JVD, or masses LUNGS: Clear to auscultation bilaterally HEART: Regular rate and rhythm, normal S1 and S2, no murmurs, rubs or gallops, peripheral pulses normal and equal bilaterally. ABDOMEN: Soft, nontender, normoactive bowel sounds. No guarding, no rebound. No masses EXTREMITIES: Normal inspection, Normal range of motion, no edema. No clubbing or cyanosis. NEUROLOGICAL: Unable to assess. SKIN: Warm, Dry, normal turgor, no rashes or lesions noted. ED Treatment Course - LABORATORY CBC & Chemistry Diagram: 12/11/17 05:50 12/11/17 05:50 Medical Decision Making - Medical Decision Making 12/09/17 21:44 Vanc/Zosyn started empirically. Patient signed over to Dr. Martinez for further care. *DC/Admit/Observation/Transfer Diagnosis at time of Disposition: Cardiac arrest UTI (urinary tract infection) Qualifiers: Urinary tract infection type: site unspecified Hematuria presence: without hematuria Qualified Code(s): N39.0 - Urinary tract infection, site not specified Sepsis Qualifiers: Sepsis type: sepsis due to unspecified organism Qualified Code(s): A41.9 - Sepsis, unspecified organism - Discharge Dispostion Condition at time of disposition: Guarded - Referrals - Patient Instructions - Post Discharge Activity
[2017-12-09] MEDS ORDERED: PIPERACILLIN/TAZOB 3.375 GM/50 ML PRE-DOCKED IVPB ONE (21:45)
[2017-12-09] MEDS ORDERED: VANCOMYCIN 1 GRAM (PRE-DOCKED) 1,000 MG/250 ML BAG IVPB ONE ×2 (21:45→22:32)
[2017-12-09 21:56] LABS: HEMATOCRIT 25.8 % (32.4-45.2); HEMOGLOBIN 8.4 GM/dL (10.7-15.3); MCH 29.8 pg (25.7-33.7); MCHC 32.4 g/dl (32.0-36.0); MEAN CELL VOLUME 92.2 fl (80-96); MEAN PLT VOLUME 8.6 fl (7.5-11.1); PLATELET COUNT 461 K/MM3 (134-434); WHITE BLOOD COUNT 12.1 K/mm3 (4.0-10.0)
--- NOTE | 2017-12-09 22:04 | PDOC ---
Attending Attestation - Critical Care Time Total Critical Care Time: 35 Critical Care Statement: The care of this patient involved high complexity decision making to prevent further life threatening deterioration of the patient 's condition and/or to evaluate & treat vital organ system(s) failure or risk of failure. <Nicole Dominguez - Last Filed: 12/10/17 00:47> - Resident Resident Name: Tc Mcconnell - ED Attending Attestation I have performed the following: I have examined & evaluated the patient, The case was reviewed & discussed with the resident, I agree w/resident's findings & plan, Exceptions are as noted - HPI HPI: 12/09/17 22:01 witnessed cardiac arrest at [facility]. BIBEMS with thumper in place. Medications given by EMS. fluids running by IO access - Physicial Exam PE: 12/09/17 22:04 *Physical Exam General Appearance: pt bagged and being intubated HEENT: positive: EOMI, JM, Normal ENT Inspection, Normal Voice, TMs Normal, Pharynx Normal. negative: Pale Conjunctivae, Photophobia, Scleral Icterus (R), Scleral Icterus (L) Neck: positive: Trachea midline, Normal Thyroid, Supple. negative: Tender, Rigid, Carotid bruit, Stridor, Lymphadenopathy (R), Lymphadenopathy (L), Thyromegaly Respiratory/Chest: positive: clear bilateral BS being bagged Cardiovascular: positive: Regular Rhythm, Regular Rate, S1, S2. negative: Edema , JVD, Murmur, Bradycardia, Tachycardia Vascular Pulses: Dorsalis-Pedis (R): 2+, Doralis-Pedis (L): 2+ Gastrointestinal/Abdominal: positive: Normal Bowel Sounds, Flat, Soft. n Lymphatic: negative: Adenopathy, Tenderness Musculoskeletal: positive: Normal Inspection. negative: CVA Tenderness, Decreased Range of Motion Extremity: positive: Normal Capillary Refill, Normal Inspection, Normal Range of Motion, Pelvis Stable. negative: Tender, Pedal Edema, Swelling, Erythema Integumentary: positive: Normal Color, Dry, Warm. negative: Cyanotic, Erythema , Jaundice, Rash Neurologic: positive: unaccessed - Medical Decision Making 12/10/17 19:10 pt admitted to ICU <Adolfo Martinez - Last Filed: 12/10/17 19:10> Discharge Disposition <Nicole Dominguez - Last Filed: 12/10/17 00:47> - Discharge Dispostion Last Admission D/C Date: 11/27/17 <Adolfo Martinez - Last Filed: 12/10/17 19:10> - Diagnosis UTI (urinary tract infection), Sepsis, Cardiac arrest - Discharge Dispostion Condition at time of disposition: Guarded Heart Score/ECG Review - History History: Moderately suspicious - Electrocardiogram EKG: Non specific repolarization disturbance - Age Age: >/= 65 - Risk Factors Risk Factors Heart Score: Yes Hx Hypertension, Yes Hx Diabetes Based on the list above the patient has:: >/=3 risk factors or Hx atherosclerotic disease <Adolfo Martinez - Last Filed: 12/10/17 19:10>
[2017-12-09 22:10] LABS: URINE APPEARANCE TURBID; URINE BILIRUBIN NEGATIVE (NEGATIVE); URINE BLOOD NEGATIVE (NEGATIVE); URINE COLOR YELLOW; URINE GLUCOSE (UA) NEGATIVE (NEGATIVE); URINE KETONE NEGATIVE (NEGATIVE); URINE NITRITE NEGATIVE (NEGATIVE); URINE UROBILINOGEN NEGATIVE mg/dL (0.2-1.0)
[2017-12-09 22:12] LABS: URINE LEUK ESTERASE 2+ (NEGATIVE); URINE PROTEIN 3+ (NEGATIVE)
[2017-12-09 22:25] LABS: INR 1.08 (0.82-1.09); PROTHROMBIN TIME (PATIENT) 12.2 SEC (9.98-11.88)
[2017-12-09] MEDS ORDERED: PIPERACILLIN/TAZOB 3.375 GM 3.375 GM/50 ML BAG IVPB ONE (22:33)
[2017-12-09 22:37] LABS: ALBUMIN 1.7 g/dl (3.4-5.0); AMYLASE 73 U/L (25-115); ANION GAP 14 (8-16); BILIRUBIN,TOTAL 0.3 mg/dL (0.2-1.0); BLOOD UREA NITROGEN 65 mg/dL (7-18); CALCIUM 8.9 mg/dL (8.5-10.1); CHLORIDE 99 mmol/L (98-107); CO2 25 mmol/L (21-32); CREATININE 1.7 mg/dL (0.55-1.02); GLUCOSE,RANDOM 267 mg/dL (74-106); MAGNESIUM 2.3 mg/dL (1.8-2.4); POTASSIUM 5.2 mmol/L (3.5-5.1); SGOT/AST 51 U/L (15-37); SGPT/ALT 22 U/L (12-78); SODIUM 138 mmol/L (136-145); TOT PROT 5.8 g/dl (6.4-8.2)
[2017-12-09 22:40] LABS: ALK PHOS 150 U/L (45-117); ANISOCYTOSIS 2+
[2017-12-09 22:41] LABS: PLATELET ESTIMATE SLT INCREASE
--- NOTE | 2017-12-09 23:58 | PN ---
Teaching Attending Note Name of Resident: Ever Treadwell ATTENDING PHYSICIAN STATEMENT I saw and evaluated the patient. I reviewed the resident's note and discussed the case with the resident. I agree with the resident's findings and plan as documented. SUBJECTIVE: 82 F with Pmhx of dementia, DM, CVA, DVT, dementia, depression, biplolar do, who presents from [facility], who presents after out of hospital arrest. As per Ed notes when she was being changed they noted she 'looked funny" and was unresponsive. When EMS arrived, the found her to be pulseless. She was given compressions with JENNIE device. She recieved EPI, ca gluconate, and bicarb through L. Tibial I/O. ROSC was eventually obtained. Upon arrival in ED she ws found to be in septic shock, and started on Dopamine. She was intubated in field. Pt. Intubated at bedside. OBJECTIVE: Physical: VS: Vital Signs Period Temp Pulse Resp BP Sys/Rudd Pulse Ox Last 24 Hr 98.5 F 75-98 12-14 53-107/34-57 100-100 GEN: Intubated at bedside, not resposive to commands HEENT: Pupils Fixed and not reactive, ET tube in place CARD: RRR S1, S2, Systolic Ejection Murmer RESP: Decreased Breath sounds bases bilaterally ABD: BSx4, NTD to palpation, PEG site with mild erythema, dried drainage EXT: - C/C/E CBCD WBC 12.1 K/mm3 (4.0-10.0) H D 12/09/17 21:30 RBC 2.80 M/mm3 (3.60-5.2) L 12/09/17 21:30 Hgb 8.4 GM/dL (10.7-15.3) L D 12/09/17 21:30 Hct 25.8 % (32.4-45.2) L 12/09/17 21:30 MCV 92.2 fl (80-96) 12/09/17 21:30 MCHC 32.4 g/dl (32.0-36.0) 12/09/17 21:30 RDW 17.0 % (11.6-15.6) H 12/09/17 21:30 Plt Count 461 K/MM3 (134-434) H 12/09/17 21:30 MPV 8.6 fl (7.5-11.1) 12/09/17 21:30 CMP Sodium 138 mmol/L (136-145) 12/09/17 21:30 Potassium 5.2 mmol/L (3.5-5.1) H 12/09/17 21:30 Chloride 99 mmol/L (98-107) 12/09/17 21:30 Carbon Dioxide 25 mmol/L (21-32) 12/09/17 21:30 Anion Gap 14 (8-16) 12/09/17 21:30 BUN 65 mg/dL (7-18) H 12/09/17 21:30 Creatinine 1.7 mg/dL (0.55-1.02) H 12/09/17 21:30 Creat Clearance w eGFR 28.63 (>60) 12/09/17 21:30 Random Glucose 267 mg/dL (74-106) H 12/09/17 21:30 Calcium 8.9 mg/dL (8.5-10.1) 12/09/17 21:30 Total Bilirubin 0.3 mg/dL (0.2-1.0) D 12/09/17 21:30 AST 51 U/L (15-37) H 12/09/17 21:30 ALT 22 U/L (12-78) 12/09/17 21:30 Alkaline Phosphatase 150 U/L (45-117) H 12/09/17 21:30 Total Protein 5.8 g/dl (6.4-8.2) L 12/09/17 21:30 Albumin 1.7 g/dl (3.4-5.0) L 12/09/17 21:30 CARDIAC ENZYMES Creatine Kinase 111 IU/L (26-192) 12/09/17 21:30 Troponin I 0.05 ng/ml (0.00-0.05) 12/09/17 21:30 Urine Test Results Urine Color Yellow 12/09/17:57 Urine Appearance Turbid 12/09/17 21:57 Urine pH 7.0 (5.0-8.0) D 12/09/17 21:57 Ur Specific [place] 1.015 (1.001-1.035) 12/09/17 21:57 Urine Protein 3+ (NEGATIVE) H 12/09/17 21:57 Urine Glucose (UA) Negative (NEGATIVE) 12/09/17 21:57 Urine Ketones Negative (NEGATIVE) 12/09/17 21:57 Urine Blood Negative (NEGATIVE) 12/09/17 21:57 Urine Nitrite Negative (NEGATIVE) 12/09/17 21:57 Urine Bilirubin Negative (NEGATIVE) 12/09/17 21:57 Ur Leukocyte Esterase 2+ (NEGATIVE) H 12/09/17 21:57 EKG: NSR CXR- ET tube , No acute proces- Awaiting final read Home Medications Medication Instructions Recorded Acetaminophen 650 mg PO Q6H PRN 11/16/17 Ammonium Lactate Lotion 1 applic TP BID 11/16/17 [Lac-Hydrin 12] Aspirin 81 mg PO DAILY 11/16/17 Bacitracin - [Bacitracin Topical 1 applic TP DAILY 11/16/17 Ointment -] Divalproex *ER* [Depakote *ER* -] 500 mg PO HS 11/16/17 Haloperidol [Haldol -] 1 mg PO HS 11/16/17 Olanzapine [Olanzapine Odt] 15 mg PO HS 11/16/17 Ranitidine HCl [Zantac] 150 mg PO HS 11/16/17 Rosuvastatin Calcium [Crestor] 10 mg PO HS 11/16/17 Timolol 0.5% [Timoptic 0.5%] 1 drop OD BID 11/16/17 Collagenase Clostridium Hist. 1 applic TP DAILY tube 11/27/17 [Santyl -] ASSESSMENT AND PLAN: 82 F with Pmhx of dementia, DM, CVA, DVT, dementia, depression, biplolar do, who presents from [facility], in cardiac arrest 1.) Cardiac Arrest - ROSC - HYpothermia Protocol - ABG - Repeat ABG/CXR- Repeat CXR after ET (r. main)repositioned - Elevated head of bed - CT HEAD when possible - Trend Trop/Ekg - Echo 2.) Septic Shock/ MODS - Due to Urinary Tract Infection - Patel cx - S/P Zosyn, continue - S/P Vanco - ID consult - Wean Dopa, maint MAP >65 3.) DM - FS - RAISS 4.) DVT hx - On Eliquis - Would hold off A/C until CT HEAD done, bc pt. was found unresponsive 5.) GI Ppx - Protonix 6.) Bipolar DO - Hold PO meds 7.) Normocytic Anemia - FE Studies, B12, Folate 8.) HLD - Hold Statin 9.) HOWIE/CKD - Most likely due to shock - BAse CR - Gentle IVF Accepted to ICU CC Time: 60 Minutes
[2017-12-10] MEDS ORDERED: HEPARIN - 25,000 UNIT in SODIUM CHLORIDE 495 ML IV SCH
[2017-12-10] MEDS ORDERED: HEPARIN NA (PORCINE) 5,000 UNITS/ML 1ML VIAL IVPUSH PRN ×2
--- NOTE | 2017-12-10 00:07 | HP ---
CHIEF COMPLAINT: Cardiac arrest PCP: HISTORY OF PRESENT ILLNESS: The patient was seen intubated in the ER. The following history was taken from the medical record. The patient is an 82 yo female w/ pmh of IDDM, HTN, dementia, recently admitted 11/16-11/27 for sepsis who presents after witnessed cardiac arrest at [facility]. Per EMS, she was being changed earlier today by [facility] staff when she "looked at aid funny" and became unresponsive. Upon EMS arrival they found she had gone into cardiac arrest and compressions with JENNIE device were begun. ROSC was obtained in the field with sinus tachycardia. Patient systolic BP was in 120's initially but had decreased to 60's by the time they reached ER. Upon arrival lines were placed in right AC as well as Right tibia (IO) and pressors were started. Patient placed on ventilator and pressure noted to increase to 80' s systolic. ER course was notable for: (1) lactic acid 10.3, WBC 12.1 (2) (3) Recent Travel: PAST MEDICAL HISTORY: IDDM HTN HLD Dementia Schizophrenia Bipolar disorder GERD PAST SURGICAL HISTORY: unable to obtain Social History: unable to obtain Family History: unable to obtain Allergies No Known Allergies Allergy (Verified 12/09/17 21:28) HOME MEDICATIONS: Home Medications Medication Instructions Recorded Acetaminophen 650 mg PO Q6H PRN 11/16/17 Ammonium Lactate Lotion 1 applic TP BID 11/16/17 [Lac-Hydrin 12] Aspirin 81 mg PO DAILY 11/16/17 Bacitracin - [Bacitracin Topical 1 applic TP DAILY 11/16/17 Ointment -] Divalproex *ER* [Depakote *ER* -] 500 mg PO HS 11/16/17 Haloperidol [Haldol -] 1 mg PO HS 11/16/17 Olanzapine [Olanzapine Odt] 15 mg PO HS 11/16/17 Ranitidine HCl [Zantac] 150 mg PO HS 11/16/17 Rosuvastatin Calcium [Crestor] 10 mg PO HS 11/16/17 Timolol 0.5% [Timoptic 0.5%] 1 drop OD BID 11/16/17 Collagenase Clostridium Hist. 1 applic TP DAILY tube 11/27/17 [Santyl -] REVIEW OF SYSTEMS unable to obtain PHYSICAL EXAMINATION Vital Signs - 24 hr 12/09/17 12/09/17 12/09/17 21:13 21:17 21:25 Temperature Pulse Rate 98 H Pulse Rate [ 87 Apical] Respiratory 12 12 Rate Blood Pressure 53/40 Blood Pressure 53/40 [Left Arm] O2 Sat by Pulse 100 Oximetry (%) 12/09/17 12/09/17 12/09/17 21:28 21:30 21:40 Temperature 98.5 F Pulse Rate 84 Pulse Rate [ 96 H 95 H Apical] Respiratory 14 12 12 Rate Blood Pressure 53/40 Blood Pressure 83/55 72/34 [Left Arm] O2 Sat by Pulse 100 100 100 Oximetry (%) 12/09/17 12/09/17 12/09/17 21:50 22:00 22:05 Temperature Pulse Rate Pulse Rate [ 80 84 75 Apical] Respiratory 12 12 12 Rate Blood Pressure Blood Pressure 85/51 75/45 75/47 [Left Arm] O2 Sat by Pulse 100 100 100 Oximetry (%) 12/09/17 12/09/17 12/09/17 22:10 22:15 22:30 Temperature Pulse Rate Pulse Rate [ 82 85 Apical] Respiratory 12 12 12 Rate Blood Pressure Blood Pressure 81/46 82/46 90/51 [Left Arm] O2 Sat by Pulse 100 100 100 Oximetry (%) 12/09/17 12/09/17 22:40 23:39 Temperature Pulse Rate Pulse Rate [ 75 Apical] Respiratory 12 12 Rate Blood Pressure Blood Pressure 97/51 107/57 [Left Arm] O2 Sat by Pulse 100 100 Oximetry (%) GENERAL: Patient intubated and sedated. Patient's arellano seen draining cloudy urine. HEAD: Normal with no signs of trauma. EYES: Pupils equal, round and reactive to light, extraocular movements intact, sclera anicteric, conjunctiva clear. No lid lag. LUNGS: Breath sounds equal, clear to auscultation bilaterally. No wheezes, and no crackles. No accessory muscle use. HEART: Regular rate and rhythm, normal S1 and S2 without murmur, rub or gallop. ABDOMEN: Soft, nontender, not distended, normoactive bowel sounds, no guarding, no rebound, no masses. Dried material seen around PEG site which may indicate past purulent drainage LOWER EXTREMITIES: 2+ pulses, warm, well-perfused. No calf tenderness. 1+ peripheral edema. NEUROLOGICAL: unable to obtain neuro exam due to clinical status SKIN: Warm, dry, normal turgor, no rashes or lesions noted, normal capillary refill. Laboratory Results - last 24 hr 12/09/17 12/09/17 12/09/17 21:30 21:30 21:30 WBC 12.1 H D RBC 2.80 L Hgb 8.4 L D Hct 25.8 L MCV 92.2 MCH 29.8 MCHC 32.4 RDW 17.0 H Plt Count 461 H MPV 8.6 Neutrophils % No Result Required. Neutrophils % (Manual) 56.0 Band Neutrophils % 5.0 Lymphocytes % No Result Required. Lymphocytes % (Manual) 32.0 Monocytes % (Manual) 4 Eosinophils % (Manual) 1.0 Metamyelocytes 2 Hypochromia 2+ Platelet Estimate Slt increase Platelet Comment No clotting detected Anisocytosis 2+ PT with INR 12.20 H INR 1.08 Sodium 138 Potassium 5.2 H Chloride 99 Carbon Dioxide 25 Anion Gap 14 BUN 65 H Creatinine 1.7 H Creat Clearance w eGFR 28.63 Random Glucose 267 H Lactic Acid Calcium 8.9 Magnesium 2.3 Total Bilirubin 0.3 D AST 51 H ALT 22 Alkaline Phosphatase 150 H Creatine Kinase 111 Troponin I 0.05 Total Protein 5.8 L Albumin 1.7 L Total Amylase 73 Urine Color Urine Appearance Urine pH Ur Specific [place] Urine Protein Urine Glucose (UA) Urine Ketones Urine Blood Urine Nitrite Urine Bilirubin Urine Urobilinogen Ur Leukocyte Esterase Urine WBC (Auto) Urine RBC (Auto) Blood Type Antibody Screen 12/09/17 12/09/17 12/09/17 21:30 21:35 21:57 WBC RBC Hgb Hct MCV MCH MCHC RDW Plt Count MPV Neutrophils % Neutrophils % (Manual) Band Neutrophils % Lymphocytes % Lymphocytes % (Manual) Monocytes % (Manual) Eosinophils % (Manual) Metamyelocytes Hypochromia Platelet Estimate Platelet Comment Anisocytosis PT with INR INR Sodium Potassium Chloride Carbon Dioxide Anion Gap BUN Creatinine Creat Clearance w eGFR Random Glucose Lactic Acid 10.3 H* Calcium Magnesium Total Bilirubin AST ALT Alkaline Phosphatase Creatine Kinase Troponin I Total Protein Albumin Total Amylase Urine Color Yellow Urine Appearance Turbid Urine pH 7.0 D Ur Specific [place] 1.015 Urine Protein 3+ H Urine Glucose (UA) Negative Urine Ketones Negative Urine Blood Negative Urine Nitrite Negative Urine Bilirubin Negative Urine Urobilinogen Negative Ur Leukocyte Esterase 2+ H Urine WBC (Auto) 294 Urine RBC (Auto) 18 Blood Type O POSITIVE Antibody Screen Negative ASSESSMENT/PLAN: The patient is an 82 yo f w/ PMH IDDM, HTN and dementia who is being admitted to the ICU after a witnessed arrest in her [place] [facility]. #Cardiac arrest -Rpt ABG, CXR in AM -Trend lactic acid -CT head when stable -Trend troponins -hypothermia protocol #Septic shock likely 2/2 UTI -turbid urine -f/u cultures -ID consult -s/p vanc and zosyn in ED, will continue #Hx DVT -on eliquis -will hold all AC until CT head completed #DM -BGM Q6H -ISS Q6H #HTN -hold antihypertensives -on pressors; will attempt to wean #Chronic notmocytic anemia -Fe studies, b12, folate #Bipolar disorder -holding psych meds #FEN -no fluids indicated -monitor lytes -NPO #Prophylaxsis -SCDs until bleed ruled out -Protonix 40 IV daily #Dispo -admit to ICU Visit type - Emergency Visit Emergency Visit: Yes ED Registration Date: 12/09/17 Care time: The patient presented to the Emergency Department on the above date and was hospitalized for further evaluation of their emergent condition. - New Patient This patient is new to me today: Yes Date on this admission: 12/10/17 - Critical Care Critical Care patient: Yes Total Critical Care Time (in minutes): 40 Critical Care Statement: The care of this patient involved high complexity decision making to prevent further life threatening deterioration of the patient 's condition and/or to evaluate & treat vital organ system(s) failure or risk of failure. Hospitalist Screening - Colonoscopy Questionnaire Colonoscopy Questionnaire: Colonoscopy Questionnaire - Patient: 50 - 75 years old and never had a screening colonoscopy: Unknown History of colon or rectal polyps, or CA: Unknown History of IBD, Crohn's disease or UC: Unknown History of abdominal radiation therapy as a child: Unknown - Relative: 1 with colon or rectal CA, or polyps at age 60 or younger: Unknown Colon or rectal CA diagnosed at age 45 or younger: Unknown Multiple relatives with colon or rectal CA: Unknown - Outcome: Screening Result: Negative Screen
[2017-12-10 00:28] LABS: ACETONE SERUM NEGATIVE (NEGATIVE)
[2017-12-10] MEDS: INSULIN SLIDING SCALE (NOVOLOG) 1 VIAL SQ SCH ×5 (01:00→23:00)
[2017-12-10 01:39] LABS: ALBUMIN 1.6 g/dl (3.4-5.0); ANION GAP 14 (8-16); BLOOD UREA NITROGEN 52 mg/dL (7-18); CALCIUM 8.1 mg/dL (8.5-10.1); CHLORIDE 89 mmol/L (98-107); CO2 23 mmol/L (21-32); CREATININE 1.5 mg/dL (0.55-1.02); POTASSIUM 3.8 mmol/L (3.5-5.1); SGOT/AST 76 U/L (15-37); SGPT/ALT 59 U/L (12-78); SODIUM 126 mmol/L (136-145)
[2017-12-10 01:40] LABS: ALK PHOS 149 U/L (45-117); BILIRUBIN,TOTAL 0.5 mg/dL (0.2-1.0); TOT PROT 6.1 g/dl (6.4-8.2)
[2017-12-10 01:42] LABS: GLUCOSE,RANDOM 554 mg/dL (74-106)
[2017-12-10 01:54] VITALS: BMI 23.3
--- NOTE | 2017-12-10 02:04 | CONSULT ---
Consult Consult Specialty:: PULM/CCM Referred by:: Dr. Geetha Levi Reason for Consultation:: MSOF - History of Present Illness Chief Complaint: Cardiac Arrest History of Present Illness: Ms. Ham is an 82 y/o woman, SNF resident, IDDM, HTN, CHANDU, frequent hospital admits for sepsis, & FTT, BIBA reported witnessed cardiac arrest at [facility]. EMS report that they arrive to find pt in cardiac arrest. Pt intubated, compressions initiated w/ the JENNIE device, IO established, & ACLS initiated in the field. ROSC obtained in the field w/ S-Tach. IN the ED pt in resp fail & profound shock. Urine noted to be purulent. Pt arrives in the ICU from the ED being cooled in MSOF, moribund. 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 ) Hepatobiliary: Yes: Other (liver lesion on preop ct and h.o elevated LFT 2010) Renal/: Yes: UTI (last urine cs sterile), Other Musculoskeletal: Yes: Osteoarthritis (on ct and shonda fusion L5S1) Endocrine: Yes: Diabetes Mellitus - Past Surgical History Past Surgical History: Yes: Cholecystectomy - Alcohol/Substance Use Hx Alcohol Use: (unknown) History of Substance Use: reports: None - Smoking History Smoking history: Unknown if ever smoked Have you smoked in the past 12 months: No Aproximately how many cigarettes per day: 0 - Social History Usual Living Arrangement: Retirement (never , no children) ADL: Support Services History of Recent Travel: No Home Medications - Allergies Allergies/Adverse Reactions: Allergies Allergy/AdvReac Type Severity Reaction Status Date / Time No Known Allergies Allergy Verified 12/09/17 21:28 - Home Medications Home Medications: Ambulatory Orders Acetaminophen 650 mg PO Q6H PRN 11/16/17 Ammonium Lactate Lotion [Lac-Hydrin 12] 1 applic TP BID 11/16/17 Aspirin 81 mg PO DAILY 11/16/17 Bacitracin - [Bacitracin Topical Ointment -] 1 applic TP DAILY 11/16/17 Divalproex *ER* [Depakote *ER* -] 500 mg PO HS 11/16/17 Haloperidol [Haldol -] 1 mg PO HS 11/16/17 Olanzapine [Olanzapine Odt] 15 mg PO HS 11/16/17 Ranitidine HCl [Zantac] 150 mg PO HS 11/16/17 Rosuvastatin Calcium [Crestor] 10 mg PO HS 11/16/17 Timolol 0.5% [Timoptic 0.5%] 1 drop OD BID 11/16/17 Collagenase Clostridium Hist. [Santyl -] 1 applic TP DAILY tube 11/27/17 Family Disease History - Family Disease History Family History: Unable to Obtain (UNCON/UNRESP INTUBATED ON VENT) Family Disease History: Heart Disease: Mother ( 59 ? [place]), Other: Father ( lived to 90 ) Review of Systems Unable to obtain ROS, reason: UNCON/UNRESP INTUBATED ON Physical Exam Vital Signs: Vital Signs Temperature 98.4 F 12/10/17 01:18 Pulse Rate 70 12/10/17 01:18 Respiratory Rate 12 12/10/17 01:18 Blood Pressure 104/58 12/10/17 01:18 O2 Sat by Pulse Oximetry (%) 100 12/10/17 01:18 Constitutional: Yes: Ashen, Cachectic, Thin Eyes: Yes: Other (fixed pupils) HENT: Yes: Other (ETT) Neck: Yes: WNL Cardiovascular: Yes: WNL, Regular Rate and Rhythm Respiratory: Yes: Intubated, Mechanically Ventilated Gastrointestinal: Yes: Hypoactive Bowel Sounds ...Rectal Exam: Yes: Deferred Renal/: Yes: Anuria Breast(s): Yes: WNL Musculoskeletal: Yes: WNL Extremities: Yes: WNL Edema: Yes Peripheral Pulses WNL: No Neurological: Yes: Unresponsive Psychiatric: Yes: Other (Moribund) Labs: CBC, BMP 12/10/17 00:50 12/10/17 00:50 Laboratory Tests 12/09/17 12/09/17 12/09/17 21:30 21:30 21:30 WBC 12.1 H D Corrected WBC (auto) RBC 2.80 L Hgb 8.4 L D Hct 25.8 L MCV 92.2 MCH 29.8 MCHC 32.4 RDW 17.0 H Plt Count 461 H MPV 8.6 Absolute Neuts (auto) Absolute Lymphs (auto) Absolute Monos (auto) Absolute Eos (auto) Absolute Basos (auto) Add Manual Diff Neutrophils % No Result Required. Neutrophils % (Manual) 56.0 Band Neutrophils % 5.0 Lymphocytes % No Result Required. Lymphocytes % (Manual) 32.0 Monocytes % Monocytes % (Manual) 4 Eosinophils % Eosinophils % (Manual) 1.0 Basophils % Nucleated RBC % Metamyelocytes 2 Hypochromia 2+ Platelet Estimate Slt increase Platelet Comment No clotting detected Normal RBC Morphology Anisocytosis 2+ PT with INR 12.20 H INR 1.08 Sodium 138 Potassium 5.2 H Chloride 99 Carbon Dioxide 25 Anion Gap 14 BUN 65 H Creatinine 1.7 H Creat Clearance w eGFR 28.63 POC Glucometer Random Glucose 267 H Lactic Acid Calcium 8.9 Phosphorus Magnesium 2.3 Total Bilirubin 0.3 D AST 51 H ALT 22 Alkaline Phosphatase 150 H Creatine Kinase 111 Troponin I 0.05 Total Protein 5.8 L Albumin 1.7 L Total Amylase 73 Urine Color Urine Appearance Urine pH Ur Specific [place] Urine Protein Urine Glucose (UA) Urine Ketones Urine Blood Urine Nitrite Urine Bilirubin Urine Urobilinogen Ur Leukocyte Esterase Urine WBC (Auto) Urine RBC (Auto) Acetone, Qual Negative L Blood Type Antibody Screen 12/09/17 12/09/17 12/09/17 21:30 21:35 21:57 WBC Corrected WBC (auto) RBC Hgb Hct MCV MCH MCHC RDW Plt Count MPV Absolute Neuts (auto) Absolute Lymphs (auto) Absolute Monos (auto) Absolute Eos (auto) Absolute Basos (auto) Add Manual Diff Neutrophils % Neutrophils % (Manual) Band Neutrophils % Lymphocytes % Lymphocytes % (Manual) Monocytes % Monocytes % (Manual) Eosinophils % Eosinophils % (Manual) Basophils % Nucleated RBC % Metamyelocytes Hypochromia Platelet Estimate Platelet Comment Normal RBC Morphology Anisocytosis PT with INR INR Sodium Potassium Chloride Carbon Dioxide Anion Gap BUN Creatinine Creat Clearance w eGFR POC Glucometer Random Glucose Lactic Acid 10.3 H* Calcium Phosphorus Magnesium Total Bilirubin AST ALT Alkaline Phosphatase Creatine Kinase Troponin I Total Protein Albumin Total Amylase Urine Color Yellow Urine Appearance Turbid Urine pH 7.0 D Ur Specific [place] 1.015 Urine Protein 3+ H Urine Glucose (UA) Negative Urine Ketones Negative Urine Blood Negative Urine Nitrite Negative Urine Bilirubin Negative Urine Urobilinogen Negative Ur Leukocyte Esterase 2+ H Urine WBC (Auto) 294 Urine RBC (Auto) 18 Acetone, Qual Blood Type O POSITIVE Antibody Screen Negative 12/10/17 12/10/17 12/10/17 00:50 00:50 00:50 WBC Cancelled Corrected WBC (auto) Cancelled RBC Cancelled Hgb Cancelled Hct Cancelled MCV Cancelled MCH Cancelled MCHC Cancelled RDW Cancelled Plt Count Cancelled MPV Cancelled Absolute Neuts (auto) Cancelled Absolute Lymphs (auto) Cancelled Absolute Monos (auto) Cancelled Absolute Eos (auto) Cancelled Absolute Basos (auto) Cancelled Add Manual Diff Cancelled Neutrophils % Cancelled Neutrophils % (Manual) Band Neutrophils % Lymphocytes % Cancelled Lymphocytes % (Manual) Monocytes % Cancelled Monocytes % (Manual) Eosinophils % Cancelled Eosinophils % (Manual) Basophils % Cancelled Nucleated RBC % Cancelled Metamyelocytes Hypochromia Platelet Estimate Cancelled Platelet Comment Cancelled Normal RBC Morphology Cancelled Anisocytosis PT with INR INR Sodium 126 L Potassium 3.8 Chloride 89 L Carbon Dioxide 23 Anion Gap 14 BUN 52 H Creatinine 1.5 H Creat Clearance w eGFR 33.08 POC Glucometer Random Glucose 554 H* Lactic Acid 3.4 H* Calcium 8.1 L Phosphorus 4.0 Magnesium 2.0 Total Bilirubin 0.5 D AST 76 H ALT 59 Alkaline Phosphatase 149 H Creatine Kinase Troponin I Total Protein 6.1 L Albumin 1.6 L Total Amylase Urine Color Urine Appearance Urine pH Ur Specific [place] Urine Protein Urine Glucose (UA) Urine Ketones Urine Blood Urine Nitrite Urine Bilirubin Urine Urobilinogen Ur Leukocyte Esterase Urine WBC (Auto) Urine RBC (Auto) Acetone, Qual Blood Type Antibody Screen 12/10/17 12/10/17 01:01 02:21 WBC Corrected WBC (auto) RBC Hgb Hct MCV MCH MCHC RDW Plt Count MPV Absolute Neuts (auto) Absolute Lymphs (auto) Absolute Monos (auto) Absolute Eos (auto) Absolute Basos (auto) Add Manual Diff Neutrophils % Neutrophils % (Manual) Band Neutrophils % Lymphocytes % Lymphocytes % (Manual) Monocytes % Monocytes % (Manual) Eosinophils % Eosinophils % (Manual) Basophils % Nucleated RBC % Metamyelocytes Hypochromia Platelet Estimate Platelet Comment Normal RBC Morphology Anisocytosis PT with INR INR Sodium Potassium Chloride Carbon Dioxide Anion Gap BUN Creatinine Creat Clearance w eGFR POC Glucometer [phone] Random Glucose Lactic Acid Calcium Phosphorus Magnesium Total Bilirubin AST ALT Alkaline Phosphatase Creatine Kinase Troponin I 0.22 H Total Protein Albumin Total Amylase Urine Color Urine Appearance Urine pH Ur Specific [place] Urine Protein Urine Glucose (UA) Urine Ketones Urine Blood Urine Nitrite Urine Bilirubin Urine Urobilinogen Ur Leukocyte Esterase Urine WBC (Auto) Urine RBC (Auto) Acetone, Qual Blood Type Antibody Screen Imaging - Results Chest X-ray: Image Reviewed (CXR 12/09: There is an endotracheal tube with the tip positioned less than 1 cm above the jimy. Recommend 4 cm retraction. There is opacity in the left lung base. There is no definite pulmonary vascular congestion or pleural effusion. There is no definable pneumothorax. The cardiomediastinal silhouette is magnified, unchanged in size since immediate prior chest x-ray. Impression: 1. Endotracheal tube tip positioned less than 1 cm above the jimy. Recommend 4 cm retraction. 2. Opacity in the left lung base representing pneumonia and/or atelectasis. Please correlate clinically.) EKG: Image Reviewed (12-Lead 12/09: NSR in the 80's w/o ectopy, normal axis, L atrial enlargement, T-wave flattening in I, II, aVL, aVF, V5, & V6, qu'ed out in V1, V2, c/w elvi-septal wall IA & global ischemia, QTc = 481ms (My Read)) Problem List - Problems (1) MSOF (multiple systems organ failure) Code(s): VFK9864 - (2) Cardiac arrest Code(s): I46.9 - CARDIAC ARREST, CAUSE UNSPECIFIED (3) Sepsis Code(s): A41.9 - SEPSIS, UNSPECIFIED ORGANISM (4) UTI (urinary tract infection) Code(s): N39.0 - URINARY TRACT INFECTION, SITE NOT SPECIFIED Qualifiers: (5) Acute renal failure (ARF) Code(s): N17.9 - ACUTE KIDNEY FAILURE, UNSPECIFIED (6) Diabetes mellitus Code(s): E11.9 - TYPE 2 DIABETES MELLITUS WITHOUT COMPLICATIONS Qualifiers: Diabetes mellitus type: type 2 Diabetes mellitus complication status: without complication (7) Failure to thrive Code(s): JFN3570 - (8) Psychiatric disturbance Code(s): F99 - MENTAL DISORDER, NOT OTHERWISE SPECIFIED (9) Schizophrenia Code(s): F20.9 - SCHIZOPHRENIA, UNSPECIFIED (10) Dementia Code(s): F03.90 - UNSPECIFIED DEMENTIA WITHOUT BEHAVIORAL DISTURBANCE Qualifiers: Dementia type: unspecified type Dementia behavioral disturbance: with behavioral disturbance Qualified Code(s): F03.91 - Unspecified dementia with behavioral disturbance Assessment/Plan ASSESS: is an 82 y/o woman, SNF resident, IDDM, HTN, CHANDU, frequent hospital admits for sepsis, & FTT, admitted now to the ICU s/p cardiac arrest in MSOF / moribund. This morning I was able to reach a Mr. Farooq Prather in [facility] @ . Mr. Prather did identify the pt as his aunt & did identify himself as the patient's legal guardian. I explained Ms. Ham' medical problems as we currently understand them and the therapies we are using to treat her. I explained that she is critically ill in the ICU s/p cardiac arrest in MSOF. I discussed her current acceptable BP on Dopamine but also our concern for imminent deterioration given her MSOF. Mr. Prather expressed to me that the pt has been sick in the [place] for an extended period of time & that tonight's events are not "unexpected". Mr. Prather was crystal clear to me that at this point we should "let nature take it's course". I informed Mr. Prather that [facility] would honor his wishes and respect his right to autonomy with regard to his Aunt's medical care. We agreed that we would NOT escalate artificial life support. I offered emotional support and suggestions with regard to social work and pastoral services. All questions were answered. Mr. Prather did request that we keep him updated with any changes & that we notify him immediately when she passes away. PLAN: -NPO -Adjust ETT (R Main) -Cont Vent Support -Wean FiO2 as tolerated -Nebs -Trend ABG -D/c all anti-HTN meds -Lock Dopa in @ 5ug/Kg/min -DO NOT add additional pressors -Trend LA -Vanc & Zo -Stict I's & O's -Trend BUN/Cr -Replete e-lytes prn -FSs -Coverage prn -SQH -SCDs -PPI -DNR -NEOC DGL, ACNP-BC [facility] ICU PULM/CCM [id number]
[2017-12-10 03:38] LABS: ALLENS TEST POSITIVE; ARTERIAL BLD GAS O2 SATURATION 99.8 % (90-98.9); ARTERIAL BLOOD GAS BASE EXCESS 3.4 meq/l (-2-2)
[2017-12-10 03:39] LABS: ARTERIAL BLOOD GAS PCO2 32.9 mmHg (35-45); ARTERIAL BLOOD GAS pH 7.51 (7.35-7.45)
[2017-12-10 07:36] LABS: ARTERIAL BLD GAS O2 SATURATION 99.9 % (90-98.9); ARTERIAL BLOOD GAS BASE EXCESS 2.5 meq/l (-2-2); ARTERIAL BLOOD GAS PCO2 34.7 mmHg (35-45); ARTERIAL BLOOD GAS pH 7.48 (7.35-7.45)
--- NOTE | 2017-12-10 07:57 | PN ---
Progress Note (short form) - Note Progress Note: ID consult dictated imp/reccd witnessed cardiac arrest in the [place] s/p intubation , chest compressions/epi/bicarb/calcium given, currently on dopamine for BP support hypothermia protocol in progress profuse diarrhea noted by nursing and rectal tube placed possible sepsis UTI pneumonia- ?LLL cannot r/o cdiff next of kin has been contacted she is now DNR, with no plans to escalate or withdraw care would send stools for cdiff, stool WBC and culture blood cultures have been sent continue zosyn given vanco in ED redose vanco based on levels overall prognosis poor Problem List - Problems (1) Cardiac arrest Code(s): I46.9 - CARDIAC ARREST, CAUSE UNSPECIFIED (2) Sepsis Code(s): A41.9 - SEPSIS, UNSPECIFIED ORGANISM (3) UTI (urinary tract infection) Code(s): N39.0 - URINARY TRACT INFECTION, SITE NOT SPECIFIED Qualifiers: (4) Pneumonia Code(s): J18.9 - PNEUMONIA, UNSPECIFIED ORGANISM (5) Diarrhea Code(s): R19.7 - DIARRHEA, UNSPECIFIED
[2017-12-10] MEDS ORDERED: PIPERACILLIN/TAZOB 3.375 GM 50 ML IVPB SCH (08:00)
[2017-12-10] MEDS ORDERED: PIPERACILLIN/TAZOB 3.375 GM/50 ML PRE-DOCKED IVPB SCH (08:00)
[2017-12-10] MEDS ORDERED: PIPERACILLIN/TAZOB 3.375 GM 3.375 GM in DEXTROSE 5%-WATER - 50 ML IVPB SCH (08:00)
[2017-12-10 08:06] LABS: ALLENS TEST POSITIVE
[2017-12-10 08:24] LABS: HEMATOCRIT 33.9 % (32.4-45.2); HEMOGLOBIN 11.1 GM/dL (10.7-15.3); MCH 29.6 pg (25.7-33.7); MCHC 32.7 g/dl (32.0-36.0); MEAN CELL VOLUME 90.5 fl (80-96); MEAN PLT VOLUME 8.7 fl (7.5-11.1); PLATELET COUNT 522 K/MM3 (134-434); RBC 3.75 M/mm3 (3.60-5.2); RDW 16.9 % (11.6-15.6); WHITE BLOOD COUNT 26.8 K/mm3 (4.0-10.0)
--- NOTE | 2017-12-10 08:24 | PN ---
Physical Exam: SUBJECTIVE: Spoke with next of kin, nephew Farooq Prather: clear that he does not want any escalating measures and agrees with DNR. He does not want to remove ET tube and ventilator (saying, "keep what's there; I don't want to play God"), also states he does not want escalating pressors, but to keep the current pressor at it's dose if needed and agrees to antibiotics. Verified by RN via telephone and paperwork was signed. OBJECTIVE: Vital Signs Period Temp Pulse Resp BP Sys/Rudd Pulse Ox Last 24 Hr 95 F-98.5 F 62-98 12-18 53-135/34-94 100-100 GENERAL: HEENT: LUNGS: HEART: ABDOMEN: EXTREMITIES: NEUROLOGICAL: Laboratory Results - last 24 hr 12/09/17 12/09/17 12/09/17 21:30 21:30 21:30 WBC 12.1 H D Corrected WBC (auto) RBC 2.80 L Hgb 8.4 L D Hct 25.8 L MCV 92.2 MCH 29.8 MCHC 32.4 RDW 17.0 H Plt Count 461 H MPV 8.6 Absolute Neuts (auto) Absolute Lymphs (auto) Absolute Monos (auto) Absolute Eos (auto) Absolute Basos (auto) Add Manual Diff Neutrophils % No Result Required. Neutrophils % (Manual) 56.0 Band Neutrophils % 5.0 Lymphocytes % No Result Required. Lymphocytes % (Manual) 32.0 Monocytes % Monocytes % (Manual) 4 Eosinophils % Eosinophils % (Manual) 1.0 Basophils % Nucleated RBC % Metamyelocytes 2 Hypochromia 2+ Platelet Estimate Slt increase Platelet Comment No clotting detected Normal RBC Morphology Anisocytosis 2+ PT with INR 12.20 H INR 1.08 Anticoagulation Therapy Puncture Site ABG pH ABG pCO2 at Pt Temp ABG pO2 at Pt Temp ABG HCO3 ABG O2 Sat (Measured) ABG O2 Content ABG Base Excess Ulises Test O2 Delivery Device Oxygen Flow Rate Vent Mode Vent Rate Mechanical Rate PEEP Pressure Support Vent Sodium 138 Potassium 5.2 H Chloride 99 Carbon Dioxide 25 Anion Gap 14 BUN 65 H Creatinine 1.7 H Creat Clearance w eGFR 28.63 POC Glucometer Random Glucose 267 H Lactic Acid Calcium 8.9 Phosphorus Magnesium 2.3 Total Bilirubin 0.3 D AST 51 H ALT 22 Alkaline Phosphatase 150 H Creatine Kinase 111 Troponin I 0.05 Total Protein 5.8 L Albumin 1.7 L Total Amylase 73 Urine Color Urine Appearance Urine pH Ur Specific [place] Urine Protein Urine Glucose (UA) Urine Ketones Urine Blood Urine Nitrite Urine Bilirubin Urine Urobilinogen Ur Leukocyte Esterase Urine WBC (Auto) Urine RBC (Auto) Acetone, Qual Negative L Blood Type Antibody Screen 12/09/17 12/09/17 12/09/17 21:30 21:35 21:57 WBC Corrected WBC (auto) RBC Hgb Hct MCV MCH MCHC RDW Plt Count MPV Absolute Neuts (auto) Absolute Lymphs (auto) Absolute Monos (auto) Absolute Eos (auto) Absolute Basos (auto) Add Manual Diff Neutrophils % Neutrophils % (Manual) Band Neutrophils % Lymphocytes % Lymphocytes % (Manual) Monocytes % Monocytes % (Manual) Eosinophils % Eosinophils % (Manual) Basophils % Nucleated RBC % Metamyelocytes Hypochromia Platelet Estimate Platelet Comment Normal RBC Morphology Anisocytosis PT with INR INR Anticoagulation Therapy Puncture Site ABG pH ABG pCO2 at Pt Temp ABG pO2 at Pt Temp ABG HCO3 ABG O2 Sat (Measured) ABG O2 Content ABG Base Excess Ulises Test O2 Delivery Device Oxygen Flow Rate Vent Mode Vent Rate Mechanical Rate PEEP Pressure Support Vent Sodium Potassium Chloride Carbon Dioxide Anion Gap BUN Creatinine Creat Clearance w eGFR POC Glucometer Random Glucose Lactic Acid 10.3 H* Calcium Phosphorus Magnesium Total Bilirubin AST ALT Alkaline Phosphatase Creatine Kinase Troponin I Total Protein Albumin Total Amylase Urine Color Yellow Urine Appearance Turbid Urine pH 7.0 D Ur Specific [place] 1.015 Urine Protein 3+ H Urine Glucose (UA) Negative Urine Ketones Negative Urine Blood Negative Urine Nitrite Negative Urine Bilirubin Negative Urine Urobilinogen Negative Ur Leukocyte Esterase 2+ H Urine WBC (Auto) 294 Urine RBC (Auto) 18 Acetone, Qual Blood Type O POSITIVE Antibody Screen Negative 12/10/17 12/10/17 12/10/17 00:50 00:50 00:50 WBC Cancelled Corrected WBC (auto) Cancelled RBC Cancelled Hgb Cancelled Hct Cancelled MCV Cancelled MCH Cancelled MCHC Cancelled RDW Cancelled Plt Count Cancelled MPV Cancelled Absolute Neuts (auto) Cancelled Absolute Lymphs (auto) Cancelled Absolute Monos (auto) Cancelled Absolute Eos (auto) Cancelled Absolute Basos (auto) Cancelled Add Manual Diff Cancelled Neutrophils % Cancelled Neutrophils % (Manual) Band Neutrophils % Lymphocytes % Cancelled Lymphocytes % (Manual) Monocytes % Cancelled Monocytes % (Manual) Eosinophils % Cancelled Eosinophils % (Manual) Basophils % Cancelled Nucleated RBC % Cancelled Metamyelocytes Hypochromia Platelet Estimate Cancelled Platelet Comment Cancelled Normal RBC Morphology Cancelled Anisocytosis PT with INR INR Anticoagulation Therapy Puncture Site ABG pH ABG pCO2 at Pt Temp ABG pO2 at Pt Temp ABG HCO3 ABG O2 Sat (Measured) ABG O2 Content ABG Base Excess Ulises Test O2 Delivery Device Oxygen Flow Rate Vent Mode Vent Rate Mechanical Rate PEEP Pressure Support Vent Sodium 126 L Potassium 3.8 Chloride 89 L Carbon Dioxide 23 Anion Gap 14 BUN 52 H Creatinine 1.5 H Creat Clearance w eGFR 33.08 POC Glucometer Random Glucose 554 H* Lactic Acid 3.4 H* Calcium 8.1 L Phosphorus 4.0 Magnesium 2.0 Total Bilirubin 0.5 D AST 76 H ALT 59 Alkaline Phosphatase 149 H Creatine Kinase Troponin I Total Protein 6.1 L Albumin 1.6 L Total Amylase Urine Color Urine Appearance Urine pH Ur Specific [place] Urine Protein Urine Glucose (UA) Urine Ketones Urine Blood Urine Nitrite Urine Bilirubin Urine Urobilinogen Ur Leukocyte Esterase Urine WBC (Auto) Urine RBC (Auto) Acetone, Qual Blood Type Antibody Screen 12/10/17 12/10/17 12/10/17 01:01 02:21 03:30 WBC Corrected WBC (auto) RBC Hgb Hct MCV MCH MCHC RDW Plt Count MPV Absolute Neuts (auto) Absolute Lymphs (auto) Absolute Monos (auto) Absolute Eos (auto) Absolute Basos (auto) Add Manual Diff Neutrophils % Neutrophils % (Manual) Band Neutrophils % Lymphocytes % Lymphocytes % (Manual) Monocytes % Monocytes % (Manual) Eosinophils % Eosinophils % (Manual) Basophils % Nucleated RBC % Metamyelocytes Hypochromia Platelet Estimate Platelet Comment Normal RBC Morphology Anisocytosis PT with INR INR Anticoagulation Therapy No Result Required. Puncture Site Right radial ABG pH 7.51 H D ABG pCO2 at Pt Temp 32.9 L D ABG pO2 at Pt Temp 384.0 H* D ABG HCO3 25.9 ABG O2 Sat (Measured) 99.8 H* ABG O2 Content 14.6 L ABG Base Excess 3.4 H Ulises Test Positive O2 Delivery Device Mech vent Oxygen Flow Rate 100% Vent Mode A/c Vent Rate 12 Mechanical Rate Yes PEEP 5.0 Pressure Support Vent 400 Sodium Potassium Chloride Carbon Dioxide Anion Gap BUN Creatinine Creat Clearance w eGFR POC Glucometer [phone] Random Glucose Lactic Acid Calcium Phosphorus Magnesium Total Bilirubin AST ALT Alkaline Phosphatase Creatine Kinase Troponin I 0.22 H Total Protein Albumin Total Amylase Urine Color Urine Appearance Urine pH Ur Specific [place] Urine Protein Urine Glucose (UA) Urine Ketones Urine Blood Urine Nitrite Urine Bilirubin Urine Urobilinogen Ur Leukocyte Esterase Urine WBC (Auto) Urine RBC (Auto) Acetone, Qual Blood Type Antibody Screen 12/10/17 12/10/17 06:18 07:30 WBC Corrected WBC (auto) RBC Hgb Hct MCV MCH MCHC RDW Plt Count MPV Absolute Neuts (auto) Absolute Lymphs (auto) Absolute Monos (auto) Absolute Eos (auto) Absolute Basos (auto) Add Manual Diff Neutrophils % Neutrophils % (Manual) Band Neutrophils % Lymphocytes % Lymphocytes % (Manual) Monocytes % Monocytes % (Manual) Eosinophils % Eosinophils % (Manual) Basophils % Nucleated RBC % Metamyelocytes Hypochromia Platelet Estimate Platelet Comment Normal RBC Morphology Anisocytosis PT with INR INR Anticoagulation Therapy Puncture Site Right radial ABG pH 7.48 H ABG pCO2 at Pt Temp 34.7 L ABG pO2 at Pt Temp 174.0 H* D ABG HCO3 25.5 ABG O2 Sat (Measured) 99.9 H* ABG O2 Content 13.9 L ABG Base Excess 2.5 H Ulises Test Positive O2 Delivery Device Mech vent Oxygen Flow Rate 55% Vent Mode A/c Vent Rate 12 Mechanical Rate Yes PEEP 5.0 Pressure Support Vent 400 Sodium Potassium Chloride Carbon Dioxide Anion Gap BUN Creatinine Creat Clearance w eGFR POC Glucometer [phone] Random Glucose Lactic Acid Calcium Phosphorus Magnesium Total Bilirubin AST ALT Alkaline Phosphatase Creatine Kinase Troponin I Total Protein Albumin Total Amylase Urine Color Urine Appearance Urine pH Ur Specific [place] Urine Protein Urine Glucose (UA) Urine Ketones Urine Blood Urine Nitrite Urine Bilirubin Urine Urobilinogen Ur Leukocyte Esterase Urine WBC (Auto) Urine RBC (Auto) Acetone, Qual Blood Type Antibody Screen Active Medications Generic Name Dose Route Start Last Admin Trade Name Freq PRN Reason Stop Dose Admin Chlorhexidine Gluconate 1 applic 12/10/17 22:00 Hibiclens For Decolonization - TP HS LONNIE Dopamine HCl/Dextrose 400,000 mcg in 250 mls @ 15.309 mls/hr 12/09/17 21:30 12/09/17 21:13 Dopamine 400 Mg/D5w - IVPB 5 mcg/kg/min TITR LONNIE 15.309 mls/hr Protocol Administration 5 MCG/KG/MIN Piperacillin Sod/Tazobactam 50 mls @ 100 mls/hr 12/10/17 08:30 Sod 3.375 gm/ Dextrose IVPB Q8H-IV LONNIE Insulin Aspart 1 vial 12/09/17 23:45 12/10/17 06:53 Novolog Vial Sliding Scale - SQ 4 units Q6H [facility] Administration Protocol Mupirocin 1 applic 12/10/17 10:00 Bactroban Ointment (For Decolonization) - NS 12/15/17 09:59 BID [facility] Pantoprazole Sodium 40 mg 12/10/17 10:00 Protonix Iv IVPUSH DAILY [facility] ASSESSMENT/PLAN:
[2017-12-10 08:41] LABS: INR 1.09 (0.82-1.09); PROTHROMBIN TIME (PATIENT) 12.3 SEC (9.98-11.88)
[2017-12-10 08:57] LABS: ALBUMIN 1.9 g/dl (3.4-5.0); ALK PHOS 189 U/L (45-117); ANION GAP 18 (8-16); BILIRUBIN,TOTAL 0.4 mg/dL (0.2-1.0); BLOOD UREA NITROGEN 64 mg/dL (7-18); CALCIUM 9.4 mg/dL (8.5-10.1); CHLORIDE 98 mmol/L (98-107); CO2 23 mmol/L (21-32); GLUCOSE,RANDOM 219 mg/dL (74-106); MAGNESIUM 2.2 mg/dL (1.8-2.4); PHOSPHOROUS 3.5 mg/dL (2.5-4.9); POTASSIUM 4.1 mmol/L (3.5-5.1); SGOT/AST 90 U/L (15-37); SGPT/ALT 40 U/L (12-78); SODIUM 139 mmol/L (136-145); TOT PROT 7.3 g/dl (6.4-8.2)
[2017-12-10] MEDS: PANTOPRAZOLE SODIUM 40 MG VIAL IVPUSH SCH (09:21)
[2017-12-10] MEDS: PIPERACILLIN/TAZOB 3.375 GM 3.375 GM in DEXTROSE 5%-WATER - 50 ML IVPB SCH ×2 (09:22→18:15)
[2017-12-10 09:25] LABS: PLATELET ESTIMATE INCREASED
[2017-12-10] MEDS: MUPIROCIN 2% TOPICAL OINTMENT FOR DECOLONIZATION NS SCH ×2 (09:32→21:16)
--- NOTE | 2017-12-10 09:50 | PN ---
Progress Note, Physician Chief Complaint: NOTES AND EVENTS REVIEWED PATIENT IS NON AROUSAL TO VERBAL OR PHYSICAL STIMULI - Current Medication List Current Medications: Active Medications Chlorhexidine Gluconate (Hibiclens For Decolonization -) 1 applic TP HS LONNIE Dopamine HCl/Dextrose (Dopamine 400 Mg/D5w -) 400,000 mcg in 250 mls @ 15.309 mls/hr IVPB TITR LONNIE; 5 MCG/KG/MIN PRN Reason: Protocol Last Admin: 12/09/17 21:13 Dose: 5 mcg/kg/min, 15.309 mls/hr Piperacillin Sod/Tazobactam (Sod 3.375 gm/ Dextrose) 50 mls @ 100 mls/hr IVPB Q8H-IV LONNIE Last Admin: 12/10/17 09:22 Dose: 100 mls/hr Insulin Aspart (Novolog Vial Sliding Scale -) 1 vial SQ Q6H LONNIE PRN Reason: Protocol Last Admin: 12/10/17 06:53 Dose: 4 units Mupirocin (Bactroban Ointment (For Decolonization) -) 1 applic NS BID LONNIE Stop: 12/15/17 09:59 Last Admin: 12/10/17 09:32 Dose: 1 applic Pantoprazole Sodium (Protonix Iv) 40 mg IVPUSH DAILY LONNIE Last Admin: 12/10/17 09:21 Dose: 40 mg - Objective Vital Signs: Vital Signs Temperature 96.0 F L 12/10/17 08:00 Pulse Rate 62 12/10/17 08:00 Respiratory Rate 18 12/10/17 08:00 Blood Pressure 112/61 12/10/17 08:00 O2 Sat by Pulse Oximetry (%) 100 12/10/17 08:00 Constitutional: Yes: Severe Distress Eyes: Yes: Other HENT: Yes: WNL Neck: Yes: WNL Cardiovascular: Yes: Pulse Irregular Respiratory: Yes: Mechanically Ventilated, Rhonchi Gastrointestinal: Yes: WNL Musculoskeletal: Yes: Muscle Weakness Extremities: Yes: Other Edema: Yes Peripheral Pulses WNL: Yes Integumentary: Yes: Venous Stasis Changes Wound/Incision: Yes: Dressing Dry and Intact Neurological: Yes: Pre-Existing Deficit, Weakness ...Motor Strength: LLE, RLE Psychiatric: Yes: Other Labs: CBC, BMP 12/10/17 06:30 12/10/17 06:30 INR, PTT INR 1.09 (0.82-1.09) 12/10/17 06:30 Problem List - Problems (1) Respiratory failure Code(s): J96.90 - RESPIRATORY FAILURE, UNSP, UNSP W HYPOXIA OR HYPERCAPNIA Qualifiers: Chronicity: acute (2) Cardiac arrest Code(s): I46.9 - CARDIAC ARREST, CAUSE UNSPECIFIED (3) MSOF (multiple systems organ failure) Code(s): KXP4371 - (4) Cardiogenic shock Code(s): R57.0 - CARDIOGENIC SHOCK Assessment/Plan INTUBATED ON VENT IV ABX PAIN CONTROL ADVANCED DIRECTIVES DISCUSSED PER RESIDENT KELSIE NOTES REVIEWED CONT BP SUPPORT IV ABX CARDIOGENIC SHOCK
--- NOTE | 2017-12-10 10:52 | EKG ---
Test Reason : Blood Pressure : / mmHG Vent. Rate : 087 BPM Atrial Rate : 087 BPM P-R Int : 204 ms QRS Dur : 090 ms QT Int : 400 ms P-R-T Axes : 056 021 065 degrees QTc Int : 481 ms NORMAL SINUS RHYTHM POSSIBLE LEFT ATRIAL ENLARGEMENT NONSPECIFIC ST AND T WAVE ABNORMALITY PROLONGED QT ABNORMAL ECG WHEN COMPARED WITH ECG OF 16-NOV-2017 16:20, NO SIGNIFICANT CHANGE WAS FOUND Confirmed by RITCHIE HENDRICKSON, ANNEL ([id number]) on 12/10/2017 10:51:44 AM Referred By: Confirmed By:ANNEL DUGAN MD
--- NOTE | 2017-12-10 11:45 | PN ---
Teaching Attending Note Name of Resident: Philipp Quigley ATTENDING PHYSICIAN STATEMENT I saw and evaluated the patient. I reviewed the resident's note and discussed the case with the resident. I agree with the resident's findings and plan as documented. SUBJECTIVE: Patient seen and examined in the ICU. Poorly responsive although no sedation. AC Mode of vent. Remains on Dopamine for hemodynamic support. CXR: Left base opacity Intake & Output 12/07/17 12/08/17 12/09/17 12/10/17 23:59 23:59 23:59 23:59 Intake Total 108 Output Total 50 Balance 58 Weight 180 lb 158 lb 8.198 oz Last Vital Signs Temp Pulse Resp BP Pulse Ox 96.0 F L 77 19 103/62 100 12/10/17 10:00 12/10/17 10:00 12/10/17 11:25 12/10/17 10:00 12/10/17 08:00 Active Medications Chlorhexidine Gluconate (Hibiclens For Decolonization -) 1 applic TP HS LONNIE Dopamine HCl/Dextrose (Dopamine 400 Mg/D5w -) 400,000 mcg in 250 mls @ 15.309 mls/hr IVPB TITR LONNIE; 5 MCG/KG/MIN PRN Reason: Protocol Last Admin: 12/09/17 21:13 Dose: 5 mcg/kg/min, 15.309 mls/hr Piperacillin Sod/Tazobactam (Sod 3.375 gm/ Dextrose) 50 mls @ 100 mls/hr IVPB Q8H-IV LONNIE Last Admin: 12/10/17 09:22 Dose: 100 mls/hr Insulin Aspart (Novolog Vial Sliding Scale -) 1 vial SQ Q6H LONNIE PRN Reason: Protocol Last Admin: 12/10/17 06:53 Dose: 4 units Mupirocin (Bactroban Ointment (For Decolonization) -) 1 applic NS BID LONNIE Stop: 12/15/17 09:59 Last Admin: 12/10/17 09:32 Dose: 1 applic Pantoprazole Sodium (Protonix Iv) 40 mg IVPUSH DAILY [facility] Last Admin: 12/10/17 09:21 Dose: 40 mg Constitutional: Yes: Intubated, poorly responsive Eyes: Yes: Other (fixed pupils) HENT: Yes: Other (ETT) Neck: Yes: WNL Cardiovascular: Yes: WNL, Regular Rate and Rhythm Respiratory: Yes: Intubated, Mechanically Ventilated Gastrointestinal: Yes: Hypoactive Bowel Sounds ...Rectal Exam: Yes: Deferred Renal/: Yes: Anuria Breast(s): Yes: WNL Musculoskeletal: Yes: WNL Extremities: Yes: WNL Edema: Yes Peripheral Pulses WNL: No Neurological: Yes: Minimally responsive Labs: Laboratory Results - last 24 hr 12/09/17 12/09/17 12/09/17 21:30 21:30 21:30 WBC 12.1 H D Corrected WBC (auto) RBC 2.80 L Hgb 8.4 L D Hct 25.8 L MCV 92.2 MCH 29.8 MCHC 32.4 RDW 17.0 H Plt Count 461 H MPV 8.6 Absolute Neuts (auto) Absolute Lymphs (auto) Absolute Monos (auto) Absolute Eos (auto) Absolute Basos (auto) Add Manual Diff Neutrophils % No Result Required. Neutrophils % (Manual) 56.0 Band Neutrophils % 5.0 Lymphocytes % No Result Required. Lymphocytes % (Manual) 32.0 Monocytes % Monocytes % (Manual) 4 Eosinophils % Eosinophils % (Manual) 1.0 Basophils % Basophils % (Manual) Myelocytes % (Man) Promyelocytes % (Man) Blast Cells % (Manual) Nucleated RBC % Metamyelocytes 2 Hypochromia 2+ Platelet Estimate Slt increase Platelet Comment No clotting detected Normal RBC Morphology Anisocytosis 2+ PT with INR 12.20 H INR 1.08 Anticoagulation Therapy Puncture Site ABG pH ABG pCO2 at Pt Temp ABG pO2 at Pt Temp ABG HCO3 ABG O2 Sat (Measured) ABG O2 Content ABG Base Excess Ulises Test O2 Delivery Device Oxygen Flow Rate Vent Mode Vent Rate Mechanical Rate PEEP Pressure Support Vent Sodium 138 Potassium 5.2 H Chloride 99 Carbon Dioxide 25 Anion Gap 14 BUN 65 H Creatinine 1.7 H Creat Clearance w eGFR 28.63 POC Glucometer Random Glucose 267 H Lactic Acid Calcium 8.9 Phosphorus Magnesium 2.3 Ferritin Total Bilirubin 0.3 D AST 51 H ALT 22 Alkaline Phosphatase 150 H Creatine Kinase 111 Troponin I 0.05 Total Protein 5.8 L Albumin 1.7 L Total Amylase 73 Vitamin B12 Urine Color Urine Appearance Urine pH Ur Specific [place] Urine Protein Urine Glucose (UA) Urine Ketones Urine Blood Urine Nitrite Urine Bilirubin Urine Urobilinogen Ur Leukocyte Esterase Urine WBC (Auto) Urine RBC (Auto) Random Vancomycin Acetone, Qual Negative L Blood Type Antibody Screen 12/09/17 12/09/17 12/09/17 21:30 21:35 21:57 WBC Corrected WBC (auto) RBC Hgb Hct MCV MCH MCHC RDW Plt Count MPV Absolute Neuts (auto) Absolute Lymphs (auto) Absolute Monos (auto) Absolute Eos (auto) Absolute Basos (auto) Add Manual Diff Neutrophils % Neutrophils % (Manual) Band Neutrophils % Lymphocytes % Lymphocytes % (Manual) Monocytes % Monocytes % (Manual) Eosinophils % Eosinophils % (Manual) Basophils % Basophils % (Manual) Myelocytes % (Man) Promyelocytes % (Man) Blast Cells % (Manual) Nucleated RBC % Metamyelocytes Hypochromia Platelet Estimate Platelet Comment Normal RBC Morphology Anisocytosis PT with INR INR Anticoagulation Therapy Puncture Site ABG pH ABG pCO2 at Pt Temp ABG pO2 at Pt Temp ABG HCO3 ABG O2 Sat (Measured) ABG O2 Content ABG Base Excess Ulises Test O2 Delivery Device Oxygen Flow Rate Vent Mode Vent Rate Mechanical Rate PEEP Pressure Support Vent Sodium Potassium Chloride Carbon Dioxide Anion Gap BUN Creatinine Creat Clearance w eGFR POC Glucometer Random Glucose Lactic Acid 10.3 H* Calcium Phosphorus Magnesium Ferritin Total Bilirubin AST ALT Alkaline Phosphatase Creatine Kinase Troponin I Total Protein Albumin Total Amylase Vitamin B12 Urine Color Yellow Urine Appearance Turbid Urine pH 7.0 D Ur Specific [place]ondon 1.015 Urine Protein 3+ H Urine Glucose (UA) Negative Urine Ketones Negative Urine Blood Negative Urine Nitrite Negative Urine Bilirubin Negative Urine Urobilinogen Negative Ur Leukocyte Esterase 2+ H Urine WBC (Auto) 294 Urine RBC (Auto) 18 Random Vancomycin Acetone, Qual Blood Type O POSITIVE Antibody Screen Negative 12/10/17 12/10/17 12/10/17 00:50 00:50 00:50 WBC Cancelled Corrected WBC (auto) Cancelled RBC Cancelled Hgb Cancelled Hct Cancelled MCV Cancelled MCH Cancelled MCHC Cancelled RDW Cancelled Plt Count Cancelled MPV Cancelled Absolute Neuts (auto) Cancelled Absolute Lymphs (auto) Cancelled Absolute Monos (auto) Cancelled Absolute Eos (auto) Cancelled Absolute Basos (auto) Cancelled Add Manual Diff Cancelled Neutrophils % Cancelled Neutrophils % (Manual) Band Neutrophils % Lymphocytes % Cancelled Lymphocytes % (Manual) Monocytes % Cancelled Monocytes % (Manual) Eosinophils % Cancelled Eosinophils % (Manual) Basophils % Cancelled Basophils % (Manual) Myelocytes % (Man) Promyelocytes % (Man) Blast Cells % (Manual) Nucleated RBC % Cancelled Metamyelocytes Hypochromia Platelet Estimate Cancelled Platelet Comment Cancelled Normal RBC Morphology Cancelled Anisocytosis PT with INR INR Anticoagulation Therapy Puncture Site ABG pH ABG pCO2 at Pt Temp ABG pO2 at Pt Temp ABG HCO3 ABG O2 Sat (Measured) ABG O2 Content ABG Base Excess Ulises Test O2 Delivery Device Oxygen Flow Rate Vent Mode Vent Rate Mechanical Rate PEEP Pressure Support Vent Sodium 126 L Potassium 3.8 Chloride 89 L Carbon Dioxide 23 Anion Gap 14 BUN 52 H Creatinine 1.5 H Creat Clearance w eGFR 33.08 POC Glucometer Random Glucose 554 H* Lactic Acid 3.4 H* Calcium 8.1 L Phosphorus 4.0 Magnesium 2.0 Ferritin Total Bilirubin 0.5 D AST 76 H ALT 59 Alkaline Phosphatase 149 H Creatine Kinase Troponin I Total Protein 6.1 L Albumin 1.6 L Total Amylase Vitamin B12 Urine Color Urine Appearance Urine pH Ur Specific [place] Urine Protein Urine Glucose (UA) Urine Ketones Urine Blood Urine Nitrite Urine Bilirubin Urine Urobilinogen Ur Leukocyte Esterase Urine WBC (Auto) Urine RBC (Auto) Random Vancomycin Acetone, Qual Blood Type Antibody Screen 12/10/17 12/10/17 12/10/17 01:01 02:21 03:30 WBC Corrected WBC (auto) RBC Hgb Hct MCV MCH MCHC RDW Plt Count MPV Absolute Neuts (auto) Absolute Lymphs (auto) Absolute Monos (auto) Absolute Eos (auto) Absolute Basos (auto) Add Manual Diff Neutrophils % Neutrophils % (Manual) Band Neutrophils % Lymphocytes % Lymphocytes % (Manual) Monocytes % Monocytes % (Manual) Eosinophils % Eosinophils % (Manual) Basophils % Basophils % (Manual) Myelocytes % (Man) Promyelocytes % (Man) Blast Cells % (Manual) Nucleated RBC % Metamyelocytes Hypochromia Platelet Estimate Platelet Comment Normal RBC Morphology Anisocytosis PT with INR INR Anticoagulation Therapy No Result Required. Puncture Site Right radial ABG pH 7.51 H D ABG pCO2 at Pt Temp 32.9 L D ABG pO2 at Pt Temp 384.0 H* D ABG HCO3 25.9 ABG O2 Sat (Measured) 99.8 H* ABG O2 Content 14.6 L ABG Base Excess 3.4 H Ulises Test Positive O2 Delivery Device Mech vent Oxygen Flow Rate 100% Vent Mode A/c Vent Rate 12 Mechanical Rate Yes PEEP 5.0 Pressure Support Vent 400 Sodium Potassium Chloride Carbon Dioxide Anion Gap BUN Creatinine Creat Clearance w eGFR POC Glucometer [phone] Random Glucose Lactic Acid Calcium Phosphorus Magnesium Ferritin Total Bilirubin AST ALT Alkaline Phosphatase Creatine Kinase Troponin I 0.22 H Total Protein Albumin Total Amylase Vitamin B12 Urine Color Urine Appearance Urine pH Ur Specific [place] Urine Protein Urine Glucose (UA) Urine Ketones Urine Blood Urine Nitrite Urine Bilirubin Urine Urobilinogen Ur Leukocyte Esterase Urine WBC (Auto) Urine RBC (Auto) Random Vancomycin Acetone, Qual Blood Type Antibody Screen 12/10/17 12/10/17 12/10/17 06:00 06:18 06:30 WBC 26.8 H D Corrected WBC (auto) RBC 3.75 D Hgb 11.1 D Hct 33.9 D MCV 90.5 MCH 29.6 MCHC 32.7 RDW 16.9 H Plt Count 522 H MPV 8.7 Absolute Neuts (auto) Absolute Lymphs (auto) Absolute Monos (auto) Absolute Eos (auto) Absolute Basos (auto) Add Manual Diff Neutrophils % Neutrophils % (Manual) 83.3 H D Band Neutrophils % 7.8 Lymphocytes % Lymphocytes % (Manual) 6.9 L D Monocytes % Monocytes % (Manual) 2 L Eosinophils % Eosinophils % (Manual) 0.0 D Basophils % Basophils % (Manual) 0.0 Myelocytes % (Man) 0 Promyelocytes % (Man) 0 Blast Cells % (Manual) 0 Nucleated RBC % 0 Metamyelocytes 0 D Hypochromia Platelet Estimate Increased Platelet Comment Normal RBC Morphology Anisocytosis PT with INR INR Anticoagulation Therapy Puncture Site ABG pH ABG pCO2 at Pt Temp ABG pO2 at Pt Temp ABG HCO3 ABG O2 Sat (Measured) ABG O2 Content ABG Base Excess Ulises Test O2 Delivery Device Oxygen Flow Rate Vent Mode Vent Rate Mechanical Rate PEEP Pressure Support Vent Sodium Potassium Chloride Carbon Dioxide Anion Gap BUN Creatinine Creat Clearance w eGFR POC Glucometer [phone] Random Glucose Lactic Acid Calcium Phosphorus Magnesium Ferritin Total Bilirubin AST ALT Alkaline Phosphatase Creatine Kinase Troponin I Total Protein Albumin Total Amylase Vitamin B12 Urine Color Urine Appearance Urine pH Ur Specific [place] Urine Protein Urine Glucose (UA) Urine Ketones Urine Blood Urine Nitrite Urine Bilirubin Urine Urobilinogen Ur Leukocyte Esterase Urine WBC (Auto) Urine RBC (Auto) Random Vancomycin 11.812 Acetone, Qual Blood Type Antibody Screen 12/10/17 12/10/17 12/10/17 06:30 06:30 07:10 WBC Corrected WBC (auto) RBC Hgb Hct MCV MCH MCHC RDW Plt Count MPV Absolute Neuts (auto) Absolute Lymphs (auto) Absolute Monos (auto) Absolute Eos (auto) Absolute Basos (auto) Add Manual Diff Neutrophils % Neutrophils % (Manual) Band Neutrophils % Lymphocytes % Lymphocytes % (Manual) Monocytes % Monocytes % (Manual) Eosinophils % Eosinophils % (Manual) Basophils % Basophils % (Manual) Myelocytes % (Man) Promyelocytes % (Man) Blast Cells % (Manual) Nucleated RBC % Metamyelocytes Hypochromia Platelet Estimate Platelet Comment Normal RBC Morphology Anisocytosis PT with INR 12.30 H INR 1.09 Anticoagulation Therapy Puncture Site ABG pH ABG pCO2 at Pt Temp ABG pO2 at Pt Temp ABG HCO3 ABG O2 Sat (Measured) ABG O2 Content ABG Base Excess Ulises Test O2 Delivery Device Oxygen Flow Rate Vent Mode Vent Rate Mechanical Rate PEEP Pressure Support Vent Sodium 139 Potassium 4.1 Chloride 98 Carbon Dioxide 23 Anion Gap 18 H BUN 64 H Creatinine 2.0 H Creat Clearance w eGFR 23.74 POC Glucometer Random Glucose 219 H Lactic Acid Calcium 9.4 Phosphorus 3.5 Magnesium 2.2 Ferritin 4024 H Cancelled Total Bilirubin 0.4 AST 90 H ALT 40 Alkaline Phosphatase 189 H Creatine Kinase Troponin I 0.90 H* Cancelled Total Protein 7.3 Albumin 1.9 L Total Amylase Vitamin B12 1325 H Cancelled Urine Color Urine Appearance Urine pH Ur Specific [place] Urine Protein Urine Glucose (UA) Urine Ketones Urine Blood Urine Nitrite Urine Bilirubin Urine Urobilinogen Ur Leukocyte Esterase Urine WBC (Auto) Urine RBC (Auto) Random Vancomycin Acetone, Qual Blood Type Antibody Screen 12/10/17 12/10/17 07:10 07:30 WBC Corrected WBC (auto) RBC Hgb Hct MCV MCH MCHC RDW Plt Count MPV Absolute Neuts (auto) Absolute Lymphs (auto) Absolute Monos (auto) Absolute Eos (auto) Absolute Basos (auto) Add Manual Diff Neutrophils % Neutrophils % (Manual) Band Neutrophils % Lymphocytes % Lymphocytes % (Manual) Monocytes % Monocytes % (Manual) Eosinophils % Eosinophils % (Manual) Basophils % Basophils % (Manual) Myelocytes % (Man) Promyelocytes % (Man) Blast Cells % (Manual) Nucleated RBC % Metamyelocytes Hypochromia Platelet Estimate Platelet Comment Normal RBC Morphology Anisocytosis PT with INR INR Anticoagulation Therapy Puncture Site Right radial ABG pH 7.48 H ABG pCO2 at Pt Temp 34.7 L ABG pO2 at Pt Temp 174.0 H* D ABG HCO3 25.5 ABG O2 Sat (Measured) 99.9 H* ABG O2 Content 13.9 L ABG Base Excess 2.5 H Ulises Test Positive O2 Delivery Device Mech vent Oxygen Flow Rate 55% Vent Mode A/c Vent Rate 12 Mechanical Rate Yes PEEP 5.0 Pressure Support Vent 400 Sodium Potassium Chloride Carbon Dioxide Anion Gap BUN Creatinine Creat Clearance w eGFR POC Glucometer Random Glucose Lactic Acid 3.6 H* Calcium Phosphorus Magnesium Ferritin Total Bilirubin AST ALT Alkaline Phosphatase Creatine Kinase Troponin I Total Protein Albumin Total Amylase Vitamin B12 Urine Color Urine Appearance Urine pH Ur Specific [place] Urine Protein Urine Glucose (UA) Urine Ketones Urine Blood Urine Nitrite Urine Bilirubin Urine Urobilinogen Ur Leukocyte Esterase Urine WBC (Auto) Urine RBC (Auto) Random Vancomycin Acetone, Qual Blood Type Antibody Screen Problem List - Problems (1) MSOF (multiple systems organ failure) Code(s): GIN0908 - (2) Cardiac arrest Code(s): I46.9 - CARDIAC ARREST, CAUSE UNSPECIFIED (3) Sepsis Code(s): A41.9 - SEPSIS, UNSPECIFIED ORGANISM (4) UTI (urinary tract infection) Code(s): N39.0 - URINARY TRACT INFECTION, SITE NOT SPECIFIED Qualifiers: (5) Acute renal failure (ARF) Code(s): N17.9 - ACUTE KIDNEY FAILURE, UNSPECIFIED (6) Diabetes mellitus Code(s): E11.9 - TYPE 2 DIABETES MELLITUS WITHOUT COMPLICATIONS Qualifiers: Diabetes mellitus type: type 2 Diabetes mellitus complication status: without complication (7) Failure to thrive Code(s): [id number] - (8) Psychiatric disturbance Code(s): F99 - MENTAL DISORDER, NOT OTHERWISE SPECIFIED (9) Schizophrenia Code(s): F20.9 - SCHIZOPHRENIA, UNSPECIFIED (10) Dementia Code(s): F03.90 - UNSPECIFIED DEMENTIA WITHOUT BEHAVIORAL DISTURBANCE Qualifiers: Dementia type: unspecified type Dementia behavioral disturbance: with behavioral disturbance Qualified Code(s): F03.91 - Unspecified dementia with behavioral disturbance Assessment/Plan ASSESS: is an 82 y/o woman, SNF resident, IDDM, HTN, CHANDU, frequent hospital admits for sepsis, & FTT, admitted now to the ICU s/p cardiac arrest in MSOF / moribund. As discussed with family earlier, no escalation of care. Maintain Dopamine as needed, wean as tolerated ABX IVF AC mode of vent BD TX VTE prophylaxis Follow cultures DNR / DNI Dr Botello Critical care time spent in reviewing chart, evaluating patient and formulating plan - 36 minutes.
--- NOTE | 2017-12-10 12:50 | CONS ---
DATE OF CONSULTATION: DATE OF DICTATION: 12/10/2017 REQUESTING PHYSICIAN: Ponce Erazo MD HISTORY OF PRESENT ILLNESS: This is an 82-year-old woman admitted from the group home with a witnessed arrest. The EMS was called. She was intubated. Chest compressions were started. She was given a round of epinephrine, bicarbonate, and calcium gluconate in the field. Bilateral intra IOs were placed and she was transferred to the emergency room. In the ER, she was noted to be hypotensive. She was given fluids and dopamine. Hypothermia protocol was started. She was noted to be unresponsive. She had profuse diarrhea, and a rectal tube was placed. I am asked to see her for possible sepsis. PAST MEDICAL HISTORY: History is from her prior chart since the patient is unresponsive. She has a history of dementia in the past, hypertension, hyperlipidemia. She has a history of a liver lesion on CT scans, has a history of UTI, anemia, osteoarthritis, diabetes. She is status post cholecystectomy, and most recently, she underwent a G-tube placement on her last admission. MEDICATIONS: At the group home include Timoptic Eye Drops, Crestor, Zantac, olanzapine, Haldol, Depakote, Bacitracin, aspirin. FAMILY HISTORY: Not available. ALLERGIES: She has no known drug allergies. SOCIAL HISTORY: She is a resident of the group home. REVIEW OF SYSTEMS: Not available except for the fact he nurses noted that she had diarrhea, and they placed the rectal tube. PHYSICAL EXAMINATION Vital signs: She is unresponsive. She is hypothermic. Rectal temperature of 95. She has hypothermia blanket. Her pulse is 66, blood pressure is 135/94, respiratory rate is 18. She is orally intubated. FiO2 of 60%, saturating 100%. HEENT: She is normocephalic. Her eyes are anicteric. Lungs: Have diminished breath sounds at the bases. Heart: Regular rate and rhythm. She has a 2/6 systolic ejection murmur. Abdomen: Soft, nontender. G-tube site is clean. She has a rectal tube. Extremities: Without edema. DIAGNOSTIC DATA: White count on admission last night was 12.1, hemoglobin 8.4, platelets of 461. BUN 52, creatinine 1.5, sodium 126. Her lactic acid on admission was 10, 0.3, repeat was 3.4, AST of 76, with alkaline phosphatase of 149. Troponin 0.22. Her urinalysis had 2+ leukocytes with 294 white cells. Chest x-ray notable for a possible opacity in the left lung base. SUMMARY: This is an 82-year-old woman from the group home with witnessed cardiac arrest status post intubation on a hypothermia protocol. Profuse diarrhea noted, as well. Possible sepsis. Urinary tract infection. Possible pneumonia. Cannot rule out Clostridium difficile as well. Would send stools for C. difficile, while cells, and culture. Blood cultures have been sent. I would continue Zosyn to cover for both UTI as well as possible [id number] pneumonia. She received a dose of vancomycin early this morning. Would check her level in the morning and redose as needed based on her renal function, and follow up cultures. C. difficile has been ordered and should be back later today. Overall prognosis is poor. The next of kin has been contacted. She is now DNR with no plans to escalate or withdraw care at this time. ALLIE TUCKER M.D. [id number]
[2017-12-10] MEDS: DOPAMINE 400 MG/D5W - 400,000 MCG/250 ML INFUS.BAG IVPB SCH (13:22)
[2017-12-10] MEDS: metroNIDAZOLE 250 MG TABLET PEG SCH ×2 (14:30→21:16)
[2017-12-10] MEDS ORDERED: PT OWN MED DRAWER 7, Y5N ONE (17:21)
[2017-12-10] MEDS: CHLORHEXIDINE GLUCONATE 0.12% 15ML CUP MM SCH (21:33)
[2017-12-10] MEDS ORDERED: CHLORHEXIDINE GLUCONATE 4% CLEANSER FOR DECOLONIZATION TP SCH (22:00)
[2017-12-11] MEDS ORDERED: PT OWN MED DRAWER 7, Y5N ONE ×2 (01:26→13:40)
[2017-12-11] MEDS: PIPERACILLIN/TAZOB 3.375 GM 3.375 GM in DEXTROSE 5%-WATER - 50 ML IVPB SCH (01:31)
[2017-12-11] MEDS: metroNIDAZOLE 250 MG TABLET PEG SCH ×2 (05:10→13:02)
[2017-12-11] MEDS: INSULIN SLIDING SCALE (NOVOLOG) 1 VIAL SQ SCH ×3 (05:11→17:43)
[2017-12-11] MEDS: DOPAMINE 400 MG/D5W - 400,000 MCG/250 ML INFUS.BAG IVPB SCH ×2 (05:58→13:43)
[2017-12-11 06:29] LABS: HEMATOCRIT 25.3 % (32.4-45.2); HEMOGLOBIN 8.6 GM/dL (10.7-15.3); MCH 29.9 pg (25.7-33.7); MCHC 33.8 g/dl (32.0-36.0); MEAN CELL VOLUME 88.6 fl (80-96); MEAN PLT VOLUME 8.7 fl (7.5-11.1); PLATELET COUNT 445 K/MM3 (134-434); RBC 2.86 M/mm3 (3.60-5.2); RDW 16.7 % (11.6-15.6); WHITE BLOOD COUNT 23.2 K/mm3 (4.0-10.0)
[2017-12-11 06:55] LABS: ALBUMIN 1.6 g/dl (3.4-5.0); BLOOD UREA NITROGEN 77 mg/dL (7-18); CHLORIDE 99 mmol/L (98-107); GLUCOSE,RANDOM 281 mg/dL (74-106); PHOSPHOROUS 3.5 mg/dL (2.5-4.9); SGOT/AST 77 U/L (15-37); SODIUM 139 mmol/L (136-145)
[2017-12-11 06:57] LABS: ALK PHOS 144 U/L (45-117); ANION GAP 16 (8-16); BILIRUBIN,TOTAL 0.4 mg/dL (0.2-1.0); CALCIUM 8.3 mg/dL (8.5-10.1); CO2 24 mmol/L (21-32); CREATININE 2.5 mg/dL (0.55-1.02); MAGNESIUM 2.2 mg/dL (1.8-2.4); SGPT/ALT 35 U/L (12-78); TOT PROT 5.9 g/dl (6.4-8.2)
--- NOTE | 2017-12-11 08:01 | PN ---
Progress Note, Physician Chief Complaint: ID Remains intubated Antibiotics : Metronidazole Vancom 1 dose Zosyn - Current Medication List Current Medications: Active Medications Chlorhexidine Gluconate (Hibiclens For Decolonization -) 1 applic TP HS [facility] Last Admin: 12/10/17 21:16 Dose: 1 applic Chlorhexidine Gluconate (Peridex -) 15 ml MM BID [facility] Last Admin: 12/10/17 21:33 Dose: 15 ml Dopamine HCl/Dextrose (Dopamine 400 Mg/D5w -) 400,000 mcg in 250 mls @ 15.309 mls/hr IVPB TITR LONNIE; 5 MCG/KG/MIN PRN Reason: Protocol Last Titration: 12/11/17 06:00 Dose: 2.61 mcg/kg/min, 8 mls/hr Piperacillin Sod/Tazobactam (Sod 3.375 gm/ Dextrose) 50 mls @ 100 mls/hr IVPB Q8H-IV [facility] Last Admin: 12/11/17 01:31 Dose: 100 mls/hr Insulin Aspart (Novolog Vial Sliding Scale -) 1 vial SQ Q6H LONNIE PRN Reason: Protocol Last Admin: 12/11/17 05:11 Dose: 6 units Metronidazole (Flagyl -) 500 mg PEG TID [facility] Last Admin: 12/11/17 05:10 Dose: 500 mg Mupirocin (Bactroban Ointment (For Decolonization) -) 1 applic NS BID [facility] Stop: 12/15/17 09:59 Last Admin: 12/10/17 21:16 Dose: 1 applic Pantoprazole Sodium (Protonix Iv) 40 mg IVPUSH DAILY [facility] Last Admin: 12/10/17 09:21 Dose: 40 mg - Objective Vital Signs: Vital Signs Temperature 93.6 F L 12/11/17 06:00 Pulse Rate 89 12/11/17 06:30 Respiratory Rate 16 12/11/17 06:41 Blood Pressure 99/58 12/11/17 06:30 O2 Sat by Pulse Oximetry (%) 100 12/11/17 06:36 Labs: CBC, BMP 12/11/17 05:50 12/11/17 05:50 INR, PTT INR 1.09 (0.82-1.09) 12/10/17 06:30 Assessment/Plan Laboratory Tests 12/09/17 12/10/17 12/11/17 21:57 06:00 05:50 WBC 23.2 H Hgb 8.6 L D Hct 25.3 L D Plt Count 445 H BUN Creat Clearance w eGFR Total Bilirubin ALT Ur Leukocyte Esterase 2+ H Urine WBC (Auto) 294 Urine RBC (Auto) 18 Random Vancomycin 11.812 12/11/17 05:50 WBC Hgb Hct Plt Count BUN 77 H Creat Clearance w eGFR 18.35 Total Bilirubin 0.4 ALT 35 Ur Leukocyte Esterase Urine WBC (Auto) Urine RBC (Auto) Random Vancomycin Assessment [facility] Urinary tract infection Pneumonia LLL possible Leukomoid reaction ? stress infection Plan Adjust Zosyn for Cr Cl Sputum cultures Rectal swab VREF Stool C diff Vijaya HENDRICKSON
--- NOTE | 2017-12-11 08:53 | PN ---
Progress Note, Physician - Current Medication List Current Medications: Active Medications Chlorhexidine Gluconate (Hibiclens For Decolonization -) 1 applic TP HS [facility] Last Admin: 12/10/17 21:16 Dose: 1 applic Chlorhexidine Gluconate (Peridex -) 15 ml MM BID [facility] Last Admin: 12/10/17 21:33 Dose: 15 ml Dopamine HCl/Dextrose (Dopamine 400 Mg/D5w -) 400,000 mcg in 250 mls @ 15.309 mls/hr IVPB TITR LONNIE; 5 MCG/KG/MIN PRN Reason: Protocol Last Titration: 12/11/17 06:00 Dose: 2.61 mcg/kg/min, 8 mls/hr Piperacillin/Tazobactam/Dextrose (Zosyn 2.25gm Ivpb (Premix)) 2.25 gm in 50 mls @ 100 mls/hr IVPB Q6H-IV LONNIE PRN Reason: Protocol Insulin Aspart (Novolog Vial Sliding Scale -) 1 vial SQ Q6H LONNIE PRN Reason: Protocol Last Admin: 12/11/17 05:11 Dose: 6 units Metronidazole (Flagyl -) 500 mg PEG TID [facility] Last Admin: 12/11/17 05:10 Dose: 500 mg Mupirocin (Bactroban Ointment (For Decolonization) -) 1 applic NS BID [facility] Stop: 12/15/17 09:59 Last Admin: 12/10/17 21:16 Dose: 1 applic Pantoprazole Sodium (Protonix Iv) 40 mg IVPUSH DAILY [facility] Last Admin: 12/10/17 09:21 Dose: 40 mg - Objective Vital Signs: Vital Signs Temperature 93.6 F L 12/11/17 06:00 Pulse Rate 89 12/11/17 06:30 Respiratory Rate 19 12/11/17 08:50 Blood Pressure 99/58 12/11/17 06:30 O2 Sat by Pulse Oximetry (%) 100 12/11/17 06:36 Labs: CBC, BMP 12/11/17 05:50 12/11/17 05:50 INR, PTT INR 1.09 (0.82-1.09) 12/10/17 06:30
[2017-12-11] MEDS: MUPIROCIN 2% TOPICAL OINTMENT FOR DECOLONIZATION NS SCH (09:09)
[2017-12-11] MEDS: PANTOPRAZOLE SODIUM 40 MG VIAL IVPUSH SCH (09:09)
[2017-12-11] MEDS: PIPERACILLIN/TAZOB 2.25 GM 2.25 GM/50 ML BAG IVPB SCH ×3 (09:11→20:19)
[2017-12-11] MEDS: CHLORHEXIDINE GLUCONATE 0.12% 15ML CUP MM SCH (09:56)
--- NOTE | 2017-12-11 12:26 | PN ---
Physical Exam: SUBJECTIVE: Patient seen and examined OBJECTIVE: Vital Signs Period Temp Pulse Resp BP Sys/Rudd Pulse Ox Last 24 Hr 92.6 F-97.5 F 77-116 13-24 79-129/45-68 100-100 GENERAL: The patient is awake, alert, and fully oriented, in no acute distress. HEAD: Normal with no signs of trauma. EYES: PERRL, extraocular movements intact, sclera anicteric, conjunctiva clear. No ptosis. ENT: Ears normal, nares patent, oropharynx clear without exudates, moist mucous membranes. NECK: Trachea midline, full range of motion, supple. LUNGS: Breath sounds equal, clear to auscultation bilaterally, no wheezes, no crackles, no accessory muscle use. HEART: Regular rate and rhythm, S1, S2 without murmur, rub or gallop. ABDOMEN: Soft, nontender, nondistended, normoactive bowel sounds, no guarding, no rebound, no hepatosplenomegaly, no masses. EXTREMITIES: 2+ pulses, warm, well-perfused, no edema. NEUROLOGICAL: Cranial nerves II through XII grossly intact. Normal speech, gait not observed. PSYCH: Normal mood, normal affect. SKIN: Warm, dry, normal turgor, no rashes or lesions noted Laboratory Results - last 24 hr 12/10/17 12/10/17 12/10/17 13:10 17:54 22:58 WBC RBC Hgb Hct MCV MCH MCHC RDW Plt Count MPV Sodium Potassium Chloride Carbon Dioxide Anion Gap BUN Creatinine Creat Clearance w eGFR POC Glucometer 181.55499 377.76797 [phone] Random Glucose Calcium Phosphorus Magnesium Total Bilirubin AST ALT Alkaline Phosphatase Total Protein Albumin 12/11/17 12/11/17 12/11/17 05:00 05:50 05:50 WBC 23.2 H RBC 2.86 L D Hgb 8.6 L D Hct 25.3 L D MCV 88.6 MCH 29.9 MCHC 33.8 RDW 16.7 H Plt Count 445 H MPV 8.7 Sodium 139 Potassium 4.0 Chloride 99 Carbon Dioxide 24 Anion Gap 16 BUN 77 H Creatinine 2.5 H Creat Clearance w eGFR 18.35 POC Glucometer [phone] Random Glucose 281 H Calcium 8.3 L Phosphorus 3.5 Magnesium 2.2 Total Bilirubin 0.4 AST 77 H ALT 35 Alkaline Phosphatase 144 H Total Protein 5.9 L Albumin 1.6 L Active Medications Generic Name Dose Route Start Last Admin Trade Name Cinda PRN Reason Stop Dose Admin Chlorhexidine Gluconate 1 applic 12/10/17 22:00 12/10/17 21:16 Hibiclens For Decolonization - TP 1 applic HS LONNIE Administration Chlorhexidine Gluconate 15 ml 12/10/17 22:00 12/11/17 09:56 Peridex - MM 15 ml BID LONNIE Administration Dopamine HCl/Dextrose 400,000 mcg in 250 mls @ 15.309 mls/hr 12/09/17 21:30 12/11/17 12:24 Dopamine 400 Mg/D5w - IVPB 5 mcg/kg/min TITR LONNIE 15.309 mls/hr Protocol Titration 5 MCG/KG/MIN Piperacillin/Tazobactam/Dextrose 2.25 gm in 50 mls @ 100 mls/hr 12/11/17 09: 00 12/11/17 09:11 Zosyn 2.25gm Ivpb (Premix) IVPB 100 mls/hr Q6H-IV LONNIE Administration Protocol Insulin Aspart 1 vial 12/09/17 23:45 12/11/17 05:11 Novolog Vial Sliding Scale - SQ 6 units Q6H LONNIE Administration Protocol Metronidazole 500 mg 12/10/17 14:30 12/11/17 05:10 Flagyl - PEG 500 mg TID LONNIE Administration Mupirocin 1 applic 12/10/17 10:00 12/11/17 09:09 Bactroban Ointment (For Decolonization) - NS 12/15/17 09:59 1 applic BID LONNIE Administration Pantoprazole Sodium 40 mg 12/10/17 10:00 12/11/17 09:09 Protonix Iv IVPUSH 40 mg DAILY LONNIE Administration ASSESSMENT/PLAN:
--- NOTE | 2017-12-11 12:57 | PN ---
Teaching Attending Note Name of Resident: Philipp Quigley ATTENDING PHYSICIAN STATEMENT I saw and evaluated the patient. I reviewed the resident's note and discussed the case with the resident. I agree with the resident's findings and plan as documented. SUBJECTIVE: Patient seen and examined in the ICU. Remains poorly responsive although has been off sedation. AC Mode of vent. Remains on Dopamine for hemodynamic support. CXR: No gross change Intake & Output 12/08/17 12/09/17 12/10/17 12/11/17 23:59 23:59 23:59 23:59 Intake Total 370 281.5 Output Total 52 0 Balance 318 281.5 Weight 180 lb 158 lb 8.198 oz Last Vital Signs Temp Pulse Resp BP Pulse Ox 97.1 F L 77 19 79/45 100 12/11/17 12:00 12/11/17 12:24 12/11/17 12:00 12/11/17 12:24 12/11/17 08:00 Active Medications Chlorhexidine Gluconate (Hibiclens For Decolonization -) 1 applic TP HS LONNIE Last Admin: 12/10/17 21:16 Dose: 1 applic Chlorhexidine Gluconate (Peridex -) 15 ml MM BID LONNIE Last Admin: 12/11/17 09:56 Dose: 15 ml Dopamine HCl/Dextrose (Dopamine 400 Mg/D5w -) 400,000 mcg in 250 mls @ 15.309 mls/hr IVPB TITR LONNIE; 5 MCG/KG/MIN PRN Reason: Protocol Last Titration: 12/11/17 12:24 Dose: 5 mcg/kg/min, 15.309 mls/hr Piperacillin/Tazobactam/Dextrose (Zosyn 2.25gm Ivpb (Premix)) 2.25 gm in 50 mls @ 100 mls/hr IVPB Q6H-IV LONNIE PRN Reason: Protocol Last Admin: 12/11/17 09:11 Dose: 100 mls/hr Insulin Aspart (Novolog Vial Sliding Scale -) 1 vial SQ Q6H LONNIE PRN Reason: Protocol Last Admin: 12/11/17 12:00 Dose: 6 units Metronidazole (Flagyl -) 500 mg PEG TID LONNIE Last Admin: 12/11/17 05:10 Dose: 500 mg Mupirocin (Bactroban Ointment (For Decolonization) -) 1 applic NS BID LONNIE Stop: 12/15/17 09:59 Last Admin: 12/11/17 09:09 Dose: 1 applic Pantoprazole Sodium (Protonix Iv) 40 mg IVPUSH DAILY [facility] [place] Last Admin: 12/11/17 09:09 Dose: 40 mg Constitutional: Yes: Intubated, poorly responsive Eyes: Yes: Other (fixed pupils) HENT: Yes: Other (ETT) Neck: Yes: WNL Cardiovascular: Yes: WNL, Regular Rate and Rhythm Respiratory: Yes: Intubated, Mechanically Ventilated Gastrointestinal: Yes: Hypoactive Bowel Sounds ...Rectal Exam: Yes: Deferred Renal/: Yes: Anuria Breast(s): Yes: WNL Musculoskeletal: Yes: WNL Extremities: Yes: WNL Edema: Yes Peripheral Pulses WNL: No Neurological: Yes: Minimally responsive Labs: Laboratory Results - last 24 hr 12/10/17 12/10/17 12/10/17 13:10 17:54 22:58 WBC RBC Hgb Hct MCV MCH MCHC RDW Plt Count MPV Sodium Potassium Chloride Carbon Dioxide Anion Gap BUN Creatinine Creat Clearance w eGFR POC Glucometer 181.16123 377.77665 [phone] Random Glucose Calcium Phosphorus Magnesium Total Bilirubin AST ALT Alkaline Phosphatase Total Protein Albumin 12/11/17 12/11/17 12/11/17 05:00 05:50 05:50 WBC 23.2 H RBC 2.86 L D Hgb 8.6 L D Hct 25.3 L D MCV 88.6 MCH 29.9 MCHC 33.8 RDW 16.7 H Plt Count 445 H MPV 8.7 Sodium 139 Potassium 4.0 Chloride 99 Carbon Dioxide 24 Anion Gap 16 BUN 77 H Creatinine 2.5 H Creat Clearance w eGFR 18.35 POC Glucometer [phone] Random Glucose 281 H Calcium 8.3 L Phosphorus 3.5 Magnesium 2.2 Total Bilirubin 0.4 AST 77 H ALT 35 Alkaline Phosphatase 144 H Total Protein 5.9 L Albumin 1.6 L Problem List - Problems (1) MSOF (multiple systems organ failure) Code(s): UPU6673 - (2) Cardiac arrest Code(s): I46.9 - CARDIAC ARREST, CAUSE UNSPECIFIED (3) Sepsis Code(s): A41.9 - SEPSIS, UNSPECIFIED ORGANISM (4) UTI (urinary tract infection) Code(s): N39.0 - URINARY TRACT INFECTION, SITE NOT SPECIFIED Qualifiers: (5) Acute renal failure (ARF) Code(s): N17.9 - ACUTE KIDNEY FAILURE, UNSPECIFIED (6) Diabetes mellitus Code(s): E11.9 - TYPE 2 DIABETES MELLITUS WITHOUT COMPLICATIONS Qualifiers: Diabetes mellitus type: type 2 Diabetes mellitus complication status: without complication (7) Failure to thrive Code(s): GAJ3752 - (8) Psychiatric disturbance Code(s): F99 - MENTAL DISORDER, NOT OTHERWISE SPECIFIED (9) Schizophrenia Code(s): F20.9 - SCHIZOPHRENIA, UNSPECIFIED (10) Dementia Code(s): F03.90 - UNSPECIFIED DEMENTIA WITHOUT BEHAVIORAL DISTURBANCE Qualifiers: Dementia type: unspecified type Dementia behavioral disturbance: with behavioral disturbance Qualified Code(s): F03.91 - Unspecified dementia with behavioral disturbance Assessment/Plan ASSESS: is an 82 y/o woman, SNF resident, IDDM, HTN, CHANDU, frequent hospital admits for sepsis, & FTT, admitted now to the ICU s/p cardiac arrest in MSOF / moribund. As discussed with family previously, no escalation of care. Maintain Dopamine as needed, wean as tolerated ABX IVF AC mode of vent BD TX VTE prophylaxis Follow cultures DNR / DNI Palliative care evaluation to further delineate GOC Dr Botello Critical care time spent in reviewing chart, evaluating patient and formulating plan - 36 minutes.
[2017-12-11 18:23] VITALS: TEMP 97
[2017-12-11 20:15] VITALS: BP 70/35; PULSE 100
--- NOTE | 2017-12-11 21:14 | PN ---
Progress Note (short form) - Note Progress Note: Note: Called to bedside for bradycardia, no pulse. Pt is s/p cardiac arrest earlier in week. Had been made DNR by family ( Yamilka Trivedi. nephew, surrogate of highest order, ). On exam pt had agonal rhythm, was unconscious, without pulse or respirations. There was no brain stem reflexes, no corneal relexes, was fixed and dilated and without apical heart sounds. Pronounced at 2049. Family notified. Attending service notified. [employer] notified by RN. Ashok Waite [facility] [id number]
--- NOTE | 2017-12-12 14:45 | DS ---
Physical Examination Vital Signs: Vital Signs Temperature 97.0 F L 12/11/17 18:00 Pulse Rate 100 H 12/11/17 20:00 Respiratory Rate 12 12/11/17 20:00 Blood Pressure 70/35 12/11/17 20:00 O2 Sat by Pulse Oximetry (%) 100 12/11/17 08:00 Labs: CBC, BMP 12/11/17 05:50 12/11/17 05:50 Discharge Summary Reason For Visit: URINARY TRACT INFECTION, CARDIAC ARREST,SEPSIS Hospital Course: HISTORY OF PRESENT ILLNESS: The patient was seen intubated in the ER. The following history was taken from the medical record. The patient is an 82 yo female w/ pmh of IDDM, HTN, dementia, recently admitted 11/16-11/27 for sepsis who presents after witnessed cardiac arrest at [facility]. Per EMS, she was being changed earlier today by [facility] staff when she "looked at aid funny" and became unresponsive. Upon EMS arrival they found she had gone into cardiac arrest and compressions with JENNIE device were begun. ROSC was obtained in the field with sinus tachycardia. Patient systolic BP was in 120's initially but had decreased to 60's by the time they reached ER. Upon arrival lines were placed in right AC as well as Right tibia (IO) and pressors were started. Patient placed on ventilator and pressure noted to increase to 80' s systolic. ER course was notable for: (1) lactic acid 10.3, WBC 12.1 in ER started on dopamine in inCU UTi and LLpnemonia- iv abx HOWIE and elevated LFTmade DNR/DNI then on 12/11/17 Condition: Guarded - Instructions Referrals: Ponce Erazo MD [Primary Care Provider] - Disposition: - Home Medications Comprehensive Discharge Medication List: Ambulatory Orders Acetaminophen 650 mg PO Q6H PRN 11/16/17 Ammonium Lactate Lotion [Lac-Hydrin 12] 1 applic TP BID 11/16/17 Aspirin 81 mg PO DAILY 11/16/17 Bacitracin - [Bacitracin Topical Ointment -] 1 applic TP DAILY 11/16/17 Divalproex *ER* [Depakote *ER* -] 500 mg PO HS 11/16/17 Haloperidol [Haldol -] 1 mg PO HS 11/16/17 Olanzapine [Olanzapine Odt] 15 mg PO HS 11/16/17 Ranitidine HCl [Zantac] 150 mg PO HS 11/16/17 Rosuvastatin Calcium [Crestor] 10 mg PO HS 11/16/17 Timolol 0.5% [Timoptic 0.5%] 1 drop OD BID 11/16/17 Collagenase Clostridium Hist. [Santyl -] 1 applic TP DAILY tube 11/27/17
== END 2017-12-11 22:02 | disposition expired | DRG 871 ==
LOC: JER 21:10 → JERBED 23:08 → JICU 23:57
PROVIDERS: ADMIT Internal Medicine; ATTEND Family Medicine
PROC: 5A1945Z Respiratory Ventilation, 24-96 Consecutive Hours (ICD-10-PCS; principal; 2017-12-09)
DX: A41.89 Other specified sepsis (principal); J18.9 Pneumonia, unspecified organism; J96.00 Acute respiratory failure, unspecified whether with hypoxia or hypercapnia; F20.89 Other schizophrenia; F31.89 Other bipolar disorder; N17.9 Acute kidney failure, unspecified; N39.0 Urinary tract infection, site not specified; F03.91 Unspecified dementia, unspecified severity, with behavioral disturbance; E11.9 Type 2 diabetes mellitus without complications; I10 Essential (primary) hypertension; E78.5 Hyperlipidemia, unspecified; K21.9 Gastro-esophageal reflux disease without esophagitis; I46.9 Cardiac arrest, cause unspecified; D64.9 Anemia, unspecified; L89.152 Pressure ulcer of sacral region, stage 2; K57.90 Diverticulosis of intestine, part unspecified, without perforation or abscess without bleeding; Z85.038 Personal history of other malignant neoplasm of large intestine; R62.7 Adult failure to thrive; R19.7 Diarrhea, unspecified; R00.1 Bradycardia, unspecified; Z66 Do not resuscitate; Z86.718 Personal history of other venous thrombosis and embolism; Z79.4 Long term (current) use of insulin
CPT/HCPCS: 36415; 36600; 71045-TC-FY; 80053; 81003; 81015; 82009; 82150; 82550; 82607; 82728; 82747; 82803; 82962; 83540; 83550; 83605; 83735; 84100; 84466; 84484; 85014; 85025; 85027; 85610; 86850; 86900; 86901; 87040; 87045; 87046; 87070; 87077; 87081; 87086; 87186; 87205; 87324; 87449; 93005; 93010; 94002; 99284-25; G0480